=== PATIENT | female | born 1965 | race Caucasian/White ===

== ENCOUNTER 2020-12-04 08:40 | Emergency (ER) | payer OTHER ==
--- OUTSIDE RECORDS SUMMARY | 2020-12-04 08:47 | XMS REPORT | Continuity of Care Document ---
:1965 Author Organization [facility] t Address [address] [place] [address] Care Team Providers Name Role Phone System, Not In Primary Care Physician Unavailable CINDY Attending Clinician Unavailable YUDITH Attending Clinician Unavailable EDIL RABAGO Attending Clinician Unavailable EDIL RABAGO Attending Clinician Unavailable Edil Rabago MD Attending Clinician Cornell Mckeon MD Attending Clinician Alexei KELLER Attending Clinician Chaz Steen MD Attending Clinician Khadijah Sims CRNA Attending Clinician Eddie Feldman Attending Clinician Unavailable Edil Rabago MD Attending Clinician Mckenna CARO P Attending Clinician YUDITH Attending Clinician Unavailable Nati Aj MD Attending Clinician Elisabeth Mayfield MD Attending Clinician Buddy KELLER Attending Clinician MD NATI AJ Attending Clinician Unavailable Lab, Fam Pob I Attending Clinician Unavailable NILE Attending Clinician Unavailable HADNOTT Attending Clinician Unavailable EDIL RABAGO Admitting Clinician Unavailable Eddie Feldman Admitting Clinician Unavailable RAIZA Admitting Clinician Unavailable MD NATI AJ Admitting Clinician Unavailable Payers Payer Name Policy Type Policy Effective Date Expiration Date Sour ce Number BCBSTX PPO [id number] 2019 00:00:00 OUT OF STATE [id number] BCBS - PPO - BCBS OPEN ACCESS [id number] 2016 HMO/POS/EPO/PPO 00:00:00 - AETANJALI CVCP-BCBS [id number] BLUE CROSS/BLUE [id number] [address] [facility] - SHIELDBCBS PPO 00:00:00 Medical Ce nter POS EPO [id number], [place] [id number] BCBSBCBS CHOICE [id number] PPO/FEDERAL EMPL 00:00:00 Hospital [id number] PO Problems Condition Condition Condition Status Onset Resolution Last Treating Co mments Source Name Details Category Date Date Treatment Clinician Date Renal mass Renal mass Disease Active [facility]12 [facility] - 00:00: Medical 00 [place] 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 11-03 [facility] - 00:00: Medical [place] Right Right Disease Active [facility] ureteral ureteral 618 [facility] - stone stone 00:00: Medical 00 [place] Nephrolith Nephrolith Disease Active [facility] iasis iasis 6-18 [facility] - 00:00: Medical 00 Center Cervical Cervical Disease Active 2017-04 Metho di stenosis stenosis 2-18 st of spinal of spinal 00:00: Hosp mojgan canal canal 00 l Degenerati Degenerati Disease Active 2018- M ethodi on of on of 2-18 st cervical cervical 00:00: Hospit a disc disc 00 l without without myelopathy myelopathy Rheumatoid Rheumatoid Disease Active 2018-0 M ethodi aortitis aortitis 08-25 st 00:00: Hospita 00 l Osteoarthr Osteoarthr Disease Active 2018-0 M ethodi itis itis 5-03 st 00:00: Hospita 00 l 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 (dislocati [address] st on of on of 00:00: Hospita temporoman temporoman 00 l dibular dibular joint) joint) Acute Acute Disease Active Methodi bilateral bilateral 5-02 st low back low back 00:00: Hospit a pain with pain with 00 l left-sided left-sided sciatica sciatica Rheumatoid Rheumatoid Disease Active [facility] arthritis arthritis 07-01 [facility] - 00:00: Medical 00 Center Vitamin D Vitamin D Disease Active [facility] deficiency deficiency 07-01 Kanika kes - 00:00: Medical 00 Center Long-term Long-term Disease Active [facility] use of use of 07-01 [facility] - immunosupp immunosupp 00:00: Me dical ressant ressant 00 Center medication medication Osteoarthr Osteoarthr Disease Active [facility] itis, itis, 07-01 [facility] - multiple multiple 00:00: Medica l sites sites 00 Center History of History of Problem Resolve Univers rheumatoid rheumatoid d [place] of History of Problem Resolve Univers blood blood d ity of clots clots [place] [facility] ans History of History of Problem Resolve Univers hemorrhoid hemorrhoid d it y of s s [place] [facility] ans History of History of Problem Resolve Univers hypertensi hypertensi d it y of on on [place] [facility] ans History of History of Problem Resolve Univers kidney kidney d ity of stones stones [place] [facility] ans History of History of Problem Resolve Univers staphyloco staphyloco d it y of ccal ccal [place] infection infection Phys ici ans History of History of Problem Resolve Univers Tumor Tumor d ity of [place] Physici ans Knee pain, Knee pain, Problem Active U nivers bilateral bilateral ity of [place] Physici ans Primary Primary Problem Active Univers osteoarthr osteoarthr it y of itis of itis [facility] right knee right knee Ph ysici ans Localized Localized Problem Active Uni vers osteoarthr osteoarthr it y of itis of itis [facility] both knees both knees Ph ysici ans Primary Primary Problem Active Univers localized localized [place] of [place]oarth[place] it[place] of itis of [facility] left knee left knee ans Status Status Problem Active Univers post total post total it y of left knee left knee [place] replacemen replacemen Ph ysici t t ans Aftercare Aftercare Problem Active Uni vers following following ity of left [place] left knee [place] joint joint Physici replacemen replacemen an s t surgery t surgery Pain and Pain and Problem Active Unive rs swelling swelling ity of of left of left [place] lower leg lower leg Phys ici ans Impingemen Impingemen Problem Active U nivers t syndrome t syndrome it y of of left of left [place] shoulder shoulder Physic i ans Glenohumer Glenohumer Problem Active U nivers al al ity of arthritis, arthritis, [place] left left [place]ici ans Left Left Problem Active Univers shoulder shoulder ity of tendonitis [place]itis [place] Quadriceps Quadriceps Problem Active U nivers weakness weakness ity of [place] Physici ans Weakness Weakness Problem Active Unive rs of both of both ity of lower lower [place] extremitie extremitie Ph ysici s s ans Hamstring Hamstring Problem Active Uni vers tendinitis tendinitis it y of of left of left [place] thigh thigh Physici ans Allergies, Adverse Reactions, Alerts Allergy Allergy Status Severity Reaction(s) Onset Inactive Treating Comm ents Source Name Type Date Date Clinician morphine DA Active SV 2019-04 [facility] 2-12 Clear 00:00: Ibarra 00 [facility] Diphenhy Propensi Active Palpitations Methodi dramine ty to 5-02 st Hcl adverse 00:00: Hospita reaction 00 l s to drug Diphenhy Drug Active Palpitations [facility] dramine Allergy 5-02 [facility] - Hcl 00:00: Medical 00 Center No Known DA Active U 2012-04 [facility] Allergie 0-07 [place] [facility] 00:[facility]: d 00 Medical Center Family History Family Member Diagnosis Comments Start Date Stop Date Source Grandmother Family history of Univer sity of diabetes mellitus [place] [facility] Grandmother Family history of Univer sity of cardiac disorder [place] [facility] Grandmother Family history of Univer sity of hypertension [place] Phys[facility] ians aunt Family history of Univers ity of hypertension [place] [facility] uncle Family history of Univers ity of cardiac disorder [place] [facility] Grandfather Family history of Univer sity of malignant neoplasm of Fabio as Physicians colon Grandfather Family history of Univer sity of cardiac disorder [place] [facility] Grandfather Family history of Univer sity of hypertension [place] [facility] ians Mother Family history of Univers ity of diabetes mellitus [place] [facility] Father Family history of Univers ity of hypertension [place] [facility] ians Father Family history of PSP Uni versity of (progressive [place] Physic ians supranuclear palsy) Father Family history of Univers ity of malignant neoplasm of Fabio as Physicians prostate Father Family history of Univers ity of malignant neoplasm of Fabio as Physicians skin Father Family history of Univers ity of chronic lymphoid [place] [facility] leukemia Sister Family history of Univers ity of hypertension [place] [facility] ians Brother Family history of Univers ity of cardiac disorder [place] [facility] Brother Family history of Univers ity of Transplanted heart [place] [facility] Natural mother Diabetes [facility] Natural mother Osteoarthritis [facility] Natural father Cancer [facility] Natural brother Coronary artery [facility] Other Rheum arthritis [facility] Social History Social Habit Start Date Stop Date Quantity Comments Source Sex Assigned At [facility] Tobacco use and 2020-11-04 2020-11-04 Never used [facility] - exposure 00:00:00 00:00:00 [facility] Alcohol intake 2020-11-04 2020-11-04 Current [facility] es - 00:00:00 00:00:00 non-drinker of [facility] nter alcohol (finding) Smoking Status Start Date Stop Date Source Never smoker [facility] Medications Ordered Filled Start Stop Current Ordering Indication Dosage Frequency Signature Comments Components Source Medication Medication Date Date Medication? Clinician (SIG) Name Name loratadine Yes 10mg QD Take [address] (CLARITIN) 7-13 by mouth [facility] - 10 mg 19:22: daily. Medical tablet 57 [place] PYRILAMINE/ Yes Take by [facility] PE/DEXTROME 7-13 mouth. [facility] - THORPHAN 19:22: Medical (POLY HIST 57 Center DM ORAL) aspirin 81 Yes 81mg QD Take [address] MG EC 7-13 by mouth [facility] - tablet 19:22: daily. Medical Center ascorbic Yes 1000mg QD Take 1,[address] acid, 7-13 mg by [facility]ukes - vitamin C, 19:22: mouth Medica l (vitamin C) 57 daily. Center 1000 MG tablet zinc Yes 50mg QD Take [address] gluconate 7-13 by mouth [facility] - 50 mg 19:22: daily. Medical tablet 57 [place] cholecalcif Yes 1000U QD Take 1,[address] mi, 7-13 Units by Fan - vitamin D3, 19:22: mouth Medic al 25 mcg 57 daily. Center (1,000 unit) capsule fluconazole Yes 100mg Take [address] (DIFLUCAN) 7-13 mg by [facility]ukes - 100 MG 19:22: mouth Medical tablet 57 once. Center ciprofloxac Yes 100mg Q.5D Take [address] in HCl 7-13 mg by Kanikakes - (CIPRO) 100 19:22: mouth 2 Med ical MG tablet 57 (two) Center times daily. amoxicillin Yes Q.5D Take by [facility] -clavulanat -13 mouth 2 [facility] - e 19:22: (two) Medical (AUGMENTIN) 57 times Center 200-28.5 daily. mg/5 mL suspension docusate 2020- No 100mg Q.5D Take 1 [facility] t sodium 11-04 capsule Fan - (COLACE) 00:00: 23:59 (100 mg Medic al 100 MG 00 :00 total) by Center capsule mouth 2 (two) times daily for 10 days. traMADoL 2020- No 50mg Take [address] (ULTRAM) 50 11-04 tablet (50 L ukes - mg tablet 00:00: 23:59 mg total) Me dical 00 :00 by mouth Center every 6 (six) hours as needed for Pain for up to 10 days. Max Daily Amount: 200 mg HYDROcodone 2020- No 1{tbl} Take [address] -acetaminop 11-04 tablet by Kanika herrera (NORCO 00:00: 23:59 mouth Medic al 5-325) 00 :00 every 6 Center 5-325 mg (six) per tablet hours as needed for Pain for up to 10 days. Max Daily Amount: 4 tablets traMADoL 2020- No 50mg Take [address] (ULTRAM) 50 11-04- tablet (50 L ukes - mg tablet 00:00: 00:00 mg total) Me dical 00 :00 by mouth Center every 6 (six) hours as needed for Pain for up to 10 days. Max Daily Amount: 200 mg tamsulosin Yes .4mg QD Take 1 [facility] t (FLOMAX) 10-10 capsule [facility]ukes - 0.4 mg Cap 00:00: (0.4 mg Medi godwin 24 hr 00 total) by Center capsule mouth daily. oxybutynin 2021- Yes 10mg Take [address] (DITROPAN-X 10-10 tablet (10 L ukes - L) 10 MG 24 00:00: 23:59 mg total) Medical hr tablet 00 :00 by mouth Center daily as needed (bladder spasms). traMADoL 2020- No 50mg Take [address] (ULTRAM) 50 10-10 tablet (50 L ukes - mg tablet 00:00: 23:59 mg total) Me dical 00 :00 by mouth Center every 6 (six) hours as needed for Pain for up to 10 days. Max Daily Amount: 200 mg docusate 2020- No 100mg Q.5D Take 1 [facility] t sodium 10-10 capsule [facility]ukes - (COLACE) 00:00: 23:59 (100 mg Medic al 100 MG 00 :00 total) by Center capsule mouth 2 (two) times daily for 10 days. cephalexin 2020- No 500mg [id number] Take [address] (KEFLEX) 10-10 [id number] capsule L ukes - 500 MG 00:00: 23:59 3D (500 mg Medical capsule 00 :00 total) by Center mouth 3 (three) times daily for 7 days. phenazopyri 2020- No 100mg Take [address] dine 10-10 tablet [facility]ukes - (PYRIDIUM) 00:00: 23:59 (100 mg Med ical 100 MG 00 :00 total) by Center tablet mouth 3 (three) times daily as needed for up to 3 days. tofacitinib 2019-04 Yes 1{tbl} QD Take 1 Me thodi citrate 1-[address] (XELJANZ 18:28: mouth Hospita ORAL) 47 daily. l DOSE IS 11 MG cholecalcif 2019-04 Yes 400U QD Take 400 Me thodi mi, 1-[address] vitamin D3, 18:28: mouth Hospi ta (cholecalci 47 daily. l ferol) 400 unit tablet aspirin 2019-04 Yes 81mg QD Take 81 mg Meth mary (ECOTRIN) -[address] 81 MG 18:28: daily. Hospita enteric 47 l coated tablet gabapentin 2019-04 Yes 300mg QD Take 300 Me thodi (NEURONTIN) 1-[address] 300 mg 18:28: mouth Hospita capsule 47 daily. l citalopram 2019-04 Yes 20mg QD Take 20 mg M ethodi (CeleXA) 10 -[address] MG tablet 18:28: nightly. Hosp mojgan 47 l traMADoL 2019-04 2020- No 10[address] 50mg Q6H Take 1 Metho di (Ultram) 50 04-29- tablet (50 s t mg tablet 00:00: 05:59 mg total) Ho spita 00 :00 by mouth l every 6 (six) hours as needed for moderate pain for up to 5 days .acute pain. ciprofloxac 2019-04- No 500mg Q.5D Take 1 Me thodi in (CIPRO) 04-[address] 500 MG 00:00: 05:59 (500 mg Hospita tablet 00 :00 total) by l mouth 2 (two) times a day for 3 days. HYDROcodone HYDROcodone 2019-0 Yes ANGELA 1 Q6H TAKE 1 Univers -Acetaminop -Acetaminop 7-11 RAMÍREZ-BAR TABLET ity of hen 10-325 hen 10-325 00:00: RE M.D. EVERY 6 [place] MG Oral MG Oral 00 HOURS PRN Phys ici Tablet Tablet ans Enoxaparin Enoxaparin 0 Yes ANGELA Please Univers Sodium 40 Sodium 40 7-10 RAMÍREZ-BAR inject 0.4 ity of MG/0.4ML MG/0.4ML 00:00: RE M.D. ml syringe [place] Subcutaneou Subcutaneou 00 once P hysici s Solution s Solution daily. a ns Gabapentin Gabapentin 2019-0 Yes ANGELA TAKE 1 Univers 300 MG Oral 300 MG Oral 7-04 RAMÍREZ-BAR CAPSULE BY ity of Capsule Capsule 00:00: RE M.D. MOUTH Fabio as 00 THREE Physici TIMES A ans DAY HYDROcodone HYDROcodone 2019-0 Yes ANGELA 1 Q4H TAKE 1 Univers -Acetaminop -Acetaminop 7-02 RAMÍREZ-BAR TABLET ity of hen 10-325 hen 10-325 00:00: RE M.D. EVERY 4 [place] MG Oral MG Oral 00 HOURS PRN Phys ici Tablet Tablet ans Diclofenac Diclofenac 2016-04 Yes TATUM QD APPLY TO Univers Sodium 1 % Sodium 1 % 2-28 HADNOTT LOWER ity of GEL GEL 00:00: M.D. EXTREMITIE [place] 00 S, 4 GM OF Physici GEL TO ans AFFECTED AREA 4 TIMES DAILY. DO NOT APPLY MORE THAN 16 GM DAILY TO ANY ONE AFFECTED JOINT. celecoxib Yes 200mg Q.5D Take 1 [facility] t (CELEBREX) 2-29 capsule [facility]ukes - 200 MG 00:00: (200 mg Medical capsule 00 total) by Center mouth 2 (two) times daily. doxycycline Yes . [facility] (VIBRAMYCIN 12-25 [facility] - ) 100 MG 00:00: Medical capsule 00 Center citalopram Yes 20mg QD Take [address] (CELEXA) 20 1-19 by mouth Luke s - MG tablet 00:00: daily . Medic al 00 Center Xeljanz XR Xeljanz XR Yes QD TAKE 1 U nivers 11 MG Oral 11 MG Oral TABLET i ty of Tablet Tablet DAILY [place] Extended Extended Physici Release 24 Release 24 ans Hour Hour Citalopram Citalopram Yes 1 QD TAKE 1 U nivers Hydrobromid Hydrobromid TABLET ity of e 20 MG e 20 MG DAILY. [place] Oral Tablet Oral Tablet P hysici ans Aspirin 81 Aspirin 81 Yes 1 QD TAKE 1 U nivers MG Oral MG Oral TABLET ity of Tablet Tablet DAILY. [place] Delayed Delayed Physici Release Release ans Tylenol Tylenol Yes 1 QD TAKE 1 Univers Extra Extra TABLET ity of Strength Strength DAILY PRN [place] 500 MG Oral 500 MG Oral P hysici Tablet Tablet ans Celecoxib Celecoxib Yes ANGELA TAKE 1 Un live 200 MG Oral 200 MG Oral RAMÍREZ-BAR CAPSULE BY ity of Capsule Capsule RE M.D. MOUTH [place] TWICE Physici DAILY THE ans DAY BEFORE SURGERY, AND 1 CAPSULE THE MORNING OF SURGERY Vital Signs Vital Name Observation Time Observation Value Comments Source Systolic blood 2020-11-04 15:50:00 111 mm[Hg[facility] Diastolic blood 2020-11-04 15:50:00 63 mm[Hg] [facility] Heart rate 2020-11-04 15:50:00 64 /min [facility] Body temperature 2020-11-04 15:50:00 35.78 Isha [facility] Respiratory rate 2020-11-04 15:50:00 18 /min [facility] Oxygen saturation in 2020-11-04 15:50:00 98 /min [facility] - Arterial blood by Medical Ce nter Pulse oximetry Body height 2020-11-03 05:58:00 170.2 cm [facility] Body weight 2020-11-03 05:58:00 101 kg [facility] BMI 2020-11-03 05:58:00 34.87 kg/m2 [facility] Weight 2020-07-02 11:36:00 222 [lb_av] Universi [facility] Physician s Body mass index 2020-07-02 11:36:00 34.77 kg/m2 Unive rsity of (BMI) [Ratio] [place] Physicia Systolic blood 2020-02-28 18:03:00 123 mm[Hg] [facility] pressure Diastolic blood 2020-02-28 18:03:00 72 mm[Hg] [facility] pressure Heart rate 2020-02-28 18:03:00 62 /min [facility] Respiratory rate 2020-02-28 18:03:00 16 /min [facility] Oxygen saturation in 2020-02-28 18:03:00 99 /min [facility] Arterial blood by Pulse oximetry Body temperature 2020-02-28 17:30:00 36.78 Isha [facility] Body height 2020-02-28 13:15:00 170.2 cm [facility] Body weight 2020-02-28 13:15:00 101.107 kg [facility] BMI 2020-02-28 13:15:00 34.91 kg/m2 [facility] Height 2017-04-26 11:07:00 67 [in_us] Universi ty [facility] Physician s Weight 2017-04-26 11:07:00 235 [lb_av] Universi [facility] Physician s Body Mass Index 2017-04-26 11:07:00 36.81 kg/m2 Unive rsity of Calculated [place] Physician s Procedures Procedure Date / Time Performing Clinician Source Performed BASIC METABOLIC PANEL (7) 2020-11-04 03:37:00 Wyatt Collins [facility], [facility] CBC W/PLT COUNT & AUTO 2020-11-04 03:37:00 Wyatt Collins [facility] BASIC METABOLIC PANEL (7) 2020-11-03 13:04:00 Nati Mejia [facility] HEMOGLOBIN AND HEMATOCRIT 2020-11-03 13:04:00 Nati Mejia [facility] TISSUE EXAM 2020-11-03 11:05:00 Gage Rabago [facility] LAPAROSCOPY,NEPHRECTOMY 2020-11-03 07:14:00 Gage Rabago [facility] ABORH, MANUAL 2020-11-03 06:24:00 Catrina Ness [facility] XR CHEST 2 VIEWS 2020-10-30 11:40:00 Gage Rabago [facility] ECG 12-LEAD 2020-10-30 11:12:38 Gage Rabago [facility] APTT 2020-10-30 11:12:00 Gage Rabago [facility] BASIC METABOLIC PANEL (7) 2020-10-30 11:12:00 Gage Rabago [facility] CBC W/PLT COUNT & AUTO 2020-10-30 11:12:[address] [facility] PROTHROMBIN TIME/INR 2020-10-30 11:12:00 Gage Rabago [facility] TYPE AND SCREEN, AUTOMATED 2020-10-30 11:12:00 Gage Rabago [facility] FL FLUORO NON-SPECIFIC UP 2020-10-10 17:15:00 Gage Rabago [facility] 1 HOUR [facility] STONE ANALYSIS 2020-10-10 16:29:51 Gage Rabago [facility] URINE CULTURE 2020-10-10 15:33:45 Gage Rabago [facility] CYSTOSCOPY,URETEROSCOPY W/ 2020-10-10 14:45:00 Gage Rabago [facility] LITHOTRIPSY AND URETERAL Medical Center STENT CYSTOSCOPY,RETROGRADES 2020-10-10 14:45:00 Gage Rabago [facility] PROCEDURE W/ C-ARM 2020-10-10 14:45:00 Gage Rabago [facility] POCT , URINE 2020-10-10 11:32:00 Neil Mauro [facility] URINE CULTURE 2020-10-10 11:26:00 Gage Rabago [facility] URINALYSIS W/ MICROSCOPIC 2020-10-10 11:23:00 Gage Rabago [facility] APTT 2020-10-10 11:22:00 Gage Rabago [facility] BASIC METABOLIC PANEL (7) 2020-10-10 11:22:00 Gage Rabago [facility] CBC W/PLT COUNT & AUTO 2020-10-10 11:22:00 Gage Rabago [facility] PROTHROMBIN TIME/INR 2020-10-10 11:22:00 Gage Rabago [facility] MA AN ELECTIVE 2020-02-28 16:03:38 Pola Goodwin H ospital SUPRAGLOTTIC AIRWAY CYSTO RETROGRADE 2020-02-28 15:47:00 [facility], [facility] HCG QUALITATIVE, URINE 2020-02-28 13:04:00 [facility], [facility] SCREEN COVID-19 QUALITATIVE 2020-02-26 23:41:00 [facility], [facility] RT-PCR BASIC METABOLIC PANEL 2020-02-26 23:41:00 [facility], [facility] ESTIMATED GFR 2020-02-26 23:41:00 [facility], [facility] URINE CULTURE 2020-02-26 23:40:00 [facility], [facility] HC COMPLETE BLD COUNT 2020-02-26 23:40:00 [facility] W/AUTO DIFF URINALYSIS SCREEN AND 2020-02-26 23:40:00 [facility] MICROSCOPY, WITH REFLEX TO CULTURE PROTHROMBIN TIME WITH INR 2020-02-26 23:40:00 [facility] [QL] URINALYSIS, COMPLETE 2020-01-15 00:00:00 [facility]/REF[facility] TO CULTURE Physicians [Q] CULTURE, URINE, 2020-01-15 00:00:00 Universi ty [facility] ROUTINE (REFL) Physicians MR Shoulder wo contrast 2019-12-19 00:00:00 [facility] [id number] Physicians Post Op Promis 29 Survey 2019-11-22 00:00:00 [facility] US Extremity lower venous 2019-11-02 00:00:00 [facility] Un[facility] [id number] Physicians Initial Promis 29 Survey 2019-10-13 00:00:00 Uni [facility] Physicians [U] XR KNEE 3 VWS 2019-09-18 00:00:00 [facility] BILATERAL Physicians History of Arthroscopy Universit y [facility] Shoulder Right Physicians History of Arthroscopy [facility] Knee Right Physicians History of Back Surgery Universi [facility] Physicians History of Neck Surgery [facility] Physicians History of Carpal tunnel Univers [facility] surgery Physicians History of Cubital tunnel Univer [facility] repair Physicians History of Elbow Surgery Univers [facility] Repair Physicians History of Hand Surgery [facility] Physicians History of Neurostimulator Unive [facility] device insertion Physicians History of Total Knee [facility] Replacement Left Physicians Plan of Care Planned Activity Planned Date Details Comments Source Future Scheduled 2020-12-[address] [facility] - Test 00:00:00 (#1) [code = [facility] INFLUENZA VACCINE (#1)] Future Scheduled 2014 SHINGLES VACCINES ([address] [facility] - Test 00:00:00 of 2) [code = [facility] SHINGLES VACCINES (1 of 2)] Future Scheduled [address] [facility] - Test 00:00:00 (procedure) [code = [facility] 24788190] Future Scheduled [address] [facility] - Test 00:00:00 malignant neoplasm of Medica l Center cervix (procedure) [code = 299867659] Future Scheduled 1983-07-31 DTAP/TDAP/TD VACCINES [facility] - Test 00:00:00 (1 - Tdap) [code = Medical C enter DTAP/TDAP/TD VACCINES (1 - Tdap)] Future Scheduled [address] [facility] - Test 00:00:00 malignant neoplasm of [facility] breast (procedure) [code = 215639241] Future Scheduled [address] [facility] - Test 00:00:00 malignant neoplasm of [facility] colon (procedure) [code = 048125029] Future Scheduled COVID-19 [facility]ACCINE (1) [facility] [code = COVID-19 VACCINE (1)] Future Scheduled [facility] ([facility] [code = 401548101] Future Scheduled [facility] Test malignant neoplasm of cervix (procedure) [code = 424882485] Future Scheduled BREAST CANCER [facility] Test SCREENING [code = BREAST CANCER SCREENING] Future Scheduled [facility]code = [facility]ON[facility]COPY SCREENING] Future Scheduled [facility] (#1) [code = SHINGLES VACCINES (#1)] Future Scheduled INFLUENZA VACCINE [facility] [code = INFLUENZA VACCINE] Encounters Start End Encounter Admission Attending Care Care Encounter Source Date/Time Date/Time Type Type Clinicians Facility Department ID 2020-10-30 Outpatient [facility] [id number] [place] 08:16:17 Health 2020-10-30 Outpatient AZEEM TEJADA [facility] [id number] [place] 07:57:08 [facility] 2020-10-07 Outpatient RAMÍREZASHLEY [facility] [id number] [place] 14:25[facility]56 [facility] Outpatient [facility] [id number] [place] 08:49:44 Health 2020-10-01 Outpatient AZEEM TEJADA [facility] [id number] [place] 16:23:03 Health 2020-08-30 Outpatient RAMÍREZ-RAMIREZ [facility] [id number] [place] 04:26:04 E, ANGELA [facility] 2020-11-24 2020-11-24 Outpatient CHRISTIAN RABAGO Eddie [id number] [address] [place] [address] 15:19:37 16:15:43 [facility] 2020-10-30 2020-10-30 Outpatient BCM [facility] [id number] [facility] 00:00:00 23:59:00 [facility] 2020-10-30 2020-10-30 Office Azeem Tejada 6400 1.2.840.114 1 [id number] 07:57:02 08:57:[address] 350.1.13.58 9.2.7.2.686 [id number] 2020-10-09 2020-10-09 [facility] [id number] [facility] 12:00:00 12:00:00 Ye [id number] [facility] 2020-10-07 2020-10-07 Office [facility] 1.2.840.114 11 [id number] 13:14:05 14:24:51 Visit Angela mayo STACEY 350.1.13.58 MEDICAL 9.2.7.2.686 [address] 7 [id number] 2020-10-02 2020-10-02 Abstract Yahir [facility] 1.2.840.114 1 [id number] 00:00:00 00:00:00 eAngela 350.1.13.58 MEDICAL 9.2.7.2.686 PLAZA 7 [id number] 7 2020-09-24 2020-09-24 Outpatient [facility] [id number] [facility] 12:26:48 19:31:01 [facility] [employer] [facility] [employer] 2020-08-21 2020-08-21 Office CHRISTIAN Rabago 1.2.840.114 [id number] 08:09:09 10:04:59 Visit Gage Solo AMBULATOR 350.1.13.21 Y 0.2.7.2.686 [id number] 300 2020-07-22 2020-07-22 Office CHRISTIAN Andres 1.2.840.114 [id number] 15:56:21 17:30:04 Visit Vadim Morocho AMBULATOR 350.1.13.21 Y 0.2.7.2.686 [id number] 300 2020-07-02 2020-07-02 [facility] [id number] Univers 10:15:00 10:15:00 t; ANGELA [place] i ty of [facility] [address]Gabby II [place] RE, ANGELA, Physi ci M.D. ans 2020-06-13 2020-06-13 [id number] Univers 15:15:00 15:15:00 t; AGNELA Mayo ity of [facility] [place] RE, ANGELA, Physi ci M.D. ans 2020-06-06 2020-06-06 Outpatient [facility] [id number] 11:08:00 11:08:00 [facility] 2020-04-30 2020-04-30 [facility] [id number] Univers 15:00:00 15:00:00 t; ANGELA Mayo - [place] i ty of [facility] [place] RE, ANGELA, Physi ci M.D. ans 2020-04-22 2020-04-22 [facility] [id number] Univers 16:00:00 16:00:00 t; ANGELA Mayo ity of [facility] [place] RE, ANGELA, Physi ci M.D. ans 2020-02-28 2020-02-28 Hospital [facility] Matty 1.2.840.1 [id number] Methodi 07:00:00 12:28:00 Encounter Nati [address]113.1.[address] 3.430.2.7 Hospit a .3.124190 l .8 2020-02-28 2020-02-28 Surgery [facility] 1.2.840.1 [id number] 21 [id number] Methodi 09:35:00 10:50:[address] 3.430.2.7 Hospit a .3.894565 l .8 2020-02-28 2020-02-28 Anesthesia Cher Mayfield 1.2.840.1 10 [id number] Methodi 09:47:00 10:27:00 Event Pola Goodwin [address]9525.1.[address] 3.430.2.7 Hospit a .3.217536 l .8 2020-02-28 2020-02-28 Outpatient [place] [id number] 276 [id number] [place] 00:00:00 00:00:[address] 2020-02-28 2020-02-28 Travel 1.2.840.1 1.2.687.452 3109 [id number] Methodi 00:00:00 00:00:[address] 3.430.2.7 0.2.7.3.698 Ho spita .3.678283 084.8 l .8 2020-02-26 2020-02-26 Outpatient [facility] 321 [id number] [place] 00:00:00 00:00:[address] 2020-02-26 2020-02-26 Travel 1.2.840.1 1.2.478.031 [id number] Methodi 00:00:00 00:00:[address] 3.430.2.7 0.2.7.3.698 Ho spita .3.031579 084.8 l .8 2020-02-19 2020-02-19 Appointmen YAHIR [facility] [id number] [facility] 15:45:00 15:45:00 t; ANGELA Mayo - [place] i ty of EDUAR Gomez [facility] ANGELA DIMAS Physi ci M.D. [facility] 2020-02-05 2020-02-05 Travel 1.2.840.1 1.2.817.937 3742 [id number] Methodi 00:00:00 00:00:[address] 3.430.2.7 0.2.7.3.698 Ho spita .3.824204 084.8 l .8 2020-01-15 2020-01-15 Appointmen YAHIR [facility] Orthopedics [id number] [facility] 16:00:00 16:00:00 t; ANGELA Mayo - [place] i ty of RAMÍREZ-STEPHANIE Gomez II [place] RE, ANGELA, Physi ci M.D. ans 2019-12-22 2019-12-22 Laboratory Lab, [facility] 1.2.840.114 [id number] 15:55:24 16:15:24 Only Fam Pob I Health 350.1.13.10 [place] 4.2.7.2.686 Professio [id number] nal 044 Office [address] One 2019-12-22 2019-12-22 Letter Lab, [facility] 1.2.840.114 [id number] 00:00:00 00:00:00 (Out) Fam Pob I Health 350.1.13.10 [place] 4.2.7.2.686 Professio [phone] [place] [address] [address] 2019-12-04 2019-12-04 Appointmen YAHIR [facility] Orthopedics [id number] Univers 08:45:00 08:45:00 t; ANGELA Mayo - [place] i ty of DARRELL-STEPHANIE Gomez [place] ANGELA Aguayo, Physi ci M.D. ans 2019-11-23 2019-11-23 Appointmen NILE [facility] Orthopedics [id number] Univers 10:00:00 10:00:00 t; Tal DAMIAN ity of NILE, HYPERBARIC TECHNOLOGIST II [place] Yanely DAMIAN APRN ans 2019-11-07 2019-11-07 Appointmen YAHIR [facility] Orthopedics [id number] Univers 11:00:00 11:00:00 t; ANGELA Mayo - [place] i ty of RAMÍREZ-STEPHANIE Gomez [place] ANGELA Aguayo, Physi ci M.D. ans 2019-11-02 2019-11-02 Appointmen YAHIR [facility] Orthopedics [id number] Univers 09:30:00 09:30:00 t; ANGELA Mayo - [place] i ty of RAMÍREZ-STEPHANIE Morgan.Gabby II [place] RE, ANGELA, Physi ci M.D. ans 2019-10-25 2019-10-25 Appointmen YAHIR [facility] Orthopedics [id number] Univers 09:00:00 09:00:00 t; ANGELA Mayo - [place] i ty of DARRELL-BAR M.D. II [place] RE, ANGELA, Physi ci M.D. ans 2019-09-19 2019-09-19 [facility] [id number] Univers 10:00:00 10:00:00 t; E, ANGELA, - [place] i ty of RAMÍREZ-BAR M.D. II [place] RE, ANGELA, Physi ci M.D. ans 2019-08-28 2019-08-28 [facility] [id number] Univers 16:00:00 16:00:00 t; E, ANGELA, - [place] i ty of [facility] M.D. II [place] RE, ANGELA, Physi ci M.D. ans 2019-08-28 2019-08-28 [facility] [id number] Univers 16:00:00 16:00:00 t; E, ANGELA, - [place] i ty of RAM[facility]REZ-[facility] Eddie.D. II [place] RE, ANGELA, Physi ci M.D. ans 2019-02-22 2019-02-22 [facility] [id number] Univers 16:00:00 16:00:00 t; hector WINN [facility] i ty of Jason GTZ [place] Alexis WINN Orthopedic Sejal hawkins M.D. and Spine [facility] 2017-06-02 2017-06-02 Appointcharles GTZ [address] 16:00:00 16:00:00 t; Alok WINN i ty of Jason GTZ Physici M.D. [facility] 2017-04-21 2017-04-21 Appointcharles GTZ [facility] Orthopedics 36 [id number] Univers 14:30:00 14:30:00 t; Pedro WINN M.D. [place] WILLIAM, Physici M.D. [facility] Results Test Description Test Time Test Comments Results Result Comments Source Tissue Exam 2020-11-07 12:54:00 Test Item Value Reference Range Interpretation Comme nts Case Report (test code = 104) Surgical Pathology Report Case: [id number] Authorizing Provider: Gage Rabago MD Collected: 11/03/2020 11:05 AM Ordering Location: [facility] PERI[facility] Received: 11/03/2020 02:30 PM SERVICES Pathologist: Jazmyne Mendes MD Specimens: A) - Kidney, Left B) - Lymph Node, Para-aortic lymph node DIAGNOSIS (test code = 3220) h7croWSpZOGmq4luNUWpqITxUzCvCpSvXnEtCn pc dWMxIHtccnRmMVxlcGljOTIwMlxhbnNpXHNwbHRw Y0IqiptaDUqwPK5cPD9yeRsznOKgeXWmJWQjVnWx a2kqh166sBBug7ldSVITjkbzyOn7uLbjB13do4E4 XhslC97ybWXlWAybmFOngvriofPzLMJuYGeBQC6V DJsvHTCLFAwrMjMVJWJIFBFBISXZKwIYSQ7TMPgx jLDdBBPgYNhSQAjBYFxmPTGcOMkTGVJytdEjMI1D WNLPVNEWJFTCQOcKGOqlCT6PABZRUe9DRVhbVYGG Y6WegROhQNFxHH8rWCEWM9LpHNFAO5CWOMBiCHTE SLKVBbWMQhRHOPACOOMEEC1KSbLZN16toIXfRC7g GXiQTOBTRuqVR2COOU0ZHwmUGxYsQhIYIDMPAwNf Ak8AAQDNX6MBCVBSMSKYStRJCTrAS29MYrPIYJCh ygFwNKIDMQERA24FRA6JLNKckxiwXYDlXh8mSTvH VArrXl4ZIIIkDGJTOmIbCD2GKTlKTZUTGRKECOGI UA8XPzycRYBcXWXJZG5NRZFUEkqXVsHAMZ4LBEPQ X9CAUrBbOR83NXqlUXFeGOPYPCbXXEgYYFUCM7Wh WUEPYQcNOT4YWOhtIWQ9j1xwhQXvHVUflAEjXYVl GAxtviQvWEEoBjgwueciHFBeGTO2xqMnEEPxMUha VZCiWAtkLn9ypLYkfHhlRaGiJXCdj2jjcxMOqpjx eUy6h5lpRDMlZkL6lJKjMRtvK1jqxzKkcGLeWNNu OEb4kS04YZAvnN2yeOAcGBabgeEhBiJ0TCdiUGRs XyM1OLWewXRsHAQaI7mqSZZgGXlhRJCmLGjdnNJa HDA4fKcpv1C9mQKzuJMvjCjbYaXlWxSgEnOOe8Hh KSb1rBarZ4LoHKJmTyU6rZUlUSUzBTumIJDtDUOh snE3dX11DFdafzD2aFCvc5Prg10nv848xP5cnHYc CXO5ZHEuHHJoaBCbEZWdACD2SSFbrAOpT5tuOVEf HR3qumraNLhjPCzmLCWcdWZ4HYFmrSLxJ7CuEXIu FAkvKLQxjtx6PpVvWr9psFCzrBgtQUyag5lpg1qa wZZcDkp5DLJtTrMfFzyeZIfea9Jgg3gyPHPwej1g WLD6oQTspYmpi0V8jODgSWVtjDIlKHZkNT1faHJv RDHheH7bnlomDDCeJiBapzucMZAonJnbamYoZj3s jCrhSVS3HKtkS0tyxW2tJwE6WNfoQ0kzwG7wCMv8 BVgkLZUsaUH7gjB9TYXcjKAtF5VsvM6zRQWjSZ1q hlk1i0nfABC2EJnmVGGqViZ4agD9AHKcvLXkSBNv xUlyWLgbg474KVQ4VoWjJCEgr8RbV1NdoGzgY95k kXthV41pRDBslCyeiL5peVliqS8pKvHoQwJiYMfq eSqzMJ9gCXFlM6uplSQtZPYlJVEwL9ayJdDqxV3q iAtlEIbhmdUbJNGaStq2YRRccRRtZXEySuo2QPTy QQDbG82cnoauOWC9lY6ml9pur3OpANbvEMH7SDJv l39eXXbccuZ2AOxhZg5xKGYoYSApTButQWZ9nI== COMMENT (test code = 3359) q0xazVYaNYXltLK2QwViZGQey5ddy5FgcJVtwECh XOukaOVhfmKevz40pJL4rL20SS5jHMLsFeS4LKVu scB4Zuo7FFTtHNKagBOyO102c4llw7dyzlCudYN7 sTxwGOIjMDNlJSuaUULoSeOvT5XgiXfacrXvu5cv xnRrLQ8cxRFeFOCfdrGbsS6lDDBsdpIklQ3osijm YCYrnHR5gTPmLJ8uIQNxhIjnZQS3tL7cIELulRVf pLU2pF4kGF19oRVeg6HgKWN4x3SrWYcnrvWpDPY7 QJAeROZcQhQymRwqAYIpiGKgOEfxcI1zYYdfIXUj l6UjbeDeWYTuf5Aehuuyle10nNLrRTZ9vr5yNW5k TfQsZ8OvPSY1ugGtrA0daMaqBEA6xf9oMMWosQKx VIWsBOOzu62vfhAunA1cVc2rCGlpY5TwU1dmlITu hLefppJoOQNjEK8yT3WdoEBlWEJdORKfi04wa8Lg bj3fAh3nk7Reg81dyLRopUfumNAdFFUgDZ0af7Os wFsimNxwkIl7v6DuvoCftkXaOSXnq1QxlsYvxrIu k3Bmjk9oQV2cqM2hiIodcE4riMRlwKPkiLSgjVFp qDAbWEDpyiAucVB6yAK2NAVuNQOnnFCgtZElmXBm JDFuMW5oDFSBYUQga2f2tZCqEHAnHTU2eVYbPBAv tLsuoIkwtWGkrPV5zlXggrIiO5p5TCSmd0s0qSQe NqENeV5hfXiaePMvZ3rkVNLtxVdbYPuiH5lhqNbl wQQdZhqkv0MlvaFzf6Bkvb6hSWevSN7sypSeg9lp F4ghTK8cHHehlFKjh2Hpo8TzySRyUVLkAFOvewEz v2WhsfBcb0r8qWGuYF6wpUBlQHDfjKPaQXxnWUkq US8iCJY4dl1aDPmiuRRru8XnYTUtxrCPef5zQSrl wQFlYOmkFUCmWWFtlUJoGGFllfxvm8TaVOIcMZWm MLAmVTLiUIBbU3EqMWKpk2s2rFY1cDTiJJdiE47z j1mfFNUwqn7= CPT Code(s) (test code = 3357) p6stxBWjUURnpCH6MpFjVQFhf9edd0HjkROr cGFy NYdplRCuemEafj23gMA5bU80PK9zLFBlPkI0REPw qoK7Scm9AHIvFZKqzPBiB090x5fad6nmkkYpyFQ3 fVxwYXJkXHBsYWluXGZzMjAgODgzMDcgeCAyOyA4 BCT2RfuhQQegHWEcjRNmWMTwgv4= CLINICAL HISTORY (test code = 5446) x8umdAYnPOPibDG3VcUxUFMyp1lgp4A sdHBncGFy EPnqrCLiwpWbkw73kHO8oY72XA8sKGFoFlP9BIUg ctO3Kqs8AQVxKLBylVKjA206q2agw0omdvZmjYG6 fVxwYXJkXHBsYWluXGZzMjAgUmVuYWwgbWFzcywg bGVmdCBccGFyfQ== SPECIMEN SOURCE (test code = 3377) t1zeaDUwYSSfpYE4XtTaRQStr8uwb7Cf dHBncGFy QWydvDOrdbGcbd22xXV4fX23DA7pOALeOlL3PEMj iuV9Pby8WPZaMOWquHDvL662p3fgl3lwjlVddXR1 yYpvARJoFQLkKMsbACLbSmDzYO1rIOGycVXmjSRb RNq8DNFtJBq9zXWcXT5hNNMqdJMdiF== GROSS DESCRIPTION (test code = 3366) v0bxiVGkWZIpuTWfJzMqHCAwVWNbw3 lcZGVmbGFu [file] VMAzuJ6wBAA7jBJimLNePH8PFP9qpHGbpUFfcY== MICROSCOPIC DESCRIPTION (test code = z5amhPWzZHCckIL4DyMmXNWph6znr6 BsdHBncGFy 3371) ZCvmwZCnypPxhg98iSV9hR88XF3uCFGoRlR7FNXq xjG2Shh6PPArRPXdeYHbA904v4piv4idafYctAO5 uXqsFYGnGSGgHIzlXHPpKlLwQOGkZl6vkOLpXrSs cGFyfQ== SPECIAL STUDIES (test code = 3376) b4cxbEHtBFIhcOZ5PuCwTNReg1lfu0Ci dHBncGFy [file] aGFzIGRldGVybWluZWQgdGhhdCBzdWNoIGNsZWFy CM9aVCByfcMinFHiu4HotZYqlsVzr4NdmuBuOHKm UZF1SdXFmALvaILffLCavyE7g8YfCYPandUeeSmd mSXjfEJhuQCcm3Jeim6lEGJma0mnxAlhTP4geHZq ATWfWSazyoZoJLErgzHxfhCku8SoD4K5sI7wBVwa x7LfXf8sISIcx3PiveViOaESpQmcOSaqHe3fNEEe slpryKNzS6TqtOefnQXiEXCeOFTkMUGzOVJRyRtt oPOvmIASTFLwleZ2t2D4ZVueyFPyjaYkAP48LVTm BF7gdSBfgBOkn4FvNNz5MEBsL6mEAA60AAjzIXJz lFZhuMlubHVlFEXjYJOnmiDhur8sgBsstIRsk50i xPA2gYY6VZShgF1pL2EwITvkBc5dSUVelscicIPx jWciLd0jlNYuZRFaEEVlVrTcjJFoyP== [id number] 12:54:00Surgical Pathology Report Case: [id number] Authorizing Provider: Gage Rabago MD Collected: 11/03/2020 11:05 AM Ordering Location: [facility] PERIOPER[facility] Received: 11/03/2020 02:30 PM SERVICES Pathologist: Jazmyne Mendes MD Specimens: A) -Kidney, Left B) - Lymph Node, Para-aortic lymph node A. KIDNEY, LEFT, RADICAL NEPHRECTOMY: - WEIGHT: 533 GM- MIXED EPITHELIAL AND STROMAL TUMOR - TUMOR MEASURES 5 CM IN GREATEST DIMENSION- ALL SURGICAL MARGINS NEGATIVE FOR DYSPLASIA OR MALIGNANCY- SEE COMMENTB. LYMPH NODES, PARA-AORTIC, DISSECTION:- NINE BENIGN LYMPH NODES (0/9)- NEGATIVE FOR MALIGNANCY Signing Pathologist Direct Phone Line: [phone] signed by Jazmyne Mendes MD on 11/07/2020t 12:54 PMSections show renal parenchyma containing a cystic and solid tumor, displaying numerous cysts lined by flat benign epithelium, in a spindled ovarian-type stroma. Vasculature in the stroma appears prominent. Focal calcifications, foam cells are also seen. No stromal atypia, pleomorphism, piedad ses or necrosis are seen. Immunohistochemical studies reveal that the stroma is ER and MA positive and the epithelial cysts are CK7 positive. Smooth muscle actin highlights blood vessels. 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 Alexandro Daley has reviewed the case and agrees with the [id number] x 2; 39779; 50244 x 3Renal mass, left A. Left kidney; B. Lymph nodeA. Received fresh labeled with the patient's name, medical record number and "left kidney" is a 533 gm, 15.0 x 7.0 x 7.0 cm left nephrectomy specimen with an attached ureter (4.0 cm length, 0.7 cm diameter) renal artery (2.5 cm length, 0.8 cm diameter), renal vein (1.9 cm length, 1.5 cm diameter) and up to 5.4 cm of perinephric fat. An adrenal gland is not grossly identified. The specimen is inked black. The specimen is bivalved to reveal a 5.0 x 3.8 x 3.5 cm multiloculated cyst (70% cystic, 30% solid) with a smooth inner lining that exudes clear, serous fluid, located within the lower pole which is 0.2 cm of Gerota's fascia, is abutting the renal capsule, is 10.5 cm from the ureter margin, 2.5 cm from the renal vein margin, 3.0 cm from the renal artery margin, and extends into the renal sinus without definitive invasion outside its capsule. The remaining parenchyma is stone-brownand grossly unremarkable with cortex measuring up to 0.9 cm in thickness. The urothelium is stone-pink, smooth and glistening. Hilar lymph nodes are not grossly identified. Paper Roller sections are submitted in 16 cassettes as follows: A1, renal artery, renal vein, ureter margin en faceA2-A3, cyst torenal sinusA4-A5, cyst to renal capsuleA6, cyst to Gerota's fasciaA7-A13, cyst A14-A15, normal parenchyma to include ywgwhyjsehY18, hilar fat. MJP/pl B. Received fresh labeled with the patient's name,medical record number and "lymph node" is a 4.4 x 1.5 x 1.0 cm aggregate of yellow lobulated adiposetissue. The specimen is sectioned to reveal multiple possible lymph nodes ranging from 0.4 to 1.0 cmin greatest dimension. The specimen is entirely submitted submitted as follows: B1-B2, Multiple poss ible intact lymph nodesB3, 1 possible bisected lymph nodeB4-B5, remaining adipose tissue. MJP/pl Performed. The interpretation of this case included the use of immunohistochemistry or special stains.ER; MA; CK7 AND ACTINStromal cells stain positive with smooth muscle actin, estrogen receptor and progesterone receptor. 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 Control Slides Examined: In-house known positive controls were evaluated along with the test tissue. These control slides run alongside of the patients sample show appropriate staining. Internal positive and negative controls when available are evaluated Immunohistochemistry technical testing was performed at [facility]ology Laboratory where it was developed and its performance characteristics were determined. It has not been cleared or approved by the U.S. Food and Drug Administration. The FDA has determined that such clearance or approval is not necessary. The test is used for clinical purposes. It should not be regarded as investigational or for research. This laboratory is certified under the Clinical Laboratory Improvement Amendments of 1988 (CLIA-88) as qualified to perform high complexity clinical laboratory testing.Basic Metabolic Panel - In [id number] 06:03:00 Test Item Value Reference Range Interpretation Comments Sodium (test code = 138 meq/L 782-527 1236-2) Potassium (test code = 4.2 meq/L 3.5-5.1 2823-3) Chloride (test code = 103 meq/L 98-107 2075-0) CO2 (test code = 23 meq/L 22-29 2028-9) BUN (test code = 17 mg/dL 7-21 3094-0) Creatinine (test code 1.12 mg/dL 0.57-1.25 = 2160-0) Glucose (test code = 154 mg/dL 70-105 H 2345-7) Calcium (test code = 8.5 mg/dL 8.4-10.2 77538-5) EGFR (test code = 50 mL/min/1.73 [place] [address]-0) NOT ACCURATE CREATININE CLEARANCE IN PREDICTING GLOMERULAR FILTRATION RATE . ESTIMATED GFR I S NOT APPLICABLE FOR DIALYSIS PATIENTS. TIM (test code = TIM) Sieve Grader Tender ID - PIAYA L Lab Interpretation Abnormal (test code = 32107-8) [facility] [id number] 06:03:00 Test Item Value Reference Range Interpretation Comments SODIUM (BEAKER) 138 meq/L 136-145 (test code = 381) POTASSIUM (BEAKER) 4.2 meq/L 3.5-5.1 (test code = 379) CHLORIDE (BEAKER) 103 meq/L 98-107 (test code = 382) CO2 (BEAKER) (test 23 meq/L 22-29 code = 355) BLOOD UREA NITROGEN 17 mg/dL 7-21 (BEAKER) (test code = 354) CREATININE (BEAKER) 1.12 mg/dL 0.57-1.25 (test code = 358) GLUCOSE RANDOM 154 mg/dL 70-105 H (BEAKER) (test code = 652) CALCIUM (BEAKER) 8.5 mg/dL 8.4-10.2 (test code = 697) EGFR (BEAKER) (test 50 mL/min/1.73 ESTIMA KELSEY GFR IS code = 1092) sq m NOT ACCURATE CREATININE CLEARANCE IN PREDICTING GLOMERULAR FILTRATION RATE . ESTIMATED GFR I S NOT APPLICABLE FOR DIALYSIS PATIEN TS. Sieve Grader Tender ID - PIAYA LCBC with platelet count + automated [id number] 05:15:00 Test Item Value Reference Range Interpretation Comments WBC (test code = 6690-2) 9.3 See_Comment [A utomated message] The system [employer] generated this result transmitted ref erence range: 3.5 - 10 .5 K/L. The refe rence range was not u sed to interpret this result as normal/abnor mal. RBC (test code = 789-8) 4.08 See_Comment [Au tomated message] The system [employer] generated this result transmitted ref erence range: 3.93 - 5 .22 M/L. The refe rence range was not u sed to interpret this result as normal/abnor mal. MCHC (test code = 786-4) 32.2 See_Comment [A utomated message] The system [employer] generated this result transmitted ref erence range: 32.2 - 3 5.5 GM/DL. The refe rence range was not u sed to interpret this result as normal/abnor mal. Hematocrit (test code = 36.7 % 34.1-44.9 4544-3) MCV (test code = 787-2) 90.0 fL 79.4-94.8 MCH (test code = 785-6) 28.9 pg 25.6-32.2 RDW (test code = 788-0) 13.9 % 11.7-14.4 Platelets (test code = 187 See_Comment [Aut omated message] 667-3) The system [employer] generated this result transmitted ref erence range: 150 - 45 0 K/CU MM. The referen ce range was not u sed to interpret this result as normal/abnor mal. MPV (test code = 9.6 fL 9.4-12.3 55297-0) nRBC (test code = 413) 0 See_Comment [Aut omated message] The system [employer] generated this result transmitted ref erence range: 0 - 0 /1 00 WBC. The refere nce range was not u sed to interpret this result as normal/abnor mal. % Neutros (test code = 83 % 429) % Lymphs (test code = 8 % 430) % Monos (test code = 8 % 431) % Eos (test code = 432) 0 % % Baso (test code = 437) 0 % # Neutros (test code = 7.67 See_Comment H [Aut omated message] 670) The system [employer] generated this result transmitted ref erence range: 1.56 - 6 .13 K/L. The refe rence range was not u sed to interpret this result as normal/abnor mal. # Lymphs (test code = 0.77 See_Comment L [Auto mated message] 414) The system [employer] generated this result transmitted ref erence range: 1.18 - 3 .74 K/L. The refe rence range was not u sed to interpret this result as normal/abnor mal. # Monos (test code = 0.76 See_Comment H [Autom ated message] 415) The system [employer] generated this result transmitted ref erence range: 0.24 - 0 .36 K/L. The refe rence range was not u sed to interpret this result as normal/abnor mal. # Eos (test code = 416) 0.00 See_Comment L [Au tomated message] The system [employer] generated this result transmitted ref erence range: 0.04 - 0 .36 K/L. The refe rence range was not u sed to interpret this result as normal/abnor mal. # Baso (test code = 417) 0.00 See_Comment L [A utomated message] The system [employer] generated this result transmitted ref erence range: 0.01 - 0 .08 K/L. The refe rence range was not u sed to interpret this result as normal/abnor mal. Immature 1 % 0-1 Granulocytes-Relative (test code = 2801) Lab Interpretation (test Abnormal code = 56910-4) [facility] W/PLT COUNT & AUTO [id number] 05:15:00 Test Item Value Reference Range Interpretation Comments WHITE BLOOD CELL COUNT (BEAKER) 9.3 K/ L 3.5-10.5 (test code = 775) RED BLOOD CELL COUNT (BEAKER) 4.08 M/ L 3.93-5.22 (test code = 761) HEMOGLOBIN (BEAKER) (test code = 11.8 GM/DL 11.2-15.7 410) HEMATOCRIT (BEAKER) (test code = 36.7 % 34.1-44.9 411) MEAN CORPUSCULAR VOLUME (BEAKER) 90.0 fL 79.4-94.8 (test code = 753) MEAN CORPUSCULAR HEMOGLOBIN 28.9 pg 25.6-32.2 (BEAKER) (test code = 751) MEAN CORPUSCULAR HEMOGLOBIN CONC 32.2 GM/DL 32.2-35.5 (BEAKER) (test code = 752) RED CELL DISTRIBUTION WIDTH 13.9 % 11.7-14.4 (BEAKER) (test code = 412) PLATELET COUNT (BEAKER) (test 187 K/CU MM 150-450 code = 756) MEAN PLATELET VOLUME (BEAKER) 9.6 fL 9.4-12.3 (test code = 754) NUCLEATED RED BLOOD CELLS 0 /100 WBC 0-0 (BEAKER) (test code = 413) NEUTROPHILS RELATIVE PERCENT 83 % (BEAKER) (test code = 429) LYMPHOCYTES RELATIVE PERCENT 8 % (BEAKER) (test code = 430) MONOCYTES RELATIVE PERCENT 8 % (BEAKER) (test code = 431) EOSINOPHILS RELATIVE PERCENT 0 % (BEAKER) (test code = 432) BASOPHILS RELATIVE PERCENT 0 % (BEAKER) (test code = 437) NEUTROPHILS ABSOLUTE COUNT 7.67 K/ L 1.56-6.13 H (BEAKER) (test code = 670) LYMPHOCYTES ABSOLUTE COUNT 0.77 K/ L 1.18-3.74 L (BEAKER) (test code = 414) MONOCYTES ABSOLUTE COUNT (BEAKER) 0.76 K/ L 0.24-0.36 H (test code = 415) EOSINOPHILS ABSOLUTE COUNT 0.00 K/ L 0.04-0.36 L (BEAKER) (test code = 416) BASOPHILS ABSOLUTE COUNT (BEAKER) 0.00 K/ L 0.01-0.08 L (test code = 417) IMMATURE GRANULOCYTES-RELATIVE 1 % 0-1 PERCENT (BEAKER) (test code = 2801) BASIC METABOLIC [id number] 13:37:00 Test Item Value Reference Range Interpretation Comments SODIUM (BEAKER) 138 meq/L 136-145 (test code = 381) POTASSIUM (BEAKER) 3.8 meq/L 3.5-5.1 (test code = 379) CHLORIDE (BEAKER) 103 meq/L 98-107 (test code = 382) CO2 (BEAKER) (test 25 meq/L 22-29 code = 355) BLOOD UREA NITROGEN 19 mg/dL 7-21 (BEAKER) (test code = 354) CREATININE (BEAKER) 0.93 mg/dL 0.57-1.25 (test code = 358) GLUCOSE RANDOM 156 mg/dL 70-105 H (BEAKER) (test code = 652) CALCIUM (BEAKER) 8.4 mg/dL 8.4-10.2 (test code = 697) EGFR (BEAKER) (test 62 mL/min/1.73 ESTIMA KELSEY GFR IS code = 1092) sq m NOT ACCURATE CREATININE CLEARANCE IN PREDICTING GLOMERULAR FILTRATION RATE . ESTIMATED GFR I S NOT APPLICABLE FOR DIALYSIS PATIEN TS. Sieve Grader Tender ID - JULISSA MHemoglobin and [id number] 13:21:00 Test Item Value Reference Range Interpretation Comments Hemoglobin (test code 12.6 See_Comment [Auto mated = 786-4) message] The system which generated this result transmit kelsey reference range : 11.2 - 15.7 GM/ DL. The reference range was not u sed to interpret th is result as normal/abnormal . Hematocrit (test code 38.4 % 34.1-44.9 = 4544-3) TIM (test code = TIM) Sieve Grader Tender ID - 6000 Lab Interpretation Normal (test code = 14867-4) [facility]HEMOGLOBIN AND [id number] 13:21:00 Test Item Value Reference Range Interpretation Comments HEMOGLOBIN (BEAKER) (test code = 12.6 GM/DL 11.2-15.7 410) HEMATOCRIT (BEAKER) (test code = 38.4 % 34.1-44.9 411) Sieve Grader Tender ID - 6000ABORH, [id number] 07:48:00 Test Item Value Reference Range Interpretation Comments ABO Grouping (test code = 2588) O Rh Factor (test code = 2589) NEG [facility], 34-[id number] 15:31:58 Interface, External Ris In - 10/31/2020 3:32 PM CDTVentricular Rate 68 BPMAtrial Rate 68 BPMP-R Interval 170 msQRS Duration 96 msQ-T Interval 364 msQTC Calculation(Bazett) 387 msP [place] 58 degreesR [place] 25 degreesT [place] 75 degreesNormal sinus rhythmNormal ECGNo previous ECGs availableConfirmed by SIMONE CROWLEY MD, RANJITH Morocho ([id number]) on 10/31/2020 3:31:52 [facility], CHEST, 2 [id number] 15:10:00Reason for exam:->pre opIs the patient ?->NoKA[facility] : 1965 Sex: FFINAL REPORT Chest x-ray, PA and lateral views Clinical History: pre op Comparison: None Findings: The cardiac and mediastinal contours are normal. There is no pneumothorax, padmaja pulmonary edema, consolidation or pleural effusion. The bony structures are unremarkable. Intrathecal stimulator wires are present. Impression: No acute process. Signed: Anahy Yin Verified Date/Time: 10/30/2020 15:10:04 Reading Location: [facility] Radiology Reading Room XR chest 2 [id number] 15:10:00Interface, External Ris In - 10/30/2020 3:12 PM CDTFINAL REPORT Chest x-ray, PA and lateral views Clinical History: pre op Comparison: None Findings: The cardiac and mediastinal contours are normal. There is no pneumothorax, padmaja pulmonary edema, consolidation or pleural effusion. The bony structures are unremarkable. Intrathecal stimulator wires are present. Impression:No acute process. Signed: Anahy Yin MDReport Verified Date/Time: 10/30/2020 15:10:04 Reading Location: [facility] Radiology Reading Room [facility] screen, [id number] 12:53:00 Test Item Value Reference Range Interpretation Comments ABO/RH AUTOMATED (BEAKER) (test O NEGATIVE code = 2260) Ab Scrn (test code = 890-4) NEGATIVE [facility] [id number] 12:12:00 Test Item Value Reference Range Interpretation Comments SODIUM (BEAKER) 141 meq/L 136-145 (test code = 381) POTASSIUM (BEAKER) 4.1 meq/L 3.5-5.1 Specimen slightly (test code = 379) hemolyzed CHLORIDE (BEAKER) 103 meq/L 98-107 (test code = 382) CO2 (BEAKER) (test 26 meq/L 22-29 code = 355) BLOOD UREA NITROGEN 13 mg/dL 7-21 (BEAKER) (test code = 354) CREATININE (BEAKER) 0.77 mg/dL 0.57-1.25 Specimen slightly (test code = 358) hemolyzed GLUCOSE RANDOM 145 mg/dL 70-105 H (BEAKER) (test code = 652) CALCIUM (BEAKER) 9.9 mg/dL 8.4-10.2 (test code = 697) EGFR (BEAKER) (test 78 mL/min/1.73 ESTIMA KELSEY GFR IS code = 1092) sq m NOT ACCURATE CREATININE CLEARANCE IN PREDICTING GLOMERULAR FILTRATION RATE . ESTIMATED GFR I S NOT APPLICABLE FOR DIALYSIS PATIEN TS. Sieve Grader Tender ID - APR [id number] 12:08:00 Test Item Value Reference Range Interpretation Comments PTT (test code = 81054-8) 28.1 See_Comment [ Automated message] The system whic h generated this result transmitted ref erence range: 22.5 - 3 6.0 seconds. The re ference range was not u sed to interpret this result as normal/abnor mal. Lab Interpretation (test Normal code = 60782-8) [id number] 12:08:00 Test Item Value Reference Range Interpretation Comments PARTIAL THROMBOPLASTIN TIME 28.1 seconds 22.5-36.0 (BEAKER) (test code = 760) Prothrombin time/[id number] 12:07:00 Test Item Value Reference Interpretation Comments Range Protime (test code = 13.1 See_Comment [Autom ated 5902-2) message] The system which generated this result transmitted reference range : 11.9 - 14.2 seconds. The reference range was not used to interpret this result as normal/abnormal . INR (test code = 1.01 See_Comment [Automated 6301-6) message] The system which generated this result transmitted reference range : <=5.90. The reference range was not used to interpret this result as normal/abnormal . TIM (test code = RECOMMENDED TIM) COUMADIN/WARFARIN INR THERAPY RANGESSTANDARD DOSE: 2.0 - 3.0 Includes: PROPHYLAXIS for venous thrombosis, systemic embolization; TREATMENT for venous thrombosis and/or pulmonary embolus.HIGH RISK: Target INR is 2.5-3.5 for patients with mechanical heart valves. Lab Interpretation Normal (test code = 97359-3) [facility] SacramentoPROTHROMBIN TIME/[id number] 12:07:00 Test Item Value Reference Range Interpretation Comments PROTIME (BEAKER) 13.1 seconds 11.9-14.2 (test code = 759) INR (BEAKER) (test 1.01 See_Comment [Automat ed message] code = 370) The system [employer] generated this result transmitted ref erence range: <=5.90. The reference range was not used to int erpret this result as normal/abnormal . RECOMMENDED COUMADIN/WARFARIN INR THERAPY RANGESSTANDARD DOSE: 2.0 - 3.0 Includes: PROPHYLAXIS forvenous thrombosis, systemic embolization; TREATMENT for venous thrombosis and/or pulmonary embolus.HIGH RISK: Target INR is 2.5-3.5 for patients with mechanical heart valves.CBC W/PLT COUNT & AUTO DIFFERENTIAL 2020-10-30 11:58:00 Test Item Value Reference Range Interpretation Comments WHITE BLOOD CELL COUNT (BEAKER) 5.6 K/ L 3.5-10.5 (test code = 775) RED BLOOD CELL COUNT (BEAKER) 4.65 M/ L 3.93-5.22 (test code = 761) HEMOGLOBIN (BEAKER) (test code = 13.4 GM/DL 11.2-15.7 410) HEMATOCRIT (BEAKER) (test code = 41.3 % 34.1-44.9 411) MEAN CORPUSCULAR VOLUME (BEAKER) 88.8 fL 79.4-94.8 (test code = 753) MEAN CORPUSCULAR HEMOGLOBIN 28.8 pg 25.6-32.2 (BEAKER) (test code = 751) MEAN CORPUSCULAR HEMOGLOBIN CONC 32.4 GM/DL 32.2-35.5 (BEAKER) (test code = 752) RED CELL DISTRIBUTION WIDTH 13.4 % 11.7-14.4 (BEAKER) (test code = 412) PLATELET COUNT (BEAKER) (test 209 K/CU MM 150-450 code = 756) MEAN PLATELET VOLUME (BEAKER) 9.3 fL 9.4-12.3 L (test code = 754) NUCLEATED RED BLOOD CELLS 0 /100 WBC 0-0 (BEAKER) (test code = 413) NEUTROPHILS RELATIVE PERCENT 70 % (BEAKER) (test code = 429) LYMPHOCYTES RELATIVE PERCENT 19 % (BEAKER) (test code = 430) MONOCYTES RELATIVE PERCENT 8 % (BEAKER) (test code = 431) EOSINOPHILS RELATIVE PERCENT 3 % (BEAKER) (test code = 432) BASOPHILS RELATIVE PERCENT 1 % (BEAKER) (test code = 437) NEUTROPHILS ABSOLUTE COUNT 3.88 K/ L 1.56-6.13 (BEAKER) (test code = 670) LYMPHOCYTES ABSOLUTE COUNT 1.03 K/ L 1.18-3.74 L (BEAKER) (test code = 414) MONOCYTES ABSOLUTE COUNT (BEAKER) 0.44 K/ L 0.24-0.36 H (test code = 415) EOSINOPHILS ABSOLUTE COUNT 0.15 K/ L 0.04-0.36 (BEAKER) (test code = 416) BASOPHILS ABSOLUTE COUNT (BEAKER) 0.03 K/ L 0.01-0.08 (test code = 417) IMMATURE GRANULOCYTES-RELATIVE 1 % 0-1 PERCENT (BEAKER) (test code = 2801) STONE [id number] 00:09:00 Test Item Value Reference Range Interpretation Comments SPECIMEN RIGHT KIDNEY STONE SOURCE(QUEST) (test code = 8128539) COMPONENT 1 See Below Calcium Oxalate (QUEST) (test Dihydrate code = 1147858) (Weddellite) 20% Calcium Oxalate Monohydrate (Whewellite) 80 % This test was developed and i ts analytical performance characteristics have been determined by [employer]. It has not been cl eared or approved by theA. This as say has been valida kelsey pursuant to the CLIA regulations and is used for clinic al purposes. COMPONENT 2 DNR (QUEST) (test code = 2498) Stone Weight 0.002 g (test code = 2654) TIM (test code = Performing Lab TIM) *[facility], [address] [place] [id number] Chaz Guevara MD [facility] SacramentoUrine [id number] 07:59:00 Test Item Value Reference Range Interpretation Comments Result (test code = 6463-4) No growth [facility]URINE [id number] 07:59:00 Test Item Value Reference Range Interpretation Comments CULTURE (BEAKER) (test code = 1095) No growth URINE [id number] 12:17:00 Test Item Value Reference Range Interpretation Comments CULTURE (BEAKER) (test 60-69,000 col/mL skin code = 1095) nilam FL, FLUORO, NON-SPECIFIC, UP TO 1 [id number] 17:29:21Reason for exam:- >Retrograde pyelogram [facility] : 1965 Sex: FFluoroscopic unit utilized for a procedure performed in the OR. No interpretation was requested. Refer to the operative report for findings. Refer to PACS for patient radiation dose information.FL fluoro non-specific up to 1 [id number] 17:15:00 Interface, External Ris In 10/10/2020 5:29 PM CDTFluoroscopic unit utilized for a procedure performed in the OR. No interpretation was requested. Refer to the operative report for findings. Referto PACS for patient radiation dose information.[facility] SacramentoUrinalysis w/Gkkbwxoozov8355-03-81 12:51:00 Test Item Value Reference Range Interpretation Comments Color, UA (test code Yellow = 5778-6) Clarity, UA (test Clear code = 5767-9) Specific [place], UA 1.019 1.001-1.035 (test code = 5811-5) pH, UA (test code = 6.0 5.0-8.0 5803-2) Protein, UA (test Negative Negative code = 72834-3) Glucose, UA (test Negative Negative code = 365) Ketones, UA (test Negative Negative code = 2514-8) Bilirubin, UA (test Negative Negative code = 33440-8) Blood, UA (test code Negative Negative = 63532-2) Nitrite, UA (test Negative Negative code = 5802-4) Leukocytes, UA (test Large Negative A code = 5799-2) Urobilinogen, UA 0.2 mg/dL 0.2-1 (test code = 42076-1) RBC, UA (test code = 1 See_Comment [Autom ated 52082-8) message] The system which generated this result transmit kelsey reference range : /HPF. The reference range was not used to interpret this result as normal/abnormal . WBC, UA (test code = 11 See_Comment [Autom ated 5821-4) message] The system which generated this result transmit kelsey reference range : /HPF. The reference range was not used to interpret this result as normal/abnormal . Bacteria, UA (test None Seen code = 37051-3) Mucus (test code = Rare 8247-9) Squam Epithel, UA 3 See_Comment [Automate d (test code = 94962-9) sueag e] The system which generated this result transmit kelsey reference range : /HPF. The reference range was not used to interpret this result as normal/abnormal . Crystals, Urine (test None Seen code = 80666-5) Specimen Source (test Urine, Clean code = 2795) Catch TIM (test code = TIM) Sieve Grader Tender ID - [auto]Sieve Grader Tender ID - tech Lab Interpretation Abnormal (test code = 13028-6) [facility] W/ [id number] 12:51:00 Test Item Value Reference Range Interpretation Comments COLOR (BEAKER) (test code Yellow = 470) CLARITY (BEAKER) (test Clear code = 469) SPECIFIC GRAVITY UA 1.019 1.001-1.035 (BEAKER) (test code = 468) PH UA (BEAKER) (test code 6.0 5.0-8.0 = 467) PROTEIN UA (BEAKER) (test Negative Negative code = 464) GLUCOSE UA (BEAKER) (test Negative Negative code = 365) KETONES UA (BEAKER) (test Negative Negative code = 371) BILIRUBIN UA (BEAKER) Negative Negative (test code = 462) BLOOD UA (BEAKER) (test Negative Negative code = 461) NITRITE UA (BEAKER) (test Negative Negative code = 465) LEUKOCYTE ESTERASE UA Large Negative A (BEAKER) (test code = 466) UROBILINOGEN UA (BEAKER) 0.2 mg/dL 0.2-1.0 (test code = 463) RBC UA (BEAKER) (test code 1 /HPF = 519) WBC UA (BEAKER) (test code 11 /HPF = 520) BACTERIA (BEAKER) (test None Seen code = 517) MUCUS (BEAKER) (test code Rare = 1574) SQUAMOUS EPITHELIAL 3 /HPF (BEAKER) (test code = 516) CRYSTALS, URINE (BEAKER) None Seen (test code = 1521) SOURCE(BEAKER) (test code Urine, Clean Catch = 2795) Sieve Grader Tender ID - [auto]Sieve Grader Tender ID - techBASIC METABOLIC [id number] 12:01:00 Test Item Value Reference Range Interpretation Comments SODIUM (BEAKER) 139 meq/L 136-145 (test code = 381) POTASSIUM (BEAKER) 4.7 meq/L 3.5-5.1 Specimen moderately (test code = 379) hemolyzed CHLORIDE (BEAKER) 103 meq/L 98-107 (test code = 382) CO2 (BEAKER) (test 27 meq/L 22-29 code = 355) BLOOD UREA NITROGEN 11 mg/dL 7-21 (BEAKER) (test code = 354) CREATININE (BEAKER) 0.69 mg/dL 0.57-1.25 Specimen moderately (test code = 358) hemolyzed GLUCOSE RANDOM 102 mg/dL 70-105 (BEAKER) (test code = 652) CALCIUM (BEAKER) 9.6 mg/dL 8.4-10.2 (test code = 697) EGFR (BEAKER) (test 88 mL/min/1.73 ESTIMA KELSEY GFR IS code = 1092) sq m NOT ACCURATE CREATININE CLEARANCE IN PREDICTING GLOMERULAR FILTRATION RATE . ESTIMATED GFR I S NOT APPLICABLE FOR DIALYSIS PATIEN TS. Sieve Grader Tender ID - EDASIPROTHROMBIN TIME/[id number] 11:53:00 Test Item Value Reference Range Interpretation Comments PROTIME (BEAKER) 12.8 seconds 11.9-14.2 (test code = 759) INR (BEAKER) (test 0.98 See_Comment [Automat ed message] code = 370) The system [employer] generated this result transmitted ref erence range: <=5.90. The reference range was not used to int erpret this result as normal/abnormal . RECOMMENDED COUMADIN/WARFARIN INR THERAPY RANGESSTANDARD DOSE: 2.0 - 3.0 Includes: PROPHYLAXIS forvenous thrombosis, systemic embolization; TREATMENT for venous thrombosis and/or pulmonary embolus.HIGH RISK: Target INR is 2.5-3.5 for patients with mechanical heart valves.[id number] 11:53:00 Test Item Value Reference Range Interpretation Comments PARTIAL THROMBOPLASTIN TIME 25.3 seconds 22.5-36.0 (BEAKER) (test code = 760) CBC W/PLT COUNT & AUTO [id number] 11:48:00 Test Item Value Reference Range Interpretation Comments WHITE BLOOD CELL COUNT (BEAKER) 6.7 K/ L 3.5-10.5 (test code = 775) RED BLOOD CELL COUNT (BEAKER) 4.66 M/ L 3.93-5.22 (test code = 761) HEMOGLOBIN (BEAKER) (test code = 13.7 GM/DL 11.2-15.7 410) HEMATOCRIT (BEAKER) (test code = 40.8 % 34.1-44.9 411) MEAN CORPUSCULAR VOLUME (BEAKER) 87.6 fL 79.4-94.8 (test code = 753) MEAN CORPUSCULAR HEMOGLOBIN 29.4 pg 25.6-32.2 (BEAKER) (test code = 751) MEAN CORPUSCULAR HEMOGLOBIN CONC 33.6 GM/DL 32.2-35.5 (BEAKER) (test code = 752) RED CELL DISTRIBUTION WIDTH 13.3 % 11.7-14.4 (BEAKER) (test code = 412) PLATELET COUNT (BEAKER) (test 183 K/CU MM 150-450 code = 756) MEAN PLATELET VOLUME (BEAKER) 9.3 fL 9.4-12.3 L (test code = 754) NUCLEATED RED BLOOD CELLS 0 /100 WBC 0-0 (BEAKER) (test code = 413) NEUTROPHILS RELATIVE PERCENT 73 % (BEAKER) (test code = 429) LYMPHOCYTES RELATIVE PERCENT 15 % (BEAKER) (test code = 430) MONOCYTES RELATIVE PERCENT 8 % (BEAKER) (test code = 431) EOSINOPHILS RELATIVE PERCENT 3 % (BEAKER) (test code = 432) BASOPHILS RELATIVE PERCENT 0 % (BEAKER) (test code = 437) NEUTROPHILS ABSOLUTE COUNT 4.88 K/ L 1.56-6.13 (BEAKER) (test code = 670) LYMPHOCYTES ABSOLUTE COUNT 1.00 K/ L 1.18-3.74 L (BEAKER) (test code = 414) MONOCYTES ABSOLUTE COUNT (BEAKER) 0.55 K/ L 0.24-0.36 H (test code = 415) EOSINOPHILS ABSOLUTE COUNT 0.23 K/ L 0.04-0.36 (BEAKER) (test code = 416) BASOPHILS ABSOLUTE COUNT (BEAKER) 0.03 K/ L 0.01-0.08 (test code = 417) IMMATURE GRANULOCYTES-RELATIVE 0 % 0-1 PERCENT (BEAKER) (test code = 2801) POCT , [id number] 11:32:00 Test Item Value Reference Range Interpretation Comments Test Urine, POC (test code Negative = 3688646) Control line present?, POC (test Yes code = 9447339) Background clear?, POC (test code = Yes 1399851) UPT Cassette Lot #, POC (test code = 28998 3669050) UPT Cassette Expiration Date, POC 34016816 (test code = 5225374) [facility][U] XRAY KNEE 3 VWS LEFT [id number] 15:52:00 Images acquired, not reported on this accession number.[facility]- XR FLUOROSCOPY 0-60 [id number] 10:13:00 [facility] 1965 Sex: F Name: FRANCOIS CHACON [facility] : 1965Age/S: 54 / F [address] Unit #: [id number] Loc: [place] [address] Phys: Juan C Boykin MD Acct: [id number] Dis Date: Status: ADM IN PHONE#: [phone] Exam Date: 04/08/2020 1300 FAX #: Reason: RETRO CYSTO WITH RETRO PYELO EXAMS: CPT: [id number] XR FLUOROSCOPY 0-60 MIN 29943 Fluoro Time:10 SEC DAP (Gy m2): Air Kerma (mGy): EXAM: - XR FLUOROSCOPY 0-60 MIN HISTORY: RETRO CYSTO WITH RETRO PYELO LOCATION CODE: H50 IMPRESSION: Fluoroscopic images provided for surgical guidance. Please see operative report for full details. Fluoroscopy time:10.5 seconds Cumulative Dose: 2.98 mGy at 1013 Reported and signed by: Karen Gardner MD CC: Nando Rivero DO; Juan C Boykin MD PAGE 1 Signed Report Name: FRANCOIS CHACON : 1965 Age/S: 54 / F [address] Unit #: [id number] Loc: [place] [address] Phys: Juan C Boykin MD Acct: [id number] Dis Date: Status: ADM IN PHONE #: [phone] ExamDate: 04/08/2020 1300 FAX #: Reason: RETRO CYSTO WITH RETRO PYELO EXAMS: CPT: [id number] XR FLUOROSCOPY 0-60 MIN 87355 Fluoro Time: 10 SEC DAP (Gy m2): Air Kerma (mGy): <Continued> Technologist: Tierra Blevins, RT(R) Trnscb Date/Time: 04/09/2020 (1013) [email or web address] Orig Print D/T: S: 04/09/2020 (1016) PAGE 2 Signed ReportUR HCG [id number] 10:44:00 Test Item Value Reference Range Interpretation Comments UR HCG QUAL (test code = HCGQLU) NEGATIVE NEGATIVE BASIC METABOLIC [id number] 06:12:00 Test Item Value Reference Range Interpretation Comments SODIUM (test code = NA) 137 mmol/L 134-147 N POTASSIUM (test code = 3.7 mmol/L 3.4-5.0 N K) CHLORIDE (test code = 105 mmol/L 100-108 N CL) CARBON DIOXIDE (test 30 mmol/L 21-32 N code = CO2) ANION GAP (test code = 2.0 GAP calc 4.0-15.0 L GAP) GLUCOSE (test code = 127 MG/DL 70-110 H GLU) BLOOD UREA NITROGEN 10 MG/DL 7-18 N (test code = BUN) GLOMERULAR FILTRATION >=60 max estimate >60 RATE (test code = GFR) estGFR CREATININE (test code = 0.7 MG/DL 0.6-1.0 N CREAT) CALCIUM (test code = CA) 8.6 MG/DL 8.5-10.1 N CBC W/AUTO [id number] 05:56:00 Test Item Value Reference Range Interpretation Comments WHITE BLOOD CELL (test code = 7.5 K/mm3 3.5-11.0 N WBC) RED BLOOD CELL (test code = 3.90 M/mm3 4.70-6.10 L RBC) HEMOGLOBIN (test code = HGB) 11.7 G/DL 10.4-14.9 N HEMATOCRIT (test code = HCT) 36.6 % 31.5-44.1 N MEAN CELL VOLUME (test code = 93.8 Fl 84.5-98.6 N MCV) MEAN CELL HGB (test code = MCH) 30.0 pg 27.0-34.2 N MEAN CELL HGB CONCETRATION 32.0 G/DL 31.5-34.0 N (test code = MCHC) RED CELL DISTRIBUTION WIDTH 14.6 SD 11.5-14.5 H (test code = RDW) PLATELET COUNT (test code = 164 K/mm3 150-450 N PLT) MEAN PLATELET VOLUME (test code 9.30 fL 7.0-10.5 N = MPV) NEUTROPHIL % (test code = NT%) 73.7 % 40-76 N IMMATURE GRANULOCYTE % (test 0.4 % 0.0-5.0 N code = IG%) LYMPHOCYTE % (test code = LY%) 11.3 % 20.5-51.1 L MONOCYTE % (test code = MO%) 13.9 % 1.7-9.3 H EOSINOPHIL % (test code = EO%) 0.4 % 0.0-6.0 N BASOPHIL % (test code = BA%) 0.3 % 0.0-2.0 N NUCLEATED RBC % (test code = 0.0 /100WBC% 0.0-1.0 N NRBC%) NEUTROPHIL # (test code = NT#) 5.6 K/mm3 1.8-7.6 N IMMATURE GRANULOCYTE # (test 0.03 x10 3/uL 0.00-0.03 N code = IG#) LYMPHOCYTE # (test code = LY#) 0.9 K/mm3 0.6-3.2 N MONOCYTE # (test code = MO#) 1.1 K/mm3 0.3-1.1 N EOSINOPHIL # (test code = EO#) 0.0 K/mm3 0.0-0.4 N BASOPHIL # (test code = BA#) 0.0 K/mm3 0.0-0.1 N NUCLEATED RBC # (test code = 0.0 K/mm3 0.0-0.1 N NRBC#) MANUAL DIFF REQUIRED (test code NO DIFF/SCN CRITERIA = MDIFF) COVID 19 INHOUSE [id number] 19:15:00 Test Item Value Reference Range Interpretation Comments COVID 19 INHOUSE AG NEGATIVE Negative Per manu facturer, (test code = negative result s should [id number]) be treated aspr esumptive and, if inconsi stent with clinical signs andsymptoms or necessary for patient man agement, should betested with an alternative mol ecular assay. Negative resultsdo not preclude SA RS-CoV-2 infection and s hould not be usedas the s ole basis for patient man agement decisions. Neg ative results should be considered in t he context of apatient's r ecent exposures, hist ory, presence of cli nicalsigns and symptoms co nsistent with COVID-19. - CT ABD PELVIS W/O [id number] 17:38:00 [facility] : 1965 Sex: F Name: FRANCOIS CHACON [facility] : 1965Age/S: 54 / F [address] Unit #: [id number] Loc: [place] [address] Phys: Tyler Amor MD Acct: [id number] Dis Date: Status: REG ER PHONE#: [phone] Exam Date: 04/05/2020 1649 FAX #: Reason:right flank pain EXAMS: CPT: [id number] CT ABD PELVIS W/O CONT 37439 EXAM: - CT ABD PELVIS W/O CONT HISTORY: 54-year-old female with right flank pain LOCATION: R16 COMPARISON: No previous exam available. TECHNIQUE: 5 mm contiguous axial images were obtained from the diaphragmatic dome through the symphysis pubis. No contrast was administered. Automated exposure reduction (Auto mA/Smart mA) was utilized in compliance with ACR [employer] with DLP of 721 mGy-cm. FINDINGS: Thoracic: Included images of the lower chest demonstrate no abnormalities. Hepatobiliary: The liver is normal without focal lesion. The gallbladder is normal. No biliary dilation. Pancreas: Normal. Spleen: Normal. Adrenals: Nor mal. Genitourinary: The bilateral kidneys contain several punctate calcifications, compatible with nonobstructing intrarenal calculi. A 10.0 x 7.2 x 8.4 cm complex cystic structure is seen in the anterior aspect of the left kidney, possibly a complex fluid collection or multicystic mass. An associated infectious processes cannot be ruled out. A left ureteral stent is in place, with the proximal and distal pigtails located within the left renal pelvisand urinary bladder, respectively. There is no evidence of pelvicalyceal dilatation to suggest hydronephrosis. Evaluation of the bladder is limited, but no obvious bladder abnormality is present. An IUD is noted in the uterus. Gastrointestinal: A large amount of retained fecal debris is seen in the right colon, suggestive of constipation. The appendix is normal. A small hiatal hernia is noted. PAGE 1 Signed Report (CONTINUED) Name: FRANCOIS CHACON [place] : 1965 Age/S: 54 / F [address] [facility] Unit #: [id number] Loc: [place] [address] Phys: Tyler Amor MD Acct: [id number] Dis Date: Status: REG ER PHONE #: [phone] Exam Date: 04/05/2020 1648 FAX #: Reason: right flank pain EXAMS: CPT: [id number] CT ABD PELVIS W/O CONT 09493 <Continued> Vascular: No evidence of aneurysm or dissection. Lymphatics: No enlarged lymph nodes by CT size criteria. Bones/Soft Tissues:No acute osseous findings. A 3.0 x 2.2 cm rounded subcutaneous structures is seen in the rightanterior abdominal wall, with an average Hounsfield number of 1.5, possibly a sebaceous cyst. A 1.0 cm umbilical hernia is noted. The patient is status post L5-S1 posterior fusion. A thoracic spinal stimulator is also noted. Peritoneum/Other: No extraluminal air. No extraluminal fluid. IMPRESSION: 10.0 x 7.2 x 8.4 cm complex cystic structure in the left anterior kidney. Diagnostic considerations include malignancy and abscess. Recommend further evaluation by CT with contrast. Renal ultrasound may be helpful. Bilateral intrarenal calculi. Left ureteral stent in place. No evidence of hydronephrosis. 3.0 cm subcutaneous structure may reflect a sebaceous cyst. Retained fecal debris in the right colon, suggestive of constipation. at 1738 Reported and signed by: Dayana Wills M.D. CC:Nando Rivero DO; Tyler Amor MD; Angela HURTADO Technologist:MIGUEL Lopez CTDI: DLP: Trnscb Date/Time: 04/05/2020 (173) t.SDR.JSL Orig Print D/T: S: 04/05/2020 (5490) PAGE 2 Signed ReportBASIC METABOLIC [id number] 16:19:00 Test Item Value Reference Range Interpretation Comments SODIUM (test code = NA) 136 mmol/L 134-147 N POTASSIUM (test code = 3.4 mmol/L 3.4-5.0 N K) CHLORIDE (test code = 100 mmol/L 100-108 N CL) CARBON DIOXIDE (test 30 mmol/L 21-32 N code = CO2) ANION GAP (test code = 6.0 GAP calc 4.0-15.0 N GAP) GLUCOSE (test code = 124 MG/DL 70-110 H GLU) BLOOD UREA NITROGEN 10 MG/DL 7-18 N (test code = BUN) GLOMERULAR FILTRATION >=60 max estimate >60 RATE (test code = GFR) estGFR CREATININE (test code = 0.8 MG/DL 0.6-1.0 N CREAT) CALCIUM (test code = CA) 9.5 MG/DL 8.5-10.1 N HEPATIC FUNCTION [id number] 16:19:00 Test Item Value Reference Range Interpretation Comments TOTAL PROTEIN (test code = PROT) 7.4 G/DL 6.4-8.2 N ALBUMIN (test code = ALB) 3.2 G/DL 3.4-5.0 L BILIRUBIN TOTAL (test code = BILT) 1.30 MG/DL 0.2-1.2 H BILIRUBIN DIRECT (test code = 0.30 MG/DL 0.00-0.30 N BILD) BILIRUBIN INDIRECT (test code = 1.00 MG/DL 0.2-1.2 N BILIND) SGOT/AST (test code = AST) 13 Unit/L 15-37 L SGPT/ALT (test code = ALT) 21 Unit/L 12-78 N ALKALINE PHOSPHATASE TOTAL (test 73 Unit/L 45-117 N code = ALKP) LACTIC [id number] 16:19:00 Test Item Value Reference Range Interpretation Comments LACTIC ACID (test code = LACT) 1.2 mmol/L 0.4-2.0 N BASIC METABOLIC [id number] 16:08:00 Test Item Value Reference Range Interpretation Comments SODIUM (test code = NA) 136 mmol/L 134-147 N POTASSIUM (test code = K) 3.4 mmol/L 3.4-5.0 N CHLORIDE (test code = CL) 100 mmol/L 100-108 N CARBON DIOXIDE (test code = CO2) 30 mmol/L 21-32 N ANION GAP (test code = GAP) 6.0 GAP calc 4.0-15.0 N GLUCOSE (test code = GLU) 124 MG/DL 70-110 H BLOOD UREA NITROGEN (test code = 10 MG/DL 7-18 N BUN) GLOMERULAR FILTRATION RATE (test estGFR >60 code = GFR) CREATININE (test code = CREAT) MG/DL 0.6-1.0 CALCIUM (test code = CA) 9.5 MG/DL 8.5-10.1 N HEPATIC FUNCTION [id number] 16:08:00 Test Item Value Reference Range Interpretation Comments TOTAL PROTEIN (test code = PROT) G/DL 6.4-8.2 ALBUMIN (test code = ALB) G/DL 3.4-5.0 BILIRUBIN TOTAL (test code = BILT) MG/DL 0.2-1.2 BILIRUBIN DIRECT (test code = BILD) MG/DL 0.00-0.30 BILIRUBIN INDIRECT (test code = MG/DL 0.2-1.2 BILIND) SGOT/AST (test code = AST) Unit/L 15-37 SGPT/ALT (test code = ALT) Unit/L 12-78 ALKALINE PHOSPHATASE TOTAL (test code Unit/L 45-117 = ALKP) CBC W/AUTO [id number] 16:00:00 Test Item Value Reference Range Interpretation Comments WHITE BLOOD CELL (test code = 10.6 K/mm3 3.5-11.0 N WBC) RED BLOOD CELL (test code = 4.52 M/mm3 4.70-6.10 L RBC) HEMOGLOBIN (test code = HGB) 13.5 G/DL 10.4-14.9 N HEMATOCRIT (test code = HCT) 40.7 % 31.5-44.1 N MEAN CELL VOLUME (test code = 90.0 Fl 84.5-98.6 N MCV) MEAN CELL HGB (test code = MCH) 29.9 pg 27.0-34.2 N MEAN CELL HGB CONCETRATION 33.2 G/DL 31.5-34.0 N (test code = MCHC) RED CELL DISTRIBUTION WIDTH 14.3 SD 11.5-14.5 N (test code = RDW) PLATELET COUNT (test code = 200 K/mm3 150-450 N PLT) MEAN PLATELET VOLUME (test code 8.80 fL 7.0-10.5 N = MPV) NEUTROPHIL % (test code = NT%) 80.6 % 40-76 H IMMATURE GRANULOCYTE % (test 0.7 % 0.0-5.0 N code = IG%) LYMPHOCYTE % (test code = LY%) 7.3 % 20.5-51.1 L MONOCYTE % (test code = MO%) 10.9 % 1.7-9.3 H EOSINOPHIL % (test code = EO%) 0.2 % 0.0-6.0 N BASOPHIL % (test code = BA%) 0.3 % 0.0-2.0 N NUCLEATED RBC % (test code = 0.0 /100WBC% 0.0-1.0 N NRBC%) NEUTROPHIL # (test code = NT#) 8.6 K/mm3 1.8-7.6 H IMMATURE GRANULOCYTE # (test 0.07 x10 3/uL 0.00-0.03 H code = IG#) LYMPHOCYTE # (test code = LY#) 0.8 K/mm3 0.6-3.2 N MONOCYTE # (test code = MO#) 1.2 K/mm3 0.3-1.1 H EOSINOPHIL # (test code = EO#) 0.0 K/mm3 0.0-0.4 N BASOPHIL # (test code = BA#) 0.0 K/mm3 0.0-0.1 N NUCLEATED RBC # (test code = 0.0 K/mm3 0.0-0.1 N NRBC#) MANUAL DIFF REQUIRED (test code NO DIFF/SCN CRITERIA = MDIFF) - XR CHEST 1 [id number] 15:59:00 [facility] 1965 Sex: F Name: FRANCOIS CHACON [facility] : 1965Age/S: 54 / F [address] Unit #: [id number] Loc: [place] [address] Phys: Tyler Amor MD Acct: [id number] Dis Date: Status: PRE ER PHONE#: [phone] Exam Date: 04/05/2020 1553 FAX #: Reason: Code Sepsis EXAMS: CPT: [id number] XR CHEST 1 V 33803 Fluoro Time: DAP (Gy m2): Air Kerma (mGy): EXAM: - XR CHEST 1 V 04/05/2020 3:24PM Location code:C3 HISTORY: 54 years-old Female with Code Sepsis TECHNIQUE: Frontal portable view of the chest COMPARISON: None FINDINGS: Lines and tubes: None. Cardiomediastinal: The cardiomediastinal silhouette is unremarkable. Lungs and pleura: The lungs are clear. No pleural effusion.No pneumothorax. Musculoskeletal: No significant skeletal abnormality. ACDF hardware is seen within the cervical spine. IMPRESSION: No radiographic evidence of a focal infiltrate. at 1559 Reported and signed by: Yunier King M.D. CC: [facility] Rick Haroldo Rivero DO; Tyler Amor MD;Angela HURTADO PAGE 1 Signed Report Name: FRANCOIS CHACON [place] : 1965 Age/S: 54 / F [id number] Unit #: [id number] Loc: [place] [address] Phys: Tyler Amor MD Acct: [id number] Dis Date: Status: PRE ER PHONE #: [phone] Exam Date: 04/05/2020 1557 FAX #: Reason: Code Sepsis EXAMS: CPT: [id number] XR CHEST 1 V 68974 Fluoro Time: DAP (Gy m2): Air Kerma (mGy): <Continued> Technologist: Antonia Brunner RT(R) Trnscb Date/Time: 04/05/2020 (3032) [id number] Orig Print D/T: S: 04/05/2020 (5981) PAGE 2 Signed ReportUA RFLX MICR CULT IF [id number] 15:55:00 Test Item Value Reference Range Interpretation Comments UA COLOR (test code = YELLOW discript YEL/STRAW COLU) UA APPEARANCE (test code SLIGHTLY CLOUDY CLEAR = APPU) discript UA GLUCOSE DIPSTICK (test NEGATIVE mg/dL NEG code = DGLUU) UA BILIRUBIN DIPSTICK NEGATIVE mg/dL NEG (test code = BILU) UA KETONE DIPSTICK (test NEGATIVE mg/dL NEG code = KETU) UA SPECIFIC GRAVITY (test 1.020 SG 1.005-1.030 code = SGU) UA BLOOD DIPSTICK (test 3+ mg/DL NEG A code = ROSETTA) UA PH DIPSTICK (test code 8.0 pH UNITS 5.0-7.0 = SHIKHA) UA PROTEIN DIPSTICK (test 2+ mg/dL NEG A code = PROU) UA UROBILINIOGEN DIPSTICK 0.2 mg/dL <2.0 (test code = URO) UA NITRITE DIPSTICK (test POSITIVE SCREEN NEG A code = CHACHA) UA LEUKOCYTE ESTERASE 3+ Leuk/mcL NEGATIVE A DIPSTICK (test code = LEUU) UA WBC (test code = WBCU) >50 #WBC/HPF 0-3 A UA BACTERIA (test code = TRACE /HPF NONE-TRACE BACU) UA SQUAMOUS CELLS (test TRACE /HPF NONE code = SQU) UA CULTURE NEEDED? (test YES,WBC>10 & EPI<25 Culture CHK code = UACULT) Criteria Indication for culture: Flank PainUA RFLX MICR CULT IF [id number] 15:46:00 Test Item Value Reference Range Interpretation Comments UA COLOR (test code = YELLOW discript YEL/STRAW COLU) UA APPEARANCE (test code SLIGHTLY CLOUDY CLEAR = APPU) discript UA GLUCOSE DIPSTICK (test NEGATIVE mg/dL NEG code = DGLUU) UA BILIRUBIN DIPSTICK NEGATIVE mg/dL NEG (test code = BILU) UA KETONE DIPSTICK (test NEGATIVE mg/dL NEG code = KETU) UA SPECIFIC GRAVITY (test 1.020 SG 1.005-1.030 code = SGU) UA BLOOD DIPSTICK (test 3+ mg/DL NEG A code = ROSETTA) UA PH DIPSTICK (test code 8.0 pH UNITS 5.0-7.0 = SHIKHA) UA PROTEIN DIPSTICK (test 2+ mg/dL NEG A code = PROU) UA UROBILINIOGEN DIPSTICK 0.2 mg/dL <2.0 (test code = URO) UA NITRITE DIPSTICK (test POSITIVE SCREEN NEG A code = CHACHA) UA LEUKOCYTE ESTERASE 3+ Leuk/mcL NEGATIVE A DIPSTICK (test code = LEUU) UA CULTURE NEEDED? (test Criteria Culture CHK code = UACULT) Indication for culture: Flank PainCBC W/AUTO [id number] 15:37:00 Test Item Value Reference Range Interpretation Comments WHITE BLOOD CELL 3.3 K/mm3 3.5-11.0 L (test code = WBC) RED BLOOD CELL (test 4.71 M/mm3 4.70-6.10 N code = RBC) HEMOGLOBIN (test code 14.1 G/DL 10.4-14.9 N = HGB) HEMATOCRIT (test code 43.5 % 31.5-44.1 N = HCT) MEAN CELL VOLUME 92.4 Fl 84.5-98.6 N (test code = MCV) MEAN CELL HGB (test 29.9 pg 27.0-34.2 N code = MCH) MEAN CELL HGB 32.4 G/DL 31.5-34.0 N CONCETRATION (test code = MCHC) RED CELL DISTRIBUTION 14.6 SD 11.5-14.5 H WIDTH (test code = RDW) PLATELET COUNT (test 156 K/mm3 150-450 N code = PLT) MEAN PLATELET VOLUME 9.10 fL 7.0-10.5 N (test code = MPV) NEUTROPHIL % (test 71.2 % 40-76 N code = NT%) IMMATURE GRANULOCYTE 0.6 % 0.0-5.0 N % (test code = IG%) LYMPHOCYTE % (test 14.1 % 20.5-51.1 L code = LY%) MONOCYTE % (test code 12.9 % 1.7-9.3 H = MO%) EOSINOPHIL % (test 0.9 % 0.0-6.0 N code = EO%) BASOPHIL % (test code 0.3 % 0.0-2.0 N = BA%) NUCLEATED RBC % (test 0.0 /100WBC% 0.0-1.0 N code = NRBC%) NEUTROPHIL # (test 2.4 K/mm3 1.8-7.6 N code = NT#) IMMATURE GRANULOCYTE 0.02 x10 3/uL 0.00-0.03 N # (test code = IG#) LYMPHOCYTE # (test 0.5 K/mm3 0.6-3.2 L code = LY#) MONOCYTE # (test code 0.4 K/mm3 0.3-1.1 N = MO#) EOSINOPHIL # (test 0.0 K/mm3 0.0-0.4 N code = EO#) BASOPHIL # (test code 0.0 K/mm3 0.0-0.1 N = BA#) NUCLEATED RBC # (test 0.0 K/mm3 0.0-0.1 N code = NRBC#) MANUAL DIFF REQUIRED NO DIFF/SCN CRITERIA SLIDE R EVIEW (test code = MDIFF) CONSISTA NT WITH AUTO DIFFERENTI AL. COVID 19 INHOUSE [id number] 14:27:00 Test Item Value Reference Range Interpretation Comments COVID 19 INHOUSE AG (test code = POSITIVE Negative A [id number]) BASIC METABOLIC [id number] 14:03:00 Test Item Value Reference Range Interpretation Comments SODIUM (test code = NA) 140 mmol/L 134-147 N POTASSIUM (test code = 3.5 mmol/L 3.4-5.0 N K) CHLORIDE (test code = 105 mmol/L 100-108 N CL) CARBON DIOXIDE (test 30 mmol/L 21-32 N code = CO2) ANION GAP (test code = 5.0 GAP calc 4.0-15.0 N GAP) GLUCOSE (test code = 99 MG/DL 70-110 N GLU) BLOOD UREA NITROGEN 21 MG/DL 7-18 H (test code = BUN) GLOMERULAR FILTRATION >=60 max estimate >60 RATE (test code = GFR) estGFR CREATININE (test code = 0.8 MG/DL 0.6-1.0 N CREAT) CALCIUM (test code = CA) 9.2 MG/DL 8.5-10.1 N HCG SERUM [id number] 14:03:00 Test Item Value Reference Range Interpretation Comments [facility] SERUM QUAL (test SERUM NEGATIVE SCREEN NEGATIVE code = HCGQL) BASIC METABOLIC [id number] 14:00:00 Test Item Value Reference Range Interpretation Comments SODIUM (test code = NA) mmol/L 134-147 POTASSIUM (test code = K) mmol/L 3.4-5.0 CHLORIDE (test code = CL) mmol/L 100-108 CARBON DIOXIDE (test code = CO2) mmol/L 21-32 ANION GAP (test code = GAP) GAP calc 4.0-15.0 GLUCOSE (test code = GLU) MG/DL 70-110 BLOOD UREA NITROGEN (test code = MG/DL 7-18 BUN) GLOMERULAR FILTRATION RATE (test estGFR >60 code = GFR) CREATININE (test code = CREAT) MG/DL 0.6-1.0 CALCIUM (test code = CA) MG/DL 8.5-10.1 HCG SERUM [id number] 14:00:00 Test Item Value Reference Range Interpretation Comments HCG SERUM QUAL (test SERUM NEGATIVE SCREEN NEGATIVE code = HCGQL) CBC W/AUTO [id number] 13:49:00 Test Item Value Reference Range Interpretation Comments WHITE BLOOD CELL (test code = WBC) 3.3 K/mm3 3.5-11.0 L RED BLOOD CELL (test code = RBC) 4.71 M/mm3 4.70-6.10 N HEMOGLOBIN (test code = HGB) 14.1 G/DL 10.4-14.9 N HEMATOCRIT (test code = HCT) 43.5 % 31.5-44.1 N MEAN CELL VOLUME (test code = MCV) 92.4 Fl 84.5-98.6 N MEAN CELL HGB (test code = MCH) 29.9 pg 27.0-34.2 N MEAN CELL HGB CONCETRATION (test 32.4 G/DL 31.5-34.0 N code = MCHC) RED CELL DISTRIBUTION WIDTH (test SD 11.5-14.5 H code = RDW) PLATELET COUNT (test code = PLT) 156 K/mm3 150-450 N MEAN PLATELET VOLUME (test code = fL 7.0-10.5 N MPV) NEUTROPHIL % (test code = NT%) % 40-76 N IMMATURE GRANULOCYTE % (test code % 0.0-5.0 N = IG%) LYMPHOCYTE % (test code = LY%) % 20.5-51.1 L MONOCYTE % (test code = MO%) % 1.7-9.3 H EOSINOPHIL % (test code = EO%) % 0.0-6.0 N BASOPHIL % (test code = BA%) % 0.0-2.0 N NUCLEATED RBC % (test code = /100WBC% 0.0-1.0 N NRBC%) NEUTROPHIL # (test code = NT#) K/mm3 1.8-7.6 N IMMATURE GRANULOCYTE # (test code x10 3/uL 0.00-0.03 N = IG#) LYMPHOCYTE # (test code = LY#) K/mm3 0.6-3.2 L MONOCYTE # (test code = MO#) K/mm3 0.3-1.1 N EOSINOPHIL # (test code = EO#) K/mm3 0.0-0.4 N BASOPHIL # (test code = BA#) K/mm3 0.0-0.1 N NUCLEATED RBC # (test code = K/mm3 0.0-0.1 N NRBC#) MANUAL DIFF REQUIRED (test code = DIFF/SCN CRITERIA MDIFF) [id number] 16:03:38Pola Goodwin CRNA 02/28/2020 10:04 AMAirway Date/Time: 02/28/2020 9:53 AMPerformed by: Pola Goodwin CRNAAuthorized by: Cher Mayfield MD Location: ORUrgency: ElectiveAnesthesiologist: Cher Mayfield, MDResident/EXPORT AGENT/AA: Pola Goodwin CRNAPerformed by: resident/EXPORT AGENT andresident/EXPORT AGENT/AAPreoxygenated with 100% O2: Yes C-spine Precautions Maintained Throughout: Yes Mask Ventilation: Not attemptedFinal Airway Type: Supraglottic airwayLMA Size: 4Number of Attempts atApproach: 1 Teeth intact, atraumatic intubationMadison State HospitalARS-CoV-2 (COVID-19) RNA [Presence] in Respiratory specimen by SUELLEN with probe [id number] 02:07:21 Test Item Value Reference Range Interpretation Comments SARS-CoV-2 (COVID-19) RNA Not detected Not-Detected [Presence] in Respiratory specimen by SUELLEN with probe detection (test code = 55776-6) [U] XRAY KNEE 3 VWS LEFT [id number] 16:00:00Images acquired, not reported on this accession number.[facility][QL] URINALYSIS, COMPLETE W/REFLEX TO [id number] 16:40:00 Test Item Value Reference Range Interpretation Comments COLOR; Normal (test YELLOW YELLOW N code = 5778-6) APPEARANCE (test code = CLEAR CLEAR N APPEARANCE) SPECIFIC GRAVITY; 1.023 1.001-1.035 N Normal (test code = 2965-2) PH; Normal (test code = 5.5 5.0-8.0 N 2756-5) GLUCOSE; Normal (test NEGATIVE NEGATIVE N code = 1547-9) BILIRUBIN; Normal (test NEGATIVE NEGATIVE N code = 02275-2) KETONES; Normal (test NEGATIVE NEGATIVE N code = 59151-6) OCCULT BLOOD; Abnormal 1+ NEGATIVE A (test code = 91823-9) PROTEIN; Normal (test NEGATIVE NEGATIVE N code = 64466-7) NITRITE (test code = NEGATIVE NEGATIVE N NITRITE) LEUKOCYTE ESTERASE NEGATIVE NEGATIVE N (test code = LEUKOCYTE ESTERASE) WBC; Abnormal (test 6-10 < OR = 5 A code = 6690-2) RBC; Abnormal (test 3-10 < OR = 2 A code = 789-8) SQUAMOUS EPITHELIAL 6-10 < OR = 5 A CELLS; Abnormal (test code = 57969-7) BACTERIA; Normal (test NONE SEEN NONE SEEN N code = 630-4) HYALINE CAST; Normal NONE SEEN NONE SEEN N (test code = 51196-2) REFLEXIVE URINE CULTURE CULTURE INDICATED - (test code = REFLEXIVE RESULTS TO FOLLOW URINE CULTURE) [facility][Q] CULTURE, URINE, ROUTINE (REFL)2020-01-16 16:40:00 Test Item Value Reference Range Interpretation Comments CULTURE, URINE, See Comment A CULTURE, URI NE, ROUTINE ROUTINE (REFL) (REFL) Mi clinical microbiologist Number: (test code = [id number] Test CULTURE, URINE, Status: Final ROUTINE (REFL)) Specimen Arleth rce: URINE Specimen Quali ty: Adequate Resul t: 10,000-49,0 00 CFU/mL of Enterococcus faecalis E.faecalis - INT ALEA AMPICILLI N S <=2 CIPROFLOXACIN S 1 LEVOFLO XACIN S 1 NITROFURANTOIN S <=16 TETR ACYCLINE S <=1 VANCOMYCIN S 2S=Suscepti ble I=Intermediate R=Resistant * = Not TestedNR = Not Reported NN = See Ther apy Comments [facility][QL] CULTURE, URINE, [id number] 16:40:00 Test Item Value Reference Range Interpretation Comments CULTURE (test code See Comment CULTURE, URINE, ROUTINE = CULTURE) Micro Numbe r: [id number] Test Status: Final Spe cimen Source: URINE Specimen Qualit y: Adequate Resul t: Growth of mixed nilam was isola kelsey, suggesting probable contamination. No further testing will be performed. If clinically adore cated, recollection us ing a method to minim ize contamination, with prompt transfer to Urine Culture Trans port Tube, is recomm ended. [facility][U] XRAY KNEE 3 VWS LEFT [id number] 08:32:00 Images acquired, not reported on this accession number.[facility][U] XRAY KNEE 3 VWS LEFT [id number] 09:57:00Images acquired, not reported on this accession number.[facility][U] XRAY KNEE 3 VWS LEFT [id number] 09:22:00Images acquired, not reported on this accession number.[facility] PhysiciansInitial Promis 29 [id number] 01:32:04 Test Item Value Reference Range Interpretation Comments Pain Interference: (test code = Pain 68.2 1 N Interference:) Pain Intensity: (test code = Pain 53.7 1 N Intensity:) Physical Function: (test code = 32.6 1 N Physical Function:) Satisfaction Role: (test code = 37.9 1 N Satisfaction Role:) [facility][U] XR KNEE 3 VWS [id number] 09:48:00 Images acquired, not reported on this accession number.[facility][U] XR KNEE 1 OR 2 VWS [id number] 16:14:00Images acquired, not reported on this accession number.[facility][U] XRAY KNEE 3 VWS RIGHT [id number] 16:00:00Images acquired, not reported on this accession number.[facility]
[2020-12-04] MEDS ORDERED: TETANUS & DIPHTHERIA TOX,ADULT 0.5 ML VIAL ONE (09:31)
[2020-12-04] MEDS ORDERED: HYDROCODONE/APAP 5/325 MG TAB ONE (09:31)
--- NOTE | 2020-12-04 11:30 | RAD REPORT ---
EXAM DESCRIPTION: RAD - Knee Left 3 View - 12/04/2020 11:19 am CLINICAL HISTORY: PAIN COMPARISON: No comparisons FINDINGS: No left knee fractures identified. No malalignment. The hardware is intact. IMPRESSION: Status post left total knee arthroplasty without evidence of hardware complications or a cute fractures.
--- NOTE | 2020-12-04 11:37 | ER ---
Nurse's Notes [facility] Name: Maida Arreola Age: 55 yrs Sex: Female : 1965 Arrival Date: 12/04/2020 Time: 08:43 Bed 28 Private MD: Diagnosis: Fall on same level from slipping, tripping and stumbling without subsequent striking against object;Pain in left knee;Abrasion, left knee Presentation: 12/04 08:43 Chief complaint: EMS states: patient fell prone due to glasses fogging up. Patient ap3 reports No LOC. Coronavirus screen: At this time, the client does not indicate any symptoms associated with coronavirus-19. Ebola Screen: No symptoms or risks identified at this time. Initial Sepsis Screen: Does the patient meet any 2 criteria? No. Patient's initial sepsis screen is negative. Does the patient have a suspected source of infection? No. Patient's initial sepsis screen is negative. Risk Assessment: Do you want to hurt yourself or someone else? Patient reports no desire to harm self or others. Onset of symptoms was December 04, 2020. Mechanism of Injury: Fall from standing position. 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 - Social history:: Patient/guardian denies using Smoking status: Patient denies any tobacco usage or history of. Screenin:52 Abuse screen: Denies threats or abuse. Nutritional screening: No deficits noted. ap3 Tuberculosis screening: No symptoms or risk factors identified. Fall Risk Fall in past 12 months (25 points). No secondary diagnosis (0 pts). No IV (0 pts). Ambulatory Aid- None/Bed Rest/Nurse Assist (0 pts). Gait- Normal/Bed Rest/Wheelchair (0 pts) Mental Status- Oriented to own ability (0 pts). Total Renae Fall Scale indicates Low Risk Score (25-44 pts). Fall prevention measures have been instituted. Side Rails Up X 2 Frequent Obs/Assesments occuring As available Patient and Family Educated on Fall Prevention Program and strategies. Assessment: 08:51 General: Appears in no apparent distress. comfortable, Behavior is calm, cooperative, ap3 appropriate for age. Pain: Complains of pain in left knee Pain does not radiate. Pain currently is 3 out of 10 on a pain scale. Neuro: Level of Consciousness is awake, alert, obeys commands, Oriented to person, place, time, situation, Appropriate for age. Cardiovascular: Denies chest pain. Respiratory: Airway is patent Respiratory effort is even, unlabored, Respiratory pattern is regular, symmetrical. GI: No signs and/or symptoms were reported involving the gastrointestinal system. : No signs and/or symptoms were reported regarding the genitourinary system. EENT: No signs and/or symptoms were reported regarding the EENT system. Musculoskeletal: Reports pain in left knee. 09:44 Reassessment: Patient and/or family updated on plan of care and expected duration. Pain ap3 level reassessed. Patient is alert, oriented x 3, equal unlabored respirations, skin warm/dry/pink. patients mother is at the bedside. 11:22 Reassessment: No changes from previously documented assessment. ap3 Vital Signs: 08:43 BP 115 / 74; Pulse 72; Resp 16; Pulse Ox 100% on R/A; Pain 2/10; ap3 08:51 Weight 95.71 kg; Height 5 ft. 7 in. (170.18 cm); ap3 09:44 BP 110 / 82; Pulse 66; Temp 98.2(O); Pulse Ox 100% on R/A; ap3 11:22 BP 124 / 75; Pulse 57; Resp 19; Pulse Ox 100% on R/A; ap3 08:51 Body Mass Index 33.05 (95.71 kg, 170.18 cm) ap3 ED Course: 08:43 Patient arrived in ED. ap3 08:44 Triage completed. ap3 08:53 Arm band placed on left wrist. ap3 08:53 Patient has correct armband on for positive identification. Bed in low position. Call ap3 light in reach. Side rails up X2. Pulse ox on. NIBP on. Door closed. Noise minimized. 08:54 Tierra Lobo FNP-C is [facility]. kb 08:54 Richie Villanueva MD is Attending Physician. kb 09:01 Crystal Kamara, RN is Primary Nurse. ap3 09:55 Knee Left 3 View XRAY In Process Unspecified. EDMS 12:09 No provider procedures requiring assistance completed. Patient did not have IV access ap3 during this emergency room visit. 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 Exp: ap3 07/24/2022. Lot #: [id number]. } Route: IM; Site: right deltoid; 09:51 Follow up: Response: No adverse reaction ap3 Outcome: 11:36 Discharge ordered by . kb 12:09 Discharged to home ambulatory, with family. ap3 12:09 Condition: good 12:09 Discharge instructions given to patient, family, Instructed on discharge instructions, follow up and referral plans. Demonstrated understanding of instructions, follow-up care. 12:10 Patient left the ED. ap3 Signatures: Dispatcher [employer] EDUT Tierra Lobo FNP-C JAVA SOFTWARE ARCHITECT-Ckb Crystal Kamara, RN RN ap3
--- NOTE | 2020-12-04 11:37 | EDPHYS ---
Physician Documentation [facility] Name: Maida Arreola Age: 55 yrs Sex: Female : 1965 Arrival Date: 12/04/2020 Time: 08:43 Bed 28 Private MD: ED Physician Richie Villanueva HPI: 12/04 09:48 This 55 yrs old Female presents to ER via EMS with complaints of knee pain kb s/p fall. 09:48 Details of fall: The patient fell from an upright position, while walking. Onset: The kb symptoms/episode began/occurred just prior to arrival. Associated injuries: The patient sustained left knee, abrasion, painful injury. Severity of symptoms: At their worst the symptoms were moderate, in the emergency department the symptoms are unchanged. The patient has not experienced similar symptoms in the past. The patient has not recently seen a physician. Pt reports she was in a hurry to get into work so she was walking quickly, her arms were full and her glasses fogged up so she didn't see a curb and tripped landing in prone position on ground. Reports pain to left knee and feels like it is bleeding. Denies LOC. 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 - Social history:: Patient/guardian denies using Smoking status: Patient denies any tobacco usage or history of. ROS: 09:48 Constitutional: Negative for fever, chills, and weight loss. kb 09:48 MS/extremity: Positive for pain, of the left knee. 09:48 Skin: Positive for abrasion(s). 09:48 All other systems are negative. Exam: 09:48 Constitutional: This is a well developed, well nourished patient who is awake, alert, kb and in no acute distress. Head/Face: Normocephalic, atraumatic. ENT: Moist Mucous membranes Cardiovascular: Regular rate and rhythm with a normal S1 and S2. No gallops, murmurs, or rubs. No pulse deficits. Respiratory: Respirations even and unlabored. No increased work of breathing, no retractions or nasal flaring. Abdomen/GI: Soft, non-tender. No distention Neuro: Awake and alert, GCS 15, oriented to person, place, time, and situation. Moves all extremities. Normal gait. Psych: Awake, alert, with orientation to person, place and time. Behavior, mood, and affect are within normal limits. 09:48 Abdomen/GI: Inspection: scar(s), to umbilicus s/p nephrectomy 4 weeks ago. 09:48 Musculoskeletal/extremity: Extremities: grossly normal except: noted in the left knee: abrasion, erythema, pain, ROM: intact in all extremities, Circulation is intact in all extremities. Sensation intact. Weight bearing: able to fully bear weight. 09:48 Skin: injury, abrasion(s), small abrasion noted, of the left knee. Vital Signs: 08:43 BP 115 / 74; Pulse 72; Resp 16; Pulse Ox 100% on R/A; Pain 2/10; ap3 08:51 Weight 95.71 kg; Height 5 ft. 7 in. (170.18 cm); ap3 09:44 BP 110 / 82; Pulse 66; Temp 98.2(O); Pulse Ox 100% on R/A; ap3 11:22 BP 124 / 75; Pulse 57; Resp 19; Pulse Ox 100% on R/A; ap3 08:51 Body Mass Index 33.05 (95.71 kg, 170.18 cm) ap3 MDM: 08:54 Patient medically screened. kb 11:32 Data reviewed: vital signs, nurses notes. Data interpreted: Pulse oximetry: on room air kb is 100 %. Interpretation: normal. Counseling: I had a detailed discussion with the patient and/or guardian regarding: the historical points, exam findings, and any diagnostic results supporting the discharge/admit diagnosis, radiology results, the need for outpatient follow up, a family practitioner, to return to the emergency department if symptoms worsen or persist or if there are any questions or concerns that arise at home. 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 Exp: ap3 07/24/2022. Lot #: [id number]. } Route: IM; Site: right deltoid; 09:51 Follow up: Response: No adverse reaction ap3 Disposition: 17:00 Co-signature as Attending Physician, Richie Villanueva MD I agree with the assessment and kdr plan of care. Disposition Summary: 12/04/20 11:36 Discharge Ordered Location: Home kb Condition: Stable kb Diagnosis - Fall on same level from slipping, tripping and stumbling without subsequent kb striking against object - Pain in left knee kb - Abrasion, left knee kb Followup: kb - With: Private Physician - When: 2 - 3 days - Reason: Recheck today's complaints, Continuance of care, Re-evaluation by your physician Followup: kb - With: Emergency Department - When: As needed - Reason: Worsening of condition Discharge Instructions: - Discharge Summary Sheet kb - Musculoskeletal Pain kb - Abrasion, [id number] kb Forms: - Medication Reconciliation Form kb - Thank You Letter kb - Antibiotic Education kb - Prescription Opioid Use kb Signatures: Dispatcher [employer] EDMS Tierra Lobo, PILOT SUPERVISOR-C PILOT SUPERVISOR-Richie Tran MD MD kdr Prokisch, Amanda RN RN ap3
[2020-12-04 12:17] VITALS: O2SAT 100
[2020-12-04 12:20] VITALS: TEMP 98.2
[2020-12-04 12:21] VITALS: BP 124/75
== END 2020-12-04 12:10 | disposition home or self-care (01) ==
LOC: ER 08:40
DX: S80.212A Abrasion, left knee, initial encounter (principal); W01.0XXA Fall on same level from slipping, tripping and stumbling without subsequent striking against object, initial encounter; Y93.01 Activity, walking, marching and hiking; Y92.89 Other specified places as the place of occurrence of the external cause; Y99.8 Other external cause status; Z23 Encounter for immunization
CPT/HCPCS: 90471; 90714; 99284; A9577

== ENCOUNTER 2022-05-24 02:53 | Emergency (ER) | payer OTHER ==
--- OUTSIDE RECORDS SUMMARY | 2022-05-24 03:05 | XMS REPORT | Continuity of Care Document ---
:1965 Author Organization [facility] t Address [address] [place] [address] Care Team Providers Name Role Phone SALLIE RIVERO Primary Care Physician Unavailable GAGE DIEGO Attending Clinician Unavailable ANGELA BACH Attending Clinician Unavailable AZEEM TEJADA Attending Clinician Unavailable Gage Diego MD Attending Clinician Nati Dowd APRN Attending Clinician Mary Gary MA Attending Clinician Unavailable GAGE DIEGO Attending Clinician Unavailable Presley CARO, Zunilda Hoskins Attending Clinician Gage Diego MD Attending Clinician Joe Mckeon MD Attending Clinician [phone] Leonidas Linda CRNA Attending Clinician Elizabeth Steen MD Attending Clinician Krystina Sims CRNA Attending Clinician Ye Feldman Attending Clinician Unavailable Vadim Andres MD Attending Clinician ANASTASIYA CESPEDES Attending Clinician Unavailable ANGELA BACH M.D. Attending Clinician Unavailable ATUL ACOSTA Attending Clinician Unavailable Juan C Boykin Attending Clinician Unavailable Atul Acosta Attending Clinician Unavailable Fredi Aj MD Attending Clinician Cher Mayfield MD Attending Clinician Pola Goodwin CRNA Attending Clinician MD FREDI AJ Attending Clinician Unavailable Lab, Adc Fam Pob I Attending Clinician Unavailable Joya Dillon Attending Clinician JOYA PEÑA Attending Clinician Unavailable NATI DOWD APRN Attending Clinician Unavailable TATUM GTZ M.D. Attending Clinician Unavailable NUZHAT LAM Attending Clinician Unavailable GAGE DIEGO Admitting Clinician Unavailable Ye Feldman Admitting Clinician Unavailable Juan C Boykin Admitting Clinician Unavailable RiveroSallie glynn Admitting Clinician Unavailable FREDI AJ Admitting Clinician Unavailable MD FREDI AJ Admitting Clinician Unavailable Payers Payer Name Policy Type Policy Number Effective Date Expiration Date S ource BCBSTX PPO AND [id number] 2019 2021 OUT OF STATE 00:00:00 00:00:00 AETNA PPO OPEN [id number] 2013 [facility] NAP 00:00:00 BCBS OS [id number] 2020 POS/PPO/EPO 00:00:00 GENERIC WORKERS' Indemnity [id number] 2020 COMP 00:00:00 GENERIC OTHER [id number] 2021 00:00:00 OUT OF STATE [id number] 2021 BCBS - PPO - 00:00:00 BCBS OPEN ACCESS [id number] 2016 HMO/POS/EPO/PPO 00:00:00 - AETNA CVCP-BCBS [id number] BCBS [facility] [id number] 2019 00:00:00 Problems Condition Condition Condition Status Onset Resolution Last Treating Co mments Source Name Details Category Date Date Treatment Clinician Date Shoulder Shoulder Disease Active [facility] pain with pain with 7-22 [facility] history of history of 00:00: repair of repair of 00 rotator rotator cuff cuff Renal mass Renal mass Disease Active [facility] [place] 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 11[facility] Medical 00 [place] Glenohumer Glenohumer Disease Active U T al al 10-30 [facility] arthritis arthritis 00:00: 00 DVT (deep DVT (deep Disease Active NE venous venous 10-29 [facility] thrombosis thrombosis 00:00: ) ) 00 H/O Spinal H/O Spinal Disease Active U T surgery surgery 10-29 [facility] 00:00: 00 Menorrhagi Menorrhagi Disease Active U T a a 10-29 [facility] 00:00: 00 Endometriu Endometriu Disease Active Overview : [facility] m, [facility] hyperplasi [facility]: g of this a a 00 note might be different from the original. Formattin g of this note might be different from the original. 02/02 - OSH Embx simple hyperplas ia10/13 - complex hyperplas ia without atypia re read by [facility] --> simple hyperplas iaPO progester one09/05 - D&C H scope Neg, Mirena placed. Pap neg, HPV neg/15 EMBX Negative1 16 EMBX negativeP marietta: Annual EMBx, weight loss. Mirena in place. CHENCHO RODRIGUEZ MD Recurrent Recurrent Disease Active NE UTI UTI 10-29 [facility] 00:00: 00 Suspected Suspected Disease Active NE COVID-19 COVID-19 10-29 [facility] virus virus 00:00: infection infection 00 Nephrolith Nephrolith Disease Active U T iasis iasis 10-29 [facility] 00:00: 00 Pre-op Pre-op Disease Active NE testing testing 10-29 [facility] 00:00: 00 Right Right Disease Active [facility] ureteral ureteral 10-10 [facility] stone 00:[facility]: Medical 00 [place] Nephrolith Nephrolith Disease Active [facility] iasis iasis 6-18 [facility] Kidney Kidney Disease Active [facility] stone stone 3-30 [facility] 00:00: of 00 Medicin e Acquired Acquired Disease Active [facility] of cyst of 3-30 [facility] kidney kidney 00:00: of 00 Medicin e Acquired Acquired Disease Active [facility] cyst of cyst of 3-30 [place] kidney kidney 00:00: of 00 Medicin e Other Other Disease Active UT specified specified 07-11 Heal enthesopat enthesopat 00:00: hies of hies of 00 left lower left lower limb, limb, excluding excluding foot foot Weakness Weakness Disease Active UT of both of both 1-10 Health lower lower 00:00: extremitie extremitie 00 s s Quadriceps Quadriceps Disease Active U T weakness weakness -10 Health 00:00: 00 Status Status Disease Active Last UT post total post total - [facility] left knee left knee 00:00: t & Plan: replacemen replacemen 00 Formattin t t g of this note might be different from the original. She has multiple complicat ions that have occurred to her from [employer] and has not acquired her strength or the ability to make it into therapy. We would like to start therapy now and work on her generaliz ed weakness as well as the left knee strength. Primary Primary Disease Active 2019-04 Last UT osteoarthr osteoarthr 04-25 [facility] itis of itis of 00:00: t & Plan: right knee right knee 00 Formattin g of this note might be different from the original. Discussed with Ms. Chacon conservat marcus treatment options for osteoarth ritis. Treatment included pain medicatio n (NSAID's and topicals) , bracing, physical therapy, cortisone injection s, hyaluroni c acid, PRP, and bone grafting. Ms. Chacon presents today for an acute increase in pain that is affecting daily activitie s. After reevaluat ion determine the source of the pain in discussio n, a cortisone injection was done. We will see her back in August. Impingemen Impingemen Disease Active 2019-04 U T t syndrome t syndrome He alth of left of left 00:00: shoulder shoulder 00 Primary Primary Disease Active 2019-04 UT localized localized 0-31 Heal th osteoarthr osteoarthr 00:00: osis of osis of 00 left left shoulder shoulder Cyst of Cyst of Disease Active 2019-04 UT kidney, kidney, 0-26 Health acquired acquired 00:00: 00 Aftercare Aftercare Disease Active Last UT following following 9 [facility] left knee left knee 00:00: t & Plan: joint joint 00 Formattin replacemen replacemen g of this t surgery t surgery note might be different from the original. She had the left knee injury in 11/2020 and has been improving since then. She lacks still little strength in her leg so will recommend physical therapy at this point. We will see her back in 6 to 8 weeks. Other Other Disease Active UT shoulder shoulder 9 Health lesions, lesions, 00:00: left left 00 shoulder shoulder Calculus Calculus Disease Active UT of kidney of kidney 8 Heal th 00:00: 00 Primary Primary Disease Active Last UT localized localized 8-15 [facility] osteoarthr osteoarthr 00:00: t & Plan: itis of itis of 00 Formattin left knee left knee g of this note might be different from the original. Pt was scheduled for Durolane injection . She presented with increased pain that required her to use a walker. She has had 2 episodes where it gave out. After examinati on and xray, will hold off on Durolane for now, do a cortisone , then follow up in 2 weeks for Durolane if symptoms resolve. Pain and Pain and Disease Active UT swelling swelling 7-12 Health of left of left 00:00: lower leg lower leg 00 Localized Localized Disease Active UT osteoarthr osteoarthr 7-01 He alth itis of itis of 00:00: both knees both knees 00 Arthritis Arthritis Disease Active 2018-04 UT of knee of knee 2-17 Health 00:00: 00 Cervical Cervical Disease Active 2017-04 [facility] di stenosis stenosis 2-18 st of spinal of spinal 00:00: Hosp mojgan canal canal 00 l Degenerati Degenerati Disease Active 2017-04 M ethodi on of on of 2-18 st cervical cervical 00:00: Hospit a disc disc 00 l without without myelopathy myelopathy Greater Greater Disease Active UT trochanter trochanter 8- He alth ic pain ic pain 00:00: syndrome syndrome 00 Rheumatoid Rheumatoid Disease Recurre Methodi aortitis aortitis nce 08-25 st 00:00: Hospita 00 l Osteoarthr Osteoarthr Disease Recurre Methodi itis itis nce 08-25 st 00:00: Hospita 00 l TMJ TMJ Disease Recurre Methodi (dislocati (dislocati nce 08-25 st on of on of 00:00: Hospita temporoman temporoman 00 l dibular dibular joint) joint) Rheumatoid Rheumatoid Disease Active M ethodi aortitis aortitis 08-25 st 00:00: Hospita 00 l Acute Acute Disease Active Methodi bilateral bilateral 08-24 st low back low back 00:00: Hospit a pain with pain with 00 l left-sided left-sided sciatica sciatica Pain in Pain in Disease Active 2016-04 UT right knee right knee 2 He alth 00:00: 00 Chronic Chronic Disease Active UT pain pain 8-14 Health syndrome syndrome 00:00: 00 Lumbosacra Lumbosacra Disease Active U T l l 814 Health radiculiti radiculiti 00:00: s s 00 Lumbar Lumbar Disease Active UT post-alpesh post-alpesh 12-06 He alth ectomy ectomy 00:00: syndrome syndrome 00 Primary Primary Disease Active [facility] osteoarthr osteoarthr 2 it y of itis of itis of 00:00: [place] right knee right knee 00 Tn dical Branch Rheumatoid Rheumatoid Disease Active [facility] arthritis arthritis 07-01 [facility] 00:[facility]: Medical 00 [place] Vitamin D Vitamin D Disease Active [facility] deficiency deficiency 07-01 [facility] 00:00: Medical 00 [place] Long-term Long-term Disease Active [facility] use of use of 07-01 [facility] immunosupp immunosupp 00:00: Tn dical ressant ressant 00 Center medication medication Osteoarthr Osteoarthr Disease Active [facility] itis, itis, 07-01 [facility] multiple multiple 00:00: Medica l sites sites 00 Center Tear of Tear of Disease Active UT lateral lateral 11-13 Health cartilage cartilage 00:00: or or 00 meniscus meniscus of knee, of knee, current current Tear of Tear of Disease Active [facility] lateral lateral 7- ity of cartilage cartilage [place] or [place] Medical meniscus meniscus Branch of knee, of knee, current current History of History of Problem Resolve UT rheumatoid rheumatoid d Ph ysici arthritis arthritis ans History of History of Problem Resolve UT blood blood d Physici clots clots ans History of History of Problem Resolve UT hemorrhoid hemorrhoid d Ph ysici s s ans History of History of Problem Resolve UT hypertensi hypertensi d Ph ysici on on ans History of History of Problem Resolve UT kidney kidney d Physici stones stones ans History of History of Problem Resolve UT staphyloco staphyloco d Ph ysici ccal ccal ans infection infection History of History of Problem Resolve UT Tumor Tumor d Physici ans Knee pain, Knee pain, Problem Active U T bilateral bilateral Phys ici ans Primary Primary Problem Active UT osteoarthr osteoarthr Ph ysici itis of itis of ans right knee right knee Localized Localized Problem Active UT osteoarthr osteoarthr Ph ysici itis of itis of ans both knees both knees Primary Primary Problem Active UT localized localized Phys ici osteoarthr osteoarthr an s itis of itis of left knee left knee Status Status Problem Active UT post total post total Ph ysici left knee left knee ans replacemen replacemen t t Aftercare Aftercare Problem Active UT following following Phys ici left knee left knee ans joint joint replacemen replacemen t surgery t surgery Pain and Pain and Problem Active UT swelling swelling Physic i of left of left ans lower leg lower leg Impingemen Impingemen Problem Active U T t syndrome t syndrome Ph ysici of left of left ans shoulder shoulder Glenohumer Glenohumer Problem Active U T al al Physici arthritis, arthritis, an s left left Left Left Problem Active UT shoulder shoulder Physic i tendonitis tendonitis an s Quadriceps Quadriceps Problem Active U T weakness weakness Physic i ans Weakness Weakness Problem Active UT of both of both Physici lower lower ans extremitie extremitie s s Hamstring Hamstring Problem Active UT tendinitis tendinitis Ph ysici of left of left ans thigh thigh Allergies, Adverse Reactions, Alerts Allergy Allergy Status Severity Reaction(s) Onset Inactive Treating Comm ents Source Name Type Date Date Clinician Morphine Allergy Active 2019-04 [facility] to 06-06 Health substanc 00:00: e 00 morphine DA Active SV 2019-04 [facility] 2[facility]12 [facility] morphine DA Active [facility] NEEDLE-LIKE 2019-04 [facility] PAIN IN HEAD 06-06 [place] r AND CROTCH 00:00: Ibarra 00 [facility] Morphine Propensi Active 2019-04 [facility] ty to 2-12 College adverse 00:00: of reaction 00 Medicin s to e drug Diphenhy Drug Active Palpitations [facility] dramine Allergy 08-24 [facility] Center Diphenhy Propensi Active Palpitations Methodi dramine ty to 08-24 st Hcl adverse 00:00: Hospita reaction 00 l s to drug Diphenhy Allergy Active Palpitations U T dramine to 08-24 Health substanc 00:00: e 00 DIPHENHY Allergy Active Low Palpitations [facility] DRAMINE 08-24 [facility] 00:[facility]: Medical 00 [place] Diphenhy Propensi Active Palpitations [facility] dramine ty to 08-24 College Hcl adverse 00:00: of reaction 00 Medicin s to e drug Dexameth Propensi Active [facility] asone ty to 08-24 [place] adverse 00:00: of reaction 00 Medicin s to e drug No Known DA Active U 2012-04 [facility] Allergie 0-07 [place] [facility] 00:[facility] d 00 [facility] NO KNOWN Drug Active Univers ALLERGIE Class ity of S [facility] NO KNOWN Allergy Active [facility] Family History Family Member Diagnosis Comments Start Date Stop Date Source Natural brother Coronary artery [facility] Natural mother Osteoarthritis [facility] Natural mother Diabetes [facility] Other Rheum arthritis [facility] Natural father [facility] Grandmother Family history of [facility] diabetes mellitus Grandmother Family history of [facility] cardiac disorder Grandmother Family history of [facility] hypertension aunt Family history of [facility] hypertension uncle Family history of [facility] cardiac disorder Grandfather Family history of [facility] malignant neoplasm of colon Grandfather Family history of [facility] cardiac disorder Grandfather Family history of [facility] hypertension Mother Family history of [facility] diabetes mellitus Father Family history of [facility] hypertension Father Family history of PSP [facility] (progressive supranuclear palsy) Father Family history of [facility] malignant neoplasm of prostate Father Family history of [facility] malignant neoplasm of skin Father Family history of [facility] chronic lymphoid leukemia Sister Family history of [facility] hypertension Brother Family history of [facility] cardiac disorder Brother Family history of [facility] Transplanted heart Social History Social Habit Start Date Stop Date Quantity Comments [facility] Alcohol Std Drinks History [facility] Health Alcohol Binge History [facility] Health Alcohol Comment Exposure to 2022-05-01 2022-05-11 Not sure [facility] SARS-CoV-2 (event) 00:00:00 13:48:00 History SDOH 2020-10-02 2020-10-02 1 [facility] Alcohol Frequency 00:00:00 00:00:00 Alcohol intake 2020-02-29 2020-02-29 [facility]:00 non-drinker of Hospital alcohol (finding) Tobacco use and 2014-05-29 2014-05-[address] [facility] Kan[facility] kes exposure 00:00:00 00:00:[address] [facility] Sex Ass[birth year] At [birth year] [facility] 00:[facility] Smoking Status Start Date Stop Date Source Never smoked tobacco [facility] Medications Ordered Filled Start Stop Current Ordering Indication Dosage Frequency Signature Comments Components Source Medication Medication Date Date Medication? Clinician (SIG) Name Name bupivacaine 2022- No [id number] 1mL UT (Marcaine) 05-11 9100 Health 0.5 % 20:00: 20:00 injection 1 00 :00 mL triamcinolo 2022- No [id number] 80mg UT ne 05-11 9100 Health acetonide 20:00: 20:00 (Kenalog-40 00 :00 ) injection 80 mg triamcinolo 2022- No [id number] 80mg 80 mg, UT ne 05-11 9100 [facility] acetonide 20:00: 20:00 cular, (Kenalog-40 00 :00 Once PRN ) injection Procedure, 80 mg Starting on Tue05/11/22 at 1400, For 1 dose bupivacaine 2022- No [id number] 1mL 1 mL, UT (Marcaine) 05-11 9100 Injection, He alth 0.5 % 20:00: 20:00 Once PRN injection 1 00 :00 Procedure, mL Starting on Tue05/11/22 at 1400, For 1 dose DULoxetine 2021-04 Yes QD Take by NE (Cymbalta) 06-17 mouth [address] 00:00: (one) time capsule 00 each day. VITAMINS C 2021-04- No Take by [place] familia E OR 0- 10- mouth. College 15:05: 00:00 of 46 :00 Medicin e Aspirin 81 2021-04- No 1{tbl} Take 1 Ba [facility] MG CAPS 0- 10- Tablet by [facility] 15:05: 00:00 mouth of 43 :00 daily. Medicin e Zinc 50 MG 2021-04- No 1{tbl} Take 1 Ba [facility] TABS 0-22 02- Tablet by [place] 15:05: 00:00 mouth of 37 :00 daily. Medicin e Cholecalcif 2021-04- No Take by ylor mi 0-31 - mouth [place] (VITAMIN D) 15:05: 00:00 daily. of 1000 UNITS 31 :00 Medicin TABS e Cranberry 2021-04- No 1{tbl} Take 1 [place] familia 500 MG CAPS 0-22 02- Tablet by Co llege 15:05: 00:00 mouth of 28 :00 daily. Medicin e amoxicillin 2021-04- No 1{tbl} Take 1 B [facility]ylor -clavulanat 0-22 02- Tablet by Co llege e 15:05: 00:00 mouth two of (AUGMENTIN) 25 :00 times Medicin 875-125 MG daily. e per tablet nystatin 2021-04 Yes TOPICALLY [facility] (MYCOSTATIN 0-25 APPLY TO [facility]ina ege ) cream 00:00: BREAST of 00 FOLD TWICE Medicin DAILY FOR e CANDIDIASI S Sodium 2021- No [id number] 60mg UT Hyaluronate 01-19 91 Health prefilled 21:49: 21:49 syringe 60 14 :00 mg Sodium 2021- No [id number] 60mg 60 mg, U T Hyaluronate 01-19 9100 [facility] e[facility] prefilled 21:49: 21:49 cular, syringe 60 14 :00 Once PRN mg Procedure, Starting on Tue01/19/22 at 1649, For 1 dose bupivacaine 2021- No [id number] 4mL UT (Marcaine) 12-30 9109 Health 0.25 % 18:49: 18:49 injection 4 21 :00 mL triamcinolo 2021- No [id number] 80mg UT ne 12-30 9109 Health acetonide 18:49: 18:49 (Kenalog-40 21 :00 ) injection 80 mg triamcinolo 2021- No [id number] 80mg 80 mg, UT ne 12-3009 [facility] acetonide 18:49: 18:49 cular, (Kenalog-40 21 :00 Once PRN ) injection Procedure, 80 mg Starting on Tue12/30/21 at 1349, For 1 dose bupivacaine No [id number] 4mL 4 mL, UT (Marcaine) 12-30 9109 Injection, He alth 0.25 % 18:49: 18:49 Once PRN injection 4 21 :00 Procedure, mL Starting on Tue12/30/21 at 1349, For 1 dose levoFLOXaci Yes 500mg QD Take 500 U T n 8-30 mg by Health (Levaquin) 00:00: mouth 1 500 MG 00 (one) time tablet each day. levoFLOXaci Yes 500mg QD Take 500 U T n 8-30 mg by Health (Levaquin) 00:00: mouth 1 500 MG 00 (one) time tablet each day. levoFLOXaci 2022- No 500mg QD Take 500 UT n 8-30 01-17 mg by Health (Levaquin) 00:00: 00:00 mouth 1 500 MG 00 :00 (one) time tablet each day. lidocaine 2021- No [id number] 1mL UT (Xylocaine) 11-13 Health 1 % 19:11: 19:11 injection 1 27 :00 mL lidocaine 2021- No [id number] 1mL UT (Xylocaine) 11-13 Health 1 % 19:11: 19:11 injection 1 27 :00 mL methylPREDN 2021- No [id number] 40mg U T ISolone 11-13 Health acetate 19:11: 19:11 (DEPO-Medro 27 :00 l) injection 40 mg methylPREDN 2021- No [id number] 40mg U T ISolone 11-13 Health acetate 19:11: 19:11 (DEPO-Medro 27 :00 l) injection 40 mg methylPREDN 2021- No [id number] 40mg 40 mg, UT ISolone 11-13 [facility] Healt h acetate 19:11: 19:11 cular, (DEPO-Medro 27 :00 Once PRN l) Procedure, injection Starting 40 mg on Tue11/13/21 at 1411, For 1 dose methylPREDN 2021- No [id number] 40mg 40 mg, UT ISolone 11-13 Intra-tio Healt h acetate 19:11: 19:11 cular, (DEPO-Medro 27 :00 Once PRN l) Procedure, injection Starting 40 mg on Tue11/13/21 at 1411, For 1 dose lidocaine 2021- No [id number] 1mL 1 mL, UT (Xylocaine) 11-13 Injection, H ealth 1 % 19:11: 19:11 Once PRN injection 1 27 :00 Procedure, mL Starting on Tue11/13/21 at 1411, For 1 dose lidocaine 2021- No [id number] 1mL 1 mL, UT (Xylocaine) 11-13 Injection, H ealth 1 % 19:11: 19:11 Once PRN injection 1 27 :00 Procedure, mL Starting on Tue11/13/21 at 1411, For 1 dose ascorbic 2021- No 1000mg QD Take 1,000 UT acid 11-13 mg by Health (Vitamin C) 14:02: 00:00 mouth 1 1000 MG 11 :00 (one) time tablet each day. potassium 2021- Yes 10meq Q.5D Take 10 UT citrate CR 4-28 mEq by Health (Urocit-K-1 00:00: mouth 2 0) 10 mEq 00 (two) ER tablet times a day. potassium 2022-0 Yes 10meq Q.5D Take 10 UT citrate CR 4-28 mEq by Health (Urocit-K-1 00:00: mouth 2 0) 10 mEq 00 (two) ER tablet times a day. potassium 2022-0 Yes 10meq Q.5D Take 10 UT citrate CR 4-28 mEq by Health (Urocit-K-1 00:00: mouth 2 0) 10 mEq 00 (two) ER tablet times a day. potassium 2022-0 Yes 10meq Q.5D Take 10 UT citrate CR 4-28 mEq by Health (Urocit-K-1 00:00: mouth 2 0) 10 mEq 00 (two) ER tablet times a day. hydroxychlo 2022-0 Yes 200mg Q.5D Take 200 U T roquine 4-22 mg by Health (Plaquenil) 00:00: mouth 2 200 MG 00 (two) tablet times a day. hydroxychlo 2022-0 Yes 200mg Q.5D Take 200 U T roquine 4-22 mg by Health (Plaquenil) 00:00: mouth 2 200 MG 00 (two) tablet times a day. hydroxychlo 2022-0 Yes 200mg Q.5D Take 200 U T roquine 4-22 mg by Health (Plaquenil) 00:00: mouth 2 200 MG 00 (two) tablet times a day. hydroxychlo 2022-0 Yes 200mg Q.5D Take 200 U T roquine 4-22 mg by Health (Plaquenil) 00:00: mouth 2 200 MG 00 (two) tablet times a day. amoxicillin 2021-0 Yes 1{tbl} Take 1 Ba [facility] -clavulanat 3-31 Tablet by [facility] lege e 16:24: mouth two of (AUGMENTIN) 20 times Medicin 875-125 MG daily. e per tablet Aspirin 81 2021-0 Yes 1{tbl} Take 1 [place] [facility] MG CAPS 3-31 Tablet by [place] 16:24: mouth of 20 daily. Medicin e Zinc 50 MG 2021-0 Yes 1{tbl} Take 1 [place] fam[facility] TABS 3-31 Tablet by [place] 16:24: mouth of 20 daily. Medicin e Cranberry 2022-0 Yes 1{tbl} Take 1 [facility] 500 MG CAPS 07-23 Tablet by leggael 16:24: mouth of 20 daily. Medicin e Cholecalcif Yes Take by [place] fam[facility] mi 07-23 mouth [place] (VITAMIN D) 16:24: daily. of 1000 UNITS 08 Medicin TABS e VITAMINS C Yes Take by [facility] E OR 07-23 mouth. College 16:24: of 08 Medicin e aspirin 81 2021- No 81mg Take 81 mg [facility] MG tablet 07-23 by mouth Colle ge 16:17: 00:00 daily. of 31 :00 Medicin e celecoxib 2021- No Take by [facility] or (CELEBREX) 07-23 mouth. Colleg e 100 MG 16:17: 00:00 of capsule 31 :00 Medicin e Tofacitinib 2021- No Xeljanz XR [facility] Citrate ER 07-23 11 mg [place] (XELJANZ 16:17: 00:00 tablet,ext of XR) 11 MG 31 :00 ended Medicin TB24 release e furosemide 2021- No furosemide [facility] (LASIX) 20 07-23 20 mg College MG tablet 16:17: 00:00 tablet of 31 :00 Medicin e albuterol 2021- No albuterol Ba [facility] 108 (90 07-23 sulfate College base) 16:17: 00:00 HFA 90 of mcg/act 31 :00 mcg/actuat Medici n inhaler ion e aerosol inhaler Potassium Yes 1{tbl} Take 1 [facility] Citrate 10 07-23 Tablet by [facility] ege MEQ (1080 00:00: mouth two of MG) TBCR 00 times Medicin daily. e Potassium Yes 1{tbl} Take 1 [facility] Citrate 10 31 Tablet by Samina ege MEQ (1080 00:00: mouth two of MG) TBCR 00 times Medicin daily. e hydroxychlo Yes TAKE 1 [facility] roquine 3-14 TABLET BY [place] (PLAQUINIL) 00:00: MOUTH of 200 MG 00 TWICE Medicin tablet DAILY e hydroxychlo Yes TAKE 1 [facility] roquine 3-14 TABLET BY [place] (PLAQUINIL) 00:00: MOUTH of 200 MG 00 TWICE Medicin tablet DAILY e amoxicillin 2020-04- No 1{tbl} Take 1 B aylor -clavulanat 1-24 07-23 Tablet by Co memo e 00:00: 00:00 mouth two of (AUGMENTIN) 00 :00 times Medicin 875-125 MG daily. e per tablet Cholecalcif 2020-04 Yes Take by [place] fam[facility] mi 05-16 mouth [place] (VITAMIN D) 13:26: daily. of 1000 UNITS 48 Medicin TABS e VITAMINS C 2020-04 Yes Take by [facility] OR 05-16 mouth. [place] 13:26: of 48 Medicin e aspirin 81 Yes 81mg Take 81 mg [facility] MG tablet 11-24 by mouth [facility] 15:37: daily. of 05 Medicin e celecoxib Yes Take by [place] (CELEBREX) 11-24 mouth. [place] 100 MG 15:37: of capsule 05 Medicin e Tofacitinib Yes Xeljanz XR [facility] Citrate ER 11-24 11 mg [place] (XELJANZ 15:37: tablet,ext of XR) 11 MG 05 ended Medicin TB24 release e furosemide Yes furosemide [facility] (LASIX) 20 11-24 20 mg [facility] MG tablet 15:37: tablet of 05 Medicin e albuterol Yes albuterol [place] [facility] 108 (90 11-24 sulfate [place] [facility]) 15:37: HFA 90 of mcg/act 05 mcg/actuat Medici n inhaler ion e aerosol inhaler ondansetron Yes 4mg Take 1 [facility] (ZOFRAN 7-23 Tablet by [place] ODT) 4 mg 00:00: mouth of disintegrat 00 every 8 Medic in ing tablet hours as e needed for Nausea. ondansetron 2021- No 4mg Take 1 [place] [facility] (ZOFRAN 7-23 07-23 Tablet by [facility] ODT) 4 mg 00:00: 00:00 mouth of disintegrat 00 :00 every 8 Medic in ing tablet hours as e needed for Nausea. loratadine Yes 10mg QD Take [address] [facility] (CLARITIN) 7-13 by mouth [facility] 10 mg 19:22: daily. Medical tablet 57 Center PYRILAMINE/ Yes Take by [facility] PE/DEXTROME 7-13 mouth. [facility] TH[facility]PHAN 19:22: Medical (POLY HIST 57 Center DM ORAL) aspirin 81 0 Yes 81mg QD Take [address] MG EC 7-13 by mouth [facility] tablet 19:22: daily. Medical [address] [place] [address] ascorbic 0 Yes 1000mg QD Take 1,[address] acid, 7-13 mg by [facility] vitamin C, 19:22: mouth Medica l (vitamin C) 57 daily. [place] 1000 MG tablet zinc Yes 50mg QD Take [address] [facility] gluconate 7-13 by mouth [facility] 50 mg 19:22: daily. Medical tablet 57 Center cholecalcif Yes 1000U QD Take 1,[address] [facility] mi, 7-13 Units by [facility] vitamin D3, 19:22: mouth Medic al 25 mcg 57 daily. [place] (1,000 unit) capsule fluconazole Yes 100mg Take [address] (DIFLUCAN) 7-13 mg by [facility] 100 MG 19:22: mouth Medical tablet 57 once. [place] ciprofloxac Yes 100mg Q.5D Take [address] in HCl 7-13 mg by [facility] (CIPRO) 100 19:22: mouth 2 Med ical MG tablet 57 (two) Center times daily. amoxicillin Yes Q.5D Take by [facility] -clavulanat 7-13 mouth 2 [facility] 19:22: (two) Medical (AUGMENTIN) 57 times [place] 200-28.5 daily. mg/5 mL suspension loratadine Yes 10mg QD Take [address] (CLARITIN) 7-13 by mouth [facility] 10 mg 19:22: daily. Medical tablet 57 Center PYRILAMINE/ Yes Take by [facility] PE/DEXTROME 7-13 mouth. [facility] TH[facility]PHAN 19:22: Medical (POLY HIST 57 Center DM ORAL) aspirin 81 0 Yes 81mg QD Take [address] MG EC 7-13 by mouth [facility] tablet 19:22: daily. Medical [address] [place] [address] ascorbic Yes 1000mg QD Take 1,[address] acid, 7-13 mg by [facility] vitamin C, 19:22: mouth Medica l (vitamin C) 57 daily. [place] 1000 MG tablet zinc Yes 50mg QD Take [address] [facility] gluconate 7-13 by mouth [facility] 50 mg 19:22: daily. Medical tablet 57 Center cholecalcif Yes 1000U QD Take 1,[address] [facility] mi, 7-13 Units by [facility] vitamin D3, 19:22: mouth Medic al 25 mcg 57 daily. Center (1,000 unit) capsule fluconazole 0 Yes 100mg Take [address] (DIFLUCAN) 7-13 mg by [facility] 100 MG 19:22: mouth Medical tablet 57 once. [place] ciprofloxac Yes 100mg Q.5D Take [address] in HCl 7-13 mg by [facility] (CIPRO) 100 19:22: mouth 2 Med ical MG tablet 57 (two) Center times daily. amoxicillin Yes Q.5D Take by [facility] -clavulanat 7-13 mouth 2 [facility] 19:22: (two) Medical (AUGMENTIN) 57 times Center 200-28.5 daily. mg/5 mL suspension loratadine Yes 10mg QD Take [address] (CLARITIN) 7-13 by mouth [facility] 10 mg 19:22: daily. Medical tablet 57 Center PYRILAMINE/ Yes Take by [facility] PE/DEXTROME 7-13 mouth. [facility] 19:22: Medical (POLY HIST 57 Center DM ORAL) aspirin 81 0 Yes 81mg QD Take [address] MG EC 7-13 by mouth [facility] tablet 19:22: daily. Medical 57 Center ascorbic 0 Yes 1000mg QD Take 1,[address] acid, 7-13 mg by [facility] vitamin C, 19:22: mouth Medica l (vitamin C) 57 daily. [place] 1000 MG tablet zinc Yes 50mg QD Take [address] [facility] gluconate 7-13 by mouth [facility] 50 mg 19:22: daily. Medical tablet 57 Center cholecalcif Yes 1000U QD Take 1,[address] [facility] mi, 7-13 Units by [facility] vitamin D3, 19:22: mouth Medic al 25 mcg 57 daily. [place] (1,000 unit) capsule fluconazole Yes 100mg Take [address] (DIFLUCAN) 7-13 mg by [facility] 100 MG 19:22: mouth Medical tablet 57 once. [place] ciprofloxac 0 Yes 100mg Q.5D Take [address] in HCl 7-13 mg by [facility] (CIPRO) 100 19:22: mouth 2 Med ical MG tablet 57 (two) Center times daily. amoxicillin 2020-0 Yes Q.5D Take by [facility] -clavulanat 7-13 mouth 2 [facility] 19:22: (two) Medical (AUGMENTIN) 57 times Center 200-28.5 daily. mg/5 mL suspension loratadine Yes 10mg QD Take [address] (CLARITIN) 7-13 by mouth [facility] 10 mg 19:22: daily. Medical tablet 57 Center PYRILAMINE/ Yes Take by [facility] PE/DEXTROME 7-13 mouth. [facility]AN 19:22: Medical (POLY HIST 57 Center DM ORAL) aspirin 81 Yes 81mg QD Take [address] MG EC 7-13 by mouth [facility] tablet 19:22: daily. Medical 57 Center ascorbic Yes 1000mg QD Take 1,[address] acid, 7-13 mg by [facility] vitamin C, 19:22: mouth Medica l (vitamin C) 57 daily. [place] 1000 MG tablet zinc Yes 50mg QD Take [address] [facility] gluconate 7-13 by mouth [facility] 50 mg 19:22: daily. Medical tablet 57 Center cholecalcif Yes 1000U QD Take 1,[address] [facility] mi, 7-13 Units by [facility] vitamin D3, 19:22: mouth Medic al 25 mcg 57 daily. [place] (1,000 unit) capsule fluconazole Yes 100mg Take [address] (DIFLUCAN) 7-13 mg by [facility] 100 MG 19:22: mouth Medical tablet 57 once. [place] ciprofloxac 0 Yes 100mg Q.5D Take [address] in HCl 7-13 mg by [facility] (CIPRO) 100 19:22: mouth 2 Med ical MG tablet 57 (two) Center times daily. amoxicillin 2020-0 Yes Q.5D Take by [facility] -clavulanat 7-13 mouth 2 [facility] 19:22: (two) Medical (AUGMENTIN) 57 times Center 200-28.5 daily. mg/5 mL suspension loratadine 0 Yes 10mg QD Take [address] (CLARITIN) 7-13 by mouth [facility] 10 mg 19:22: daily. Medical tablet 57 Center PYRILAMINE/ 0 Yes Take by [facility] PE/DEXTROME 7-13 mouth. [facility] 19:22: Medical (POLY HIST 57 Center DM ORAL) aspirin 81 2020-0 Yes 81mg QD Take [address] MG EC 7-13 by mouth [facility] tablet 19:22: daily. Medical 57 Center ascorbic 0 Yes 1000mg QD Take 1,[address] acid, 7-13 mg by [facility] vitamin C, 19:22: mouth Medica l (vitamin C) 57 daily. [place] 1000 MG tablet zinc Yes 50mg QD Take [address] [facility] gluconate 7-13 by mouth [facility] 50 mg 19:22: daily. Medical tablet 57 Center cholecalcif Yes 1000U QD Take 1,[address] [facility] mi, 7-13 Units by [facility] vitamin D3, 19:22: mouth Medic al 25 mcg 57 daily. [place] (1,000 unit) capsule fluconazole Yes 100mg Take [address] (DIFLUCAN) 7-13 mg by [facility] 100 MG 19:22: mouth Medical tablet 57 once. [place] ciprofloxac 0 Yes 100mg Q.5D Take [address] in HCl 7-13 mg by [facility] (CIPRO) 100 19:22: mouth 2 Med ical MG tablet 57 (two) Center times daily. amoxicillin 2020-0 Yes Q.5D Take by [facility] -clavulanat 7-13 mouth 2 [facility] 19:22: (two) Medical (AUGMENTIN) 57 times Center 200-28.5 daily. mg/5 mL suspension loratadine 0 Yes 10mg QD Take [address] (CLARITIN) 7-13 by mouth [facility] 10 mg 19:22: daily. Medical tablet 57 Center PYRILAMINE/ 0 Yes Take by [facility] PE/DEXTROME 7-13 mouth. [facility] 19:22: Medical (POLY HIST 57 Center DM ORAL) aspirin 81 Yes 81mg QD Take [address] MG EC 7-13 by mouth [facility] tablet 19:22: daily. Medical 57 Center ascorbic Yes 1000mg QD Take 1,[address] acid, 7-13 mg by [facility] vitamin C, 19:22: mouth Medica l (vitamin C) 57 daily. [place] 1000 MG tablet zinc Yes 50mg QD Take [address] [facility] gluconate 7-13 by mouth [facility] 50 mg 19:22: daily. Medical tablet 57 Center cholecalcif Yes 1000U QD Take 1,[address] [facility] mi, 7-13 Units by [facility] vitamin D3, 19:22: mouth Medic al 25 mcg 57 daily. [place] (1,000 unit) capsule fluconazole Yes 100mg Take [address] (DIFLUCAN) 7-13 mg by [facility] 100 MG 19:22: mouth Medical tablet 57 once. [place] ciprofloxac Yes 100mg Q.5D Take [address] in HCl 7-13 mg by [facility] (CIPRO) 100 19:22: mouth 2 Med ical MG tablet 57 (two) Center times daily. amoxicillin Yes Q.5D Take by [facility] -clavulanat 7-13 mouth 2 [facility] 19:22: (two) Medical (AUGMENTIN) 57 times Center 200-28.5 daily. mg/5 mL suspension loratadine Yes 10mg QD Take [address] (CLARITIN) 7-13 by mouth [facility] 10 mg 19:22: daily. Medical tablet 57 Center PYRILAMINE/ Yes Take by [facility] PE/DEXTROME 7-13 mouth. [facility] 19:22: Medical (POLY HIST 57 Center DM ORAL) aspirin 81 Yes 81mg QD Take [address] MG EC 7-13 by mouth [facility] tablet 19:22: daily. Medical 57 Center ascorbic 0 Yes 1000mg QD Take 1,[address] acid, 7-13 mg by [facility] vitamin C, 19:22: mouth Medica l (vitamin C) 57 daily. [place] 1000 MG tablet zinc Yes 50mg QD Take [address] [facility] gluconate 7-13 by mouth [facility] 50 mg 19:22: daily. Medical tablet 57 Center cholecalcif Yes 1000U QD Take 1,[address] [facility] mi, 7-13 Units by [facility] vitamin D3, 19:22: mouth Medic al 25 mcg 57 daily. Center (1,000 unit) capsule fluconazole 0 Yes 100mg Take [address] (DIFLUCAN) 7-13 mg by [facility] 100 MG 19:22: mouth Medical tablet 57 once. [place] ciprofloxac 0 Yes 100mg Q.5D Take [address] in HCl 7-13 mg by [facility] (CIPRO) 100 19:22: mouth 2 Med ical MG tablet 57 (two) Center times daily. amoxicillin 0 Yes Q.5D Take by [facility] -clavulanat 7-13 mouth 2 [facility] 19:22: (two) Medical (AUGMENTIN) 57 times Center 200-28.5 daily. mg/5 mL suspension loratadine Yes 10mg QD Take [address] (CLARITIN) 7-13 by mouth [facility] 10 mg 19:22: daily. Medical tablet 57 Center PYRILAMINE/ Yes Take by [facility] PE/DEXTROME 7-13 mouth. [facility] 19:22: Medical (POLY HIST 57 Center DM ORAL) aspirin 81 0 Yes 81mg QD Take [address] MG EC 7-13 by mouth [facility] tablet 19:22: daily. Medical 57 Center ascorbic 0 Yes 1000mg QD Take 1,[address] acid, 7-13 mg by [facility] vitamin C, 19:22: mouth Medica l (vitamin C) 57 daily. [place] 1000 MG tablet zinc Yes 50mg QD Take [address] [facility] gluconate 7-13 by mouth [facility] 50 mg 19:22: daily. Medical tablet 57 Center cholecalcif Yes 1000U QD Take 1,[address] mi, 7-13 Units by [facility] vitamin D3, 19:22: mouth Medic al 25 mcg 57 daily. Center (1,000 unit) capsule fluconazole Yes 100mg Take [address] (DIFLUCAN) 7-13 mg by [facility] 100 MG 19:22: mouth Medical tablet 57 once. [place] ciprofloxac 0 Yes 100mg Q.5D Take [address] in HCl 7-13 mg by [facility] (CIPRO) 100 19:22: mouth 2 Med ical MG tablet 57 (two) Center times daily. amoxicillin Yes Q.5D Take by [facility] -clavulanat 7-13 mouth 2 [facility] 19:22: (two) Medical (AUGMENTIN) 57 times Center 200-28.5 daily. mg/5 mL suspension docusate 2020- No 100mg Q.5D Take 1 [facility] sodium -04 11-23 capsule [facility] (COLACE) 00:00: 23:59 (100 mg Medic al 100 MG 00 :00 total) by Center capsule mouth 2 (two) times daily for 10 days. traMADoL 2020- No 50mg Take [address] [facility] (ULTRAM) 50 -04 11-23 tablet (50 [facility] mg tablet 00:00: 23:59 mg total) Me dical 00 :00 by mouth Center every 6 (six) hours as needed for Pain for up to 10 days. Max Daily Amount: 200 mg HYDROcodone 2020- No 1{tbl} Take [address] -acetaminop - 07- tablet by Kanika herrera (NORCO 00:00: 23:59 mouth Medic al 5-325) 00 :00 every 6 Center 5-325 mg (six) per tablet hours as needed for Pain for up to 10 days. Max Daily Amount: 4 tablets docusate 2020- No 100mg Q.5D Take 1 [facility] sodium 11-04- capsule [facility] (COLACE) 00:00: 23:59 (100 mg Medic al 100 MG 00 :00 total) by Center capsule mouth 2 (two) times daily for 10 days. traMADoL 2020- No 50mg Take [address] [facility] (ULTRAM) 50 7-04 11-23 tablet (50 [facility] mg tablet 00:00: 23:59 mg total) Me dical 00 :00 by mouth Center every 6 (six) hours as needed for Pain for up to 10 days. Max Daily Amount: 200 mg HYDROcodone 2020- No 1{tbl} Take [address] -acetaminop 7-04 11-23 tablet by Kanika herrera (NORCO 00:00: 23:59 mouth Medic al 5-325) 00 :00 every 6 Center 5-325 mg (six) per tablet hours as needed for Pain for up to 10 days. Max Daily Amount: 4 tablets docusate 2020-0 2020- No 100mg Q.5D Take 1 [facility] sodium 7-13 -23 capsule [facility] (COLACE) 00:00: 23:59 (100 mg Medic al 100 MG 00 :00 total) by Center capsule mouth 2 (two) times daily for 10 days. traMADoL 2020- No 50mg Take [address] [facility] (ULTRAM) 50 7-13 07-23 tablet (50 [facility] mg tablet 00:00: 23:59 mg total) Me dical 00 :00 by mouth Center every 6 (six) hours as needed for Pain for up to 10 days. Max Daily Amount: 200 mg HYDROcodone 2020- No 1{tbl} Take [address] -acetaminop 7-04 11-23 tablet by Kanika herrera (NORCO 00:00: 23:59 mouth Medic al 5-325) 00 :00 every 6 Center 5-325 mg (six) per tablet hours as needed for Pain for up to 10 days. Max Daily Amount: 4 tablets docusate 2020-2020- No 100mg Q.5D Take 1 [facility] sodium 7-13 -23 capsule [facility] (COLACE) 00:00: 23:59 (100 mg Medic al 100 MG 00 :00 total) by Center capsule mouth 2 (two) times daily for 10 days. traMADoL 2020- No 50mg Take [address] [facility] (ULTRAM) 50 7-13 07-23 tablet (50 [facility] mg tablet 00:00: 23:59 mg total) Me dical 00 :00 by mouth Center every 6 (six) hours as needed for Pain for up to 10 days. Max Daily Amount: 200 mg HYDROcodone 2020-2020- No 1{tbl} Take [address] -acetaminop 7-13 07-23 tablet by Kanika herrera (NORCO 00:00: 23:59 mouth Medic al 5-325) 00 :00 every 6 Center 5-325 mg (six) per tablet hours as needed for Pain for up to 10 days. Max Daily Amount: 4 tablets traMADoL 2020-0 2020- No 50mg Take [address] [facility] (ULTRAM) 50 7-13 07-13 tablet (50 [facility] mg tablet 00:00: 00:00 mg total) Me dical 00 :00 by mouth Center every 6 (six) hours as needed for Pain for up to 10 days. Max Daily Amount: 200 mg traMADoL 2020-0 2020- No 50mg Take [address] [facility] (ULTRAM) 50 7-13 07-13 tablet (50 [facility] mg tablet 00:00: 00:00 mg total) Me dical 00 :00 by mouth Center every 6 (six) hours as needed for Pain for up to 10 days. Max Daily Amount: 200 mg traMADoL 2020-0 2020- No 50mg Take [address] [facility] (ULTRAM) 50 7-13 07-13 tablet (50 [facility] mg tablet 00:00: 00:00 mg total) Me dical 00 :00 by mouth Center every 6 (six) hours as needed for Pain for up to 10 days. Max Daily Amount: 200 mg traMADoL 2020-0 2020- No 50mg Take [address] [facility] (ULTRAM) 50 7-13 07-13 tablet (50 [facility] mg tablet 00:00: 00:00 mg total) Me dical 00 :00 by mouth Center every 6 (six) hours as needed for Pain for up to 10 days. Max Daily Amount: 200 mg citalopram 2020-0 Yes [facility] (CELEXA) 20 7-10 [facility] MG tablet 00:00: of 00 Medicin e citalopram 2020-0 Yes [facility] (CELEXA) 20 7-10 [facility] MG tablet 00:00: of 00 Medicin e citalopram 2020-0 Yes [facility] (CELEXA) 20 7-10 [facility] MG tablet 00:00: of 00 Medicin e tamsulosin 2020-0 Yes .4mg QD Take 1 [facility] (FLOMAX[facility] 6-18 capsule [facility] 0.4 mg Cap 00:00: (0.4 mg Medi godwin 24 hr 00 total) by Center capsule mouth daily. tamsulosin 2020-0 Yes .4mg QD Take 1 [facility] (FLOMAX) 6-18 capsule [facility] 0.4 mg Cap 00:00: (0.4 mg Medi godwin 24 hr 00 total) by Center capsule mouth daily. tamsulosin 2021-0 Yes .4mg QD Take 1 [facility] (FLOMAX) 6-18 capsule [facility] 0.4 mg Cap 00:00: (0.4 mg Medi godwin 24 hr 00 total) by Center capsule mouth daily. tamsulosin 2021-0 Yes .4mg QD Take 1 [facility] (FLOMAX) 6-18 capsule [facility] 0.4 mg Cap 00:00: (0.4 mg Medi [facility]win 24 hr 00 total) by Center capsule mouth daily. tamsulosin 2021-0 Yes .4mg QD Take 1 [facility] (FLOMAX) 6-18 capsule [facility] 0.4 mg Cap 00:00: (0.4 mg Medi [facility]win 24 hr 00 total) by Center capsule mouth daily. tamsulosin 2021-0 Yes .4mg QD Take 1 [facility] (FLOMAX) 6-18 capsule [facility] 0.4 mg Cap 00:00: (0.4 mg Medi [facility]win 24 hr 00 total) by Center capsule mouth daily. tamsulosin 2021-0 Yes .4mg QD Take 1 [facility] (FLOMAX) 6-18 capsule [facility] 0.4 mg Cap 00:00: (0.4 mg Medi [facility]win 24 hr 00 total) by Center capsule mouth daily. tamsulosin 2021-0 Yes .4mg QD Take 1 [facility] (FLOMAX) 6-18 capsule [facility] 0.4 mg Cap 00:00: (0.4 mg Medi [facility]win 24 hr 00 total) by Center capsule mouth daily. loratadine 2020-0 Yes 10mg Take 10 mg [facility] (CLARITIN) 6-18 by mouth. [facility] ege 10 MG 00:00: of tablet 00 Medicin e Tamsulosin 2020-0 Yes .4mg Take 0.4 [place] [facility] HCl 0.4 MG 6-18 mg by [facility] CAPS 00:00: mouth. of 00 Medicin e cholecalcif 2020-0 2021- No 1000U QD Take 1,000 [facility] mi 6-18 07-22 Units by Health (Vitamin 00:00: 00:00 mouth 1 D-3) 25 MCG 00 :00 (one) time (1000 UT) each day. capsule oxybutynin 2020-0 2021- No 10mg Take [address] [facility] (DITROPAN-X 6-18 06-18 tablet (10 [facility] L) 10 MG 24 00:00: 23:59 mg total) Medical hr tablet 00 :00 by mouth Center daily as needed (bladder spasms). oxybutynin 2021- No 10mg Take [address] [facility] (DITROPAN-X 6-18 06-18 tablet (10 [facility] L) 10 MG 24 00:00: 23:59 mg total) Medical hr tablet 00 :00 by mouth Center daily as needed (bladder spasms). oxybutynin 2021- No 10mg Take [address] [facility] (DITROPAN-X 6-18 06-18 tablet (10 [facility] L) 10 MG 24 00:00: 23:59 mg total) Medical hr tablet 00 :00 by mouth Center daily as needed (bladder spasms). oxybutynin 2021- No 10mg Take [address] [facility] (DITROPAN-X 6-18 06-18 tablet (10 [facility] L) 10 MG 24 00:00: 23:59 mg total) Medical hr tablet 00 :00 by mouth Center daily as needed (bladder spasms). oxybutynin 2021- No 10mg Take [address] [facility] (DITROPAN-X 6-18 06-18 tablet (10 L [facility] L) 10 MG 24 00:00: 23:59 mg total) Medical hr tablet 00 :00 by mouth Center daily as needed (bladder spasms). oxybutynin 2021- No 10mg Take [address] [facility] (DITROPAN-X 6-18 06-18 tablet (10 L [facility] L) 10 MG 24 00:00: 23:59 mg total) Medical hr tablet 00 :00 by mouth Center daily as needed (bladder spasms). oxybutynin 2020-2021- No 10mg Take [address] [facility] (DITROPAN-X 6-18 06-18 tablet (10 L [facility] L) 10 MG 24 00:00: 23:59 mg total) Medical hr tablet 00 :00 by mouth Center daily as needed (bladder spasms). oxybutynin 2020-2021- No 10mg Take [address] [facility] (DITROPAN-X 6-18 06-18 tablet (10 L [facility]kes L) 10 MG 24 00:00: 23:59 mg total) Medical hr tablet 00 :00 by mouth Center daily as needed (bladder spasms). loratadine 2021- No 10mg Take 10 mg [facility] (CLARITIN) 10-10 by mouth. Col lege 10 MG 00:00: 00:00 of tablet 00 :00 Medicin e Tamsulosin 2021- No .4mg Take 0.4 [facility] HCl 0.4 MG 10-10 mg by [place] CAPS 00:00: 00:00 mouth. of 00 :00 Medicin e traMADoL 2020- No 50mg Take [address] [facility] (ULTRAM) 50 10-10 tablet (50 [facility] mg tablet 00:00: 23:59 mg total) Me dical 00 :00 by mouth Center every 6 (six) hours as needed for Pain for up to 10 days. Max Daily Amount: 200 mg docusate 2020- No 100mg Q.5D Take 1 [facility] 10-10 capsule [facility] (COLACE) 00:00: 23:59 (100 mg Medic al 100 MG 00 :00 total) by Center capsule mouth 2 (two) times daily for 10 days. traMADoL 2020- No 50mg Take [address] [facility] (ULTRAM) 50 10-10 tablet (50 [facility] mg tablet 00:00: 23:59 mg total) Me dical 00 :00 by mouth Center every 6 (six) hours as needed for Pain for up to 10 days. Max Daily Amount: 200 mg docusate 2020- No 100mg Q.5D Take 1 [facility] sodium 10-10 [facility] (COLACE) 00:00: 23:59 (100 mg Medic al 100 MG 00 :00 total) by Center capsule mouth 2 (two) times daily for 10 days. traMADoL 2020- No 50mg Take [address] [facility] (ULTRAM) 50 10-10 tablet (50 [facility] mg tablet 00:00: 23:59 mg total) Me dical 00 :00 by mouth Center every 6 (six) hours as needed for Pain for up to 10 days. Max Daily Amount: 200 mg docusate 2020- No 100mg Q.5D Take 1 [facility] sodium 10-10 [facility] (COLACE) 00:00: 23:59 (100 mg Medic al 100 MG 00 :00 total) by Center capsule mouth 2 (two) times daily for 10 days. traMADoL 2020- No 50mg Take [address] [facility] (ULTRAM) 50 10-10 tablet (50 [facility] mg tablet 00:00: 23:59 mg total) Me dical 00 :00 by mouth Center every 6 (six) hours as needed for Pain for up to 10 days. Max Daily Amount: 200 mg docusate 2020- No 100mg Q.5D Take 1 [facility] 10-10 [facility] (COLACE) 00:00: 23:59 (100 mg Medic al 100 MG 00 :00 total) by Center capsule mouth 2 (two) times daily for 10 days. cephalexin 2020- No 500mg [id number] Take [address] [facility] (KEFLEX) 10-10- [id number] capsule [facility] 500 MG 00:00: 23:59 3D (500 mg Medical capsule 00 :00 total) by Center mouth 3 (three) times daily for 7 days. cephalexin 2020- No 500mg [id number] Take [address] [facility] (KEFLEX) 10-10 [id number] capsule [facility] 500 MG 00:00: 23:59 3D (500 mg Medical capsule 00 :00 total) by Center mouth 3 (three) times daily for 7 days. cephalexin 2020- No 500mg [id number] Take [address] [facility] (KEFLEX) 10-10- [id number] capsule [facility] 500 MG 00:00: 23:59 3D (500 mg Medical capsule 00 :00 total) by Center mouth 3 (three) times daily for 7 days. cephalexin 2020- No 500mg [id number] Take [address] [facility] (KEFLEX) 10-10- [id number] capsule [facility] 500 MG 00:00: 23:59 3D (500 mg Medical capsule 00 :00 total) by Center mouth 3 (three) times daily for 7 days. phenazopyri 2020-2020- No 100mg Take [address] [facility] dine -18 -21 tablet [facility] (PYRIDIUM) 00:00: 23:59 (100 mg Med ical 100 MG 00 :00 total) by Center tablet mouth 3 (three) times daily as needed for up to 3 days. phenazopyri 2020-2020- No 100mg Take [address] [facility]ine 6-18 - tablet [facility] (PYRIDIUM) 00:00: 23:59 (100 mg Med ical 100 MG 00 :00 total) by Center tablet mouth 3 (three) times daily as needed for up to 3 days. phenazopyri 2020-2020- No 100mg Take [address] dine -18 - tablet [facility] (PYRIDIUM) 00:00: 23:59 (100 mg Med ical 100 MG 00 :00 total) by Center tablet mouth 3 (three) times daily as needed for up to 3 days. phenazopyri 2020-2020- No 100mg Take [address] dine 18 - tablet [facility] (PYRIDIUM) 00:00: 23:59 (100 mg Med ical 100 MG 00 :00 total) by Center tablet mouth 3 (three) times daily as needed for up to 3 days. ipratropium Yes [facility] (ATROVENT) 5-28 College 0.06 % 00:00: of nasal spray 00 Medicin e ipratropium 2021- No Richard smith (ATROVENT) 5 03-31 College 0.06 % 00:00: 00:00 of nasal spray 00 :00 Medicin e VITAMINS C Yes Take by [facility] OR 08-21 mouth. College 13:39: of 11 Medicin e montelukast 2020- No montepricilla Weiner (SINGULAIR) 08-21 04-29 t 10 mg Samina ege 10 MG 13:24: 00:00 tablet of tablet 35 :00 Medicin e citalopram Yes 10mg Take 10 mg [facility] (CELEXA) 10 3-30 by mouth Samina ege MG tablet 22:52: daily. of 41 Medicin e Cholecalcif Yes Take by [place] [facility] mi 30 mouth [place] (VITAMIN D) 22:52: daily. of 1000 UNITS 41 Medicin TABS e celecoxib Yes Take by [facility] (CELEBREX) 30 mouth. [place] 100 MG 22:52: of capsule 41 Medicin e ketoconazol Yes ketoconazo [facility] e (NIZORAL) 30 le 2 % Colleg e 2 % cream 22:52: topical of 41 cream Medicin e citalopram Yes 10mg Take 10 mg [facility] (CELEXA) 10 30 by mouth Samina ege MG tablet 22:52: daily. of 41 Medicin e Cholecalcif Yes Take by [place] [facility] mi 30 mouth [place] (VITAMIN D) 22:52: daily. of 1000 UNITS 41 Medicin TABS e celecoxib Yes Take by [facility] (CELEBREX) 07-22 mouth. [place] 100 MG 22:52: of capsule 41 Medicin e ketoconazol Yes ketoconazo [facility] e (NIZORAL) 30 le 2 % Colleg e 2 % cream 22:52: topical of 41 cream Medicin e Cholecalcif 2020- No 400U Take 400 [facility] mi 07-22 03-30 Units by [place] (VITAMIN 22:52: 00:00 mouth. of D-3) 10 MCG 28 :00 Medicin (400 UNIT) e TABS celecoxib 2020- No 200mg Take 200 [facility] (CELEBREX) 07-22 03-30 mg by [place] 200 MG 22:52: 00:00 mouth of capsule 22 :00 daily. Medicin e Influenza Yes Afluria [place] [facility] Vac Split 07-22 [facility] Quad 22:51: of (AFLURIA 49 60 mcg (15 Medic in QUADRIVALEN mcg x e T) SUSP 4)/0.5 mL intramuscu lar susp. montelukast Yes montelukas [facility] (SINGULAIR) 3-30 t 10 mg Colle ge 10 MG 22:51: tablet of tablet 49 Medicin e Pneumococca Yes Prevnar 13 [facility] l 13-[place] 3-30 (PF) 0.5 College Conj Vacc 22:51: mL of (PREVNAR 49 intramuscu Medic in 13) SUSP lar e syringe Tofacitinib Yes Xeljanz XR [facility] Citrate ER 3-30 11 mg College (XELJANZ 22:51: tablet,ext of XR) 11 MG 49 ended Medicin TB24 release e Influenza Yes Afluria [place] [facility] Vac Split -30 [employer] Quad 22:51: of (AFLURIA 49 60 mcg (15 Medic in QUADRIVALEN mcg x e T) SUSP 4)/0.5 mL intramuscu lar susp. Pneumococca Yes Prevnar 13 [facility] l 13-Ghada 3-30 (PF) 0.5 [employer] Conj Vacc 22:51: mL of (PREVNAR 49 intramuscu Medic in 13) SUSP lar e syringe Tofacitinib Yes Xeljanz XR [facility] Citrate ER 3-30 11 mg College (XELJANZ 22:51: tablet,ext of XR) 11 MG 49 ended Medicin TB24 release e citalopram 2020- No [facility] (CELEXA) 20 3- 03-30 College MG tablet 00:00: 00:00 of 00 :00 Medicin e oxybutynin 2019-04- No 10mg Take 10 mg [facility] (DITROPAN-X 05-07 by mouth. [facility] L) 10 MG CR 00:00: 04:59 of tablet 00 :00 Medicin e oxybutynin 2019-04- No 10mg Take 10 mg [facility] (DITROPAN-X 05-07 by mouth. [facility]) 10 MG CR 00:00: 00:00 of tablet 00 :00 Medicin e Hyoscyamine 2019-[address] [facility] Sulfate SL 04-30 UNDER THE Samina ege 0.125 MG 00:00: TONGUE 1 of SUBL 00 TABLET Medicin EVERY 6 e HOURS NEEDED Hyoscyamine 2019-04- No PLACE [facility]l or Sulfate SL 04-30 UNDER THE Col lege 0.125 MG 00:00: 00:00 TONGUE 1 of SUBL 00 :00 TABLET Medicin EVERY 6 e HOURS NEEDED tofacitinib 2020- Yes 1{tbl} QD Take 1 [facility] citrate 1-[address] (XELJANZ 18:28: mouth Hospita ORAL) 47 daily. l DOSE IS 11 MG cholecalcif 2020- Yes 400U QD Take 400 [facility] mi, 1-[address] vitamin D3, 18:28: mouth Hospi ta (cholecalci 47 daily. l ferol) 400 unit tablet aspirin 2020- Yes 81mg QD Take 81 mg Meth mary (ECOTRIN) 1-[address] 81 MG 18:28: daily. Hospita enteric 47 l coated tablet gabapentin 2019- Yes 300mg QD Take 300 Me [facility] (NEURONTIN) 1-[address] 300 mg 18:28: mouth [facility]ospita capsule 47 daily. l citalopram 2020- Yes 20mg QD Take 20 mg M ethodi (CeleXA) 10 1-[address] MG tablet 18:28: nightly. Hosp mojgan 47 l tofacitinib 2020- Yes 1{tbl} QD Take 1 Me [facility] citrate 1-[address] (XELJANZ 18:28: mouth [facility]ospita ORAL) 47 daily. l DOSE IS 11 MG cholecalcif 2020- Yes 400U QD Take 400 Me [facility]odi mi, 1-[address] vitamin D3, 18:28: mouth Hospi ta (cholecalci 47 daily. l ferol) 400 unit tablet aspirin 2020- Yes 81mg QD Take 81 mg Meth mary (ECOTRIN) 1-[address] 81 MG 18:28: daily. Hospita enteric 47 l coated tablet gabapentin 2020- Yes 300mg QD Take 300 Me [facility] (NEURONTIN) 1-[address] 300 mg 18:28: mouth [facility]osp[facility] capsule 47 daily. l citalopram 2020- Yes 20mg QD Take 20 mg M ethodi (CeleXA) 10 1-[address] MG tablet 18:28: nightly. Hosp mojgan 47 l tofacitinib 2020-1 Yes 1{tbl} QD Take 1 Me [facility] citrate 1-[address] (XELJANZ 12:28: mouth [facility]ospita ORAL) 47 daily. l DOSE IS 11 MG cholecalcif 2020- Yes 400U QD Take 400 Me [facility]odi mi, 1-[address] vitamin D3, 12:28: mouth Hospi ta (cholecalci 47 daily. l ferol) 400 unit tablet aspirin 2019-04 Yes 81mg QD Take 81 mg Meth mary (ECOTRIN) 1-[address] 81 MG 12:28: daily. Hospita enteric 47 l coated tablet gabapentin 2019-04 Yes 300mg QD Take 300 Me [facility] (NEURONTIN) 1-[address] 300 mg 12:28: mouth [facility]ospita capsule 47 daily. l citalopram 2019-04 Yes 20mg QD Take 20 mg M ethodi (CeleXA) 10 1-[address] MG tablet 12:28: nightly. Hosp mojgan 47 l tofacitinib 2019-04 Yes 1{tbl} QD Take 1 Me [facility] citrate 1-[address] (XELJANZ 12:28: mouth [facility]ospita ORAL) 47 daily. l DOSE IS 11 MG cholecalcif 2019-04 Yes 400U QD Take 400 Me [facility] mi, 1-[address] vitamin D3, 12:28: mouth Hospi ta (cholecalci 47 daily. l ferol) 400 unit tablet aspirin 2019-04 Yes 81mg QD Take 81 mg Meth mary (ECOTRIN) 1-[address] 81 MG 12:28: daily. [facility]ospita enteric 47 l coated tablet gabapentin 2019-04 Yes 300mg QD Take 300 Me [facility]odi (NEURONTIN) 1-[address] 300 mg 12:28: mouth [facility]ospita capsule 47 daily. l citalopram 2019-04 Yes 20mg QD Take 20 mg M ethodi (CeleXA) 10 1-[address] MG tablet 12:28: nightly. Hosp mojgan 47 l tofacitinib 2019-04 Yes 1{tbl} QD Take 1 Me [facility] citrate 1-[address] (XELJANZ 12:28: mouth [facility]ospita ORAL) 47 daily. l DOSE IS 11 MG cholecalcif 2019-04 Yes 400U QD Take 400 Me [facility]odi mi, 1-[address] vitamin D3, 12:28: mouth Hospi ta (cholecalci 47 daily. l ferol) 400 unit tablet aspirin 2019-04 Yes 81mg QD Take 81 mg Meth mary (ECOTRIN) 1-[address] 81 MG 12:28: daily. [facility]ospita enteric 47 l coated tablet gabapentin 2020 Yes 300mg QD Take 300 Me [facility]odi (NEURONTIN) 1-[address] 300 mg 12:28: mouth [facility]ospita capsule 47 daily. l citalopram 2020- Yes 20mg QD Take 20 mg M ethodi (CeleXA) 10 1-[address] MG tablet 12:28: nightly. Hosp mojgan 47 l tofacitinib 2020-1 Yes 1{tbl} QD Take 1 Me [facility] citrate 1-[address] (XELJANZ 12:28: mouth [facility]ospita ORAL) 47 daily. l DOSE IS 11 MG cholecalcif 2020- Yes 400U QD Take 400 Me thodi mi, 1-[address] vitamin D3, 12:28: mouth Hospi ta (cholecalci 47 daily. l ferol) 400 unit tablet aspirin 2020-1 Yes 81mg QD Take 81 mg Meth mary (ECOTRIN) 1-[address] 81 MG 12:28: daily. [facility]ospita enteric 47 l coated tablet gabapentin 2019-04 Yes 300mg QD Take 300 Me [facility] (NEURONTIN) 1-[address] 300 mg 12:28: mouth [facility]ospita capsule 47 daily. l citalopram 2020- Yes 20mg QD Take 20 mg M ethodi (CeleXA) 10 1-[address] MG tablet 12:28: nightly. Hosp mojgan 47 l tofacitinib 2020-1 Yes 1{tbl} QD Take 1 Me [facility]odi citrate 1-[address] (XELJANZ 12:28: mouth [facility]ospita ORAL) 47 daily. l DOSE IS 11 MG cholecalcif 2020- Yes 400U QD Take 400 Me [facility]odi mi, 1-[address] vitamin D3, 12:28: mouth Hospi ta (cholecalci 47 daily. l ferol) 400 unit tablet aspirin 2020-1 Yes 81mg QD Take 81 mg Meth mary (ECOTRIN) 1-[address] 81 MG 12:28: daily. [facility]ospita enteric 47 l coated tablet gabapentin 2020- Yes 300mg QD Take 300 Me [facility] (NEURONTIN) 1-[address] 300 mg 12:28: mouth [facility]ospita capsule 47 daily. l citalopram 2020- Yes 20mg QD Take 20 mg M ethodi (CeleXA) 10 1-[address] MG tablet 12:28: nightly. Hosp mojgan 47 l tofacitinib 2019-04 Yes 1{tbl} QD Take 1 Me [facility] citrate 1-[address] (XELJANZ 12:28: mouth [facility]ospita ORAL) 47 daily. l DOSE IS 11 MG cholecalcif 2019-04 Yes 400U QD Take 400 Me [facility] mi, 1-[address] vitamin D3, 12:28: mouth Hospi ta (cholecalci 47 daily. l ferol) 400 unit tablet aspirin 2019-04 Yes 81mg QD Take 81 mg Meth mary (ECOTRIN) 1-[address] 81 MG 12:28: daily. [facility]ospita enteric 47 l coated tablet gabapentin 2019-04 Yes 300mg QD Take 300 Me [facility] (NEURONTIN) 1-[address] 300 mg 12:28: mouth [facility]ospita capsule 47 daily. l citalopram 2019-04 Yes 20mg QD Take 20 mg M ethodi (CeleXA) 10 1-[address] MG tablet 12:28: nightly. Hosp mojgan 47 l citalopram 2019-04 Yes 20mg QD Take 20 mg U T (CeleXA) 10 1-05 by mouth 1 He alth MG tablet 00:00: (one) time 00 each day. citalopram 2019-04 Yes 20mg QD Take 20 mg U T (CeleXA) 10 1-05 by mouth 1 He alth MG tablet 00:00: (one) time 00 each day. citalopram 2019-04 Yes 20mg QD Take 20 mg U T (CeleXA) 10 1-05 by mouth 1 He alth MG tablet 00:00: (one) time 00 each day. citalopram 2019-04 Yes 20mg QD Take 20 mg U T (CeleXA) 10 1-05 by mouth 1 He alth MG tablet 00:00: (one) time 00 each day. aspirin 81 2019-04 81mg QD Take 81 mg [facility] MG EC 04-2922 by mouth 1 Health tablet 00:00: 00:00 (one) time 00 :00 each day. traMADoL 2019-04 No [id number] 50mg Q6H Take 1 Metho di (Ultram) 50 04-29 11-11 tablet (50 s t mg tablet 00:00: 05:59 mg total) Ho spita 00 :00 by mouth l every 6 (six) hours as needed for moderate pain for up to 5 days .acute pain. traMADoL 2019-04- No [id number] 50mg Q6H Take 1 Metho di (Ultram) 50 04-29 tablet (50 s t mg tablet 00:00: [...] (two) times a day for 3 days. ciprofloxac 2019-04- No 500mg Q.5D Take 1 Me thodi in (CIPRO) 04-[address] 500 MG 00:00: 05:59 (500 mg Hospita tablet 00 :00 total) by l mouth 2 (two) times a day for 3 days. HYDROcodone HYDROcodone 2019-0 Yes ANGELA 1 Q6H TAKE 1 UT -Acetaminop -Acetaminop 7-11 [facility] TABLET Physici hen 10-325 hen 10-325 00:00: RE M.D. EVERY 6 ans MG Oral MG Oral 00 HOURS PRN Tablet Tablet Enoxaparin Enoxaparin 2019- Yes ANEGLA Please UT Sodium 40 Sodium 40 7-10 GRIFFIN-BAR inject 0.4 Physici MG/0.4ML MG/0.4ML 00:00: RE M.D. ml syringe ans Subcutaneou Subcutaneou 00 once s Solution s Solution daily. gabapentin 2019-0 Yes 300mg Take 300 [facility] (NEURONTIN) 7-04 mg by [place] 300 MG 00:00: mouth. of capsule 00 Medicin e Gabapentin Gabapentin 2019-0 Yes ANGELA TAKE 1 UT 300 MG Oral 300 MG Oral 7-04 GRIFFIN-BAR CAPSULE BY Physici Capsule Capsule 00:00: RE M.D. MOUTH ans 00 THREE TIMES A DAY gabapentin 2019-0 2021- No 300mg Take 300 [facility] (NEURONTIN) 7-04 03-31 mg by [facility] 300 MG 00:00: 00:00 mouth. of capsule 00 :00 Medicin e HYDROcodone HYDROcodone Yes ANGELA 1 Q4H TAKE 1 UT -Acetaminop -Acetaminop 7-02 GRIFFIN-BAR TABLET Physici hen 10-325 hen 10-325 00:00: RE M.D. EVERY 4 ans MG Oral MG Oral 00 HOURS PRN Tablet Tablet Tofacitinib 2018-04 Yes Take by [place] [facility] Citrate -11 [facility] (XELJANZ 20:28: daily. of OR) 24 Medicin e aspirin 81 2018-04 Yes 81mg Take 81 mg [facility] MG tablet -11 by mouth Colleg e 20:28: daily. of 24 Medicin e Tofacitinib 2018-04 Yes Take by [place] [facility] Citrate -11 [facility] (XELJANZ 20:28: daily. of OR) 24 Medicin e aspirin 81 2018-04 Yes 81mg Take 81 mg [facility] MG tablet -11 by mouth Colleg e 20:28: daily. of 24 Medicin e Diclofenac Diclofenac 2016-04 Yes TATUM QD APPLY TO UT Sodium 1 % Sodium 1 % 06-22 HADNOTT LOWER Physici GEL GEL 00:00: M.D. EXTREMITIE ans 00 S, 4 GM OF GEL TO AFFECTED AREA 4 TIMES DAILY. DO NOT APPLY MORE THAN 16 GM DAILY TO ANY ONE AFFECTED JOINT. Diclofenac Yes Apply to Uni vers Sodium -09 area(s) 4 ity of (VOLTAREN) 00:00: (four) [place] 1 % gel 00 times Medical daily as Branch needed for Pain (scale 4-6) (apply 4 grams). Diclofenac Yes Apply to Uni vers Sodium 05-03 area(s) 4 ity of (VOLTAREN) 00:00: (four) [place] 1 % gel 00 times Medical daily as Branch needed for Pain (scale 4-6) (apply 4 grams). celecoxib 2015- Yes 200mg Q.5D Take 1 [facility] 200 MG 00:00: (200 mg Medical capsule 00 total) by Center mouth 2 (two) times daily. celecoxib 2015-0 Yes 200mg Q.5D Take 1 [facility]CELEBREX[facility] 200 MG 00:00: (200 mg Medical capsule 00 total) by Center mouth 2 (two) times daily. celecoxib 2016-0 Yes 200mg Q.5D Take 1 [facility]CELEBREX[facility]-29 [facility] 200 MG 00:00: (200 mg Medical capsule 00 total) by Center mouth 2 (two) times daily. celecoxib 2016-0 Yes 200mg Q.5D Take 1 [facility] (CELEBREX[facility]-29 [facility] 200 MG 00:00: (200 mg Medical capsule 00 total) by Center mouth 2 (two) times daily. celecoxib 2016-0 Yes 200mg Q.5D Take 1 [facility]CELEBREX[facility]-29 [facility] 200 MG 00:00: (200 mg Medical capsule 00 total) by Center mouth 2 (two) times daily. celecoxib 2016-0 Yes 200mg Q.5D Take 1 [facility]CELEBREX[facility] 200 MG 00:00: (200 mg Medical capsule 00 total) by Center mouth 2 (two) times daily. celecoxib 2016-0 Yes 200mg Q.5D Take 1 [facility] (CELEBREX[facility] 200 MG 00:00: (200 mg Medical capsule 00 total) by Center mouth 2 (two) times daily. celecoxib 2016-0 Yes 200mg Q.5D Take 1 [facility] (CELEBREX[facility] 200 MG 00:00: (200 mg Medical capsule 00 total) by Center mouth 2 (two) times daily. doxycycline 2015-[address] [facility] (VIBRAMYCIN 9-02 [facility] ) 100 MG 00:00: Medical capsule 00 Center doxycycline 2015-[address] [facility] (VIBRAMYCIN 9-02 [facility] ) 100 MG 00:00: Medical capsule 00 Center doxycycline 2015-[address] [facility] (VIBRAMYCIN 9-02 [facility] ) 100 MG 00:00: Medical capsule 00 Center doxycycline 2015-[address] [facility] (VIBRAMYCIN 9-02 [facility] ) 100 MG 00:00: Medical capsule 00 Center doxycycline 2015-[address] [facility] (VIBRAMYCIN 9-02 [facility] ) 100 MG 00:00: Medical capsule 00 [place] doxycycline 2015-[address] [facility] (VIBRAMYCIN 9-02 [facility] ) 100 MG 00:00: Medical capsule 00 [place] doxycycline 2015-[address] [facility] (VIBRAMYCIN 9-02 [facility] ) 100 MG 00:00: Medical capsule 00 [place] doxycycline 2015-[address] [facility] (VIBRAMYCIN 9-02 [facility] ) 100 MG 00:00: Medical capsule 00 [place] citalopram Yes 20mg QD Take [address] (CELEXA) 20 1-19 by mouth Luke s MG tablet 00:00: daily . Medic al [place] citalopram Yes 20mg QD Take [address] (CELEXA) 20 1-19 by mouth Luke s MG tablet 00:00: daily . Medic al [place] citalopram Yes 20mg QD Take [address] (CELEXA) 20 1-19 by mouth Luke s MG tablet 00:00: daily . Medic al [place] citalopram Yes 20mg QD Take [address] (CELEXA) 20 1-19 by mouth Luke s MG tablet 00:00: daily . Medic al [place] citalopram Yes 20mg QD Take [address] (CELEXA) 20 1-19 by mouth Luke s MG tablet 00:00: daily . Medic al [place] citalopram Yes 20mg QD Take [address] (CELEXA) 20 1-19 by mouth Luke s MG tablet 00:00: daily . Medic al [place] citalopram Yes 20mg QD Take [address] (CELEXA) 20 1-19 by mouth Luke s MG tablet 00:00: daily . Medic al [place] citalopram Yes 20mg QD Take [address] (CELEXA) 20 1-19 by mouth Luke s MG tablet 00:00: daily . Medic al [place] meloxicam Yes TAKE ONE Univ ers (MOBIC) 7.5 6-01 TABLET BY ity of mg tablet 00:00: MOUTH [place] EVERY DAY [facility] meloxicam Yes TAKE ONE Univ ers (MOBIC) 7.5 6-01 TABLET BY ity of mg tablet 00:00: MOUTH [place] EVERY DAY [facility] Lisinopril, Yes Karly s Bulk, 100 % 11-25 ity of Powd 13:18: [address] CELECOXIB Yes Take by Sing[facility] (CELEBREX 11-25 mouth. ity of ORAL) 13:18: [address] Lisinopril, Yes Karly s Bulk, 100 % 8-03 ity of Powd 13:18: [address] CELECOXIB Yes Take by Walter rs (CELEBREX 8-03 mouth. ity of ORAL) 13:18: [address] hydrocodone Yes 1{tbl} Take 1-2 Univers -acetaminop 8-03 Tabs by itlink o f hen (NORCO) 00:00: mouth [place] 5-325 mg 00 every 4 Medical tablet (four) Branch hours as needed for Pain. hydrocodone Yes 1{tbl} Take 1-2 Univers -acetaminop 8-03 Tabs by ity o f hen (NORCO) 00:00: mouth [place] 5-325 mg 00 every 4 Medical tablet (four) Branch hours as needed for Pain. Xeljanz XR Xeljanz XR Yes QD TAKE 1 U T 11 MG Oral 11 MG Oral TABLET P hysici Tablet Tablet DAILY ans Extended Extended Release 24 Release 24 Hour Hour Citalopram Citalopram Yes 1 QD TAKE 1 U T Hydrobromid Hydrobromid TABLET Physici e 20 MG e 20 MG DAILY. ans Oral Tablet Oral Tablet Aspirin 81 Aspirin 81 Yes 1 QD TAKE 1 U T MG Oral MG Oral TABLET Physici Tablet Tablet DAILY. ans Delayed Delayed Release Release Tylenol Tylenol Yes 1 QD TAKE 1 UT Extra Extra TABLET Physici Strength Strength DAILY PRN an s 500 MG Oral 500 MG Oral Tablet Tablet Celecoxib Celecoxib Yes ANGELA TAKE 1 UT 200 MG Oral 200 MG Oral GRIFFIN-BAR CAPSULE BY Physici Capsule Capsule RE M.D. MOUTH ans TWICE DAILY THE DAY BEFORE SURGERY, AND 1 CAPSULE THE MORNING OF SURGERY Immunizations Ordered Immunization Filled Immunization Date Status Commen ts Source Name Name COVID-19 [facility] 2020-07-07 [facility] ([facility]UR[facility]-DIL[facility]) COVID-19 Pfizer 2020-07-07 [facility]:00:00 (PURPLE-DILUTE) COVID-19 Pfizer 2020-07-07 [facility] Vacc[facility] 00:00:00 (PURPLE-DILUTE) COVID-19 [facility] 2020-07-07 [facility]:00:00 (PURPLE-DILUTE) COVID-19 Pfizer 12 & 2020-06-16 [facility]pleted [facility] 00:00:00 (PURPLE-DILUTE) COVID-19 Pfizer & 2020-06-16 [facility] Vacc[facility] 00:00:00 (PURPLE-DILUTE) COVID-19 Pfizer 12 & 2020-06-16 [facility] Vacc[facility] 00:00:00 (PURPLE-DILUTE) COVID-19 Pfizer & 2020-06-16 [facility] 00:00:00 (PURPLE-DILUTE) Vital Signs Vital Name Observation Time Observation Value Comments Source HEIGHT 2020-11-03 05:58:00 170.2 cm WEIGHT 2020-11-03 05:58:00 101 kg HEIGHT 2020-10-09 11:30:00 170.2 cm WEIGHT 2020-10-09 11:30:00 102.059 kg HEIGHT 2020-10-10 10:08:00 170.2 cm WEIGHT 2020-10-10 10:08:00 101.6 kg Body height 2022-05-11 20:10:00 [facility].2 cm [facility] 2022-05-11 20:10:00 102.059 [facility] BMI 2022-05-11 20:10:00 35.24 [facility]m2 [facility] Systolic blood 2022-02-22 20:04:00 140 mm[Hg] [facility] pressure Medicine Diastolic blood 2022-02-22 20:04:00 89 mm[Hg] [facility] pressure Medicine Heart rate 2022-02-22 20:04:00 79 /min [facility] Body height 2022-02-22 20:04:00 170.2 cm [facility] Body weight 2022-02-22 20:04:00 101.606 kg [facility] BMI 2022-02-22 20:04:00 35.08 kg/m2 [facility] Systolic blood 2021-07-23 21:14:00 132 mm[Hg] [facility] pressure Medicine Diastolic blood 2021-07-23 21:14:00 89 mm[Hg] [facility] pressure Medicine Heart rate 2021-07-23 21:14:00 66 /min [facility] Body height 2021-07-23 21:14:00 170.2 cm [facility] Body weight 2021-07-23 21:14:00 95.255 kg [facility] BMI 2021-07-23 21:14:00 32.89 kg/m2 [facility] Heart rate 2021-03-16 19:27:00 76 /min [facility] Body height 2021-03-16 19:27:00 170.2 cm [facility] Body weight 2021-03-16 19:27:00 92.534 kg [facility] BMI 2021-03-16 19:27:00 31.95 kg/m2 [facility] Systolic blood 2021-03-16 19:27:00 128 mm[Hg] [facility] pressure Medicine Diastolic blood 2021-03-16 19:27:00 86 mm[Hg] [facility] pressure Medicine HEIGHT 2020-11-03 05:58:00 170.2 cm WEIGHT 2020-11-03 05:58:00 101 kg HEIGHT 2020-10-09 11:30:00 170.2 cm WEIGHT 2020-10-09 11:30:00 102.059 kg HEIGHT 2020-10-10 10:08:00 170.2 cm WEIGHT 2020-10-10 10:08:00 101.6 kg Systolic blood 2020-07-22 23:01:00 153 mm[Hg] [facility] pressure Medicine Diastolic blood 2020-07-22 23:01:00 91 mm[Hg] [facility] pressure Medicine Heart rate 2020-07-22 23:01:00 65 /min [facility] Respiratory rate 2020-07-22 22:43:00 18 /min [facility] Body height 2020-07-22 22:43:00 170.2 cm [facility] Body weight 2020-07-22 22:43:00 102.059 kg [facility] BMI 2020-07-22 22:43:00 35.24 kg/m2 [facility] Systolic blood 2020-07-22 23:01:00 153 mm[Hg] [facility] Medicine Diastolic blood 2020-07-22 23:01:00 91 mm[Hg] [facility] Heart rate 2020-07-22 23:01:00 65 /min [facility] Respiratory rate 2020-07-22 22:43:00 18 /min [facility] Body height 2020-07-22 22:43:00 170.2 cm [facility] Body weight 2020-07-22 22:43:00 102.059 kg [facility] BMI 2020-07-22 22:43:00 35.24 kg/m2 [facility] Systolic blood 2020-11-04 15:50:00 111 mm[Hg] [facility] Diastolic blood 2020-11-04 15:50:00 63 mm[Hg] [facility] Heart rate 2020-11-04 15:50:00 64 /min [facility] Body temperature 2020-11-04 15:50:00 35.78 Isha [facility] Respiratory rate 2020-11-04 15:50:00 18 /min [facility] Oxygen saturation in 2020-11-04 15:50:00 98 /min [facility] Arterial blood by Medical Ce nter Pulse oximetry Body height 2020-11-03 05:58:00 170.2 cm [facility] Body weight 2020-11-03 05:58:00 101 kg [facility] BMI 2020-11-03 05:58:00 34.87 kg/m2 [facility] Weight 2020-07-02 11:36:00 222 [lb_av] [facility] Body mass index 2020-07-02 11:36:00 34.77 kg/m2 [facility] (BMI) [Ratio] Systolic blood 2020-02-28 18:03:00 123 mm[Hg] [facility] Diastolic blood 2020-02-28 18:03:00 72 mm[Hg] [facility] pressure Heart rate 2020-02-28 18:03:00 62 /min [facility] Respiratory rate 2020-02-28 18:03:00 16 /min [facility] Oxygen saturation in 2020-02-28 18:03:00 99 /min [facility] Arterial blood by Pulse oximetry Body temperature 2020-02-28 17:30:00 36.78 Isha [facility] Body height 2020-02-28 13:15:00 170.2 cm [facility] Body weight 2020-02-28 13:15:00 101.107 kg [facility] BMI 2020-02-28 13:15:00 34.91 kg/m2 [facility] Height 2017-04-26 11:07:00 67 [in_us] [facility] Weight 2017-04-26 11:07:00 235 [lb_av] [facility] Body Mass Index 2017-04-26 11:07:00 36.81 kg/m2 [facility] Calculated Procedures Procedure Date / Time Performing Clinician Source Performed [place] ARTHROCENTESIS ASP/INJ 2022-05-11 20:00:00 Dave Bach [facility] JOINT/BURSA W/OUT US BASIC METABOLIC PANEL 2022-02-22 15:27:57 [facility] RI ARTHROCENTESIS ASP/INJ 2022-01-19 21:49:14 Nati Dowd [facility] JOINT/BURSA W/OUT US RI ARTHROCENTESIS ASP/INJ 2021-12-30 18:49:21 Nati Dowd [facility] JOINT/BURSA W/OUT US ARTHROCENTESIS ASPIR&/INJ 2021-11-13 19:11:27 Azeem Tejada [facility] JT/BURSA W/O US BILATERAL POCT URINALYSIS DIPSTICK 2021-07-23 00:00:00 Gage Diego [facility] POCT URINALYSIS DIPSTICK 2021-03-16 00:00:00 Gage Diego [facility] NM BONE SCAN WHOLE BODY 2021-02-25 20:41:00 Zunilda Sherwood [facility] CBC W/PLT COUNT & AUTO 2020-11-04 03:37:00 Wyatt Collins [facility] BASIC METABOLIC PANEL (7) 2020-11-04 03:37:00 Wyatt Collins [facility] CBC W/PLT COUNT & AUTO 2020-11-04 03:37:00 Wyatt Collins [facility] BASIC METABOLIC PANEL (7) 2020-11-03 13:04:00 Nati Mejia [facility] HEMOGLOBIN AND HEMATOCRIT 2020-11-03 13:04:00 Nati Mejia [facility] TISSUE EXAM 2020-11-03 11:05:00 Gage Diego [facility] LAPAROSCOPY,NEPHRECTOMY 2020-11-03 07:14:00 Gage Diego [facility] ABORH, MANUAL 2020-11-03 06:24:00 Catrina Ness [facility] XR CHEST 2 VIEWS 2020-10-30 11:40:00 Gage Diego [facility] ECG 12-LEAD 2020-10-30 11:12:38 Unknown, Hl7 Doctor [facility] ECG 12-LEAD 2020-10-30 11:12:38 Gage Diego [facility] CBC W/PLT COUNT & AUTO 2020-10-30 11:12:00 Gage Diego [facility] APTT 2020-10-30 11:12:00 Gage Diego [facility] BASIC METABOLIC PANEL (7) 2020-10-30 11:12:00 Gage Diego [facility] CBC W/PLT COUNT & AUTO 2020-10-30 11:12:00 Gage Diego [facility] PROTHROMBIN TIME/INR 2020-10-30 11:12:00 Gage Diego [facility] TYPE AND SCREEN, AUTOMATED 2020-10-30 11:12:00 Gage Diego [facility] FL FLUORO NON-SPECIFIC UP 2020-10-10 17:15:00 Gage Diego [facility] 1 HOUR Center STONE ANALYSIS 2020-10-10 16:29:51 Gage Diego [facility] URINE CULTURE 2020-10-10 15:33:45 Gage Diego [facility] CYSTOSCOPY,URETEROSCOPY W/ 2020-10-10 14:45:00 Gage Diego [facility] LITHOTRIPSY AND URETERAL Center STENT CYSTOSCOPY,RETROGRADES 2020-10-10 14:45:00 Gage Diego [facility] PROCEDURE W/ C-ARM 2020-10-10 14:45:00 Gage Diego [facility] POCT , URINE 2020-10-10 11:32:00 ZunildaNeil Keiko [facility] URINE CULTURE 2020-10-10 11:26:00 Gage Diego [facility] URINALYSIS W/ MICROSCOPIC 2020-10-10 11:23:00 Gage Diego [facility] CBC W/PLT COUNT & AUTO 2020-10-10 11:22:00 Gage Diego [facility] APTT 2020-10-10 11:22:00 Gage Diego [facility] BASIC METABOLIC PANEL (7) 2020-10-10 11:22:00 Gage Diego [facility] CBC W/PLT COUNT & AUTO 2020-10-10 11:22:00 Gage Diego [facility] PROTHROMBIN TIME/INR 2020-10-10 11:22:00 Gage Diego [facility] POCT URINALYSIS DIPSTICK 2020-08-21 00:00:00 Gage Diego [facility] [id number] 2020-04-08 00:00:00 PHABR.01 [facility] [id number] 2020-04-08 00:00:00 PHABR.01 [facility] [id number] 2020-04-08 00:00:00 PHABR.01 [facility] [id number] 2020-04-08 00:00:00 PHABR.01 [facility] RI AN ELECTIVE 2020-02-28 16:03:38 [place], [facility] SUPRAGLOTTIC AIRWAY CYSTO RETROGRADE 2020-02-28 15:47:00 [facility], [facility] HCG QUALITATIVE, URINE 2020-02-28 13:04:00 Jean Marie, [facility] SCREEN COVID-19 QUALITATIVE 2020-02-26 23:41:00 [facility], [facility] RT-PCR BASIC METABOLIC PANEL 2020-02-26 23:41:00 [facility], [facility] ESTIMATED GFR 2020-02-26 23:41:00 [facility], [facility] URINE CULTURE 2020-02-26 23:40:00 [facility], [facility] HC COMPLETE BLD COUNT 2020-02-26 23:40:00 [facility], [facility] W/AUTO DIFF URINALYSIS SCREEN AND 2020-02-26 23:40:00 [facility] MICROSCOPY, WITH REFLEX TO CULTURE PROTHROMBIN TIME WITH INR 2020-02-26 23:40:00 [facility] [QL] URINALYSIS, COMPLETE 2020-01-15 00:00:00 [facility] W/REFLEX TO CULTURE [Q] CULTURE, URINE, 2020-01-15 00:00:00 [facility] ROUTINE (REFL) MR Shoulder wo contrast 2019-12-19 00:00:00 [facility] [id number] Post Op [facility] 29 Survey 2019-11-22 00:00:00 [facility] US Extremity lower venous 2019-11-02 00:00:00 [facility] Doppler Unilat 58963 Initial Promis 29 Survey 2019-10-13 00:00:00 [facility] [U] XR KNEE 3 VWS 2019-09-18 00:00:00 [facility] BILATERAL History of Arthroscopy [facility] Shoulder Right History of [facility]throsc[facility] Knee Right [facility] of Back [facility] History of Carpal tunnel [facility] surgery History of Cubital tunnel [facility] repair [facility] of Elbow [facility] Repair [facility] of Hand [facility] History of Neurostimulator [facility] device insertion 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 Plan of Care Planned Activity Planned Date Details Comments Source Future Scheduled 2023-02-22 US RENAL BILATERAL Expected: [employer] Test 00:00:00 [code = 69291] 02/22/2023 of Medicine (Approximate), Expires: 03/24/2023 Future Scheduled 2022-05-24 [facility] 02[facility]42 (procedure) [code = Hospital 142282677] Future Scheduled 2022-05-24 [facility] 02[facility]56:42 [facility] of cervix Hospital (procedure) [code = 238537810] Future Scheduled 2022-05-24 BREAST CANCER SCREENING [facility] 02:56:42 [code = BREAST CANCER Hospit al SCREENING] Future Scheduled 2022-05-24 [facility]ING [facility] 02:56:42 [code = COLONOSCOPY Hospital SCREENING] Future Scheduled 2022-05-24 SHINGLES VACCINES (1 of [facility] 02:56:42 2) [code = SHINGLES Hospital VACCINES (1 of 2)] Future Scheduled 2022-05-24 COVID-19 VACCINE (4 - [facility] 02:56:42 Booster for Pfizer Hospital series) [code = COVID-19 VACCINE (4 - Booster for Pfizer series)] Future Scheduled 2022-05-24 INFLUENZA VACCINE [code [facility] 02:56:42 = INFLUENZA VACCINE] Hospita l Future Scheduled 2022-04-[address] [facility] Test 00:00:00 (12+) [code = Medical Center DEPRESSION SCREENING (12+)] Future Scheduled 2022-02-22 BASIC METABOLIC PANEL [facility] 15:27:57 [code = 78140-2] 02/22/2022 of Medicine Future Scheduled 2022-02-22 Screening for malignant [facility] Test 15:04:39 neoplasm of colon of Medicin e (procedure) [code = 378826203] Future Scheduled 2022-02-22 Screening for malignant [facility] Test 15:04:39 neoplasm of breast of Medici ne (procedure) [code = 594620518] Future Scheduled 2022-02-22 TETANUS SHOT (ADULT) [facility] Test 15:04:39 [code = TETANUS SHOT of Medi cine (ADULT)] Future Scheduled 2022-02-22 BMI FOLLOW UP PLAN [employer] Test 15:04:39 [code = BMI FOLLOW UP of Med icine PLAN] Future Scheduled 2022-02-22 Hepatitis C screening [facility] Test 15:04:39 (procedure) [code = of Medic ine 919574461] Future Scheduled 2022-02-22 Human immunodeficiency B [facility] Test 15:04:39 virus screening of Medicine (procedure) [code = 913140062] Future Scheduled 2022-02-22 Screening for malignant [facility] Test 15:04:39 neoplasm of cervix of Medici ne (procedure) [code = 231877067] Future Scheduled 2022-02-22 ZOSTER VACCINE (1 of 2) [facility] Test 15:04:39 [code = ZOSTER VACCINE of Me dicine (1 of 2)] Future Scheduled 2022-02-22 COVID-19 Vaccine (3 - Ba [facility] Test 15:04:39 Booster for Pfizer of Medici ne series) [code = COVID-19 Vaccine (3 - Booster for Pfizer series)] Future Scheduled 2022-02-22 FLU VACCINE > 6 MONTHS B [facility] Test 15:04:39 [code = FLU VACCINE > 6 of M edicine MONTHS] Future Scheduled 2022-02-22 HEPATITIS B VACCINES (1 [facility] Test 11:18:07 of 3 - 3-dose series) Hospit al [code = HEPATITIS B VACCINES (1 of 3 - 3-dose series)] Future Scheduled 2022-02-22 [facility] 11:18:07 (procedure) [code = Hospital 274916891] Future Scheduled 2022-02-22 Screening for malignant [facility] Test 11:18:07 neoplasm of cervix Hospital (procedure) [code = 010816047] Future Scheduled 2022-02-22 BREAST CANCER SCREENING [facility] Test 11:18:07 [code = BREAST CANCER Hospit al SCREENING] Future Scheduled 2022-02-22 [facility]COPY [facility]ING [facility] 11:18:07 [code = COLONOSCOPY Hospital SCREENING] Future Scheduled 2022-02-22 SHINGLES VACCINES (1 of [facility] 11:18:07 2) [code = SHINGLES Hospital VACCINES (1 of 2)] Future Scheduled 2022-02-22 COVID-19 VACCINE (4 - [facility] 11:18:07 Booster for Pfizer Hospital series) [code = COVID-19 VACCINE (4 - Booster for Pfizer series)] Future Scheduled 2022-02-22 INFLUENZA VACCINE [code [facility] 11:18:07 = INFLUENZA VACCINE] Hospita l Future Scheduled 2022-01-22 US RENAL BILATERAL Expected: [facility] Test 00:00:00 [code = 66623] 01/22/2022 of Medicine (Approximate), Expires: 07/23/2022 Future Scheduled 2022-01-12 HEPATITIS B VACCINES (1 [facility] Test 14:49:51 of 3 - 3-dose series) Hospit al [code = HEPATITIS B VACCINES (1 of 3 - 3-dose series)] Future Scheduled 2022-01-12 [facility] C [facility] 14:49:51 (procedure) [code = Hospital 292299834] Future Scheduled 2022-01-12 Screening for malignant [facility] Test 14:49:51 neoplasm of cervix Hospital (procedure) [code = 849659147] Future Scheduled 2022-01-12 BREAST CANCER SCREENING [facility] Test 14:49:51 [code = BREAST CANCER Hospit al SCREENING] Future Scheduled 2022-01-12 [facility]ING [facility] 14:49:51 [code = COLONOSCOPY Hospital SCREENING] Future Scheduled 2022-01-12 SHINGLES VACCINES (1 of [facility] 14:49:51 2) [code = SHINGLES Hospital VACCINES (1 of 2)] Future Scheduled 2022-01-12 COVID-19 VACCINE (4 - [facility] 14:49:51 Booster for Pfizer Hospital series) [code = COVID-19 VACCINE (4 - Booster for Pfizer series)] Future Scheduled 2022-01-12 INFLUENZA VACCINE [code [facility] 14:49:51 = INFLUENZA VACCINE] Hospita l Future Scheduled 2022-01-12 HEPATITIS B VACCINES (1 [facility] Test 14:49:51 of 3 - 3-dose series) Hospit al [code = HEPATITIS B VACCINES (1 of 3 - 3-dose series)] Future Scheduled 2022-01-12 [facility] C [facility] 14:49:51 (procedure) [code = Hospital 948319153] Future Scheduled 2022-01-12 Screening for malignant [facility] Test 14:49:51 neoplasm of cervix Hospital (procedure) [code = 675311738] Future Scheduled 2022-01-12 BREAST CANCER SCREENING [facility] Test 14:49:51 [code = BREAST CANCER Hospit al SCREENING] Future Scheduled 2022-01-12 [facility]OS[facility]CREENING [facility] 14:49:51 [code = COLONOSCOPY Hospital SCREENING] Future Scheduled 2022-01-12 SHINGLES VACCINES (1 of [facility] 14:49:51 2) [code = SHINGLES Hospital VACCINES (1 of 2)] Future Scheduled 2022-01-12 COVID-19 VACCINE (4 - [facility] 14:49:51 Booster for Pfizer Hospital series) [code = COVID-19 VACCINE (4 - Booster for Pfizer series)] Future Scheduled 2022-01-12 INFLUENZA VACCINE [code [facility] 14:49:51 = INFLUENZA VACCINE] Hospita l Future Scheduled 2021-12-24 INFLUENZA VACCINE (#1) [facility] 00:00:00 [code = INFLUENZA Medical Ce nter VACCINE (#1)] Future Scheduled 2021-12-24 INFLUENZA VACCINE (#1) [facility] Test 00:00:00 [code = INFLUENZA Medical Ce nter VACCINE (#1)] Future Scheduled 2021-12-24 INFLUENZA VACCINE (#1) [facility] Test 00:00:00 [code = INFLUENZA Medical Ce nter VACCINE (#1)] Future Scheduled 2021-12-24 INFLUENZA VACCINE (#1) [facility] Test 00:00:00 [code = INFLUENZA Medical Ce nter VACCINE (#1)] Future Scheduled 2021-11-[address] [facility] Test 00:00:00 [facility] r Screening (12+) [code = Tobacco Cessation Counseling and Screening (12+)] Future Scheduled 2021-08-06 BASIC METABOLIC PANEL Expected: [facility] [employer] Test 00:00:00 [code = 10224-2] 08/06/2021 of Medicine (Approximate), Expires: 01/22/2022 Future Scheduled 2021-07-23 Screening for malignant [facility] Test 18:07:57 neoplasm of colon of Medicin e (procedure) [code = 751367940] Future Scheduled 2021-07-23 Screening for malignant [facility] Test 18:07:57 neoplasm of breast of Medici ne (procedure) [code = 666714395] Future Scheduled 2021-07-23 TETANUS SHOT (ADULT) [facility] Test 18:07:57 [code = TETANUS SHOT of Medi cine (ADULT)] Future Scheduled 2021-07-23 BMI FOLLOW UP PLAN [employer] Test 18:07:57 [code = BMI FOLLOW UP of Med icine PLAN] Future Scheduled 2021-07-23 Hepatitis C screening [facility] [employer] Test 18:07:57 (procedure) [code = of Medic ine 257852039] Future Scheduled 2021-07-23 [facility] virus screening of Medicine (procedure) [code = 851585581] Future Scheduled 2021-07-23 Screening for malignant [facility] Test 18:07:57 neoplasm of cervix of Medici ne (procedure) [code = 250771202] Future Scheduled 2021-07-23 ZOSTER VACCINE (1 of 2) [facility] Test 18:07:57 [code = ZOSTER VACCINE of Me dicine (1 of 2)] Future Scheduled 2021-07-23 [facility] 18:07:57 [code = FLU VACCINE > 6 of M edicine MONTHS] Future Scheduled 2021-07-23 COVID-19 Vaccine (3 - [facility] Test 18:07:57 Booster for Pfizer of Medici ne series) [code = COVID-19 Vaccine (3 - Booster for Pfizer series)] Future Scheduled 2021-07-23 URINALYSIS W REFLEX Ordered: [facility] Test 16:34:48 MICRO [code = NOCPT] 07/23/2021 of [facility] Future Scheduled 2021-07-23 CULTURE, Ordered: [facility] [employer] Test 16:34:48 URINE/SENSITIVITY ON 07/23/2021 of [employer] ALL [code = 52063-7] Future Scheduled 2021-04-[address] [facility] Test 00:00:00 (12+) [code = Medical Center DEPRESSION SCREENING (12+)] Future Scheduled 2021-04-[address] [facility] Test 00:00:00 (12+) [code = Medical Center DEPRESSION SCREENING (12+)] Future Scheduled 2021-04-[address] [facility] Test 00:00:00 (12+) [code = Medical Center DEPRESSION SCREENING (12+)] Future Scheduled 2021-04-08 [facility] C screening [facility] 20:11:41 (procedure) [code = Hospital 875555489] Future Scheduled 2021-04-08 Scre[facility] for malignant [facility] Test 20:11:41 neoplasm of cervix Hospital (procedure) [code = 481170769] Future Scheduled 2021-04-08 BREAST CANCER SCREENING [facility] Test 20:11:41 [code = BREAST CANCER Hospit al SCREENING] Future Scheduled 2021-04-08 [facility]COPY [facility]CRE[facility]ING [facility] 20:11:41 [code = COLONOSCOPY Hospital SCREENING] Future Scheduled 2021-04-08 SHINGLES VACCINES (#1) [facility] Test 20:11:41 [code = SHINGLES Hospital VACCINES (#1)] Future Scheduled 2021-04-08 INFLUENZA VACCINE [code [facility] 20:11:41 = INFLUENZA VACCINE] Hospita l Future Scheduled 2021-04-08 [facility] C screening [facility] 20:11:41 (procedure) [code = Hospital 985841202] Future Scheduled 2021-04-08 Scre[facility] for malignant [facility] Test 20:11:41 neoplasm of cervix Hospital (procedure) [code = 852544328] Future Scheduled 2021-04-08 BREAST CANCER SCREENING [facility] Test 20:11:41 [code = BREAST CANCER Hospit al SCREENING] Future Scheduled 2021-04-08 [facility]CRE[facility]ING [facility] 20:11:41 [code = COLONOSCOPY Hospital SCREENING] Future Scheduled 2021-04-08 SHINGLES VACCINES (#1) [facility] Test 20:11:41 [code = [facility] Hospital VACCINES (#1)] Future Scheduled 2021-04-08 INFLUENZA VACCINE [code [facility] 20:11:41 = INFLUENZA VACCINE] Hospita Future Scheduled 2021-03-16 BASIC METABOLIC PANEL Ordered: [facility] Test 13:41:02 [code = 90567-7] 03/16/2021 of Medicine Future Scheduled 2021-03-16 URIC ACID [code = Ordered: [facility] Test 13:41:02 3084-1] 03/16/2021 of Medicine Future Scheduled 2021-03-16 CULTURE, Ordered: [facility] Test 13:41:02 URINE/SENSITIVITY ON 03/16/2021 of [employer] ALL [code = 71496-5] Future Scheduled 2021-03-16 URINALYSIS W REFLEX Ordered: [facility] Test 13:41:02 MICRO [code = NOCPT] 03/16/2021 of [facility] cine Future Scheduled 2021-03-16 Screening for malignant [facility] Test 13:29:01 neoplasm of colon of Medicin e (procedure) [code = 030828565] Future Scheduled 2021-03-16 Screening for malignant [facility] Test 13:29:01 neoplasm of breast of Medici ne (procedure) [code = 933523291] Future Scheduled 2021-03-16 TETANUS SHOT (ADULT) [facility] Test 13:29:01 [code = TETANUS SHOT of Medi cine (ADULT)] Future Scheduled 2021-03-16 BMI FOLLOW UP PLAN [facility] Test 13:29:01 [code = BMI FOLLOW UP of Med icine PLAN] Future Scheduled 2021-03-16 Hepatitis C screening Ba [facility] Test 13:29:01 (procedure) [code = of Medic ine 967572895] Future Scheduled 2021-03-16 Human immunodeficiency B [facility] Test 13:29:01 virus screening of Medicine (procedure) [code = 621159237] Future Scheduled 2021-03-16 Screening for malignant [facility] Test 13:29:01 neoplasm of cervix of Medici ne (procedure) [code = 916303156] Future Scheduled 2021-03-16 ZOSTER VACCINE (1 of 2) [facility] Test 13:29:01 [code = ZOSTER VACCINE of Me dicine (1 of 2)] Future Scheduled 2021-03-16 FLU VACCINE > 6 MONTHS B [facility] Test 13:29:01 [code = FLU VACCINE > 6 of M edicine MONTHS] Future Scheduled 2021-03-16 COVID-19 Vaccine (3 - [facility] Test 13:29:01 Booster for Pfizer of Medici ne series) [code = COVID-19 Vaccine (3 - Booster for Pfizer series)] Future Scheduled 2020-12-24 INFLUENZA VACCINE (#1) [facility] Test 00:00:00 [code = INFLUENZA Medical Ce nter VACCINE (#1)] Future Scheduled 2020-12-24 INFLUENZA VACCINE (#1) [facility] Test 00:00:00 [code = INFLUENZA Medical Ce nter VACCINE (#1)] Future Scheduled 2020-12-24 INFLUENZA VACCINE (#1) [facility] Test 00:00:00 [code = INFLUENZA Medical Ce nter VACCINE (#1)] Future Scheduled 2020-12-24 INFLUENZA VACCINE (#1) [facility] Test 00:00:00 [code = INFLUENZA Medical Ce nter VACCINE (#1)] Future Scheduled 2020-12-07 COVID-19 VACCINE (3 - [facility] Test 00:00:00 Booster for Pfizer Medical C enter series) [code = COVID-19 VACCINE (3 - Booster for Pfizer series)] Future Scheduled 2020-12-07 COVID-19 VACCINE (3 - [facility] Test 00:00:00 Booster for Pfizer Medical C enter series) [code = COVID-19 VACCINE (3 - Booster for Pfizer series)] Future Scheduled 2020-12-07 COVID-19 VACCINE (3 - [facility] Test 00:00:00 Booster for Pfizer Medical C enter series) [code = COVID-19 VACCINE (3 - Booster for Pfizer series)] Future Scheduled 2020-12-07 COVID-19 VACCINE (3 - [facility] Test 00:00:00 Booster for Pfizer Medical C enter series) [code = COVID-19 VACCINE (3 - Booster for Pfizer series)] Future Scheduled 2014 SHINGLES VACCINES ([address] [facility] Test 00:00:00 2) [code = SHINGLES Medical Center VACCINES (1 of 2)] Future Scheduled 2014 SHINGLES VACCINES ([address] [facility] Test 00:00:00 2) [code = SHINGLES Medical Center VACCINES (1 of 2)] Future Scheduled 2014 SHINGLES VACCINES ([address] [facility] Test 00:00:00 2) [code = SHINGLES Medical Center VACCINES (1 of 2)] Future Scheduled 2014 SHINGLES VACCINES ([address] [facility] Test 00:00:00 2) [code = SHINGLES Medical Center VACCINES (1 of 2)] Future Scheduled 2014 SHINGLES VACCINES ([address] [facility] Test 00:00:00 2) [code = SHINGLES Medical Center VACCINES (1 of 2)] Future Scheduled 2014 SHINGLES VACCINES ([address] [facility] Test 00:00:00 2) [code = SHINGLES Medical Center VACCINES (1 of 2)] Future Scheduled 2014 SHINGLES VACCINES ([address] [facility] Test 00:00:00 2) [code = [facility] VACCINES (1 of 2)] Future Scheduled 2014 SHINGLES VACCINES ([address] [facility] Test 00:00:00 2) [code = [facility] VACCINES (1 of 2)] Future Scheduled 2009 Lipid panel (procedure) [facility] Test 00:00:00 [code = 82258087] Medical Ce nter Future Scheduled 2009 Lipid panel (procedure) [facility] Test 00:00:00 [code = 92211019] Medical Ce nter Future Scheduled 2009 Lipid panel (procedure) [facility] Test 00:00:00 [code = 23762680] Medical Ce nter Future Scheduled 2009 Lipid panel (procedure) [facility] Test 00:00:00 [code = 01024395] Medical Ce nter Future Scheduled 2009 Lipid panel (procedure) [facility] Test 00:00:00 [code = 28971679] Medical Ce nter Future Scheduled 2009 Lipid panel (procedure) [facility] Test 00:00:00 [code = 41073995] Medical Ce nter Future Scheduled 2009 Lipid panel (procedure) [facility] Test 00:00:00 [code = 67614999] Medical Ce nter Future Scheduled 2009 Lipid panel (procedure) [facility] Test 00:00:00 [code = 56294231] Medical Ce nter Future Scheduled 1985 Screening for malignant [facility] Test 00:00:00 neoplasm of cervix Medical C enter (procedure) [code = 719167144] Future Scheduled 1985 Screening for malignant [facility] Test 00:00:00 neoplasm of cervix Medical C enter (procedure) [code = 589407514] Future Scheduled 1985 Screening for malignant [facility] Test 00:00:00 neoplasm of cervix Medical C enter (procedure) [code = 252979887] Future Scheduled 1985 Screening for malignant [facility] Test 00:00:00 neoplasm of cervix Medical C enter (procedure) [code = 666866545] Future Scheduled 1985 Screening for malignant [facility] Test 00:00:00 neoplasm of cervix Medical C enter (procedure) [code = 239031825] Future Scheduled 1985 Screening for malignant [facility] Test 00:00:00 neoplasm of cervix Medical C enter (procedure) [code = 093681103] Future Scheduled 1985 Screening for malignant [facility] Test 00:00:00 neoplasm of cervix Medical C enter (procedure) [code = 656414146] Future Scheduled 1985 Screening for malignant [facility] Test 00:00:00 neoplasm of cervix Medical C enter (procedure) [code = 381803523] Future Scheduled 1983-07-31 DTAP/TDAP/TD [facility]ACCINES [facility] Test 00:00:00 (1 - Tdap) [code = Medical C enter DTAP/TDAP/TD VACCINES (1 - Tdap)] Future Scheduled 1983-07-31 DTAP/TDAP/TD [facility]ACCINES [facility] Test 00:00:00 (1 - Tdap) [code = Medical C enter DTAP/TDAP/TD VACCINES (1 - Tdap)] Future Scheduled 1983-07-31 DTAP/TDAP/TD [facility]ACCINES [facility] Test 00:00:00 (1 - Tdap) [code = Medical C enter DTAP/TDAP/TD VACCINES (1 - Tdap)] Future Scheduled 1983-07-31 DTAP/TDAP/TD [facility]ACCINES [facility] Test 00:00:00 (1 - Tdap) [code = Medical C enter DTAP/TDAP/TD VACCINES (1 - Tdap)] Future Scheduled 1983-07-31 DTAP/TDAP/TD [facility]ACCINES [facility] Test 00:00:00 (1 - Tdap) [code = Medical C enter DTAP/TDAP/TD VACCINES (1 - Tdap)] Future Scheduled 1983-07-31 DTAP/TDAP/TD [facility]ACCINES [facility] 00:00:00 (1 - Tdap) [code = Medical C enter DTAP/TDAP/TD VACCINES (1 - Tdap)] Future Scheduled 1983-07-31 DTAP/TDAP/TD VACCINES [facility] Test 00:00:00 (1 - Tdap) [code = Medical C enter DTAP/TDAP/TD VACCINES (1 - Tdap)] Future Scheduled 1983-07-31 DTAP/TDAP/TD [facility]ACCINES [facility] Test 00:00:00 (1 - Tdap) [code = Medical C enter DTAP/TDAP/TD VACCINES (1 - Tdap)] Future Scheduled 1964 Screening for malignant [facility] Test 00:00:00 neoplasm of breast Medical C enter (procedure) [code = 819068208] Future Scheduled 1964 Screening for malignant [facility] Test 00:00:00 neoplasm of colon Medical Ce nter (procedure) [code = 493165776] Future Scheduled 1964 Screening for malignant [facility] Test 00:00:00 neoplasm of breast Medical C enter (procedure) [code = 429841137] Future Scheduled 1964 Screening for malignant [facility] Test 00:00:00 neoplasm of colon Medical Ce nter (procedure) [code = 539344016] Future Scheduled 1964 Screening for malignant [facility] Test 00:00:00 neoplasm of breast Medical C enter (procedure) [code = 534981358] Future Scheduled 1964 Screening for malignant [facility] Test 00:00:00 neoplasm of colon Medical Ce nter (procedure) [code = 036713111] Future Scheduled 1964 Screening for malignant [facility] Test 00:00:00 neoplasm of breast Medical C enter (procedure) [code = 267289577] Future Scheduled 1964 Screening for malignant [facility] Test 00:00:00 neoplasm of colon Medical Ce nter (procedure) [code = 902409162] Future Scheduled 1964 Screening for malignant [facility] Test 00:00:00 neoplasm of breast Medical C enter (procedure) [code = 689206353] Future Scheduled 1964 CT Colonography (combo) [facility] Test 00:00:00 [code = CT Colonography [facility] (combo)] Future Scheduled 1964 Screening for malignant [facility] Test 00:00:00 neoplasm of colon Medical Ce nter (procedure) [code = 063839156] Future Scheduled 1964 Screening for malignant [facility] Test 00:00:00 neoplasm of colon Medical Ce nter (procedure) [code = 307041437] Future Scheduled 1964 Screening for malignant [facility] Test 00:00:00 neoplasm of colon Medical Ce nter (procedure) [code = 941780827] Future Scheduled 1964 Screening for malignant [facility] Test 00:00:00 neoplasm of colon Medical Ce nter (procedure) [code = 793311228] Future Scheduled 1964 Sigmoidoscopy [code = [facility] S[facility]oscopy] Medical Cente r Future Scheduled 1964 Screening for malignant [facility] Test 00:00:00 neoplasm of breast Medical C enter (procedure) [code = 796603431] Future Scheduled 1964 CT Colonography (combo) [facility] Test 00:00:00 [code = CT Colonography [facility] (combo)] Future Scheduled 1964 Screening for malignant [facility] Test 00:00:00 neoplasm of colon Medical Ce nter (procedure) [code = 989228689] Future Scheduled 1964 Screening for malignant [facility] Test 00:00:00 neoplasm of colon Medical Ce nter (procedure) [code = 569976229] Future Scheduled 1964 Screening for malignant [facility] Test 00:00:00 neoplasm of colon Medical Ce nter (procedure) [code = 274845299] Future Scheduled 1964 Screening for malignant [facility] Test 00:00:00 neoplasm of colon Medical Ce nter (procedure) [code = 508336161] Future Scheduled 1964 Sigmoidoscopy [facility]code = [facility] 00:[facility] S[facility]oidoscopy] Medical Cente r Future Scheduled 1964 Screening for malignant [facility] Test 00:00:00 neoplasm of breast Medical C enter (procedure) [code = 894445291] Future Scheduled 1964 CT Colonography (combo) [facility] Test 00:00:00 [code = CT Colonography [facility] (combo)] Future Scheduled 1964 Screening for malignant [facility] Test 00:00:00 neoplasm of colon Medical Ce nter (procedure) [code = 637646096] Future Scheduled 1964 Screening for malignant [facility] Test 00:00:00 neoplasm of colon Medical Ce nter (procedure) [code = 866710888] Future Scheduled 1964 Screening for malignant [facility] Test 00:00:00 neoplasm of colon Medical Ce nter (procedure) [code = 462395971] Future Scheduled 1964 Screening for malignant [facility] Test 00:00:00 neoplasm of colon Medical Ce nter (procedure) [code = 163478429] Future Scheduled 1964 Sigmoidoscopy [facility]code = [facility] 00:[facility] Sigmoidoscopy] [facility] Future Scheduled 1964 Screening for malignant [facility] Test 00:00:00 neoplasm of breast Medical C enter (procedure) [code = 733663196] Future Scheduled 1964 CT Colonography (combo) [facility] Test 00:00:00 [code = CT [facility] [facility] Center (combo)] Future Scheduled 1964 Screening for malignant [facility] Test 00:00:00 neoplasm of colon Medical Ce nter (procedure) [code = 111301704] Future Scheduled 1964 Screening for malignant [facility] Test 00:00:00 neoplasm of colon Medical Ce nter (procedure) [code = 607337651] Future Scheduled 1964 Screening for malignant [facility] Test 00:00:00 neoplasm of colon Medical Ce nter (procedure) [code = 085148098] Future Scheduled 1964 Screening for malignant [facility] Test 00:00:00 neoplasm of colon Medical Ce nter (procedure) [code = 737217081] Future Scheduled 1965 S[facility]oid[facility]code [facility] Future Scheduled COVID-19 VACCINE (1) [facility] [code = COVID-19 Hospital VACCINE (1)] Future Scheduled Hepatitis C screening [facility] (procedure) [code = Hospital 378167723] Future Scheduled Scre[facility] for [facility] cervix Hospital (procedure) [code = 212753444] Future Scheduled BREAST CANCER SCREENING [facility] [code = BREAST CANCER Hospit al SCREENING] Future Scheduled COLONOSCOPY SCREENING [facility] [code = COLONOSCOPY Hospital SCREENING] Future Scheduled SHINGLES VACCINES (#1) M ethodist Test [code = SHINGLES Hospital VACCINES (#1)] Future Scheduled INFLUENZA VACCINE [code [facility] = INFLUENZA VACCINE] Hospita l Future Scheduled COVID-19 VACCINE (1) [facility] [code = COVID-19 Hospital VACCINE (1)] Future Scheduled Hepatitis C screening [facility] (procedure) [code = Hospital 940603007] Future Scheduled Screening for malignant [facility] neoplasm of cervix Hospital (procedure) [code = 698599736] Future Scheduled BREAST CANCER SCREENING [facility] [code = BREAST CANCER Hospit al SCREENING] Future Scheduled COLONOSCOPY SCREENING [facility] [code = COLONOSCOPY Hospital SCREENING] Future Scheduled CULTURE, Ordered: [facility]ina [facility]ge Test URINE/SENSITIVITY ON 07/22/2020 of Medi cine ALL [code = 42650-8] Future Scheduled SHINGLES VACCINES (#1) M ethodist Test [code = SHINGLES Hospital VACCINES (#1)] Future Scheduled Screening for malignant [facility] Test neoplasm of colon of Medicin e (procedure) [code = 149993688] Future Scheduled INFLUENZA VACCINE [code [facility] = INFLUENZA VACCINE] Hospita l Future Scheduled Screening for malignant [facility] Test neoplasm of breast of Medici ne (procedure) [code = 021933767] Future Scheduled TETANUS SHOT (ADULT) [facility] [code = TETANUS SHOT of Medi cine (ADULT)] Future Scheduled BMI FOLLOW UP PLAN [employer] Test [code = BMI FOLLOW UP of Med icine PLAN] Future Scheduled Hepatitis C screening [employer] Test (procedure) [code = of Medic ine 160846834] Future Scheduled Human immunodeficiency [employer] Test virus screening of Medicine (procedure) [code = 457260534] Future Scheduled Screening for malignant [employer] Test neoplasm of cervix of Medici ne (procedure) [code = 045687241] Future Scheduled ZOSTER VACCINE (1 of 2) [employer] Test [code = ZOSTER VACCINE of Tn dicine (1 of 2)] Future Scheduled FLU VACCINE > 6 MONTHS [employer] Test [code = FLU VACCINE > 6 of M edicine MONTHS] Future Scheduled Screening for malignant [facility] Test neoplasm of colon of Medicin e (procedure) [code = 000096089] Future Scheduled Screening for malignant [facility] Test neoplasm of breast of Medici ne (procedure) [code = 819590600] Future Scheduled TETANUS SHOT (ADULT) [facility] Test [code = TETANUS SHOT of Medi cine (ADULT)] Future Scheduled BMI FOLLOW UP PLAN [facility] Test [code = BMI FOLLOW UP of Med icine PLAN] Future Scheduled Hepatitis C screening [facility] Test (procedure) [code = of Medic ine 676223912] Future Scheduled Human immunodeficiency B [facility] Test virus screening of Medicine (procedure) [code = 707496946] Future Scheduled Screening for malignant [facility] Test neoplasm of cervix of Medici ne (procedure) [code = 217232280] Future Scheduled ZOSTER VACCINE (1 of 2) [facility] Test [code = ZOSTER VACCINE of Me dicine (1 of 2)] Future Scheduled FLU VACCINE > 6 MONTHS B [facility] Test [code = FLU VACCINE > 6 of M edicine MONTHS] Encounters Start End Encounter Admission Attending Care Care Encounter Source Date/Time Date/Time Type Type Clinicians Facility Department ID 2022-05-11 Outpatient [facility] [id number] [place] 15:07:51 [id number] [facility] 2022-03-30 Outpatient [facility] [id number] [place] 06:39:17 [id number] [facility] 2022-03-23 Outpatient [facility] [id number] [place] 12:12:52 [id number] [facility] 2021-01-31 Inpatient DIEGO, [facility] Surgery [id number] SLE 23:59:15 MUNDAY 2021-01-31 Outpatient DIEGO, [facility] Surgery [id number] SLE 23:59:10 MUNDAY 2021-01-19 [facility] [id number] [place] 16:11:34 ANGELA Fried [facility] 2021-01-19 Outpatient [facility] [id number] [place] 15:27:11 [facility] 2020-10-30 Outpatient [facility] [id number] [place] 08:16:17 [facility] 2020-10-07 Outpatient GRIFFINRODRIGUEZ [facility] [id number] [place] 14:25:56 ANGELA Fried [facility] 2020-10-06 Outpatient [facility] [id number] [place] 08:49:44 [facility] 2020-10-01 Outpatient AZEEM TEJADA [facility] [id number] [place] 16:23:03 [facility] 2022-08-10 2022-08-10 [facility] [id number] [place] 15:45:00 15:45:00 ANGELA Fried [facility] 2022-07-20 2022-07-20 Outpatient [facility] [id number] [place] 15:45:00 15:45:00 EANGELA 2022-05-11 2022-05-11 [address] [facility] 1.2.840.114 14 [id number] NE 14:00:00 15:22:47 Visit Angela fried 350.1.13.58 [facility] MEDICAL 9.2.7.2.686 PLAZA 5 [id number] 7 2022-05-11 2022-05-11 Outpatient [facility] [id number] [place] 14:00:00 15:19:02 Health 2022-04-13 2022-04-13 Outpatient [facility] 142 [id number] NE 15:45:00 15:45:00 EANGELA 2022-02-22 2022-02-22 Office YAYO Diego 1.2.840.114 [id number] [facility] 15:00:00 15:15:00 Visit Gageyolanda Solo AMBULATOR 350.1.13.21 College Y 0.2.7.2.686 of [id number] Medi prudencio 300 e 2022-02-22 2022-02-22 Outpatient [facility] [id number] [facility] 14:29:26 14:29:26 Colleg e of Medicin e 2022-01-19 2022-01-19 Procedure EARNEST Dowd [facility] 1.2.840.114 [id number] NE 16:15:00 16:58:01 Visit Nati COLLINS 350.1.13.58 [facility] MEDICAL 9.2.7.2.686 PLAZA 9 [id number] 7 2021-12-30 2021-12-30 Outpatient [facility] [id number] [place] 16:15:00 16:51:40 Health 2021-12-30 2021-12-30 Procedure EARNEST Dowd [facility] 1.2.840.114 [id number] NE 16:15:00 16:51:25 Visit Nati COLLINS 350.1.13.58 H [facility] MEDICAL 9.2.7.2.686 PLAZA 6 [id number] 7 2021-11-13 2021-11-13 Office Azeem Tejada [facility] 1.2.840.114 13 [id number] NE 13:30:00 14:26:29 Visit ORTHO AND 350.1.13.58 Health SPINE 9.2.7.2.686 MEDICAL [id number] PLAZA 2 2021-11-10 2021-11-10 Office EARNEST Dowd [facility] 1.2.840.114 [id number] [place] 16:00:00 16:50:45 Visit Nati STACEY 350.1.13.58 H [facility] MEDICAL 9.2.7.2.686 PLAZA 7 [id number] 7 2021-08-26 2021-08-26 Office [address] [facility] 1.2.840.114 13 [id number] NE 15:15:00 16:58:03 Visit Angela fried STACEY 350.1.13.58 Health MEDICAL 9.2.7.2.686 PLAZA 2 [id number] 7 2021-07-23 2021-07-23 Office CHRISTIAN Diego 1.2.840.114 [id number] [facility] 15:30:00 16:44:47 Visit Gage Solo AMBULATOR 350.1.13.21 College Y 0.2.7.2.686 of [id number] Medi prudencio 300 e 2021-07-06 2021-07-06 Telephone Mary Gary [facility] 1.2.840.11 4 [id number] NE 00:00:00 00:00:00 Mary Gary 350.1.13.58 Health MEDICAL 9.2.7.2.686 PLAZA 7 [id number] 7 2021-06-23 2021-06-23 [address] [facility] 1.2.840.114 13 [id number] NE 15:15:00 16:40:47 Visit Angela friedMARILYNN 350.1.13.58 Health MEDICAL 9.2.7.2.686 PLAZA 2 [id number] 7 2021-03-16 2021-03-16 Office CHRISTIAN DIEGO 1.2.840.114 [id number] [facility] 12:55:14 14:31:25 Visit GAGE AMBULATOR 350.1.13.21 College Y 0.2.7.2.686 of [id number] Medi prudencio 300 e 2021-03-16 2021-03-16 Outpatient CHRISTIAN GONZALES [id number] [facility] 12:54:39 14:30:50 Colleg e of Medicin e 2021-02-25 2021-02-25 [facility] Zunilda Sherwood 1.2.840.1 [id number] Methodi 10:45:25 23:59:00 Encounter Gato 79907.1.[address] 3.430.2.7 Hospit a .3.884986 l .8 2021-02-25 2021-02-25 [facility] Zunilda Sherwood 1.2.840.1 [id number] 2 [id number] Methodi 10:44:50 10:44:50 Encounter Gato 79852.1.[address] 3.430.2.7 Hospit a .3.395928 l .8 2021-02-25 2021-02-25 Travel 1.2.840.1 1.2.984.980 1208 [id number] Methodi 00:00:00 00:00:[address] 3.430.2.7 0.2.7.3.698 Ho spita .3.116935 084.8 l .8 2021-02-14 2021-02-14 Transcribe Zunilda Sherwood 1.2.840.1 [id number] Methodi 00:00:00 00:00:00 Orders Gato 96421.1.[address] 3.430.2.7 Hospit a .3.021113 l .8 2021-01-19 2021-01-19 Office [address]Riya [facility] 1.2.840.114 12 [id number] NE 14:12:15 16:12:25 Visit Angela fried 350.1.13.58 [facility] MEDICAL 9.2.7.2.686 PLAZA 1 [id number] 7 2020-11-24 2020-11-24 [facility] [id number] [facility] 15:19:37 16:15:43 MUNDAY Melissag e of Medicin e 2020-11-03 2020-11-04 [facility] [id number] 05:37:00 19:22:00 Encounter [facility] 2020-11-03 2020-11-[address] [facility] [id number] [facility] 07:30:00 13:00:00 Event [facility] 2020-11-03 2020-11-03 Surgery [facility] [id number] 07:30:00 11:05:00 [facility] 2020-10-30 2020-10-30 [facility] [id number] 11:15:00 23:59:00 Encounter [facility] 2020-10-30 2020-10-30 Outpatient [facility] [id number] [facility] 00:00:00 23:59:00 Collesulema e of Medicin e 2020-10-30 2020-10-30 [facility] [id number] 10:30:00 11:14:00 Encounter [facility] 2020-10-30 2020-10-30 Office Azeem Tejada 6400 1.2.840.114 1 [id number] NE 07:57:02 08:57:30 Visit SUSANNAH VILLEDA 350.1.13.58 Health 9.2.7.2.686 [id number] 3 2020-10-30 2020-10-30 Office Azeem Tejada 6400 1.2.840.114 1 [id number] 07:57:02 08:57:[address] 350.1.13.58 9.2.7.2.686 [id number] 3 2020-10-30 2020-10-30 Outpatient [facility] [id number] SLE 00:00:00 00:00:00 2020-10-30 2020-10-30 Outpatient EL SLE [facility] [id number] [facility] 00:00:00 00:00:00 2020-10-30 2020-10-30 Outpatient EL [facility] [id number] [facility] 00:00:00 00:00:00 2020-10-30 2020-10-30 Outpatient EL SLE [facility] [id number] [facility] 00:00:00 00:00:00 2020-10-30 2020-10-[address] [facility] [id number] 00:00:00 00:00:00 Only [facility] 2020-10-24 2020-10-24 Orders [facility] [id number] 00:00:00 00:00:00 Only [facility] 2020-10-10 2020-10-10 [facility] [id number] 09:11:00 19:09:00 Encounter [facility] 2020-10-10 2020-10-[address] [facility] [id number] 15:00:00 17:03:00 [facility] 2020-10-10 2020-10-10 Surgery [facility] [id number] 13:00:00 15:05:00 [facility] 2020-10-10 2020-10-10 Outside [facility] [id number] 00:00:00 00:00:00 Orders [facility] 2020-10-10 2020-10-[address] [facility] [id number] [facility] 00:00:00 00:00:00 [facility] 2020-10-09 2020-10-09 [facility] [id number] 12:00:00 23:59:00 Encounter [facility] 2020-10-09 2020-10-09 Outpatient AMA Tracy [id number] [facility] 12:00:00 12:00:00 Ye Martin [facility] 2020-10-09 2020-10-09 [facility] [id number] 11:25:00 11:59:00 [facility] 2020-10-09 2020-10-09 Outpatient EL SLE [facility] [id number] [facility] 00:00:00 00:00:00 2020-10-09 2020-10-09 Outpatient EL [facility] [id number] [facility] 00:00:00 00:00:00 2020-10-09 2020-10-09 Orders Diego, [facility] [id number] 00:00:00 00:00:00 Only Gage Solo [facility] 2020-10-09 2020-10-[address] [facility] [id number] [facility] 00:00:00 00:00:00 [facility] 2020-10-07 2020-10-07 Office Griffin-Rodriguez [facility] 1.2.840.114 11 [id number] NE 13:14:05 14:24:51 Visit e, Angela JORGEMARILYNN 350.1.13.58 Health MEDICAL 9.2.7.2.686 PLAZA 2 [id number] 7 2020-10-07 2020-10-07 Office Griffin-Rodriguez [facility] 1.2.840.114 11 [id number] 13:14:05 14:24:51 Visit e, Angela COLLINS 350.1.13.58 MEDICAL 9.2.7.2.686 PLAZA 0 [id number] 7 2020-10-02 2020-10-02 Abstract Griffin-Rodriguez [facility] 1.2.840.114 1 [id number] [place] 00:00:00 00:00:00 Angela fried 350.1.13.58 Health MEDICAL 9.2.7.2.686 PLAZA 4 [id number] 7 2020-10-02 2020-10-02 Abstract Griffin-Rodriguez [facility] 1.2.840.114 1 [id number] 00:00:00 00:00:00 Angela fried 350.1.13.58 MEDICAL 9.2.7.2.686 PLAZA 3 [id number] 7 2020-09-24 2020-09-24 Outpatient [facility] [id number] [facility] 12:26:48 19:31:01 Colleg gael of Medicin e 2020-08-21 2020-08-21 Office CHRISTIAN Diego 1.2.840.114 [id number] 08:09:09 10:04:59 Visit Gage Edil AMBULATOR 350.1.13.21 Y 0.2.7.2.686 [id number] 300 2020-08-21 2020-08-21 Office CHRISTIAN Diego 1.2.840.114 [id number] [facility] 08:09:09 10:04:59 Visit Gage Solo AMBULATOR 350.1.13.21 College Y 0.2.7.2.686 of [id number] Medi prudencio 300 e 2020-07-22 2020-07-22 Office CHRISTIAN Andres 1.2.840.114 [id number] 15:56:21 17:30:04 Visit Vadim P AMBULATOR 350.1.13.21 Y 0.2.7.2.686 [id number] 300 2020-07-22 2020-07-22 Office CHRISTIAN Andres 1.2.840.114 [id number] [facility] 15:56:21 17:30:04 Visit Vadim P AMBULATOR 350.1.13.21 College Y 0.2.7.2.686 of [id number] Medi prudencio 300 e 2020-07-07 2020-07-07 Outpatient Joni CESPEDES [facility] [id number] Univers 16:10:00 16:10:00 ANASTASIYA ity of [facility] 2020-07-02 2020-07-02 Hailee TINOCO [facility] [id number] [place] 10:15:00 10:15:00 t; ANGELA Fried [place] [facility] TORRES-BAR M.D. II ans REANGELA M.D. 2020-06-16 2020-06-16 Outpatient Joni CESPEDES [facility] [id number] [facility] 15:50:00 15:50:00 ANASTASIYA y [facility] 2020-06-13 2020-06-13 [facility] [id number] NE 15:15:00 15:15:00 t; ANGELA Fried Phys ici TORRES-BAR M.D. ans RE, LAURA, M.D. 2020-06-06 2020-06-06 Outpatient ATUL ACOSTA [facility] [id number] 2 MH 11:08:00 23:59:[address] [facility] 2020-04-30 2020-04-30 [facility] Orthopedics [id number] [place] 15:00:00 15:00:00 t; ANGELA Fried - [place] [facility] hys[place] TORRES-BAR M.D. II ans RE, LAURA, M.D. 2020-04-22 2020-04-22 [facility] YAHIR [facility] [id number] NE 16:00:00 16:00:00 t; ANGELA Fried Phys ici TORRES-BAR M.D. ans RE, LAURA, M.D. 2020-04-05 2020-04-16 Inpatient EM YOVANI Boykin MAS [id number] [facility] [facility] 17:50:00 09:29:56 [facility] 85 [facility] 2020-04-05 2020-04-05 Outpatient AMA Boykin LABO [id number] [facility] 23:14:00 23:14:00 [facility] 07 [facility] 2020-03-14 2020-03-14 Inpatient Honorio Cohenan HCAPM LABO [id number] [facility] 13:08:00 13:08:00 74 [facility] 2020-02-28 2020-02-28 Hospital Jean MarieFredi abreu 1.2.840.1 [id number] Methodi 07:00:00 12:28:00 Encounter Nati 53289.1.[address] 3.430.2.7 Hospit a .3.695181 l .8 2020-02-28 2020-02-28 Surgery Fredi Aj 1.2.840.1 [id number] 21 [id number] Methodi 09:35:00 10:50:[address] 3.430.2.7 Hospit a .3.837828 l .8 2020-02-28 2020-02-28 Anesthesia Cher Mayfield 1.2.840.1 10 [id number] Methodi 09:47:00 10:27:00 Event Pola Goodwin 66695.1.[address] 3.430.2.7 Hospit a .3.721460 l .8 2020-02-28 2020-02-28 Travel 1.2.840.1 1.2.635.863 [id number] Methodi 00:00:00 00:00:[address] 3.430.2.7 0.2.7.3.698 Ho spita .3.302041 084.8 l .8 2020-02-26 2020-02-26 [facility] 643 [id number] [place] 00:00:00 00:00:[address] 2020-02-26 2020-02-26 Travel 1.2.840.1 1.2.080.785 2860 [id number] Methodi 00:00:00 00:00:[address] 3.430.2.7 0.2.7.3.698 Ho spita .3.132808 084.8 l .8 2020-02-19 2020-02-19 [facility] YAHIR TINOCO [facility]oped[facility] [id number] NE 15:45:00 15:45:00 ANGELA Miranda - [place] [facility] TORRES-BAR M.D. II ANGELA Olsen M.D. 2020-02-05 2020-02-05 Travel 1.2.840.1 1.2.441.339 [id number] Methodi 00:00:00 00:00:[address] 3.430.2.7 0.2.7.3.698 Ho spita .3.543087 084.8 l .8 2020-01-15 2020-01-15 Hailee [facility] Orthopedics [id number] [place] 16:00:00 16:00:00 t; ANGELA Fried - [place] [facility] hys[facility] TORRES-BAR M.D. II ans RE, LAURA, M.D. 2019-12-22 2019-12-22 Laboratory Lab, [facility] 1.2.840.114 [id number] 15:55:24 16:15:24 Only Fam Pob I Health 350.1.13.10 [place] 4.2.7.2.686 Professio [id number] [place] [address] Office Building [facility] 2019-12-22 2019-12-22 Laboratory Lab, [facility] Pob I [facility] 12. 840.114 [id number] [facility] 15:55:24 16:15:24 Only Joya Peña Health 350.1.13.10 ity of [place] 4.2.7.2.686 Fabio as Professio [id number] [address] Office [facility] 2019-12-22 2019-12-22 Outpatient R CAIN, [facility] [id number] Univers 15:40:00 15:40:00 JOYA itlink of [facility] 2019-12-22 2019-12-22 Letter Lab, [facility] 1.2.840.114 [id number] 00:00:00 00:00:00 (Out) Fam Pob I Health 350.1.13.10 [place] 4.2.7.2.686 Professio [phone] [place] [address] [facility] 2019-12-22 2019-12-22 Letter Lab, [facility] 1.2.840.114 [id number] Univers 00:00:00 00:00:00 (Out) Fam Pob I Health 350.1.13.10 [place] 4.2.7.2.686 Fabio as Professio [phone] Tn dic[address] Office [facility] 2019-12-04 2019-12-04 Hailee [facility] Orthopedics [id number] [place] 08:45:00 08:45:00 t; ANGELA Fried - [place] P hys[place] TORRES-BAR M.D. II ANGELA Olsen M.D. 2019-11-23 2019-11-23 [facility] 68 [id number] [place] 10:00:00 10:00:00 t; Tal DAMIAN APRN II ans NATI WATSON 2019-11-07 2019-11-07 [facility]opedics [id number] [place] 11:00:00 11:00:00 t; ANGELA Fried - [place] P hysici GRIFFIN-BAR Jason II ans ANGELA DIMAS M.D. 2019-11-02 2019-11-02 [facility] [id number] [place] 09:30:00 09:30:00 t; ANGELA Fried - [place] P hysici GRIFFIN-BAR Jason II ans ANGELA DIMAS M.D. 2019-10-25 2019-10-25 [facility] [id number] [place] 09:00:00 09:00:00 t; ANGELA Fried - [place] P hysici GRIFFIN-BAR Jason II ans ANGELA DIMAS M.D. 2019-09-19 2019-09-19 [facility] [id number] [place] 10:00:00 10:00:00 t; ANGELA Fried - [place] P hysici GRIFFIN-BAR Jason II ans ANGELA DIMAS M.D. 2019-08-28 2019-08-28 [facility] [id number] [place] 16:00:00 16:00:00 t; ANGELA Fried - [place] P hysici GRIFFIN-BAR Jason II ans ANGELA DIMAS M.D. 2019-08-28 2019-08-28 [facility] [id number] [place] 16:00:00 16:00:00 t; ANGELA Fried - [place] P hysici GRIFFIN-BAR Jason II ans ANGELA DIMAS M.D. 2019-02-22 2019-02-22 [facility] 58 [id number] [place] 16:00:00 16:00:00 t; hector WINN M.D. [place] [facility] 2017-06-02 2017-06-02 EARNEST Jimenez [facility] [id number] [place] 16:00:00 16:00:00 t; Alok WINN M.D. ans WILLIAM, M.D. 2017-04-21 2017-04-21 EARNEST Jimenez [facility] 36 [id number] [place] 14:30:00 14:30:00 t; Pedro WINN M.D. ans WILLIAM, M.D. 2016-09-30 2016-09-30 Outpatient CHRISTIAN LAM [facility] [id number] [facility] 10:51:03 11:15:23 PREMAL Colleg e of Medicin e Results Test Description Test Time Test Comments Results Result Comments Source POCT URINALYSIS DIPSTICK 2021-07-23 00:00:00 Test Item Value Reference Range Interpretation Comme nts COLOR UA (test code = 5778-6) Yellow YELLOW/STRAW CLARITY UA (test code = 91868-8) Clear CLEAR GLUCOSE UA (test code = 5792-7) Negative NEGATIVE BILIRUBIN UA (test code = 5770-3) Negative NEGATIVE KETONES UA (test code = 26898-6) Negative NEGATIVE SPECIFIC GRAVITY UA (test code = 5811-5) 1.005-1.035 BLOOD UA (test code = 5794-3) Negative NEGATIVE PH UA (test code = 5803-2) 5-9 PROTEIN UA (test code = 5804-0) Trace NEGATIVE UROBILINOGEN UA (test code = 5818-0) 0.02 E.U/DL NORMAL MG/DL LEUKOCYTE ESTERASE UA (test code = 5799-2) Negative NEGATIVE NITRITE UA (test code = 5802-4) Negative NEGATIVE REDUCING SUBSTANCES URINE (test code = 48456-6) [facility] [id number] [facility]:00:00 Test Item Value Reference Range Interpretation Comments COLOR UA (test code = 5778-6) Yellow YELLOW/STRAW CLARITY UA (test code = Clear CLEAR 11372-4) GLUCOSE UA (test code = Negative NEGATIVE 5792-7) BILIRUBIN UA (test code = Negative NEGATIVE 5770-3) KETONES UA (test code = Negative NEGATIVE 65997-6) SPECIFIC GRAVITY UA (test 1.005-1.035 code = 5811-5) BLOOD UA (test code = 5794-3) Hemolyzed Trace NEGATIVE PH UA (test code = 5803-2) 5-9 PROTEIN UA (test code = Negative NEGATIVE 5804-0) UROBILINOGEN UA (test code = 0.02 E.U/DL NORMAL MG/DL 5818-0) LEUKOCYTE ESTERASE UA (test LARGE NEGATIVE code = 5799-2) NITRITE UA (test code = Negative NEGATIVE 5802-4) REDUCING SUBSTANCES URINE (test code = 59403-9) [id number] 12:54:00 Test Item Value Reference Range Interpretation Comments Case Report (test code Surgical Pathology = 104) Report Case: [id number] Authorizing Provider: Gage Diego MD Collected: 11/03/2020 11:05 AM Ordering Location: [facility] PERI[facility] Received: 11/03/2020 02:30 PM SERVICES Pathologist: Jazmyne Mendes MD Specimens: A) - Kidney, Left B) - Lymph Node, Para-aortic lymph node DIAGNOSIS (test code = [id number] 3220) uZzEwMzNcZnRuYmpcdWMxIH tccnRmMVxlcGljOTIwMlxhb oEwZCTzbTRmH0NndaeaYWkj KP2dUJ0igDjyfDQtoTFqOVC vReQkl9bqa722eBYab6muFC XPyyljjEj2lBxvZ48rj9L5D qcaU62evIRxASqkfNYdmkzo hyVnLUJhPDoGMA0UXZbpRTC GVCwgUkFESUNBTCBORVBIUk WYJP1HQMbptWNxVBRtJXmAT UdIVDogNTMzIEdNXHBhciAt IE6DXBKFYEGLMDTGQSbKIOj fLL0LLOPACt3IURfbWGGSF1 SskJTpXRPnBN2gTJDDK0FyT CZVM8PMVPCnQHJPBXEBWfLF DzMNZMRAVLSJIZ3FXgLLL01 hhNJkFT1hKFdKBBVTGuxBS5 ZVWX6TCijCNuNfCyLVVBPNW eXeMd1KMMDJN8XXBDVECIES HnIGZPnMQ88NWbTNKTQlgmM sELIKTTSLZ98HYH5KDHRzal akVGUyDz3vHPjAIUybKn0VG QBfQHCQGrWhUP1GDNuSQUNB MKLJGVSAUE3IErfiBPGuEST IWN2PXDEAOiaHSyPVYG8TTN MRZ4AJWhJjSR35KRmcNJXpP WSSILmVDCwTGLZFU9RpOOWJ KErKJW5WRXsqFKO1j5mtdME xXHNzdGUxODAwMFxhbnNpXG NkWjhenpfeEKKdOWX0tjAwO WTcOClcYRMcXBadZw9gxESk jAljLvGfJFYyb4lsicQIxgd okKf6h4ejYGIiIcH8wWQtQM fyT3rnacFtvMKvEZBeFFv9v X15JTCwpW2krYImMBssklIk ZgL8BThzOMDaGjO0SISciVU wSYUlI1boXYNfAIoePSXzLM vjnIPyKJU3kBdwz2W3yKAvz JZxqLwzRiBtEyBdOhGPn9Yg EUl1eDjfI5PhNYLlGbP4hOH mAXSvONvaJRYeGTBaoiD3gL 42ZNfthnT1mHWyt0Vyw30bf 072kB4djJZzMEF4CXXyICTc wNQxMNRpQJF5DKDxaZFmY6m iVJJeYZ7gpgxdTGelSCxnWV HemBS3XLMorMSbV3ZlJTOtE UpkEGVirle1IsNqCl5ztOFu cJtwHIaqk9bun9bitZIhOkr 2CVScMnPaZlgqBRwab1Dpg8 pkLSNkec1gEOW7lPJjrBfmf 5V8dDWyVRVanOHsEKByIG4h tSPvYKXmlN4zjjyfMVGkWnP wcuaiLGGqzOdrkiXpUp0pfZ gtNDK1GKylJ5jseT0qRaQ0I YwkU8izpY9iNNa7NIuqOLAr hVV2fzS2JYUavVQzZ7WbsA2 eOFAcPB1cirv5o8xyGWQ2WO kiNNDcKaR8doO7TTXkqRBpZ MZugVouLPbcb778YPM0NwJa JNXgc7LnU5YmmDtlN31sqFy lV99uWDMsbFfzwL0biMcmwQ 8zMpJdPsEfHIsjbZbuWS9eX LWaX1gtnEKcLMGaRXLaR3gu MqVmuX0mrBgdODmhdbBpWMO aCzj3ROYzsVOdEHBeXhc7EG PyJWWbX88cstsqHDS2kJ7ye 6fpm5DnPNavSRL5AYXfg35g GTpillP0SGjwVz1yGPTrWXS kTEhcFTZ8xQ== COMMENT (test code = c3jkpIJvCUXmdNQ3FpTuFZK 4607) bx2stp7FsjIScyNSwYQlxfS YjwgEbht71tLT5xN23AC0kO WKjVnY1OHJhgdH1Vmh4TQPr KTDasDWaU854w9bdh0tvfmC qrKR8hVckLAJfUHOrWYxzZY ElRjJdC0NozPgfwkWed9opx nOmJH4qyQDgDZHjyxZsmC9n KRTxvmNtfF0xwpsnMAErlDG 3eAYlWD5xJYHxvZkiCFM5tX 4mGAXrrJPzwSC8fO0dHW66n TIam1OlWVH2r8GhJNfewoFg UDV5TDOzKCIoCmTprYitWYC seCLqGBdpcI7uRChtRWPzv7 SytbGaXLIqe7Lvhkikco84a FYcEXM3jt0jFZ1iGwHpT4Ah FZP2xmHomS3yxHubBMS5jb8 iFBIvuAGyGMCsVCWeg07cdz AmzA2fZn3vNZtxS7JpM5wjv HRlqMfxvqVfZJEpSM4rI5Jj zKUwCHMsUOPqm01cf8Wtov3 eGm4br1Izg34gmWDwcOudyJ CdDUAkDY8yj3QnxXlkiSrgj Dk7h5FvhzUtscGiGPVwr6Jo ltUgfoBrs4Szzx9uBA9ooT2 egWgmcF8hjGWhkHPyeHNkxN FwyBUjMDBhonCnpDM8dAR6B HRoZSBzdHJvbWEgaXMgRVIg XB1qIXELQUFqk5m6eRWaEZQ fOLX9pHTvHOCuoIjkyKisdN GjcSH3tuHanfYoT4s1UITbl 8x0jGFtUjJOcI4eeFbrzUMv Q7lrKWNjgLmrAOjqZ2bmmFq ugCBsEkxha3YcgrQbl3Pvem 3jCKvmZV4prpSzk1lsY9voC Y9yVCqeiJTxx6Ahv9QkgNJu TUUfZHZoweJtj9FcfxOeh5m 6mLDvFA6gvMDuIZSwkQLaEP lqAHscAG9jZZY6be1dDUfiy XPcq6PsLXLujzFOzt1tMUre bWFzIFdoZWVsZXIgaGFzIHJ qesszk2NwIWOtQCEkCBAcJF PmGGOxQ1CtFUKsu0x6wHA4b YAuURhvB03bo3qiUWUuml4= CPT Code(s) (test code r2vlnPUqGENszDC7FwDbIAP = 3357) hf2rsq0OhpFLtmNObAOvubW ExidVitm89yIQ3pV68NQ2sE HIzWxM9FDXjqaE9Viu9SWQv FHHeoZQiH272q4aqu9rldjO cmLH0wRbhTEOtEWYqTHimBV MgAnOcZZcuKQiogLXlApX1O FG3VvufTIfvIUOfaMRqXMLv cn0= CLINICAL HISTORY (test u4vrbQEwSSBquNJ1EgDlFKP code = 3356) zt9nfj0ExdYVfrGRpNIpydM MytcHprg50fXG5nR17LI6rV MFbPjG0IZGoadM8Wjv3KTPb KTJlyHYnV158o0meh9pjikB cqNT3hKccRVZeZFWrBHdpBQ ZzMjAgUmVuYWwgbWFzcywgb GVmdCBccGFyfQ== SPECIMEN SOURCE (test l5lujERxNFEloWI6IcHdBZM code = 3377) lp4cqb2JjpGYpoSYeJMoezD GjpeDhix44jWO9zJ57AF6uO DExCfE4QDUurmX8Wms1ODGd VZJtjCSvQ685a8qyb5jjrwA llGD3rLypPGYcDKYeUSvgFR IkBlRbOM4hNVJuoSRjcMLqA Oj3ZNHgXHl8hYAxSE0iUDUu cGFyfQ== GROSS DESCRIPTION t3ecuXFgIXDiuTElIzXfDOE (test code = 3366) xAKPgm8rjIUHgvIFbDxDrGl NcZnRuYmpcdWMxXGRlZmYwe 0hev830mWOld1spDKEqGlG8 iPWbXSYcqJRwX609RTMdXHt tc2ijy3YnDFUmmCQxr4Y6JP HNlymunVd0eLmaC83sv3F7I shyD1urFOMfRYAtA6XgNM9u YZEuObu2DJW6BTC0LAWtRCY iD8JqNV6uOJCnbBYnAPj4q3 kqtIyhDCMjUEH1p9dwZSfst zU7EF8vma6cuOm7o1ekcgDk RYYtLQWgbSRAGVGyX7WcyHl eAh1znHt4eQrxGazsRCO4Ir l6AM1qlr59usq2kCcxLPShl uqxYwJ6YFunDOLgkuxnLYs9 MFxtYXJnbDcyMFxtYXJncjc yMFxtYXJndDcyMFxtYXJnYj hpQRfqUIVgGJY4AOjjk866F KD7DRdvx4tuk2ljxXThFuu7 HCWmSjMyKletGQewr6Jkt3u sVZAlZsJ1FFqmZG5gwf66MG IvKCS8vb2hbSHoiJfamzUex NMkQVsaW4CyWITbu376VTLq F2MfVQJaw6O1reNuXzOpGBI rnNI3cuN8HPHnWIt8wVDkgh F3twFkyWZaM0kduV68MeJof NOxI1JsgW62HiWljAJkO7Zw dF38HfFrcJQcL8NlkR00KiO koEZvTARzhXYeEf5dfDUxnP Rfh8VhcQIhKMpgE08lo296L BPzjtLfT8wjtWHtufrpyDPg lzhyHUtdujV9XJThnoZgsGa djY5eMfZcHuBwQUduUC5qPR WqV6nctEZgEHQiWRShE4yrR jCguJ5sxLsgODpabtPlDCNx DCOgP2AweuZxPPJfRVTnIZs lYwAdUSZxd6z0tUQ2sDRidC L7nIXatApnVA8voJRhKQ6lJ WrzWHzispStx9QqLO23qKGp vsOfwpWmCrvfCxXsh3dqlmZ 5IiBpcyBhIDUzMyBnbSwgMT HtYAP7UBtiNWW1LOzeLTNus OVsPAP8NY3poRozMWS6g388 IHNwZWNpbWVuIHdpdGggYW4 kZWO7DBSyQFNjuHMmcAUvZM x2ZoPrO76koMFcE2UcOAUeX qbgZ46mKPvxzYH4TUDwVRQe ieSmAVOfmUVegIIoNa09BUJ bQQvavho2hHzbNR50TJDzVF DbRG8dqRVfNSzjtfVgYAjtm zJemlKmEA11BKYmVAtyany8 oCaoMM51KXFsCAMpAH3yaRP lTIHetbZkrYJieR8oCY09JN NfFL7xNMIyglgkDMUpxkfhP JHleG4cMI2xWVOcWV3yxJTf aCMnKENzovUid4LzP8Keu3V seSBpZGVudGlmaWVkLiBUaG Itw3HbF0jrPV5keWKehM8xI HAqQdzsP7phJMNbTDYzmOVf xQ6cwlGxmoNtmLGnpPOwICW 4axNxLROvBXbzZTJ3UbDdrR XdOeeysOYaJzCxO62lmCEag Jrbm7Q2aRH3NKKfV4fwnVDj BgErSJQ5k6ZaAnprOmWmMPN rgVhuRFV2yPZoEQYvt77ir1 ObZPhecmGmASbcjcxbEjE8i ID5ZHZ0pNCqcySirMPwqems z5Yxn6YxJDYmlSshQDOxa4E pxUYrSAemiYnnpbY9xUTupF 08TPYexI3vWRJ5nWowcLJtz hOsBeGdE34dv5OhS2Qkw7Lp E8OrRyFhY5piVBYkykDpBsB 2tQdsXvR1oZGsfoFcBNwdK8 Ijv3UgFDemzUDyLFGiNOQij KGawh2dDLLnUTD1ndM8BILx wPFhM6oeLADeHlHnW51tUtM epXD4oUQljlOrXEuzbgNmuy EqSCChtO0rWEWuAUHikFIav f2nIYUrBAFhMZ2rfZGdfbDp xorqyTDsU6ttDBCjoyFcKPl 0CN9vhsAzhyQwKTBwTVJoBB 6vqPNckL27zcD7jBQdy8N7X FVwSfvaeANqmaUtsL16TRXp i34vf6F6y3obELSopOJxM9G hx4NlVM8uIOrcMBXktUNcuu hbHzRyKROswrQoiX9gQYedV RZbfv4llv71usVhtuAqV9Lt h2NyySC2kiVldTUzv0LlfTZ jg7u2vGKhh7O3SLtteROvb3 IuoJ2gZDZaVQRiSWGkAFKzi LNewqD1dBgae51ch4QgFRNj TMP4cx23lFAetPOiTCazLAP kfd7olR8iGGVidM1ekUioMF 3cYXfxiPY5QG4lqgpkPTxvs NNmRUy4pITpEC0hVWIgIIGx BDMru9WfJ2Zsh1TdfANlOJO udGlmaWVkLiBSZXByZXNlbn TbqHm1DHLgYAZ5eN9bmsGgm nDne0BfhRd5lIHxOIvsBCW6 HGHxm3XktSVaqwZsrlYnx1p tp0zuVxVfnNNlHLKalyAIWP hfgoBaGFkyXKT0NMA9PREeW X5mtEN0ZCnlKRX3owV2QUWh bTJqG6qiLLJlTRCmR7KafGD dPHWvLRBqSEIoqLN3UIZhGH JlbmFsIHNpbnVzXHBhciBBN F6ZLKgfT3qfzBO3bnNyLB4a bCBjYXBzdWxlXHBhciBBNiw hV9gykDL6xvTPDUUowMDyxy GrFPTwbBCmpBDaMXW2ALObV ynwI3xofVBdrZOvQNTfNV7T IWXmSL9dvw4hmKDjMICbcyT iaT2cFIFiVArcP3h7ZSDxfS JpxLwclDd3rIlcOKBqFGF5U CBoaWxhciBmYXQuICBNSlAv fRdfXAIpmlwgNGXvSq8lKmM nWWk6QYFzZrAnz9bnrWAtBK qxBNG1mOBpBAIjGMLtGIVwD W93R4EtzfQcMMeqyTZfcWTz bCByZWNvcmQgbnVtYmVyIGF dKBVnoTfspJwtwx6vEOHbuE UuRIC0AjDycOHrQlQsvSRlB lHlG40aLYpvihFdSQXgHH5i GPxecVkajiTzn6P7aLL8AZN kMWQdhG5tLXI0vZFayBXjHC KyJLYwaKVofJ1dblQahpGaX ET7oO0zUPGzlJ5bvsQ3LEEd PV19qZYsoPdtUXYiq7DpTke dIGh3dABhRD1sUQXpSZAkhb tirvokTkKvzFZtGyZbcG3vJ V8wILCqAKctGMweOBQ1EOT0 JIHuwHAgb7jfct3rFZhhQAO wZWNpbWVuIGlzIGVudGlyZW l9KPU5Wd6jrWSgRFPimAElm LP9VQDaHHDqOa3qzV30cqah XHBhclxwYXIgQjEtQjIsICB EaSs2jHLmMWTom4WrxYPoQV RaxuGlP1JymGblxFfdge3dM ZXdoAWpZBJyWUYoXFGlc9Xo YcbmUOFtv9OxzBDhDTr2iEO qHQ3eCPAlaYFwYSN3BWF1ZT KcEE9lhM6hcluoPUSajA8zG CD0yWEwjFWxQX6FER9nbZIs cGFyfQ== MICROSCOPIC o1dfwLNwVNHgfEW9JgRcXLC DESCRIPTION (test code vy2xcn6BisFCfcSVlXXlgaB = 3371) BmueElbf90aUW5dT89YZ5dG TRrLnZ4ANSaumQ8Ofo4KLJj IQErbVIiI106c9cww4yrxaX kpFE7mXuoTOVbCRQsSNsiAT EcBfMnFZPbPg3rwFKdZxMdm GFyfQ== SPECIAL STUDIES (test i9nwhFJxFGGipHL2UtVqSDJ code = 337) nv6urv0VkqYQklSGfUJrhzF QmjxAbvg32hKQ2rS02TF2kK ZSiJtC3YIOxrbT5Ugk9CGCa PFUcpJMhT003MSUxQWQofTi yipz9lC04LOBpaU3leSNrMA v0XTGsikGudInsaD6rGlQvA wLqCjMWeZLzcH26BKRktwG8 SYYdq58me9TelWxalrOeNEW dAPikI9h8LHHrCNTnUSK2u0 Krd6GtzX6vyC6ugRidnV1ow FVjuMO9avnkd4Ufo4SsZ4zv bCBzdGFpbnMuXHBhciBFUjs fRLT4TWVUBkHEWeDdYWHUPW 5fpVHoNVO8px7uBYwhU7Jlp EQlu1EitL1tiL4pmVAhviBk e2r0tABjiZ6mdMdpbQMjZ4h rFVGrcSjsSJJwl3Kuz1fdcp ByZWNlcHRvciBhbmQgcHJvZ 3AdsFBbi73pLCQeO2LnyS0g LiBUaGUgZXBpdGhlbGlhbCB hn34jf27xtlKfgIZgwAygbC ncD6e7PUEgGbssv6Zxj21wG YOmXcM0f4OkzRVjFlVszk27 dfWkwyWeX4g0w4LtMIBygLF jm0JaiV8lypkht0y4jHDPTg vfIRnakLAnMMZ9fPXqgyYmO ZMsKFTjoYNptq5fvDAhs3Rv VOEccQjjZADyzYc3uNHcoAS dNHMlLEUobUMfkOHgFXE9fA 0yEvBofGVvGTDouaSCj890b l1sSILnpITsgcOXmBYubZ0c SYdkIHcuHTywkRJiDLvbf7v iVJQam9c3aGCuJOOymdKhn5 xzIHdlcmUgZXZhbHVhdGVkI AEtq98vEImqmYznrHdtVITl s6OykQcgu4KoGfEkKAhvc7J pY21cwHGraGVqqYtcCCZjqc DqVFUry69nb9rjRQIcWfX8h RRgsEE3rVRjfEYsl5RfkVyn YUHoy1bjTPLvlp5bibixyZB be4GxsD7glhacUYzveOUots HoSBLya2j5kOLhOYSdIFHyY JscyHs2XWFvh603pq6rqaE7 kMPfZKW9QWcjCYXvTYByigH gZXZhbHVhdGVkXHBhciAgXH XumqYPmW42nz5clHX4b3VnT O4jl2SlfFT9FSVufruiDLtm iSRvlQakUfI4ENInwMUuRn3 vlWNmNAB7VEJthRlmutJTfQ 8wBVYrWSq8CYUdDjPtHtaef iAJHNRlY5ExQQYnfqOsfxtf KFY2cX4or6c0RNhjQh6fRMK gabivt5vwkpZatHUwr3NeNK YzumEqu7GrFJYuapVweQZyF CWsbhMvku1bpqHaJJLhZNGe O1FuhqxeyHvzphY8OCMdBFZ cmMRwzPlkTHAtIXo2JDvtkn Vez1SeKiFsynHteMVvxiAvM M6kHPUutJYdrmKwIXO3SWFw WWHZJjUcXQBpm3CqWW5tLFJ hxAwxEBYysM1er2CbDXDpz9 4uIFRoZSBGREEgaGFzIGRld GVybWluZWQgdGhhdCBzdWNo RNCvRILoYV7gXOJoabLgjHS je3YckTVcssOne6QxkzEnTM NyDIZ1ZjEGdQAwpNYvgTBdo aF2v0FnTTQdtfKpeVfvhBMj pIPeuAQdt7Hgca3pWHDjg0v bxKkeDY0qoLMnTZEaDTnbgx KmASGttrHkibErm5OzU4B3f I6aGIytj9YdAy0vTNUci3Qs pfNsHxQPqPvlWBsbVl1xFJZ qmhwkhCPpP8CzxVhtaZJtJS VuZGVyIHRoZSBDbGluaWNhb AOMVEDklbA8b8R8RIgyuULk uuSlGC85XMDrRA8jqXWzaDX kw3NdZWw8RWGrC7gCWD57IW kgYXMgcXVhbGlmaWVkIHRvI RNcxnGsho0ilFtzdMKaw63n yTJ7wNA0SNAqcU2cH5QfHSv fVv1yEBXtxivrnWFhrHjzKo 5ccGFyXGYwXGZzMjBccGFyf Q== [facility] [id number] 12:54:00 Test Item Value Reference Range Interpretation Comments Case Report (test code Surgical Pathology = 104) Report Case: [id number] Authorizing Provider: Gage Diego MD Collected: 11/03/2020 11:05 AM Ordering Location: [facility] Received: 11/03/2020 02:30 PM SERVICES Pathologist: Jazmyne Mendes MD Specimens: A) - Kidney, Left B) - Lymph Node, Para-aortic lymph node DIAGNOSIS (test code = h1sfzMCbCPWpm9rvTUZeeRK 3220) uZzEwMzNcZnRuYmpcdWMxIH tccnRmMVxlcGljOTIwMlxhb aSfGYXtyEXyJ9UlrcgnSRir QB7hDL8suFzvoEUytNWfOVI iMeFwk3jgc677vIRhn0soNR EHxbqxhNp0bTooM34ls9P2Z mneJ71huCYwVTvviKPbvxlv vlEzZLKdGOjISF0DTBdpOUY GVCwgUkFESUNBTCBORVBIUk ENUV3GPNsvtNCfCTJnOCcZN UdIVDogNTMzIEdNXHBhciAt ME2FEMIEZVTBTTBMKJvAIYl hQY1JHGRCCg9OFScyWCGSN8 CfrDDeKNJlOK2cYWCFT7XzZ LQBO1NUDJMyTCSEISSEOoER DfBGMJZXTPALKJ3CNaEMH55 hsVZdFZ2eEEdNQPWPCfiRO3 BNDY1BQeeHFzQvLgHTIKBLY vSiGe1OZZVYX8TQEYHICYJG AfAPQAaGB78FBeUYIRBrnkV cEKFITICCV91HNI6XWQIcyr phPWPzWb9lQNoQCFbrNb5JW LCsDLDVIyElUE1IULsYKXTS ICNGLBBSTK0RTrzgZEGaZPO RZW9DJRIRMpcCZrHLOK8TQF BNG7TUCsOsKG07YGidKFPrI XEFGBkBXHrWTCFFA9IzHUZU AHfCGT0PESyjEGN5s3diwTB xXHNzdGUxODAwMFxhbnNpXG TqOawtcxluLICyCKK3aoUwV MHzVWneENTxCVcoHf9erBLz rArpNgXfCMBoz7odnkAZytq toKj2b1ssOHHtRbC3fIAfXG rqY9obkjAssXXbAXNuHJy0s G43LPWfqL1luTMlBXcysqVu QaA8ECldDLVmDhQ1YVAjwVZ kPLHkU9dxORTzSWwgBCOfJZ gsqDUsTWU6oWdbh4S4dQXex MWzhCkoGaMwSvSrDnZLr0Hg PJn2xFrnO1WuFSTiHhL6pDK tVXHeLQfiDLEdSBBllxC9xX 23ZTfkauO6bVYjl8Kzb52tu 044rW5gkFPmXPD3HDFjERNz qNAwXDMeOSA3BIQdpMLsD6p oZWSyJB2rnpkzLCbuANkrKZ FgrNC1EXObsJHvQ4YaJFDvP EghGINlsmb0CvOyLf2kyRSu tOkbHEvhr5drd0anfTRaCto 7HELcPgKuOwvcBVcon9Kzt2 ruLNVlba9qQHV2dBXzeYoto 1L8wVWuPZAbxQNdVZEyAK1h jIDmBWPcmN5rfxpzQLKgBdA fdnbxCRTwaZkijgEbYa7oeN lpRJA1OVuiN8dzkV5kGsG4P BmlD8rixW3lDWd4RHwjWJQm nZV0yeS1WDEaqQNaP2YcmC0 gALNoUQ3mimx1i7wgMBE0XU tkGIIgYkP0keV7CGKngDJyU RKgiNowIRcax046TRQ4KtUd SHMvl3ZwB0FetUipK90ydHt xV23uBQXutKknbV1amMsnnA 4qWiWvIpNhMUpzzTjmHS0lL TLiR0jfvRRqUOEzVNBpR9pv WsOmiM1gpEgaCTvlxzDqMFI dLwz0OVStiXRmUDKcQsv4TJ YtNHLcV89qdkmpVKB1dE2vd 0mst7YlMHlxFKD9RJWcr25k NBxljqF7NWaaSn7yUDZqEWC lVVyuSYU6vM== COMMENT (test code = y4nfbLNkKBSfkPH9VgJxKOR 8571) mx3gyg1WncZLzbFBuHUwiiB NppoTgvp72jHE6rN01WU8gA GOeCyY7WEWukcS8Dbk0VQJx UKQfqAMbO063j5tyu9czbcO tyOV5hJruMKDoKSDkGSosUM RlHoUtW5EatYcjbgQhh4vsf vVhIS5cfKNwQXGumvEbsU3e TLWilmZobZ7knyrbJXSdwHG 7iOFaYK4nNNHxhBbjBPW9bI 2gYIOveWTmaXF2tT3mDZ09r WHnm4DwBLD8l0XuIDslhmSu VMD2MHHkWLAvDvCnnQenJUD szSDnVMipvM5eDZjrYUIsz9 VlgoVhWIXee3Vpaaxuhr84b MGuZDU8lh3qHR0wBgAvX3Bd ZLZ2ilOszU6pdGfsXHG6xn6 zDHBapPTcXFKxRCNhf49bua WzmG7tGt6rQLqaV7YpZ5yij VDhmGfuvsZyAUGkDS0dP0Ly zLZzRBHfTQRoo11gp0Ojht1 lWv8fj8Umg77fzYNyoElbtQ BhJEKlAL1cw4ZclWvlgXceo Dg3h9VmfoFeboYtYBTmb0Vx gyQkwgChf9Kihv8nTK8jbS5 wkTiqqZ8xoKHfmBHlbFWskF DgaXAtDHGijkGfbDY4kQV3P HRoZSBzdHJvbWEgaXMgRVIg RB1rGIJCUYZop7b5oHHaEFP uSMB7eEGcWTVzaRqxpWdfeQ UmgLJ4nsSkcdKqJ6w3AAZoo 1g6qGAjImWCrQ6mkKixuHJz K8ezYQUytLvnHTjtZ8wxjHg dkLXpHxetc3PzefEnc8Jshq 7kLWdkNZ6nleKja4bwY1zsU Q3fTPoreNNsh0Ozf0BdkLAx PMZvHPJhmuZdf3XzreWvy2k 0fXFoQV0yqAFjYJCrqPSxTZ drSBucYP0fTSA1bn3vZNdnd LXnv1NoFQCrciJIod7pHTrf bWFzIFdoZWVsZXIgaGFzIHJ maxbhz6OiEZXdWBEzDYZaXG XvELLiW8XmVQQjg9j7vMK6f KMgWDosB87wn4swQRRxnr2= CPT Code(s) (test code p4klrWWzXFEvqJV6EgCzVEO = 3357) hu1wdl1ZmsCQuuRDaFHawqA DltiLcly45aOG8hP96PO8pY WVaDmE8AFSdjzB4Orm9EEQi YPDbzWWnX126x9uiz8evfxO hiWB2cRqiPSIeYWXjLJkjHM BsKtVoWVhtPRezpUMhClU8I PF6HyliDLejDWOmuLKrUIWm cn0= CLINICAL HISTORY (test t8mmaOHjDJMnhYL1PoAmZCK code = 3356) ab4otq8VjwKYvjRPyXPpfyF MsehWnlu32qVK0fT87HU9pN SXqPbL5DKVrolX0Vuo4NAKh GEBmfDQmA157g5lpg8uyxwY ebNU4zUlvOLTgITSbMWmlTO ZzMjAgUmVuYWwgbWFzcywgb GVmdCBccGFyfQ== SPECIMEN SOURCE (test a8pyzXJtBSTfsSA3BbDjEIY code = 3377) ju2rwq5HayZUrnEIbVKzidL EhtgNnpo30nPF9nS16QI3aT RCyMpB5MOHnnvD7Qve3THIu PEBunFJeS426t0afq2ctecD jjIF7hIetOEWtKOBzGAreFU NnHbJmOY0bJAAagNIfsRAzX Gs8LUCiNCs4yHJwJE3rDHSb cGFyfQ== GROSS DESCRIPTION i5gewYUzFEUyhUQyKlGqVWG (test code = 3366) iXPZhm6lsVFPqoPCqHtMrCy NcZnRuYmpcdWMxXGRlZmYwe 5kdx526qAOss1jfJYBhDeY3 nXZyDWDflCTzL070NOAjEAk dk5bya6ZiXYTgpTMgc3V1AX JTebrryPd7mNeqE08la0T0D dmkC4hrNTRsICJfA4IzAJ9r SKYrYim5WZE7KFO6RGZiYNZ bV6GxUR3uICXvxQWlGXi3c8 nybDogXVMcREX3m4buFEhnn bR2HV3zta5xkKo4o2aydgIs EASnQLZknRKMXIJeZ5HymPe pRw9kwDc0lFyhRcjuHQG3Qf l5XK9uts18yew6jCbmUZAjd ojtUkK6AEvlCIImbpekSQi0 MFxtYXJnbDcyMFxtYXJncjc yMFxtYXJndDcyMFxtYXJnYj bzGFynJJUtRNI9DMmgt819G HO6ELcyk6gna0dtdRJuMob1 DWMaEfBgUkvvNCzwl2Nfv0t qFLTiVkO0HRvzDC5vnd94FR YpKYY3lp6ifFGlfKunbnXev TRmEGrdU3GkQMQux641ONKw O7WgYXMxp5Y0qyTxPzEfIGT jyTE1ucK9HAYyUCq9iBPjpe N1jpTknCObU3abcM69VnLyw TEbI5EilT10FoMzaUDbG8Gq hT37ZuBjzILtC8SyeI21TqO bfYYfAHByuMOoBj5ygTRnlD Qkb3DwhETpNZijN59yd236L CTapbDtY9hkdJKbfwlwrFLj rcmlLLniyyK1DNLhqdBrwZl otJ8vCeUoZkOgZMttAN0aJA NmP1zksBBjVBDlGFSgR2xxB gQijK0vrRtcEXivqqGdFIBk ULQpR6BgceBeJNVtRMEkRPg lGlDuXUMow1e0bAQ4eETwrQ B0wDFfmUacEE1tkASzRY6xL BziWZzmytHkz9WlUK89cHQz dzFjbmUxBkutFuJeq5xaijP 5IiBpcyBhIDUzMyBnbSwgMT EmDWN9PYgvNHV0LHdxMKEic MIgAGH8SC5ceFelBAW6f661 IHNwZWNpbWVuIHdpdGggYW4 wOZP4HCBrFTIkrUKbjRTeVQ d2ArQoM23rfOQmQ6WiCUXwH eexE70dNSmyzLT1YJLoQNKj myJaEYBnoWSpqEHpSc91BWS eDZaeorz0eIlxLD91ENAbKL KmCF5pjBKbBOkaynQfDBgqe wPywqMzKC41AORoDGhxhjj7 sGpaYL87HHKuNLWaMW6ymJX hZMLjqdVryAItgS8eYV39DL SbPK2uBXAyyofdQTAorwawB TBsdC4gLH3eTDPxXH4fuHSg yCRcXIWtfiNhv2IpP4Cfh1F seSBpZGVudGlmaWVkLiBUaG Emw5CuB5pcBF0nqZTdvE7hN UOzTkirL5qkVKJeIFRejFIg dH5klyDdlhOyfKTuwFShBIQ 0zrSbBCEsLQahYQO9FtWpsV LmMriteHQsAmUcU17zcCXkw Dzrc6F5pYD5FNJwA3znfTSp QgPhTXK2g0HmRwisZxWxHUV jgOovFQC4qCZfVLCga36qn6 NoQDbankDvECxthwzeUlR2v BK8AZK5cLLmbrGqnNFabqex c3Xas1LsRWWjiGvqJYAuk1Y qvOOrZKtknWdokeH8sGPmhM 18PNOcaM7aJRO8dFstcQCcv hLvOwNyL42st7YbQ5Qdy8Kq S5NkAkNzD2yeAHLhrbElFdK 2oCglQrW1fQRzjmUwVYnwF3 Tjt3KaBCdnkTYnTYDcGAGet TFrqc8zEPEcHZS4mgS3UEMs yMMoF5nkSZTgTqAcO74vFpJ ffTG3iHCshjThUAvwhaApqz MgOJZaeJ8jLWFzVONqtXOvo z4fIWZdOYFzDK0nfWVxriKz fkiyhWXoQ5qdATRhsxNwJQl 3NF2cddDlnkKsOTGzVUDxNB 7odJDwoP97adU1bPDaw9D7M PRjHyddlPUijnGsoV78ZDUa x56cv8S5q1vjEQGprGMdQ2G nu3TrNH9sRMabIDQkgDXuzz ysEiIgOHRscsYkxP2uRDmzD HGjmy2did93jqQyyuAbY8Ac a6LkfWN1edEctWYug9ViyLM fx2n5sLZxj0N4EMacoQMpm7 GsrM7oWTCvFCQtUVVwYCTnx SGpupQ2uPglg66bl3YyYLFc TOF9vg67bPOexZPoBUlmFRG vtx4bsS2tFRHiwV1bzXceJP 1tMJywqLE6FY5tpvpcAFnpc QLlTIr6iCBkTC4iRTQoIJNt YOYei5XxE9Biy9XfsTEsLCC udGlmaWVkLiBSZXByZXNlbn RouMh8TQAyNHB2rN7fntYoj cTtr8OyaVt0xQDhNAqnYBX0 UPHtn7HxrOIarwPxldIfg3s kq1meAzXedVHiJOMuakSOMH axfxShSEpcWSI5PFC5TPIcJ G0dwFH3CUubURU2jrL8YCHk fXRbO8ihSZEhRQNhL1YheEN hPUTnRJGsMIBliOC4NSKwCD JlbmFsIHNpbnVzXHBhciBBN Z9VRUfmU8qnrSX9hlOgBE5k bCBjYXBzdWxlXHBhciBBNiw gU2tsiRS1zmWPZRNqbLPvlg CvSYEhpSNfhQQxLRK7RKEkP idyS3ommJNqfDXlYGNxVZ3U GTBmEZ5agp6ajDZwPVGkyiP ibF6kWIBgPAtbY9h4MHIweO ZvaCnkeJb3qAfyPABiVRY1D CBoaWxhciBmYXQuICBNSlAv qAqfOMWxsdwxAEDgFj7eIsS dUXg2NERaKbUnf8hivZOvXI wlXGZ3vSHcSINwLOSfSMIsG N73H7AdjyHqAFnrwSIvxPWn bCByZWNvcmQgbnVtYmVyIGF cPNTlcAfdcEcmwl2jIEUdiP BkFEI7YlUuyXFuMlLeuMIzU eUzK13mGAhebgKlXBKrVK0c CRvcqOtkkfAbr7X8tPX2AIU dUWArfD1kYYC4bHSdiANqAZ LlGGVikKXfeH1tgmGiltAwJ DQ8rQ1xNQOwcZ5vozH8JJXb DG11hJOxlFzkYPDlu5PxVfc qQBd4mTSgYC0vFAThTXOsih uemfxcSwLvuDLfYjAysW2eM L2fUUYoWTxeEHfqRNE8UAV1 TTMjcVQvv0cjpx8lLEpxOYT wZWNpbWVuIGlzIGVudGlyZW y2PJM1Ez4tuTOdMSHicYWuu EX5BJVkWDYyTa8gzL27xhpz XHBhclxwYXIgQjEtQjIsICB TwAo1tFRiAJOib2FxeEYiUX CvfdLgY4WyqNdsmClumi8jX GRbqRJwLIDlUJZfBKIam3Cj CqkhPOGhw1ZfrMYpFYr9wEY cTT7iNABtcBFxCXW6TOT6MQ UhNH3lsE3fofpuVAVkbJ1nC WK3bPXxwGSyVK1GPE3htLLd cGFyfQ== MICROSCOPIC p3rscOXbTCEtcXN7CkWdABI DESCRIPTION (test code ts3vgr1AceHVddWZqIGwabG = 3371) BpkxVgor27jXE8sX33YI7hK KWaDrP9NZMlinQ9Xdi5DKOg XYLetPCmA473s2uef2ivkxW rrAG0yJrhQRIjLTYpFObiEK OdSyYhDMShPp0csFLmOsDml GFyfQ== SPECIAL STUDIES (test m0rhoQPaZTAkwFW1XuHcGQS code = 3376) nv8gpc1QioEIcjRPwXMcfcR CfmoTzjs23vQW4dA84ND7xQ AXrPhJ6CBMkpjD9Rsk4SEKk TIAapLOkF282YXWjCVSuwRz nfqt6mS08LQMuyL3vcCGoFN v7XVJfvrGbeMdrrC0tGaQuJ nPdIkKKwASjaU72NEMbtdR3 QPHna57qy8MazQfwuvIlOYT oIQrbA2d4FJHdSVWtULW7t5 Vda3FweV0uaR4jgRkokQ3ig LYwuWC5ildto9Ztn2DwW4hh bCBzdGFpbnMuXHBhciBFUjs nOMX5GBLRGjEKBrYgBGKYKD 9ryWUwBCQ2du3sRGrxI5Ufc QXvw7PofT0jjT9evNMvcoMm k6w3zYMbwC5mzErlrCZaG0p lAIDwiZbkSKDwr0Wxp2pzqa ByZWNlcHRvciBhbmQgcHJvZ 0PsxQOfc92pZQKiV8KkuC7s LiBUaGUgZXBpdGhlbGlhbCB ja53ov11qubJiyTDsmGhdiT bhY2x5WBRvUrwfc8Itw51gD GWgHsD3n1LgiKEvAuLwwq36 bwXkhiCvV8u5f3YfFDTzeZJ sw2QwdO1hlvbed5k2xAKHHj onDCiziWIvQXH9lTXodhAoX SNwFNHdgNFvmm9mpGDri4Zn GUXvpUheOHUlhTu3rXSrxSP aFBOxFPQscLSspDRnULA0tU 4yMwMzfVXhWQAjdgUMr585f p3sGDUwmWQqblCFpSRunI9a ZJhkHHtuHOtgjBBvDEszg3n xBTKhy1y5hQOoKRUwknPsr1 xzIHdlcmUgZXZhbHVhdGVkI DVkj51mKMttxLcueLryIDCy f5WgkMdzi7IbDoNnQGhcb1X oV43dpPRefRXbbXyaEYYbeh LxMLAkd10ff4whJHKxSrF9p DYtcAW0uEXrfPJyu5IaxBdn TZDxo7dbOHHlob0wepmllUS mp4ZgqW9zxcrzBDbcxNBpcw PmANEky6u8iUIjUCCqSBBmL GnrnJi7ADZwo352yj2flbF2 gNZrCOZ4YUzxLYIlBGCzloV gZXZhbHVhdGVkXHBhciAgXH FxgkNUjJ42cx7ewKV8u1OuW Z1jx6AzdJC5MRAtlpvgKQdi kYRxsPdcVcV3WEYbaNHaJe1 qiOMfXMM2JJNweAbqpxUBpA 5mWZJjEZg7GOMsKaWqLblkh nKDHDXbN6JiLFTmniEtjsvf CJI1cU9lb0k4HBbmNy7jVUM rpgmtf1pyyjHyqOGlr4TrPT MxgxQjy8NwCIJjdbWceITrK QIcxsBfdr5qtdLqYENxCRMe U8UxnbeqmNnvqnN0NSTqGSL vaXTmrEnhKSCaQIv0FTwmfh Ilp4SbZvQbzvFanTInkgVfN I9bRXElrYJqvuVuVSG8YNGd NRLYWpHeXCXtf5TuNE8dEQY dzDfdJAZpgY1rd0BpBJIik1 4uIFRoZSBGREEgaGFzIGRld GVybWluZWQgdGhhdCBzdWNo PYGmJLKjRN1yCYMxdqDkzES bq7XpdYAtqjTrg4MifbYgTR CzLNE3FuNIoANthEAgiQDcx gF0f8QmDMHlivOrpPrddIMv fMAumKZsy6Jtqf3vDBHpo5i wiQwbTJ5maCWmFCYeVVitcm JnIURivzJmvhLgp3OtB3B9y I0bMYryj3ZoWb5vARBmi0Av wpRrEkZRqUmzMChaSb8tMOI ljzvreFEbJ2NlfVpjzLIjVQ VuZGVyIHRoZSBDbGluaWNhb YGVRPUkwkX2q2D1BEeruACr ncQvGO27OWUtEF2npGKbqUQ oz8TyLZl5AJPaB3oSGM12BD kgYXMgcXVhbGlmaWVkIHRvI MUtkcEees7ocKfxbJEgo24b aZD6rGL1EFEuiZ1aF1OpRBb nFv9zPGBgiwzgnWQapTidXg 5ccGFyXGYwXGZzMjBccGFyf Q== [facility] [id number] 12:54:00 Test Item Value Reference Range Interpretation Comments Case Report (test code Surgical Pathology = 104) Report Case: [id number] Authorizing Provider: Gage Diego MD Collected: 11/03/2020 11:05 AM Ordering Location: [facility] Received: 11/03/2020 02:30 PM SERVICES Pathologist: Jazmyne Mendes MD Specimens: A) - Kidney, Left B) - Lymph Node, Para-aortic lymph node DIAGNOSIS (test code = g6ghiVDeGRBct6jvZCVmgAZ 3220) uZzEwMzNcZnRuYmpcdWMxIH tccnRmMVxlcGljOTIwMlxhb iFcXWKqhCFdB5IihhzjNWbr PR8cBP3xeXvabMAbtMJgVER eAbRrx7kvc174iKZps5fbHP FTpgwwrTq4iRrtB06ru0A6K wknS25pdOCtMTexfREfgken wsUvMAMeSCeBTS7QJPggEJM GVCwgUkFESUNBTCBORVBIUk XKIL2OIVuhbSCqKZZlMHeZH UdIVDogNTMzIEdNXHBhciAt JN1NLWNPIWZYFLIQOSnDMBh bIZ3IXESONo7VSIyiQSJXG6 OidOWkNJCeXC7tBUNQB2IbL UIKL5HHDZFmOTVHUCWPNqUU QhUZCDOJBVZMVA0ZZkENC05 btTEtYG6vJQpOIAWSRstWO5 CCHB9QEhyDAvDoXiCUDNCQD cXqZx3ULUYBU0ONQDXGCZZI WnHYXKtHJ92XNlPODYSlmfH bMWACJSLUE27LJV1QUSFqfg tmDYKyWz1xYTeNHUpcWp2PW DBqMGGZRlPyZN5CRBgDLFSQ PWASBWVFYD8TJifzMMHyXOV QTR5LLLNIQekGVfFWUP2SCY HWS0URGvUqRD82HHjiIRPtO RAQWCwVYTzTIWMNE2ZgQXQF QBfEVI9ODMgmIMG6x3kjvTN xXHNzdGUxODAwMFxhbnNpXG YmMquuxixhIADnUEZ6laLnE LAqAPytEXYrLXmtNq7nxCGk tAvdHsGcLDHtk3venaSMwzt paZs5d3pxEYMqNqL9oQEtWR zkX9ohjdIcrTQeWMRcTWj1p U55WEJexN4bcSFnTEgnxbUp QbW3IAszQGNrDxR4HWUyrZB qDYUvH2qrYBWwCQwxBMNqYT ksgQPxTMK6pAism9O9lPGpg LCynZfaZeStSmQmWeFJh2Ly VLj3jKioO4FoFHIuClJ4zBP nGWXcVJdeGKVhQIQkqsW9dA 99BLqynoQ8cITfh6Ibk68vg 093pT9dwWMqPLA2KTEmWHHf bUAcSJTbQVJ8EKIffNJgS3s tNDAzIW9tleofXByxLLsoPH TeqGJ4ZKDnvAVoY1ZaXZXuW XfsBYIsgig6TsWnPm2gwGGt rDnsYEpes8txp3hwqYDdJvq 5TJUyXaPoJvhiJUfur9Iqp8 viMVXjvk1kOPS8qNTgkGdja 7A1pKCpVVBmwVZcPCVnAA9g nPNsTOIncJ0adkdyRIBtYjZ jhafpQVJjlTsnfxCdFs7bqP ywBLX0GYwuS5xsuC9nWcD3F KnrQ6sezB4dKDu8CZkqRAWb jNI1fwB6OZWswWXfE4UvuB5 aSQFrJU5ujjn1w7xrPRA6KV tlTAXjPoJ5kzX9EGVivKLfH CElnSnbUYsya766QPA5XvXw CPNhd6CjW8JwuBpcQ87xcMd tA50eHOQlwEnzuR4oyDuocY 0uKrAfSdFiXRozpVobCG3lR YMpC9gfyBOePZYuCGJuQ1co HyInmG2bbSkpPPcjrjEcWNL cPgy7TPXhfEXyEZYgVqv2DL VaMAPbO14hvofnVSV9gW2vy 9jlf9IyEXkaKYP7DNBpr50h PPiirlG7GNkzQo1dOXGfRSX vWCcmDPN1oL== COMMENT (test code = f5tamDNqSYFrqFD6IjKyISA 335) wu2vdf3FgeQRjfGZmRXuidC VvohGxpj04bPG2mE85RY6nV HStVxT4XRNccvR7Lbc3MOVo QOPvqAGxW797z5vbi5betpA czMV8nBoiYHJaDLCsJRfxTZ GoApLmP9BiaOjzhvPcv1cwj rXsAT0raSVkQDCzrgMccU1v TZMzjwEvvX2tlxewYVNwqFG 9rGYtUH4xOZZfmTnsWTP0vC 5lBWEdvNYgbLZ5zZ9uFL28d LObm1QgHPP3s7MoJMrjbjVl KOR7XJBpUYXtPmDgbYcmVHY dzLVhAXqzsU9xSGxcHYQep3 DotnMgRTQkh4Dkbhbwgf42w KSoSQF4bb9oJY9nMeUnQ9Gy VZN1xmZriE1nePlpYRT7fx7 bAQLalXQlASWfJKFeg38ton LzaK4lDp3bFMbwC0JyK9gct NVxqEukasOtAMYjFD8lX1Ss oBCcOSGsUQAsv71jr0Hgzi5 lSq5xe6Qrc20miWOdbEbirO SmZQXpLM7hx2QvyCgkwPqwu Gy4d4DngfNfmlXuYYRbr2Iq csUcmsRdi0Mlxs6hCU8fbI5 nwFfjvM1cqNSxiYXtaLKbyT DqaMRvWSJqvoAubGR4oRJ3I HRoZSBzdHJvbWEgaXMgRVIg PM6cXOSZGYPdh9t8lHTvOVT tYEH4oNMhCCOpwWjjzYjoiG NslDF7jjHjcfWjD6l5XWGla 8v5iPYaKnADoF5txToesNMx H9rkMOThrPdpYJyeU4puxNp oeSYcIhfdx0CjveZsw2Knqs 3bRHfsND3uyjRin4ylU1nuF L6gLThbtBUqz8Uen1FrbMVk ZPMqKBYiaeXwv6QxibVux0j 3gPHaAO7ijRRvUEHblCOnOZ luWSidTK3iRAS7fj1aXTwsq TFcb4PaNERmtjQGuo3lQJwi bWFzIFdoZWVsZXIgaGFzIHJ qgyqzq6EeBLDlRDYcOZBpAW AsAQUkU9HlVQUfd0l4xDL7q URmOPbuL91yu5rkHFMbup0= CPT Code(s) (test code d9ggyTNeTQIpdRC6FmVbECZ = 3357) bd5pny8LhoWMtvVQwUQjhtA KzluUvoq97kVG0oQ43QP8rN ERdKmE2IITcxdA5Ghq1FLZg JKZxpJPeA615z4nsz7wcnzP fgLM1pHrtNCGvYFTuZPqkOU NxMkHlSWccFKvuyKPgBfR8Q GG3UyscWKqaUHZqjWRlEPIr cn0= CLINICAL HISTORY (test p2eawOKzHVWebVS6QyLqHBH code = 3356) ym4ndy7HtsXDulCReZMjyfS CnsqEqwm08pGR0dN76GY4aC HFdFrZ9FUZclwS7Jvd2LZPy FFEmoOYeB875u5uni5ahmcN ugEB6cOenWDFsXWQgXBtyFF ZzMjAgUmVuYWwgbWFzcywgb GVmdCBccGFyfQ== SPECIMEN SOURCE (test g2ickGAgNPYoyXG4TaLuRMT code = 3377) ro2lkb8XjjGHznFSyQRizeW LowzKcaw10hNY3bJ27SK5cA OZxYzD1LQUwzgQ6Bir2XRGd TIItwMPdL967o9lpa0dmlxR lqLK4dYlmOSDlRFDhEZhwLY EvSqYoXN4oJOEwgTYzkVPfA Ui0OQTqPSd9jUEfXI4sLQVl cGFyfQ== GROSS DESCRIPTION c9kmxDFgJNOyfSMhHwUtRJT (test code = 3366) bLTUtj0zzLUVveNFxQqToHs NcZnRuYmpcdWMxXGRlZmYwe 5viu390eZFug8uwKFHdLmQ1 tGOtONIiiWTcG667RRLrNTw wf8stm3YfUZZtkBJbv3U1ZO RUdlqdfHh7gYdrQ60ur3M8W xwiK5kcPTIzUVLsI8HcIX5p DUOtNmd9BXA7NCF4NPPkVCU lW7ViOW7qDTBxjGWwLOd1e3 qumKbrGXQlBFX8q4phIUlbg jY8RE1guw2ggRk7v8zzbyOr SOZhESGsfMXTLYUtM2QvmAb iPs2ytUd4mCltNyimGMQ9Gb g6SO6qmb70ekt9rGljBIPdg zicSfV1YBruYRMhaaowFCt3 MFxtYXJnbDcyMFxtYXJncjc yMFxtYXJndDcyMFxtYXJnYj zjNZhePXCzPLK6ZBrza118M IK0FCikv2qjj8evqEVbCeq8 KKJqEvPsApftHYyfw4Hlt8r aFXBbYuQ4TTuxPS4sin34AF QfMLU2zf1rfWDloGmdflYrs YTtNSshM0CnGXLaj708SAFs F9ObTYXuu9W7ivGjWeNqVLM ivKE1ikD9YQOsEJm7gMVxpv G6hhWovLLgO8hlnW69IlXth ZKpV9WscU32MuGxoZCtG4Qy kK09YyBktAJnG1EeqV65SmR hjUMiOXBbtJBxRe5wtFGykF Ssr6WkhZFlYCldZ32ms312T TDxvoKmF5enmMKtpaavgVSx ijwcDFcntyZ2WNGuaaHlpBu viV5dQcLlVzHjJJnvIC4iLM PnH1ycuOJpSUBbLJYsX0unA sIojU7fkYrlIQfeoyCsEXZa RIKwJ1KdhcNkTPKwJSYoKJl cFqWbBTJip6t8hSG4rXChnX L4dTNykWsiCS2asMQzPA4rE QzzFGheqcWqg8EsFO79mUIw eeFthxBdEgfyWvSxz1ewjyN 5IiBpcyBhIDUzMyBnbSwgMT HwMWF1QDnlLOU4OIicTDHkx SNgPUM2EY1feHwaQAF9t446 IHNwZWNpbWVuIHdpdGggYW4 zFFG2YAFvNSHzrDIpwXUbZQ v2FmRnC47nsBErP2GmZCSxL zygK74pVQvnbFW8QJDuXHNi xhVkYMGysWEcpCYkRq25TEY fGUppkbk1qOmtNF29KOBnAZ MxGN7tmKZlWYnywiSeJLnqc xBaxiNqXK73PANcJJvanzh6 bVngDX28IRBwOPAtJU8dcID hDJNmilBzhLRzjH1yDP61GR EyYO1bUBOvhovcKKDlofwmH OUlyO2oRY4jOEBiWQ7ngDBt iKUnONXlmuRak9NmW8Ogz9Q seSBpZGVudGlmaWVkLiBUaG Jut0ZzV6faBZ9rgLYsyT7uK LLrUkzxE7vvNLHeUOGyyTKy lW3gyoCiciEboZFvxVDdVVG 2wnZpSCLaIRbxZZN0RmRwqV OdXeacbFMnClKkQ77gmSMri Smmf1F9aZV3OCAeG1rlrEDr FmLfHZU5v0LnQgeyQaAlCED duIydBTH1tLEeKKGjg53sg6 FbVTjvdmHqVGrpucnxOyE1e KF5QAW7oDRflpZjdPBdxmah d3Rnb3VrTENucQorGPRsx9F twBUoFPgcdQenxsY8nVZynY 00FWWuwN3mOTG3qGndnRExn lRcIxWkW55lz3RiI7Vcm1Pm P5VbLtLpI6ciAHPdzbTiUcN 4jSqrOkG2aYTffuCjIHouW1 Tfs2EjMJtiaXTjPGNiNGEth XAqmh6qOXRdJFF3urV6ZEKy hLZhS2ntDJPvFmWlT87nYiX uhRU3iEGbwxEzACqdixSnli DtDFJplQ8iLHKwGKGthBOkk g6aIPKiIODfWY4onRCmubHv euqocGEvA0aoINDhebVlQWl 1QO1gdqRnxrUhBVNpDFSkTY 0oiSRhaH57afQ5fMLth7E7V MVwOcwplMSvhaJbtJ98VNHz h17wn3W5j4uiQUXoaCCaA7M ew1OfNI8cGNocWBStzVUhda juReIwLKNqyvZkkH7uZKcrP KAxhb7hxv33frZilwTpL2Xu b1DaaIH0lvOosQLaw2XutQI al2l1aPMfx5T6WEgxxNSlr7 BheK7tCTGhGQQoJGXbPYOae RAmwyA2yKulw00kj5FsJFYb ADG8ay26qHAqcHLbNSrnNJW lfd7piI8iSORupF3mnUbcXR 0dPBhwyJO2DB2hsevqESzta IRyYDd0nDSdYM6bXSNfFGAj UIPoi0EwD2Ukm1KeyBPmIDZ udGlmaWVkLiBSZXByZXNlbn WdtXk3YGNgILL9xZ5uzpLeu zXbb5ZziVz9hHGsHJqmEVN2 XRNeo5SfxUPnndWeqaQgq5t mh4reEeDcaQApLHYswbLSWO thbxZeZBnuVIJ7FJQ0FSTvB E4qzTK0LVebOPL5wjH1DKFp zCPvW6ktQNMoZDNgE8DlvOL hUKIaSPJrCIHtaSD8CLGlRM JlbmFsIHNpbnVzXHBhciBBN O0KWUosC4svdTH1ybFqLB8h bCBjYXBzdWxlXHBhciBBNiw zY5hxfIN2edXNVCIseCOzbc KmYVWbjTNguWWhNQV2WOCwI mdwY6cxwZXomMRrLGXoWH3E ADGrGI3fqe3pcWNnHGQpgqR sqL2kYTTtKNzkR2i8QIIlhP IodHomuFy5xSpmDQObWPV1W CBoaWxhciBmYXQuICBNSlAv uAbmTSQdjgidTFXmNp3nXlE uURt0QJIiGvQcw0ovhIMhWC dsAIK1mXBpRBTpSNWrBPAjG H32A1ByhuFmLDqtiOZigAVu bCByZWNvcmQgbnVtYmVyIGF tBQLjeGetdRmkao7dQKEkhJ LrGME0IfRmyMEvJgVeiZFyP fUuO38dRBnrzcRoYDApTW6k DQvxnXlyesBib3Z1dUK0GVG eRQJwzH2pEFN4mXUhmJEzPU XeWMBfdKZsuC6jgnYhisCkN FE3kX6sFGQchF9drzW0AFQn LH16mWDaeFgqDQXrx5YaAlh gTJs7qXChVP4pJOBfBQLnbn uygkxnBkJbvLQnMsUkcW4zS S1uZQXtDJjjYWykGSD9QEZ4 UHAqxODkx3qmps1gFOcrAYY wZWNpbWVuIGlzIGVudGlyZW d6WLR5Au2xnHHdLYRttUErm BK1EZHfMBWzJq7tkV16ahsi XHBhclxwYXIgQjEtQjIsICB UlPs9sOUqMZIed6WjnLXtBI NddzAhV0ZxdBqrpRrrkv5wC BDmdUEoDWCtPNXoXYSec2Qw PnbaUMRrk7UqaIOvZLh4cYA lKB7cZMJnwUDuFLU4OEI6MV TkZU3ffR2adseyCFHdsH8sH PG9sIAqdWUkCG2JCJ8yrHQd cGFyfQ== MICROSCOPIC x0kstBBzZANhrEY1VqZlYLC DESCRIPTION (test code ra2ers6GuyJQzqFVyMUoocZ = 3371) CmlvStij29uPR2dD19HE0uY TJmQiG3MBXberP1Xuw7VZOe VWIcnRLwG363n4kyn7gkipZ lzXE1vNibDHVjUEOwWPlwTG JzBvYuRNAcEb8dcIQdOvApv GFyfQ== SPECIAL STUDIES (test h3datMAwYTQiwIS9TqYwLHX code = 3376) bu0ewt9JiqSCyvMTjDKydcF LwwcMbbk48iXE6oP64WE1cB QBwHzH7UASvtgQ4Fwb8XRJo TKVfxKImN703EBEdUDKnjRd pegu8sM95XDWsvG7oxQKkTH j4ITEvdbVwsQevxD7pHgOdQ oMzJpJHyNMikV54GHQdcjV4 IBJae25we2LduTocvyTdTDZ eKWjiC4f0YQLdDUIzGOY1h5 Jys5YihQ7smH4mhPxxbA3pf ZYaqJD0aizfb3Ioy5AbY8ej bCBzdGFpbnMuXHBhciBFUjs fEZV6XMGDWfLLPaXmIRJHUO 2wpEAmONT7ow5zBEabA4Rvx KLvj8IrnE2aeF1gnUWsjsZi g8r2eEWrjJ1ahDkunQDnO6i vIJXrhQeiUSOhh2Kti7vkvh ByZWNlcHRvciBhbmQgcHJvZ 6JweAJmh12uQQSnH4YlcA0s LiBUaGUgZXBpdGhlbGlhbCB dy76yj94thpPliCJbrLjsxU ypT3i3JILtMutcy2Ura74hJ PBySoW9e8JxqJTmQtFeeo45 ddEjmtNgP5s5h7XtBHZscQB kb7BlcF6ndlygv8s8tXDORu fcZEkgzKYuZWJ8gKTazfNcI GVoWRXhbCWxjk0pfETfq6Gt DYUxcSjjFLJgaSo8pDHpsOH oWGHjEFApqUBobGCnLWO6nX 5zKfDrnCAnTWAlqvOEt757m g2sDFAbmXZjhzRLtCEfpS6s HXpiLEwyCZcjqCSbCDslr6r oAOUqq3w0xGYpQOXuahKjo0 xzIHdlcmUgZXZhbHVhdGVkI CPgx27tXLtlfHzsaWuhMUGs p4PcuWypo8JoOqGhBHobr6G wZ34gsSBrfNPscOffUGGgyt ZgDJKcj92rg9oaQLOhPjA9u MJouQL7bQKetUDms9RtmIpi UMQwd4upBTFndv4ohggktBO sy5OzgG0dqlouWMcrqXPoxf YpCFYyo2p7gKDqRWPeIUXpX HkxeRn3IIDer509wh7zvyY4 pWYfAVE3LXihFCZuQHUambE gZXZhbHVhdGVkXHBhciAgXH RgurBWzC83pg7zrZF2e8BzM H6vj9RqsWU3ZGKbxhvyJXee hMKrlHjxMbT3NSQgiGKyZk5 ufCWxMSE5YMTatPdmtzRJkM 1cOUZaGJj9RHUnEqSwMsyvw kMAJJHkM3TcEIWnbgQmozwt TMY6sX3sz3x3IDdrUj4cOMU vhmkhh5xnoqKtyGUkh1UnDW AxytGlg5LtPMWprnKdwDSyF KXmnnUjym8mrsKkJDBaCCVy D4UwbhxhjGbohnV4PLAfVCE jqHOcjQmfALMoNJf9TYchpb Bgz0TzWdRwsrBiuCEhpfXoQ A9vDCAydVSztpRpLVS5MDHw CMJZUjOiQHLyg2AwUI0qKEE ucPgdWYGzpB2hf8PpCLLeu7 4uIFRoZSBGREEgaGFzIGRld GVybWluZWQgdGhhdCBzdWNo WIXkZPDwUX8rEHJqrvLdtMS hb7LmeMKuzbVvz5AqjbDjAH PbZQJ8YcFKfGPlxIFhcQFtq bS6q1BpRSWmdeBjgOxrlFHo dWWucKJzz4Bcuw5sUTXzk4q efSxuWU8tdJUnRPKsLOexwl AjDHMlpcXqnwAgf7QuE5L7n V6cCSrbs6IyXd5xJRTpl2Nv qrAdOqLFhEjrFSlwZv3kLFN djfwcbAHqQ5NfrNtyfUSxIZ VuZGVyIHRoZSBDbGluaWNhb GMNYDKcvyB8v2D5MCzdzXDq zuMtQH01PQVaLM8sbZKamPL me9AlRHn2CZUiL2eUVV17WX kgYXMgcXVhbGlmaWVkIHRvI LJridFxwn2cwHmspFZhb57y xIW7tFL6UWHosZ2gH4OzAKr kDx9oEBCbzokrrNMvsMrfXa 5ccGFyXGYwXGZzMjBccGFyf Q== [facility] [id number] 12:54:00 Test Item Value Reference Range Interpretation Comments Case Report (test code Surgical Pathology = 104) Report Case: [id number] Authorizing Provider: Gage Diego MD Collected: 11/03/2020 11:05 AM Ordering Location: [facility] Received: 11/03/2020 02:30 PM SERVICES Pathologist: Jazmyne Mendes MD Specimens: A) - Kidney, Left B) - Lymph Node, Para-aortic lymph node DIAGNOSIS (test code = y7gbbVFvVBAvt5mzUFVkxQV 3220) uZzEwMzNcZnRuYmpcdWMxIH tccnRmMVxlcGljOTIwMlxhb gUhJHLbqXEpI4AnzeljEJar ZQ5rNA3oeWilxDQnpXUcDQL kLqBds5mdh037cTZqy7zaKM CYijbafTy2mBdqW80du4I9R migD75fxCVkCJieoUXfhqlr lqVwUNEsIOoTFH5BXSjzOTU GVCwgUkFESUNBTCBORVBIUk IROU4NPLzigFZvYYHiKUuIN UdIVDogNTMzIEdNXHBhciAt BS6FFVKXRJQSXUOUSSmXGUa sDT5AQZEYOl4MBPkyDCRMU6 KcqACoDAPaVX7bSYAJQ7GoI YWNF3EGTYVhJTVHBADYXzRQ XeRHQLMZJXPBHC5CQyKXH18 gaACcCJ1nXElLCPVLEpcVP7 XUIN4PAfpOMjVnSnBSMDZAF jJvUq3XYABZJ8FFISJZZLVM GzPIIJuMH36XXyIXEXAkhvA fJPXXBNMRD74BMS7YYDXpmq anVFDqRn0uDSeAJBmkWt3TX JQvAFVCAvCbRN8WGHwHNOEN DCFWSCCRUM9ETgpfUVEeUIQ JQF8IHPBSEljBNaWCRH6UKO DWT7XDDvCfQP68YGncOOEmS IGYWKwTRVqCKKTNP3RoLTVC JSjRBH0NQEctBDQ9p3dbgNL xXHNzdGUxODAwMFxhbnNpXG ToEfitqhwlOHUcATF3qhLnP PFeIRytDAEyFPosCi8zhDKi uRojOwKmUXKvx4iwjpRItpq hdBy7u9xcPERyVmE7xUPeDB hlL1piszFjxZCeLKGhWAo3r M72IYZwvW3bhKBxXAkyryNk GrP5XJxuKPEhJnP6GIBvqEY dDDJwG7zlOFFqGQdwJKMlRV drhIVnTQW3oRoyh3A3kJKvk EAtpYgyMsXtRjHyHrLAp8Hx IYy5pZziF6VjJDSsDiF9qFP pTHZtRHhbTBLdHRVovoP3fJ 35WBfyrxF8gPTsv7Rbn19og 331dJ0giBDqRSJ5GZLvBZZf kSEhQSFfKQT6IXDseULmD1i lFVBjOP3vhqhhSMxwITraEN HoxCQ4NEHjzOOmK0AmOTQdL SmiOTOkmcr9HmIiVt5ubJHn eFqdDZiyp5anj1eajFYaFaa 4TCYtJxGxVyciHVceg6Rbf1 lpNZNlof1rCAN2uKUrlBzkj 0M2pKGhVNVxkQYlWDEkFD1f oYStHWIqdF9anyurUEInRvX xewtiZLAnjXgwdvPtBs6qsB qqEGX1YGqpK1onvI1rGiJ5Q ReiV1qhsJ3jSTq5IVmfDLCe xKD0paD3PFZpdNGoA3FwuB2 rOXTrDD9rvhl8i9rfRVM9XQ yeJZFiGwP0gzB0UDEyvJBuT CCjrTcnIAfdr399GWQ2CoBh ANMrf1EdA0YheOplR19ntOi dV47hMOQzrHowfE0tfGzxdG 4xMnPyTvXmZCiduFpnII8oA UOwQ7qxuRIxBOXdCMUwO7mw VmVoiH5dwRfrMAqpajFcFFO gSma9SVGcwFCiUKNrWwd8NK MiCGDoC55vwcnvWPE4dU1bn 7fun8FdVDtmPWJ2TPPee76e QTqnyxX1QRgpOc1xVHWmNIW tIJizUBP8nB== COMMENT (test code = v4qzzGPiUPFkuZW3OyYnCUB 3356) rf9vln0OagTOuyNBjZUrklF FgbiFblb53aYF2mS00WM6cD BMdEdQ8LKFeujW7Tct6SZBj EDBkyMMdO169a4kmu5homvT keDR5bXymZUCvYEKwQMbkQY NrLhIoC7ToiXghxmIuf9jpd rInOQ8zsSJwDHIznaMzfW9k JFKprfSxdH0wgewqJNZqlOT 9mGWkSG1bJBFrsPvbBGJ8hU 4iOOGdoKHkxBZ5wO8tMT93k NDsi8GwISD5e1SiAQjnxiOi AXC9MSFiQHBlRaHqgHloVMX rwUSeFYuaiM5mXXgoBKMiq0 UllgUsYBFsi3Uumndknu41z HGzMOC3pe5eNS0kFzXzK3It GOQ5kaEklC5yyRfbCRO5ug4 vWKPohBWyQELwLFNxn00vtq ZwzJ5xCa8eMXetH3HpH5jdo OKuzArqaaQhJEUlUW3pM1Dy fUIjXTIxWWUou04qu5Niwo4 jEy0aw0Ibt49uiXNmqNdylR FxIDHhFM2la5YyaOgrqTeei Ni5b1XrxeHavrDtUOWvk7Vo xgKxycWao6Ikcb7xLV7nfS8 zuNpuyQ4gtQKmzUPapLCijI NkuWTgYQImadSphOI8aZN4H HRoZSBzdHJvbWEgaXMgRVIg PV5aCZTPYEPdg4m0zVZbWKA tTVV6jJHzDMLgfRmulUaebD HlaPF0ckIdxdJbA2n5ZJOcc 9e2fWVbWoZJjP1ewBvqcSBf K9luVGRpuPhfKPctV5xzqZk taMSpSiqyr8HtbmWho0Fdvd 9oJLdmAK3unmEjj6krT5kyB V7kDIwihQZif4Djz4YovMOi CIZrAQVwmoFbz0YjkpXyr0g 6nOMoLG1ajZZbHPWsyGNzIZ nqOLhqDE5pYMG3ns5hWXbge THgs1YhGNZwsiABxu8hWMth bWFzIFdoZWVsZXIgaGFzIHJ kmzdhf3MsYWQkBKSxMRHeIA EiZMCsX3FhKHPzz7a1yFX4o FZbUNynQ01co9jnARKmro3= CPT Code(s) (test code i6vqgHNmTRRcuUU0BmEaDZY = 3357) ck3iiy4AybZKipGKpHMadwE HptrUcxp90kAJ5gJ55VG2aH JDsTnB9WSTnjkI4Xqz6OKFb MKPurJCfK642l7hxb6kelgX wfQX4wWgsRVZlZAGeDDciLD AiHbFoQByrNZsncMWeIlO8C LI8HzosYQznBMBpaCGbXCGv cn0= CLINICAL HISTORY (test k0qltQIcKHBlwFV8CwOcUEQ code = 3356) os5dwz5QukNDwsOKjUZlzcL RfmtDqps11pQV2kQ09EN5dH OByPnA6DUVbsuD5Dxp2NBGn ITSshCLzV307s9wqd9pdiaZ hiMH4sQzkJBFcTHLsMUeiXP ZzMjAgUmVuYWwgbWFzcywgb GVmdCBccGFyfQ== SPECIMEN SOURCE (test w0zndLIgGDAojHP2KiMdGNG code = 3377) nq9frz1WnqBMlpMLcHAdnrL GzdfIxgd38tSX2gO87ED7aD VLqJwD2DXZvspG7Cpo7QLOk JPXdbAYiH748w4dfm4ryldD qnXX0hXssPNCuMIEjZHsnQX FuFyCoOZ1dVPWemWIcjUWoJ Se4ALAjCKb3zNJtRG3rHTLj cGFyfQ== GROSS DESCRIPTION f7mddPEfWBDbwDDmFuYsMCG (test code = 3366) tZMNfe5ihTDHeiAOtBbIfFe NcZnRuYmpcdWMxXGRlZmYwe 8lqu654eYAez4hiLMMdPqJ1 cBSoMFQupERcC041FODmRDb qj3uyu0GuEGYzyATil5O3CT ZHyelsnLf1yNlbC25fj5J5E rcdP7dmRZUgPISyB8JwEK8w RATdKro0SYM1EYB6PREmSQT oR6OsOD4fIIChdWPyOLj2x7 bjfPkxIQAmJAQ5k1rdKKmjg tU3OZ5wpy6vuYv6b5ilncNh XWGaAUQzsKKAXQHrG6FsyLa uRt6svOv7wIzwRgemWVL7Jd r8IV6qyd72lae6cLesYRMsm lauXgP8OKboYDIspgohZEv9 MFxtYXJnbDcyMFxtYXJncjc yMFxtYXJndDcyMFxtYXJnYj hbMUwwNTWePWL0NVjpw726W IB0RGyfx8jrn5ktwYYmNfx0 ZGPmMvFlZttyVZjzz0Auc9o jQKQtLcP0RMaiNY0pmi76UI UlUVG2bd0vgRNhiSzanjZze WDlKRrkS5HrVTVpu874SALq S3IsNPHsp2B4ckZvFxCsPQE bkRP1euE4FXWnITm4eWMfri W8dmAcrCCvM0ndyB92YbWuv RPdJ9BlkM35HrRsdAIcP4Dl zM03SyVkvHRvH7HnyT28IiR qeUKqIJTbpQEaRn7xiBLypQ Xkw8MqrEBjJWnuU59qb903V PRlcrMmG0lbcHLlhluzzVOj xsspACqollC5JMEdcfXubLo ihG0lGdMfXuNlFRocKM0lIP ZnP4fowEByAQGmIRCfT0joZ iJhhO1pdQbxFXljpgNfCRRo JJRoW3DfywVfMFUpPNNmNKf kEcIxOHFrz4m4nDU8uXWdxM T9bIQebTdgDS7apTVaAI7jZ PdtRUqyjtVao4LmIY65eOOj vcUywnRiXuxzNzHvn9ccxmD 5IiBpcyBhIDUzMyBnbSwgMT FmXYO6GTbdHNI2WCtoXBLjc GTpFPK0NP6cxBplODM0t479 IHNwZWNpbWVuIHdpdGggYW4 mNVP3UTSbEVAfmCNekGMgSH n1VbPgZ33vuLPnX9CeUSVuL sdqR85tKUukpEA7TPFlVVBt tqHaAXKqqPSppYDjZn13YDE uGAwbhiz4xOytVP61FPSpOB IzAL3tiEYqPYkxhjNhNRmlo pTmnkMfRT76SAAsTFfyvuh8 uKbjIQ71KPSwSNCxYS8vaDS uKFOjptFamTDspI1eYL04QD JlOQ6dABFfjyrqRKLcclitE TIyvL7hFE6mMSPoVS4tsASf zADkYDGqhgCie3WzM0Poz9A seSBpZGVudGlmaWVkLiBUaG Sgv5JgK6ckTX6ufIZylP1iG MZsCoozI6anEMSkTMGryDBa xE8hchLafdVydXQflHWeKPM 5zsFdCAQwWPtqXVB7KiJzoD OmLhslzKTnMxJbO18jpLVgb Pwnc8Y0dEI4HZQrD3wjhSVo GjWpNYF7y1BkJyzrZaLmLPE qyRiyZUU3bSXkIIVik19cc2 ZkJXpnqkLfQEbrbvfiBuM3s QN3CTA0nJVlgqRqoTCxarfp q0Yuy4ThRNKxkPauRUXej9T nyZZpTSbntEswarL6rMWzrJ 71AEHliK1rJHK5tFjamULcu cInIeSbP20ae6MlY3Glv5Da M7RqWzHaW7owNXXmrnMsIaI 5tFxxBiN5zRYbbkKnVJruV2 Rjr0ZcRFqmmYZuOPHiKRHuq ZVpmj2bQYLrLJU5urD2HYGa uXJlJ1qgXCHwNuLaG15rLlQ olMY5gTPkzaPmEGngiuExxv DyANCcyA7cBRMhYIQxjVQgh e0wSGLdAODuGO8csSWntxMo klohmRXwQ3rdHBXuylHuFGc 7PE3prgIvsvUmBYNnQPYiCJ 3qnGUwnQ45zmI3qLQxe4B3K KSxGuzglJOgfaEbbM40VFJr o37la2X0f6nhQIOgzPJvM2C ek9QoBG2eIRleOHLcpFFcqu ynCwUqEGXfsuWfoP6gWLzwB HOmaz9sya24kfOlxtHlY7Jn h5JcdHU7lzBjcJRom0VscAU hx0n7hSQzv8G0WTnxeFYuf7 QzjP7wVSPbJBHlCTXvMCKii GKqomL3fIeyy18rf8FmQLIx EUN3fj86uENliMJiZTacKPX rlv8pxQ0nTPTuiT1ciPieUD 6zUFavuRV5YE5jquqnWDetu ADcQJe9gKWnZA2rCGCjKUKq MRPua3CsD7Ack1IlxDSdUOU udGlmaWVkLiBSZXByZXNlbn EyuNq6KLHxWYP6aK1xfyImi nBjf6NzvHh2zMLjQChnFPY3 GJVrd9IeoMTbtfYbijHir9x hu3bwTuDmpEZdRWEjwbZGUO wdgjGvGObrOFR2KUN9IVYhY E6zaAB0DGeoUIP5rtV5KEIn lIQhP6bxOYStBSBhI7KypGW yGIAaIVJqYTHwfEZ7JFCsYN JlbmFsIHNpbnVzXHBhciBBN A2QRZfuB9tevTC8lkFbTZ3n bCBjYXBzdWxlXHBhciBBNiw pT5cjcUP9caDUCOSyuOSutc YgKCOlhYJsuSUnCWE5HMGmH mgcW7qcwFTamVYjVGJpSS9F QHXqWZ9xtl4rcEKiERLxqqZ jgC5wPEQkOVbzM5v4OQGfhH XunLkavVg7uGuqPTAoRVD9H CBoaWxhciBmYXQuICBNSlAv tYqrSALussjdLMVePw2vVjL oGBd5YNDlElXsw8dzrJGmJZ roLYU2pKBwOLKyXUUaQFJdQ K62H5YawlOfIRbisGDagCNd bCByZWNvcmQgbnVtYmVyIGF uVNCniWjdwQlisb7wYXEuwO ZrRER4KdAvyONkEfTkaJFkB kPqP91uKKmycaRiBYUdKD2d BYibpWvsloNdq7D0wPN1VIB lVRKxmF5xEWV3kCUdeTPyUW ImMIKdkAUsbA0vidWfzxFkG OQ6oE8tZZUbvZ1wmkT6POIw CL21oHFkxAigMCFzf1MgEat dNXy6lOKxZE5jSXIeATGrju lurvcxHyDjzJCaTfVckX0yW M6sNHHlISqwAVoqHOS2SXG8 IHHmgEHdd6bapm4cRQefHTC wZWNpbWVuIGlzIGVudGlyZW t1VVF1Jm0erOQwDZSdkCInx VZ1GHLzQVBrRp4jnF07ftvz XHBhclxwYXIgQjEtQjIsICB KkBd2oFXfWRLkd1UsjQMbGY OzbdIuS6AohTwlaNmifw6pI GQsvPMmYYHcFEIyRHBdz2Ah BxlyXXEim5SjdKBxMYx6bQG iNF9fPEItoBHaTDN2NOS3HB MeRF6viL6finwpNODytQ2bV OG7uRUynVCfHL1HMP4drTWt cGFyfQ== MICROSCOPIC q4ssjSHqMZGbrQT1LcSoQUD DESCRIPTION (test code wa1qyv3VumRXglAMbEJntvC = 3371) SybmMxpv90zAE9hK36HC9cZ KJwMxB2DSDxaxU4Ale1FTZy DZWetXTfP258y2vno8pojiW hcWS9jJmwLEUbNOMkCPrkEW HjThSfFLPsYy6etAZzKcOye GFyfQ== SPECIAL STUDIES (test o6wbuACjRORigWR9YfHiOIA code = 3376) nn3rxy9QsfMHocTXxFSqpjA EumbPspg03pEY0gG48XL2jP FGoSyR3UGJcijW1Xdu2ONDl EOIcoQSyW764HIZcCMIbmYu zbmd4kO56WQPckI2neJZwOR l6BUGogaGvwVamtO7pDyIgY mLnMnUHvIRfnX00BMFberD0 GMFih50tv2MkzZaebgUuKTW kVRctX2s9ZDSuGUFlZKZ6z8 Zqn1ZzbA0raA3isNnxyO9sm LYlsDO1kouiv1Rdu8IbG5vx bCBzdGFpbnMuXHBhciBFUjs cJPP2VUIYFrHZCnJrRLHLCY 3ffAAzXNO8ge4lQMmaP3Caj PKwv8WjbL9aiP7guYNtumBw t2a0mDCdcP5xlDbohZHeP9h lOBHxqWrcTTSbo8Qwn1xcpp ByZWNlcHRvciBhbmQgcHJvZ 1HmdDPzd10pSRIpW0VwbK0o LiBUaGUgZXBpdGhlbGlhbCB vd98kq36yquPinJJprPizsB inC7r9IVNaRqobw0Giz83sN PSlUhA4e9IbrRXyIqYpwj19 giCiavSgH9f6o7UdLFMvqCZ zr8QakC0pgzrqq4b5wKDOPf wgAOlroHPeSPH4jVJbsqYvK PGdSCCgkVUsnu2erQCet8Ox MNXffAsoHGCqoXw3hDBdxIC pPXNjWROmmIXklVZjOLJ3kM 7vXuMshQUjHARekcLSm380d y2jJEYltVBcnrUDcCItxX7s AXspIXrzODmufSKwQXfyd8v dDNErw3l2gOJwDWUgsnPtz0 xzIHdlcmUgZXZhbHVhdGVkI KRsj18kVDerfNhfcUslTXDx p7KllUsbq2QfHmChGJiaz1B pB20fcSSgtGTlvAllKJJqxm KlCNYow82si6eiBSIpFfZ2m LRffFK9fAOsjRRns0BsuFqm BGAgo6ysWOEyyd1uoytmxAX za7GtdL3mgopzTHrztOJbcu SeCMQnv1z7pQEbFPSkSPUvQ RohgEi2ASTyg736uy1vxoT0 aBVoIME0PXbtGSNpYSNqesT gZXZhbHVhdGVkXHBhciAgXH XwliEQmG39oq8kbDW6v3DqH N3gw9UqaQB3AZFwdecvDGli rNHbgBipXeB7WJQoxJEgDc7 jqRWsHTD7JEAkwTvsxvBFnJ 9yEXDxHFd7OVStReEmXfnln eXXIBYzV3AnNQOmprSxtgie SSR1mK7dt4p7BFugQp5zBTI jczcpl7ktuxFwdMVlv2TwBF VbvdTfe3KqGNVewwQjyGRlN WBwyjFldf3cqwIqFDZeHVKw J6KvkgtphSkitoS8RGMtDMD tsFZiwHthYYKuWCk5AHutdp Hxl3RoLvTegzSkeDXiboWtS L1nYHOucPIhvrEqSEG5VBMp NZMREwBjLJOov2VxKG4qTUB jhWpbIWAtkR6ue8BqXLNdj2 4uIFRoZSBGREEgaGFzIGRld GVybWluZWQgdGhhdCBzdWNo BRAmQSUnGW8yZDLalcVwsBK ki9AswNTxbcRys2DhohIiYX HpIXI3IoVLpDDzrBLqmKRko eG5e4MhEADgxoYixMtsjJQm oORjtJIgl0Lweu9fVEZmn6p mtLpoFX0yySIbSBGmEYlgtv VlNZBwfmYnhmMcc1YrS5E3i Y3qPXbpp0ZfJm4xSSNre9Kc slLhDhMIuQpaVFdgLa3vQDB pvgatsPEqA2RtnJlecCYgEZ VuZGVyIHRoZSBDbGluaWNhb QRGHEAbiwF4x4D3BJdspGMe ymNfBB29LYIfRG8dlCRjdHC sv4LlXPz4TMLlF3lDWN96WD kgYXMgcXVhbGlmaWVkIHRvI MWbvyVoyw2keOqwwGKzf13i fXS6vUZ9VONdhB3lY0XoQJz rLa9pQMGbdutbdFPeuPnxCo 5ccGFyXGYwXGZzMjBccGFyf Q== [facility] [id number] 12:54:00Surgical Pathology Report Case: [id number] Authorizing Provider: Gage Diego MD Collected: 11/03/2020 11:05 AM Ordering Location: [facility] Received: 11/03/2020 02:30 PM SERVICES Pathologist: Jazmyne Mendes MD Specimens: A) - Kidney, Left B) - Lymph Node, Para-aortic lymphnode A. KIDNEY, LEFT, RADICAL NEPHRECTOMY: - WEIGHT: 533 GM- MIXED EPITHELIAL AND STROMAL TUMOR - TUMOR MEASURES 5 CM IN GREATEST DIMENSION- ALL SURGICAL MARGINS NEGATIVE FOR DYSPLASIA OR MALIGNANCY- SEE COMMENTB. LYMPH NODES, PARA-AORTIC, DISSECTION:- NINE BENIGN LYMPH NODES (0/9)- NEGATIVE FOR MALIGNANCY Signing Pathologist Direct Phone Line: [phone] signed by Jazmyne Mendes MD on 11/07/2020 at 12:54 PMSections show renal parenchyma containing a cystic and solid tumor, displaying numerous cysts lined by flat benign epithelium, in a spindled ovarian-type stroma. Vasculature in the stroma appears prominent. Focal calcifications, foam cells are also seen. No stromal atypia, pleomorphism, mitoses or necrosis are seen. Immunohistochemical studies reveal that the stroma is ER and RI positive and the epithelial cysts are CK7 positive. Smooth muscle actin highlights bloodvessels. 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 Alexandro Daley has reviewed the case and agrees with the [id number] x 2; 29797; 37302 x 3Renalmass, left A. Left kidney; B. Lymph nodeA. [...] outside its capsule. The remaining parenchyma is stone-brown and grossly unremarkable with cortex measuring up to 0.9 cm in thickness. Theurothelium is stone-pink, smooth and glistening. Hilar lymph nodes are not grossly identified. [employer] sections are submitted in 16 cassettes as follows: A1, renal artery, renal vein, ureter margin en faceA2-A3, cyst to renal sinusA4-A5, cyst to renal capsuleA6, cyst to Gerota's fasciaA7-A13, cyst A14-A15, normal parenchyma to include oziswfeqbyU60, hilar fat. MJP/pl B. Received fresh labeled with the patient's name, medical record number and "lymph node" is a 4.4 x 1.5 x 1.0 cm aggregate of yellow lobulated adipose tissue. The specimen is sectioned to reveal multiple possible lymph nodes ranging from 0.4 to 1.0 cm in greatest dimension. The specimen is entirely submitted submitted as follows: B1-B2, Multiple possible intact lymph nodesB3, 1 possible bisected lymph nodeB4-B5, remaining adipose tissue. MJP/pl Performed. The interpretation of this case included the use of immunohistochemistryor special stains.ER; RI; CK7 AND ACTINStromal cells stain positive with smooth muscle actin, estrogen receptor and progesterone receptor. 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 Control Slides Examined: In- house known positive controls were evaluated along with the test tissue. These control slides run alongside of the patients sample show appropriate staining. Internal positive and negative controls when available are evaluated Immunohistochemistry technical testing was performed at [facility], Pathology Laboratory where it was developed and its performance characteristics were determined. It has not been cleared or approved by the U.S. Foodand Drug Administration. The FDA has determined that such clearance or approval is not necessary. The test is used for clinical purposes. It should not be regarded as investigational or for research. This laboratory is certified under the Clinical Laboratory Improvement Amendments of 1988 (CLIA-88) as qualified to perform high complexity clinical laboratory testing.Basic Metabolic Panel - In [id number] 06:03:00 Test Item Value Reference Range Interpretation Comments Sodium (test code = 138 meq/L 073-695 9674-2) Potassium (test code = 4.2 meq/L 3.5-5.1 2823-3) Chloride (test code = 103 meq/L 98-107 2075-0) CO2 (test code = 23 meq/L 22-29 2028-9) BUN (test code = 17 mg/dL 7-21 3094-0) Creatinine (test code 1.12 mg/dL 0.57-1.25 = 2160-0) Glucose (test code = 154 mg/dL 70-105 H 2345-7) Calcium (test code = 8.5 mg/dL 8.4-10.2 99452-2) EGFR (test code = 50 mL/min/1.73 [place] [address]-5) NOT ACCURATE CREATININE CLEARANCE IN PREDICTING GLOMERULAR FILTRATION RATE . ESTIMATED GFR I S NOT APPLICABLE FOR DIALYSIS PATIENTS. TIM (test code = TIM) Slitter Scorer Cut Off Operator ID - PIAYA L Lab Interpretation Abnormal (test code = 51074-1) [facility] Metabolic Panel - In [id number] 06:03:00 Test Item Value Reference Range Interpretation Comments Sodium (test code = 138 meq/L 681-706 0394-2) Potassium (test code = 4.2 meq/L 3.5-5.1 2823-3) Chloride (test code = 103 meq/L 98-107 2075-0) CO2 (test code = 23 meq/L -2027-) BUN (test code = 17 mg/dL - 3094-0) Creatinine (test code 1.12 mg/dL 0.57-1.25 = 2160-0) Glucose (test code = 154 mg/dL 70-105 H 2345-7) Calcium (test code = 8.5 mg/dL 8.4-10.2 04160-4) EGFR (test code = 50 mL/min/1.[place] [address]-4) NOT ACCURATE CREATININE CLEARANCE IN PREDICTING GLOMERULAR FILTRATION RATE . ESTIMATED GFR I S NOT APPLICABLE FOR DIALYSIS PATIENTS. TIM (test code = TIM) Slitter Scorer Cut Off Operator ID - PIAYA L Lab Interpretation Abnormal (test code = 33830-3) [facility] Metabolic Panel - In [id number] 06:03:00 Test Item Value Reference Range Interpretation Comments Sodium (test code = 138 meq/L 345-571 3172-2) Potassium (test code = 4.2 meq/L 3.5-5.1 2823-3) Chloride (test code = 103 meq/L 98-107 2075-0) CO2 (test code = 23 meq/L -2027-9) BUN (test code = 17 mg/dL - 3094-0) Creatinine (test code 1.12 mg/dL 0.57-1.25 = 2160-0) Glucose (test code = 154 mg/dL 70-105 H 2345-7) Calcium (test code = 8.5 mg/dL 8.4-10.2 22865-8) EGFR (test code = 50 mL/min/1.[place] [address]-7) NOT ACCURATE CREATININE CLEARANCE IN PREDICTING GLOMERULAR FILTRATION RATE . ESTIMATED GFR I S NOT APPLICABLE FOR DIALYSIS PATIENTS. TIM (test code = TIM) Slitter Scorer Cut Off Operator ID - PIAYA L Lab Interpretation Abnormal (test code = 39845-2) [facility] Metabolic Panel - In [id number] 06:03:00 Test Item Value Reference Range Interpretation Comments Sodium (test code = 138 meq/L 864-031 2710-2) Potassium (test code = 4.2 meq/L 3.5-5.1 2823-3) Chloride (test code = 103 meq/L 98-107 2075-0) CO2 (test code = 23 meq/L 22-29 2028-9) BUN (test code = 17 mg/dL 7-21 3094-0) Creatinine (test code 1.12 mg/dL 0.57-1.25 = 2160-0) Glucose (test code = 154 mg/dL 70-105 H 2345-7) Calcium (test code = 8.5 mg/dL 8.4-10.2 72810-1) EGFR (test code = 50 mL/min/1.73 [place] [address]-9) NOT ACCURATE CREATININE CLEARANCE IN PREDICTING GLOMERULAR FILTRATION RATE . ESTIMATED GFR I S NOT APPLICABLE FOR DIALYSIS PATIENTS. TIM (test code = TIM) Slitter Scorer Cut Off Operator ID - PIAYA L Lab Interpretation Abnormal (test code = 66177-0) [facility] METABOLIC [id number] 06:03:00 Test Item Value Reference Range Interpretation [...] S NOT APPLICABLE FOR DIALYSIS PATIEN TS. Slitter Scorer Cut Off Operator ID - PIAYA [facility] with platelet count + automated [id number] 05:15:00 Test Item Value Reference Range Interpretation Comments WBC (test code = 6690-2) 9.3 See_Comment [A utomated message] The system [facility] generated this result transmitted ref erence range: 3.5 - 10 .5 K/L. The refe rence range was not u sed to interpret this result as normal/abnor mal. RBC (test code = 789-8) 4.08 See_Comment [Au tomated message] The system [facility] generated this result transmitted ref erence range: 3.93 - 5 .22 M/L. The refe rence range was not u sed to interpret this result as normal/abnor mal. MCHC (test code = 786-4) 32.2 See_Comment [A utomated message] The system [facility] generated this result transmitted ref erence range: [...] code = 187 See_Comment [Aut omated message] 777-3) The system [facility] generated this result transmitted ref erence range: 150 - 45 0 K/CU MM. The referen ce range was not u sed to interpret this result as normal/abnor mal. MPV (test code = 9.6 fL 9.4-12.3 23016-2) nRBC (test code = 413) 0 See_Comment [Aut omated message] The system [facility] generated this result transmitted ref erence range: [...] H [Aut omated message] 670) The system [facility] generated this result transmitted ref erence range: 1.56 - 6 .13 K/L. The refe rence range was not u sed to interpret this result as normal/abnor mal. # Lymphs (test code = 0.77 See_Comment L [Auto mated message] 414) The system [facility] generated this result transmitted ref erence range: 1.18 - 3 .74 K/L. The refe rence range was not u sed to interpret this result as normal/abnor mal. # Monos (test code = 0.76 See_Comment H [Autom ated message] 415) The system [facility] generated this result transmitted ref erence range: 0.24 - 0 .36 K/L. The refe rence range was not u sed to interpret this result as normal/abnor mal. # Eos (test code = 416) 0.00 See_Comment L [Au tomated message] The system [facility] generated this result transmitted ref erence range: 0.04 - 0 .36 K/L. The refe rence range was not u sed to interpret this result as normal/abnor mal. # Baso (test code = 417) 0.00 See_Comment L [A utomated message] The system [facility] generated this result transmitted ref erence range: 0.01 - 0 .08 K/L. The refe rence range was not u sed to interpret this result as normal/abnor mal. Immature 1 % 0-1 Granulocytes-Relative (test code = 2801) Lab Interpretation (test Abnormal code = 80720-8) [facility] with platelet count + automated [id number] 05:15:00 Test Item Value Reference Range Interpretation Comments WBC (test code = 6690-2) 9.3 See_Comment [A utomated message] The system [facility] generated this result transmitted ref erence range: 3.5 - 10 .5 K/L. The refe rence range was not u sed to interpret this result as normal/abnor mal. RBC (test code = 789-8) 4.08 See_Comment [Au tomated message] The system [facility] generated this result transmitted ref erence range: 3.93 - 5 .22 M/L. The refe rence range was not u sed to interpret this result as normal/abnor mal. MCHC (test code = 786-4) 32.2 See_Comment [A utomated message] The system CVRx generated this result transmitted ref erence range: [...] code = 187 See_Comment [Aut omated message] 777-3) The system CVRx generated this result transmitted ref erence range: 150 - 45 0 K/CU MM. The referen ce range was not u sed to interpret this result as normal/abnor mal. MPV (test code = 9.6 fL 9.4-12.3 87672-0) nRBC (test code = 413) 0 See_Comment [Aut omated message] The system CVRx generated this result transmitted ref erence range: [...] H [Aut omated message] 670) The system CVRx generated this result transmitted ref erence range: 1.56 - 6 .13 K/L. The refe rence range was not u sed to interpret this result as normal/abnor mal. # Lymphs (test code = 0.77 See_Comment L [Auto mated message] 414) The system [facility] generated this result transmitted ref erence range: 1.18 - 3 .74 K/L. The refe rence range was not u sed to interpret this result as normal/abnor mal. # Monos (test code = 0.76 See_Comment H [Autom ated message] 415) The system [facility] generated this result transmitted ref erence range: 0.24 - 0 .36 K/L. The refe rence range was not u sed to interpret this result as normal/abnor mal. # Eos (test code = 416) 0.00 See_Comment L [Au tomated message] The system CVRx generated this result transmitted ref erence range: 0.04 - 0 .36 K/L. The refe rence range was not u sed to interpret this result as normal/abnor mal. # Baso (test code = 417) 0.00 See_Comment L [A utomated message] The system CVRx generated this result transmitted ref erence range: 0.01 - 0 .08 K/L. The refe rence range was not u sed to interpret this result as normal/abnor mal. Immature 1 % 0-1 Granulocytes-Relative (test code = 2801) Lab Interpretation (test Abnormal code = 16180-9) [facility] with platelet count + automated [id number] 05:15:00 Test Item Value Reference Range Interpretation Comments WBC (test code = 6690-2) 9.3 See_Comment [A utomated message] The system CVRx generated this result transmitted ref erence range: 3.5 - 10 .5 K/L. The refe rence range was not u sed to interpret this result as normal/abnor mal. RBC (test code = 789-8) 4.08 See_Comment [Au tomated message] The system CVRx generated this result transmitted ref erence range: 3.93 - 5 .22 M/L. The refe rence range was not u sed to interpret this result as normal/abnor mal. MCHC (test code = 786-4) 32.2 See_Comment [A utomated message] The system CVRx generated this result transmitted ref erence range: [...] code = 187 See_Comment [Aut omated message] 777-3) The system CVRx generated this result transmitted ref erence range: 150 - 45 0 K/CU MM. The referen ce range was not u sed to interpret this result as normal/abnor mal. MPV (test code = 9.6 fL 9.4-12.3 44342-5) nRBC (test code = 413) 0 See_Comment [Aut omated message] The system CVRx generated this result transmitted ref erence range: [...] H [Aut omated message] 670) The system CVRx generated this result transmitted ref erence range: 1.56 - 6 .13 K/L. The refe rence range was not u sed to interpret this result as normal/abnor mal. # Lymphs (test code = 0.77 See_Comment L [Auto mated message] 414) The system CVRx generated this result transmitted ref erence range: 1.18 - 3 .74 K/L. The refe rence range was not u sed to interpret this result as normal/abnor mal. # Monos (test code = 0.76 See_Comment H [Autom ated message] 415) The system CVRx generated this result transmitted ref erence range: 0.24 - 0 .36 K/L. The refe rence range was not u sed to interpret this result as normal/abnor mal. # Eos (test code = 416) 0.00 See_Comment L [Au tomated message] The system CVRx generated this result transmitted ref erence range: 0.04 - 0 .36 K/L. The refe rence range was not u sed to interpret this result as normal/abnor mal. # Baso (test code = 417) 0.00 See_Comment L [A utomated message] The system CVRx generated this result transmitted ref erence range: 0.01 - 0 .08 K/L. The refe rence range was not u sed to interpret this result as normal/abnor mal. Immature 1 % 0-1 Granulocytes-Relative (test code = 2801) Lab Interpretation (test Abnormal code = 15859-7) [facility] with platelet count + automated [id number] 05:15:00 Test Item Value Reference Range Interpretation Comments WBC (test code = 6690-2) 9.3 See_Comment [A utomated message] The system CVRx generated this result transmitted ref erence range: 3.5 - 10 .5 K/L. The refe rence range was not u sed to interpret this result as normal/abnor mal. RBC (test code = 789-8) 4.08 See_Comment [Au tomated message] The system CVRx generated this result transmitted ref erence range: 3.93 - 5 .22 M/L. The refe rence range was not u sed to interpret this result as normal/abnor mal. MCHC (test code = 786-4) 32.2 See_Comment [A utomated message] The system CVRx generated this result transmitted ref erence range: [...] code = 187 See_Comment [Aut omated message] 777-3) The system CVRx generated this result transmitted ref erence range: 150 - 45 0 K/CU MM. The referen ce range was not u sed to interpret this result as normal/abnor mal. MPV (test code = 9.6 fL 9.4-12.3 25659-5) nRBC (test code = 413) 0 See_Comment [Aut omated message] The system CVRx generated this result transmitted ref erence range: [...] H [Aut omated message] 670) The system CVRx generated this result transmitted ref erence range: 1.56 - 6 .13 K/L. The refe rence range was not u sed to interpret this result as normal/abnor mal. # Lymphs (test code = 0.77 See_Comment L [Auto mated message] 414) The system CVRx generated this result transmitted ref erence range: 1.18 - 3 .74 K/L. The refe rence range was not u sed to interpret this result as normal/abnor mal. # Monos (test code = 0.76 See_Comment H [Autom ated message] 415) The system CVRx generated this result transmitted ref erence range: 0.24 - 0 .36 K/L. The refe rence range was not u sed to interpret this result as normal/abnor mal. # Eos (test code = 416) 0.00 See_Comment L [Au tomated message] The system CVRx generated this result transmitted ref erence range: 0.04 - 0 .36 K/L. The refe rence range was not u sed to interpret this result as normal/abnor mal. # Baso (test code = 417) 0.00 See_Comment L [A utomated message] The system CVRx generated this result transmitted ref erence range: 0.01 - 0 .08 K/L. The refe rence range was not u sed to interpret this result as normal/abnor mal. Immature 1 % 0-1 Granulocytes-Relative (test code = 2801) Lab Interpretation (test Abnormal code = 05449-8) [facility] W/PLT COUNT & AUTO [id number] 05:15:00 Test Item Value Reference Range Interpretation [...] (BEAKER) (test code = 2801) BASIC METABOLIC [id number] 13:37:00 Test Item Value Reference Range Interpretation [...] S NOT APPLICABLE FOR DIALYSIS PATIEN TS. 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 The reference range was not u sed to interpret th is result as normal/abnormal . Hematocrit (test code 38.4 % 34.1-44.9 = 4544-3) TIM (test code = TIM) Slitter Scorer Cut Off Operator ID - [id number] Lab Interpretation Normal (test code = 86483-3) [facility] [id number] 13:21:00 Test Item Value Reference Range Interpretation Comments Hemoglobin (test code 12.6 See_Comment [Auto mated = 786-4) message] The system which generated this result transmit kelsey reference range : 11.2 - 15.7 GM/ DL. The reference range was not u sed to interpret th is result as normal/abnormal . Hematocrit (test code 38.4 % 34.1-44.9 = 4544-3) TIM (test code = TMI) Slitter Scorer Cut Off Operator ID - [id number] Lab Interpretation Normal (test code = 82442-2) [facility] [id number] 13:21:00 Test Item Value Reference Range Interpretation Comments Hemoglobin (test code 12.6 See_Comment [Auto mated = 786-4) message] The system which generated this result transmit kelsey reference range : 11.2 - 15.7 GM/ DL. The reference range was not u sed to interpret th is result as normal/abnormal . Hematocrit (test code 38.4 % 34.1-44.9 = 4544-3) TIM (test code = TIM) Slitter Scorer Cut Off Operator ID - [id number] Lab Interpretation Normal (test code = 92295-0) [facility] dhdglzghos4770-71-90 13:21:00 Test Item Value Reference Range Interpretation Comments Hemoglobin (test code 12.6 See_Comment [Auto mated = 786-4) message] The system which generated this result transmit kelsey reference range : 11.2 - 15.7 GM/ DL. The reference range was not u sed to interpret th is result as normal/abnormal . Hematocrit (test code 38.4 % 34.1-44.9 = 4544-3) TIM (test code = TIM) Slitter Scorer Cut Off Operator ID - [id number] Lab Interpretation Normal (test code = 24467-6) [facility] AND [id number] 13:21:00 Test Item Value Reference Range Interpretation Comments HEMOGLOBIN (BEAKER) (test code = 12.6 GM/DL 11.2-15.7 410) HEMATOCRIT (DAMION) (test code = 38.4 % 34.1-44.9 411) Slitter Scorer Cut Off Operator ID - [id number], [id number] 07:48:00 Test Item Value Reference Range Interpretation Comments ABO Grouping (test code = 2588) O Rh Factor (test code = 2589) NEG [facility], [id number] 07:48:00 Test Item Value Reference Range Interpretation Comments ABO Grouping (test code = 2588) O Rh Factor (test code = 2589) NEG [facility]AB[facility], [id number] 07:48:00 Test Item Value Reference Range Interpretation Comments ABO Grouping (test code = 2588) O Rh Factor (test code = 2589) NEG [facility], [id number] 07:48:00 Test Item Value Reference Range Interpretation Comments ABO Grouping (test code = 2588) O Rh Factor (test code = 2589) [facility] [id number] 15:31:58 Interface, External Ris In - 10/31/2020 3:32 PM CDTVentricular Rate 68 BPMAtrial Rate 68 BPMP-R Interval 170 msQRS Duration 96 msQ-T Interval 364 msQTC Calculation(Bazett) 387 msP Halls 58 degreesR Axis25 degreesT Halls 75 degreesNormal sinus rhythmNormal ECGNo previous ECGs availableConfirmed by MD GREG, RANJITH Morocho ([id number]) on 10/31/2020 3:31:52 [facility] RAD, CHEST, 2 [id number] 15:10:00Reason for exam:->pre opIs the patient ?->No[facility] : 1965 Sex: FFINAL REPORT Chest x-ray, PA and lateral views Clinical History: pre op Comparison: None Findings: The cardiac and mediastinal contours are normal. There is no pneumothorax, padmaja pulmonary edema, consolidation or pleural effusion. The bony structures are unremarkable. Intrathecalstimulator wires are present. Impression: No acute process. Signed: Anahy Yin Verified Date/T sharath: 10/30/2020 15:10:04 Reading Location: [facility] Radiology Reading Room XR chest 2 views 2020-10-30 15:10:00Interface, External Ris In - 10/30/2020 3:12 PM CDTFINAL REPORT Chest x-ray, PAand lateral views Clinical History: pre op Comparison: None Findings: The cardiac and mediastinal contours are normal. There is no pneumothorax, padmaja pulmonary edema, consolidation or pleural effusion. The bony structures are unremarkable. Intrathecal stimulator wires are present. Impression: No acute process. Signed: Anahy Yin Verified Date/Time: 10/30/2020 15:10:04 Reading Location: [facility] Radiology Reading Room [facility], [id number] 12:53:00 Test Item Value Reference Range Interpretation Comments ABO/RH AUTOMATED (BEAKER) (test O NEGATIVE code = 2260) Ab Scrn (test code = 890-4) NEGATIVE [facility], [id number] 12:53:00 Test Item Value Reference Range Interpretation Comments ABO/RH AUTOMATED (BEAKER) (test O NEGATIVE code = 2260) Ab Scrn (test code = 890-4) NEGATIVE [facility], [id number] 12:53:00 Test Item Value Reference Range Interpretation Comments ABO/RH AUTOMATED (BEAKER) (test O NEGATIVE code = 2260) Ab Scrn (test code = 890-4) NEGATIVE [facility]Type [facility] screen, [id number] 12:53:00 Test Item Value Reference Range Interpretation Comments ABO/RH AUTOMATED (BEAKER) (test O NEGATIVE code = 2260) Ab Scrn (test code = 890-4) NEGATIVE [facility]BASIC [facility]ABOLIC [id number] 12:12:00 Test Item Value Reference Range Interpretation [...] S NOT APPLICABLE FOR DIALYSIS PATIEN TS. Slitter Scorer Cut Off Operator ID - RONAL [id number] 12:08:00 Test Item Value Reference Range Interpretation Comments PTT (test code = 24584-4) 28.1 See_Comment [ Automated message] The system CVRx generated this result transmitted ref erence range: 22.5 - 3 6.0 seconds. The re ference range was not u sed to interpret this result as normal/abnor mal. Lab Interpretation (test Normal code = 10484-6) [facility]PTT[facility] 12:08:00 Test Item Value Reference Range Interpretation Comments PTT (test code = 61205-2) 28.1 See_Comment [ Automated message] The system CVRx generated this result transmitted ref erence range: 22.5 - 3 6.0 seconds. The re ference range was not u sed to interpret this result as normal/abnor mal. Lab Interpretation (test Normal code = 52556-3) [facility] 12:08:00 Test Item Value Reference Range Interpretation Comments PTT (test code = 20183-5) 28.1 See_Comment [ Automated message] The system CVRx generated this result transmitted ref erence range: 22.5 - 3 6.0 seconds. The re ference range was not u sed to interpret this result as normal/abnor mal. Lab Interpretation (test Normal code = 70902-8) [facility] 12:08:00 Test Item Value Reference Range Interpretation Comments PTT (test code = 81794-5) 28.1 See_Comment [ Automated message] The system CVRx generated this result transmitted ref erence range: 22.5 - 3 6.0 seconds. The re ference range was not u sed to interpret this result as normal/abnor mal. Lab Interpretation (test Normal code = 55386-2) [facility]APTT[facility] 12:08:00 Test Item Value Reference Range Interpretation Comments PARTIAL THROMBOPLASTIN TIME 28.1 seconds 22.5-36.0 (BEAKER) (test code = 760) Prothrombin time/[id number] 12:07:00 Test Item Value Reference Interpretation Comments [...] valves. Lab Interpretation Normal (test code = 71103-7) [facility] HospitalProthrombin time/[id number] 12:07:00 Test Item Value Reference Interpretation Comments [...] valves. Lab Interpretation Normal (test code = 67849-2) [facility] HospitalProthrombin time/[id number] 12:07:00 Test Item Value Reference Interpretation Comments [...] valves. Lab Interpretation Normal (test code = 98713-1) [facility] HospitalProthrombin time/[id number] 12:07:00 Test Item Value Reference Interpretation Comments Range Protime (test code = 13.1 See_Comment [Autom ated 5902-2) message] The system which generated this result transmitted reference range : 11.9 - 14.2 seconds. The reference range was not used to interpret this result as normal/abnormal . INR (test code = 1.01 See_Comment [Automated 9575-6) message] The system which generated this result [...] valves. Lab Interpretation Normal (test code = 20318-0) [facility] HospitalPROTHROMBIN TIME/[id number] 12:07:00 Test Item Value Reference Range Interpretation Comments PROTIME (BEAKER) 13.1 seconds 11.9-14.2 (test code = 759) INR (BEAKER) (test 1.01 See_Comment [Automat ed message] code = 370) The system CVRx generated this result transmitted ref erence range: <=5.90. The reference range was not used to int erpret this result as normal/abnormal . RECOMMENDED COUMADIN/WARFARIN INR THERAPY RANGESSTANDARD DOSE: 2.0 - 3.0 Includes: PROPHYLAXIS for venous thrombosis, systemic embolization; TREATMENT for venous thrombosis and/or pulmonary embolus.HIGH RISK: Target INR is 2.5-3.5 for patients with mechanical heart valves.CBC W/PLT COUNT & AUTO [id number] 11:58:00 Test Item Value Reference Range Interpretation [...] PERCENT (BEAKER) (test code = 2801) STONE [id number] 00:09:00 Test Item Value Reference Range Interpretation Comments SPECIMEN RIGHT KIDNEY STONE SOURCE(QUEST) (test code = 9929008) COMPONENT 1 See Below Calcium Oxalate (QUEST) (test Dihydrate code = 1735677) (Weddellite) 20% Calcium Oxalate Monohydrate (Whewellite) 80 % This test was develo ped and its analyti godwin performance characteristics have been determined by [facility]. It has not been cl eared or approved by theFDA. This as say has been valida kelsey pursuant to the CLIA regulations and is used for clinic al purposes. COMPONENT 2 DNR (QUEST) (test code = 2498) Stone Weight 0.002 g (test code = 2654) TIM (test code = Performing Lab TIM) *[facility] [employer] [facility], [address] [place] [phone] Chaz Guevara MD [facility] [id number] 00:09:00 Test Item Value Reference Range Interpretation Comments SPECIMEN RIGHT KIDNEY STONE SOURCE(QUEST) (test code = 0823180) COMPONENT 1 See Below Calcium Oxalate (QUEST) (test Dihydrate code = 1234802) (Weddellite) 20% Calcium Oxalate Monohydrate (Whewellite) 80 % This test was develo ped and its analyti godwin performance characteristics have been determined by [employer]. It has not been cl eared or approved by theFDA. This as say has been valida kelsey pursuant to the CLIA regulations and is used for clinic al purposes. COMPONENT 2 DNR (QUEST) (test code = 2498) Stone Weight 0.002 g (test code = 2654) TIM (test code = Performing Lab TIM) *[facility] [employer] [facility], [address] [place] [phone] Chaz Guevara MD [facility] [id number] 00:09:00 Test Item Value Reference Range Interpretation Comments SPECIMEN RIGHT KIDNEY STONE SOURCE(QUEST) (test code = 0901687) COMPONENT 1 See Below Calcium Oxalate (QUEST) (test Dihydrate code = 8665351) (Weddellite) 20% Calcium Oxalate Monohydrate (Whewellite) 80 % This test was develo ped and its analyti godwin performance characteristics have been determined by [employer]. It has not been cl eared or approved by theFDA. This as say has been valida kelsey pursuant to the CLIA regulations and is used for clinic al purposes. COMPONENT 2 DNR (QUEST) (test code = 2498) Stone Weight 0.002 g (test code = 2654) TIM (test code = Performing Lab TIM) *[facility] [employer] [facility], [address] [place] [phone] Chaz Guevara MD [facility] [id number] 00:09:00 Test Item Value Reference Range Interpretation Comments SPECIMEN RIGHT KIDNEY STONE SOURCE(QUEST) (test code = 1411028) COMPONENT 1 See Below Calcium Oxalate (QUEST) (test Dihydrate code = 5209453) (Weddellite) 20% Calcium Oxalate Monohydrate (Whewellite) 80 % This test was develo ped and its analyti godwin performance characteristics have been determined by [employer] [facility]. It has not been cl eared or approved by theA. This as say has been valida kelsey pursuant to the CLIA regulations and is used for clinic al purposes. COMPONENT 2 DNR (QUEST) (test code = 2498) Stone Weight 0.002 g (test code = 2654) TIM (test code = Performing Lab TIM) *[facility], [address] [place] [phone] Chaz Guevara MD, [facility] [id number] 07:59:00 Test Item Value Reference Range Interpretation Comments Result (test code = 6463-4) No growth [facility] hesipck4084-89-84 07:59:00 Test Item Value Reference Range Interpretation Comments Result (test code = 6463-4) No growth [facility] [id number] 07:59:00 Test Item Value Reference Range Interpretation Comments Result (test code = 6463-4) No growth [facility] [id number] 07:59:00 Test Item Value Reference Range Interpretation Comments Result (test code = 6463-4) No growth [facility] [id number] 07:59:00 Test Item Value Reference Range Interpretation Comments CULTURE (BEAKER) (test code = 1095) No growth URINE [id number] 12:17:00 Test Item Value Reference Range Interpretation Comments CULTURE (BEAKER) (test 60-69,000 col/mL skin code = 1095) nilam FL, FLUORO, NON-SPECIFIC, UP TO 1 [id number] 17:29:21Reason for exam:- >Retrograde pyelogram [facility] : 1965 Sex: FFluoroscopic unit utilized for a procedure performed in the OR. No interpretation was requested. Refer to the operative report for findings. Refer to PACS for patient radiation dose information.FL fluoro non-specific up to 1 [id number] 17:15:00 Interface, External Ris In - 10/10/2020 5:29 PM CDTFluoroscopic unit utilized for a procedure performed in the OR. No interpretation was requested. Refer to the operative report for findings. Refer to PACS for patient radiation dose information.[facility] HospitalUrinalysis w/Niarsptaorl2208-84-64 12:51:00 Test Item Value Reference Range Interpretation Comments Color, UA (test code Yellow = 5778-6) Clarity, UA (test Clear code = 5767-9) Specific [place], UA 1.019 1.001-1.035 (test code = 5811-5) pH, UA (test code = 6.0 5.0-8.0 5803-2) Protein, UA (test Negative Negative code = 79668-4) Glucose, UA (test Negative Negative code = 365) Ketones, UA (test Negative Negative code = 2514-8) Bilirubin, UA (test Negative Negative code = 75126-0) Blood, UA (test code Negative Negative = 35991-2) Nitrite, UA (test Negative Negative code = 5802-4) Leukocytes, UA (test Large Negative A code = 5799-2) Urobilinogen, UA 0.2 mg/dL 0.2-1 (test code = 31882-8) RBC, UA (test code = 1 See_Comment [Autom ated 85028-6) message] The system which generated this result [...] Bacteria, UA (test None Seen code = 68745-6) Mucus (test code = Rare 8247-9) Squam Epithel, UA 3 See_Comment [Automate d (test code = 40211-3) messag e] The system which generated this result transmit kelsey reference range : /HPF. The reference range was not used to interpret this result as normal/abnormal . Crystals, Urine (test None Seen code = 92203-1) Specimen Source (test Urine, Clean code = 2795) Catch TIM (test code = TIM) Slitter Scorer Cut Off Operator ID - [auto]Slitter Scorer Cut Off Operator ID - tech Lab Interpretation Abnormal (test code = 16341-3) [facility]inal[facility] w/Qipzetqebdl8652-29-48 12:51:00 Test Item Value Reference Range Interpretation Comments Color, UA (test code Yellow = 5778-6) Clarity, UA (test Clear code = 5767-9) Specific [place], UA 1.019 1.001-1.035 (test code = 5811-5) pH, UA (test code = 6.0 5.0-8.0 5803-2) Protein, UA (test Negative Negative code = 22197-2) Glucose, UA (test Negative Negative code = 365) Ketones, UA (test Negative Negative code = 2514-8) Bilirubin, UA (test Negative Negative code = 81216-9) Blood, UA (test code Negative Negative = 91953-1) Nitrite, UA (test Negative Negative code = 5802-4) Leukocytes, UA (test Large Negative A code = 5799-2) Urobilinogen, UA 0.2 mg/dL 0.2-1.0 (test code = 12345-3) RBC, UA (test code = 1 See_Comment [Autom ated 14232-6) message] The system which generated this result [...] Bacteria, UA (test None Seen code = 69742-5) Mucus (test code = Rare 8247-9) Squam Epithel, UA 3 See_Comment [Automate d (test code = 36865-2) messag e] The system which generated this result transmit kelsey reference range : /HPF. The reference range was not used to interpret this result as normal/abnormal . Crystals, Urine (test None Seen code = 56871-6) Specimen Source (test Urine, Clean code = 2795) Catch TIM (test code = TIM) Slitter Scorer Cut Off Operator ID - [auto]Slitter Scorer Cut Off Operator ID - tech Lab Interpretation Abnormal (test code = 05518-5) [facility]inal[facility] w/Ufmrpjznxid7539-61-56 12:51:00 Test Item Value Reference Range Interpretation Comments Color, UA (test code Yellow = 5778-6) Clarity, UA (test Clear code = 5767-9) Specific [place], UA 1.019 1.001-1.035 (test code = 5811-5) pH, UA (test code = 6.0 5.0-8.0 5803-2) Protein, UA (test Negative Negative code = 18910-7) Glucose, UA (test Negative Negative code = 365) Ketones, UA (test Negative Negative code = 2514-8) Bilirubin, UA (test Negative Negative code = 10872-4) Blood, UA (test code Negative Negative = 19614-0) Nitrite, UA (test Negative Negative code = 5802-4) Leukocytes, UA (test Large Negative A code = 5799-2) Urobilinogen, UA 0.2 mg/dL 0.2-1.0 (test code = 41718-7) RBC, UA (test code = 1 See_Comment [Autom ated 41884-3) message] The system which generated this result [...] Bacteria, UA (test None Seen code = 86066-9) Mucus (test code = Rare 8247-9) Squam Epithel, UA 3 See_Comment [Automate d (test code = 37513-4) messag e] The system which generated this result transmit kelsey reference range : /HPF. The reference range was not used to interpret this result as normal/abnormal . Crystals, Urine (test None Seen code = 46318-5) Specimen Source (test Urine, Clean code = 2795) Catch TIM (test code = TIM) Slitter Scorer Cut Off Operator ID - [auto]Slitter Scorer Cut Off Operator ID - tech Lab Interpretation Abnormal (test code = 93835-8) [facility]Vdzspzzjwen8385-66-32 12:51:00 Test Item Value Reference Range Interpretation Comments Color, UA (test code Yellow = 5778-6) Clarity, UA (test Clear code = 5767-9) Specific [place], UA 1.019 1.001-1.035 (test code = 5811-5) pH, UA (test code = 6.0 5.0-8.0 5803-2) Protein, UA (test Negative Negative code = 62822-3) Glucose, UA (test Negative Negative code = 365) Ketones, UA (test Negative Negative code = 2514-8) Bilirubin, UA (test Negative Negative code = 12927-3) Blood, UA (test code Negative Negative = 64897-8) Nitrite, UA (test Negative Negative code = 5802-4) Leukocytes, UA (test Large Negative A code = 5799-2) Urobilinogen, UA 0.2 mg/dL 0.2-1.0 (test code = 61702-6) RBC, UA (test code = 1 See_Comment [Autom ated 95103-7) message] The system which generated this result [...] Bacteria, UA (test None Seen code = 62888-6) Mucus (test code = Rare 8247-9) Squam Epithel, UA 3 See_Comment [Automate d (test code = 00961-7) messag e] The system which generated this result transmit kelsey reference range : /HPF. The reference range was not used to interpret this result as normal/abnormal . Crystals, Urine (test None Seen code = 15237-2) Specimen Source (test Urine, Clean code = 2795) Catch TIM (test code = TIM) Slitter Scorer Cut Off Operator ID - [auto]Slitter Scorer Cut Off Operator ID - tech Lab Interpretation Abnormal (test code = 11040-2) [facility] [id number] 12:51:00 Test Item Value Reference Range Interpretation [...] (test code Urine, Clean Catch = 2795) Slitter Scorer Cut Off Operator ID - [auto]Slitter Scorer Cut Off Operator ID - techBASIC METABOLIC [id number] 12:01:00 Test Item Value Reference Range Interpretation [...] S NOT APPLICABLE FOR DIALYSIS PATIEN TS. Slitter Scorer Cut Off Operator ID - EDASIPROTHROMBIN TIME/[id number] 11:53:00 Test Item Value Reference Range Interpretation Comments PROTIME (BEAKER) 12.8 seconds 11.9-14.2 (test code = 759) INR (BEAKER) (test 0.98 See_Comment [Automat ed message] code = 370) The system CVRx generated this result transmitted ref erence range: <=5.90. The reference range was not used to int erpret this result as normal/abnormal . RECOMMENDED COUMADIN/WARFARIN INR THERAPY RANGESSTANDARD DOSE: 2.0 - 3.0 Includes: PROPHYLAXIS for venous thrombosis, systemic embolization; TREATMENT for venous thrombosis and/or pulmonary embolus.HIGH RISK: Target INR is 2.5-3.5 for patients with mechanical heart valves.[id number] 11:53:00 Test Item Value Reference Range Interpretation Comments PARTIAL THROMBOPLASTIN TIME 25.3 seconds 22.5-36.0 (BEAKER) (test code = 760) CBC W/PLT COUNT & AUTO [id number] 11:48:00 Test Item Value Reference Range Interpretation [...] (BEAKER) (test code = 2801) POCT , [id number] 11:32:00 Test Item Value Reference Range Interpretation Comments Test Urine, POC (test code Negative = 8538180) Control line present?, POC (test Yes code = 6741412) Background clear?, POC (test code = Yes 8198109) UPT Cassette Lot #, POC (test code = 60498 4046194) UPT Cassette Expiration Date, POC 74322103 (test code = 2483783) [facility] , [id number] 11:32:00 Test Item Value Reference Range Interpretation Comments Test Urine, POC (test code Negative = 7570882) Control line present?, POC (test Yes code = 7144609) Background clear?, POC (test code = Yes 2501595) UPT Cassette Lot #, POC (test code = 20598 0091779) UPT Cassette Expiration Date, POC 64458952 (test code = 3662762) [facility] , [id number] 11:32:00 Test Item Value Reference Range Interpretation Comments Test Urine, POC (test code Negative = 0361694) Control line present?, POC (test Yes code = 6333784) Background clear?, POC (test code = Yes 6268763) UPT Cassette Lot #, POC (test code = 75753 9413117) UPT Cassette Expiration Date, POC 09290245 (test code = 8774233) [facility] , [id number] 11:32:00 Test Item Value Reference Range Interpretation Comments Test Urine, POC (test code Negative = 5757251) Control line present?, POC (test Yes code = 2613451) Background clear?, POC (test code = Yes 1435080) UPT Cassette Lot #, POC (test code = 61607 0019837) UPT Cassette Expiration Date, POC 93956509 (test code = 4367297) [facility] URINALYSIS [id number] 00:00:00 Test Item Value Reference Range Interpretation Comments COLOR UA (test code = 5778-6) Yellow YELLOW/STRAW CLARITY UA (test code = 19243-5) Clear CLEAR GLUCOSE UA (test code = 5792-7) Negative NEGATIVE BILIRUBIN UA (test code = 5770-3) Negative NEGATIVE KETONES UA (test code = 99458-0) Negative NEGATIVE SPECIFIC GRAVITY UA (test code = 1.005-1.035 5811-5) BLOOD UA (test code = 5794-3) Negative NEGATIVE PH UA (test code = 5803-2) 5.0-9.0 PROTEIN UA (test code = 5804-0) Negative NEGATIVE UROBILINOGEN UA (test code = 0.02 E.U/DL NORMAL MG/DL 5818-0) LEUKOCYTE ESTERASE UA (test code Negative NEGATIVE = 5799-2) NITRITE UA (test code = 5802-4) Negative NEGATIVE REDUCING SUBSTANCES URINE (test NEGATIVE code = 90606-6) [facility][U] XRAY KNEE 3 VWS LEFT [id number] 15:52:00 Images acquired, not reported on this accession number.[facility]- XR FLUOROSCOPY 0-60 [id number] 10:13:00 [facility] 1965 Sex: F Name: FRANCOIS CHACON [facility] : 1965 Age/S: 54 / F [address] [facility] Unit #: [id number] Loc: [place] [address] Phys: Juan C Boykin MD Acct: [id number] Dis Date: Status: ADM IN PHONE #:[phone] Exam Date: 04/08/2020 1300 FAX #: Reason: RETRO CYSTO WITH RETRO PYELO EXAMS: CPT: [id number] XR FLUOROSCOPY 0-60 MIN 37604 Fluoro Time: 10 SEC DAP (Gy m2): Air Kerma (mGy): EXAM: - XR FLUOROSCOPY 0-60 MIN HISTORY: RETRO CYSTO WITH RETRO PYELO LOCATION CODE: H50 IMPRESSION: Fluoroscopicimages provided for surgical guidance. Please see operative report for full details. Fluoroscopy time:10.5 seconds Cumulative Dose: 2.98 mGy at 1013 Reported and signed by: Karen Gardner MD CC: May Rivero DO; Juan C Boykin MD PAGE 1 Signed Report Name: FRANCOIS CHACON : 1965 Age/S: 54 / F [address] [address] [place] Unit #: [id number] Loc: [place] [address] Phys: Juan C Boykin MD Acct: [id number] Dis Date: Status: ADM IN PHONE #: [phone] Exam Date: 04/08/2020 1300 FAX #: Reason: RETRO CYSTO WITH RETRO PYELO EXAMS: CPT: [id number] XR FLUOROSCOPY 0-60 MIN 96893 Fluoro Time: 10 SEC DAP(Gy m2): Air Kerma (mGy): (Continued) Technologist: Tierra Blevins, RT(R) Trnscb Date/Time: 04/09/2020 (1013) tMISSYR.EB14 Orig Print D/T: S: 04/09/2020 (1016) PAGE 2 Signed ReportUR HCG QUAL 2020-04-06 10:44:00 Test Item Value Reference Range Interpretation Comments UR HCG QUAL (test code = HCGQLU) NEGATIVE NEGATIVE BASIC METABOLIC [id number] 06:12:00 Test Item Value Reference Range Interpretation [...] CA) 8.6 MG/DL 8.5-10.1 N CBC W/AUTO [id number] 05:56:00 Test Item Value Reference Range Interpretation [...] DIFF/SCN CRITERIA = MDIFF) COVID 19 INHOUSE [id number] 19:15:00 Test Item Value Reference Range Interpretation Comments COVID 19 INHOUSE AG NEGATIVE Negative Per manu facturer, (test code = negative result s should [id number]) be treated aspr esumptive and, if inconsi stent with clinical signs andsymptoms or necessary for patient man agement, should betested with an alternative mol ecular assay. Negative resultsdo not preclude SA RS-CoV-2 infection and s hould not be usedas the s ole basis for patient man agement decisions. Nega tive results should be considered in t he context of apatient's r ecent exposures, hist ory, presence of cli nicalsigns and symptoms co nsistent with COVID-19. - CT ABD PELVIS W/O [id number] 17:38:00 [facility] : 1965 Sex: F Name: FRANCOIS CHACON [facility] : 1965 Age/S: 54 / F [address] [address] Unit #: [id number] Loc: [place] [address] Phys: Tyler Amor MD Acct: [id number] Dis Date: Status: REG ER PHONE #: [phone] Exam Date: 04/05/2020 164 FAX #: Reason: right flank pain EXAMS: CPT: [id number] CT ABD PE LVIS W/O CONT 46275 EXAM: - CT ABD PELVIS W/O CONT HISTORY: 54-year-old female with right flank pain LOCATION: R16 COMPARISON: No previous exam available. TECHNIQUE: 5 mm contiguous axial images wereobtained from the diaphragmatic dome through the symphysis pubis. No contrast was administered. Automated exposure reduction (Auto mA/Smart mA) was utilized in compliance with ACR Image Wisely with DLPof 721 mGy-cm. FINDINGS: Thoracic: Included images of the lower chest demonstrate no abnormalities. Hepatobiliary: The liver is normal without focal lesion. The gallbladder is normal. No biliary dilation. Pancreas: Normal. Spleen: Normal. Adrenals: Normal. Genitourinary: The bilateral kidneys contain s everal punctate calcifications, compatible with nonobstructing intrarenal calculi. A 10.0 x 7.2 x 8.4 cm complex cystic structure is seen in the anterior aspect of the left kidney, possibly a complex fluid collection or multicystic mass. An associated infectious processes cannot be ruled out. A left ureteral stent is in place, with the proximal and distal pigtails located within the left renal pelvis and urinary bladder, respectively. There is no evidence [...] 1 Signed Report (CONTINUED) Name: FRANCOIS CHACON [facility] : 1965 Age/S: 54 / F [address] [facility] [place] Unit #: [id number] Loc: [place] [address] Phys: Tyler Amor MD Acct: [id number] Dis Date: Status: REG ER PHONE #: [phone] Exam Date: 04/05/2020 5066 FAX #: Reason: right flank pain EXAMS: CPT: [id number] CT ABD PELVIS W/O CONT 45336 (Continued) Vascular: No evidence of aneurysmor dissection. Lymphatics: No enlarged lymph nodes by CT size criteria. Bones/Soft Tissues: No acuteosseous findings. A 3.0 x 2.2 cm rounded subcutaneous structures is seen in the right anterior abdominal wall, with an average Hounsfield number of 1.5, possibly a sebaceous cyst. A 1.0 cm umbilical hernia is noted. The patient is status post L5-S1 posterior fusion. A thoracic spinal stimulator is also noted. Peritoneum/Other: No extraluminal air. No extraluminal fluid. IMPRESSION: 10.0 x 7.2 x 8.4 cm complex cystic structure in the left anterior kidney. Diagnostic considerations include malignancyand abscess. Recommend further evaluation by CT with contrast. Renal ultrasound may be helpful. Bilateral intrarenal calculi. Left ureteral stent in place. No evidence of hydronephrosis. 3.0 cm subcutaneous structure may reflect a sebaceous cyst. Retained fecal debris in the right colon, suggestive of constipation. at 1738 Reported and signed by: Dayana Wills M.D. CC: SaranyaRick Rivero DO; Tyler Amor MD; Angela HURTADO Technologist:MIGUEL Lopez CTDI: DLP: Trnscb Date/Time: 04/05/2020 (173) t.SDR.JSL Orig Print D/T: S:04/05/2020 (0815) PAGE 2 Signed ReportBASIC METABOLIC [id number] 16:19:00 Test Item Value Reference Range Interpretation [...] CA) 9.5 MG/DL 8.5-10.1 N HEPATIC FUNCTION [id number] 16:19:00 Test Item Value Reference Range Interpretation [...] Unit/L 45-117 N code = ALKP) LACTIC [id number] 16:19:00 Test Item Value Reference Range Interpretation Comments LACTIC ACID (test code = LACT) 1.2 mmol/L 0.4-2.0 N BASIC METABOLIC [id number] 16:08:00 Test Item Value Reference Range Interpretation [...] CA) 9.5 MG/DL 8.5-10.1 N HEPATIC FUNCTION [id number] 16:08:00 Test Item Value Reference Range Interpretation [...] code Unit/L 45-117 = ALKP) CBC W/AUTO [id number] 16:00:00 Test Item Value Reference Range Interpretation [...] CRITERIA = MDIFF) - XR CHEST 1 [id number] 15:59:00 [facility] : 1965 Sex: F Name: FRANCOIS CHACON [facility] : 1965 Age/S: 54 / F [address] [address] Unit #: [id number] Loc: [place] [address] Phys: Tyler Amor MD Acct: [id number] Dis Date: Status: PRE ER PHONE #: [phone] Exam Date: 04/05/2020 9373 FAX #: Reason: Code Sepsis EXAMS: CPT: [id number] XR CHEST 1 V 82975 Fluoro Time: DAP (Gy m2): Air Kerma (mGy): EXAM: - XR CHEST 1 V 04/05/2020 3:24 PM Location code:C3 HISTORY: 54 years-old Female with Code Sepsis TECHNIQUE: Frontal portable view of the chest COMPARISON: None FINDINGS: Lines and tubes: None. Cardiomediastinal: The cardiomediastinal silhouette is unremarkable. Lungs and pleura: The lungs are clear. No pleural effusion. No pneumothorax. Musculoskeletal: No significant skeletal abnormality. ACDF hardware is seen within the cervical spine. IMPRESSION: No radiographic evidence of a focal infiltrate. at 1559 Reported and signed by: Yunier King M.D. CC: SaranyaRick Rivero DO; Tyler Amor MD; Angela HURTADO PAGE 1 Signed Report Name: FRANCOIS CHACON : 1965 Age/S: 54 / F [address] [address] Unit #: [id number] Loc: [place] [address] Phys: Tyler Amor MD Acct: [id number] Dis Date: Status: PRE ER PHONE #: [phone] Exam Date: 04/05/2020 1557 FAX #: Reason: Code Sepsis EXAMS: CPT: [id number] XR CHEST 1 V 48894 Fluoro Time: DAP (Gy m2): Air Kerma (mGy): (Continued) Technologist: Antonia Brunner RT(R) Trnscb Date/Time: 04/05/2020 (1559) tYESICP11 Orig Print D/T: S: 04/05/2020 (3752) PAGE 2 Signed ReportUA RFLX MICR CULT IF [id number] 15:55:00 Test Item Value Reference Range Interpretation [...] culture: Flank PainUA RFLX MICR CULT IF [id number] 15:46:00 Test Item Value Reference Range Interpretation [...] UACULT) Indication for culture: Flank PainCBC W/AUTO [id number] 15:37:00 Test Item Value Reference Range Interpretation [...] WITH AUTO DIFFERENTI AL. COVID 19 INHOUSE [id number] 14:27:00 Test Item Value Reference Range Interpretation Comments COVID 19 INHOUSE AG (test code = POSITIVE Negative A [id number]) BASIC METABOLIC [id number] 14:03:00 Test Item Value Reference Range Interpretation [...] CA) 9.2 MG/DL 8.5-10.1 N HCG SERUM [id number] 14:03:00 Test Item Value Reference Range Interpretation Comments [facility] SERUM QUAL (test SERUM NEGATIVE SCREEN NEGATIVE code = HCGQL) BASIC METABOLIC [id number] 14:00:00 Test Item Value Reference Range Interpretation [...] code = CA) MG/DL 8.5-10.1 HCG SERUM [id number] 14:00:00 Test Item Value Reference Range Interpretation Comments HCG SERUM QUAL (test SERUM NEGATIVE SCREEN NEGATIVE code = HCGQL) CBC W/AUTO [id number] 13:49:00 Test Item Value Reference Range Interpretation [...] REQUIRED (test code = DIFF/SCN CRITERIA MDIFF) [id number] 16:03:38Pola Goodwin CRNA 02/28/2020 10:04 AMAirway Date/Time: 02/28/2020 9:53 AMPerformed by: Pola Goodwin CRNAAuthorized by: Cher Mayfield MD Location: ORUrgency: ElectiveAnesthesiologist: Cher Mayfield MDResident/LOAN OFFICER ASSISTANT/AA: Pola Goodwin CRNAPerformed by: resident/LOAN OFFICER ASSISTANT and resident/LOAN OFFICER ASSISTANT/AAPreoxygenated with 100% O2: Yes C-spine Precautions Maintained Throughout: Yes Mask Ventilation:Not attemptedFinal Airway Type: Supraglottic airwayLMA Size: 4Number of Attempts at Approach: 1 Teeth intact, atraumatic [id number] 16:03:38Pola Goodwin CRNA 02/28/2020 10:04 AMAirway Date/Time: 02/28/2020 9:53 AMPerformed by: Pola Goodwin CRNAAuthorized by: Cher Mayfield MD Location: ORUrgency: ElectiveAnesthesiologist: Cher Mayfield MDResident/KRISHNA/AA: Pola Goodwin CRNAPerformed by: resident/LOAN OFFICER ASSISTANT and resident/LOAN OFFICER ASSISTANT/AAPreoxygenated with 100% O2: Yes C-spine Precautions Maintained Throughout: Yes Mask Ventilation: Not attemptedFinal Airway Type: Supraglottic airwayLMA Size: 4Number of Attempts at Approach: 1 Teeth intact, atraumatic zlqmwwdjkwLERD-WdB-0 (COVID-19) RNA [Presence] in Respiratory specimen by SUELLEN with probe [id number] 02:07:21 Test Item Value Reference Range Interpretation Comments SARS-CoV-2 (COVID-19) RNA Not detected Not-Detected [Presence] in Respiratory specimen by SUELLEN with probe detection (test code = 92458-5) [facility][U] XRAY KNEE 3 VWS LEFT [id number] 16:00:00Images acquired, not reported on this accession number.[facility][QL] URINALYSIS, COMPLETE W/REFLEX TO [id number] 16:40:00 Test Item Value Reference Range Interpretation Comments COLOR; Normal (test YELLOW YELLOW N code = 5778-6) APPEARANCE (test code = CLEAR CLEAR N APPEARANCE) SPECIFIC GRAVITY; 1.023 1.001-1.035 N Normal (test code = 2965-2) PH; Normal (test code = 5.5 5.0-8.0 N 2756-5) GLUCOSE; Normal (test NEGATIVE NEGATIVE N code = 1547-9) BILIRUBIN; Normal (test NEGATIVE NEGATIVE N code = 26731-8) KETONES; Normal (test NEGATIVE NEGATIVE N code = 04880-3) OCCULT BLOOD; Abnormal 1+ NEGATIVE A (test code = 65596-9) PROTEIN; Normal (test NEGATIVE NEGATIVE N code = 20568-9) NITRITE (test code = NEGATIVE NEGATIVE N NITRITE) LEUKOCYTE ESTERASE NEGATIVE NEGATIVE N (test code = LEUKOCYTE ESTERASE) WBC; Abnormal (test 6-10 < OR = 5 A code = 6690-2) RBC; Abnormal (test 3-10 < OR = 2 A code = 789-8) SQUAMOUS EPITHELIAL 6-10 < OR = 5 A CELLS; Abnormal (test code = 56191-1) BACTERIA; Normal (test NONE SEEN NONE SEEN N code = 630-4) HYALINE CAST; Normal NONE SEEN NONE SEEN N (test code = 10727-8) REFLEXIVE URINE CULTURE CULTURE INDICATED - (test code = REFLEXIVE RESULTS TO FOLLOW URINE CULTURE) [facility][Q] CULTURE, URINE, ROUTINE (REFL)2020-01-16 16:40:00 Test Item Value Reference Range Interpretation Comments CULTURE, URINE, See Comment A CULTURE, URI NE, ROUTINE ROUTINE (REFL) (REFL) Micro Number: (test code = [id number] Test S tatus: CULTURE, URINE, Final Specim en Source: ROUTINE (REFL)) URINE Specim en Quality: Adequate Result : 10,000-49,000 C FU/mL of Enterococcus fa ecalis E.faecalis - INT ALEA AMPICILLIN S <= 2 CIPROFLOXACIN S 1 LEVOFLOXACIN S 1 NITROFURANTOIN S <=16 TETRACYCLINE S <=1 VANCOMYCIN S 2S=Susceptible I=Intermediate R=Resistant * = Not TestedNR = Not Reported NN = See Ther apy Comments [facility][QL] CULTURE, URINE, [id number] 16:40:00 Test Item Value Reference Range Interpretation Comments CULTURE (test code See Comment CULTURE, URINE, ROUTINE = CULTURE) Micro Number: [id number] Test Status: Fi nal Specimen Source : URINE Specimen Qualit y: Adequate Result : Growth of mixed nilam was isolated, sugge sting probable contam ination. No further test ing will be performed. I f clinically adore cated, recollection us ing a method to minim ize contamination, with prompt transfer to Urine Culture T r[place] Tube, is recomm ended. [facility][U] XRAY KNEE 3 VWS LEFT [id number] 08:32:00Images acquired, not reported on this accession number.[facility][U] XRAY KNEE 3 VWS LEFT [id number] 09:57:00Images acquired, not reported on this accession number. [facility][U] XRAY KNEE 3 VWS LEFT [id number] 09:22:00Images acquired, not reported on this accession number.[facility] PhysiciansInitial Promis 29 Survey 2019-10-16 01:32:04 Test Item Value Reference Range Interpretation Comments Pain Interference: (test code = Pain 68.2 1 N Interference:) Pain Intensity: (test code = Pain 53.7 1 N Intensity:) Physical Function: (test code = 32.6 1 N Physical Function:) Satisfaction Role: (test code = 37.9 1 N Satisfaction Role:) [facility][U] XR KNEE 3 VWS [id number] 09:48:00Images acquired, not reported on this accession number.[facility][U] XR KNEE 1 OR 2 VWS BILATERAL 2019-02-22 16:14:00Images acquired, not reported on this accession number.[facility][U] XRAY KNEE 3 VWS RIGHT [id number] 16:00:00Images acquired, not reported on this accession number.[facility]
[2022-05-24] MEDS ORDERED: dexAMETHasone 10 MG/ML VIAL ONE (03:21)
[2022-05-24] MEDS ORDERED: METOCLOPRAMIDE 10 MG/2mL INJ ONE (03:21)
[2022-05-24] MEDS ORDERED: NA CHLORIDE 0.9% 1,000 ML ONE (03:21)
[2022-05-24] MEDS ORDERED: PROMETHAZINE INJ 25 MG/ML AMP ONE (04:12)
--- NOTE | 2022-05-24 05:05 | EDPHYS ---
Physician Documentation [facility] Name: Maida Arreola Age: 56 yrs Sex: Female : 1965 Arrival Date: 05/24/2022 Time: 02:56 Bed 5 Private MD: ED Physician Refugio Dang HPI: 05/24 03:49 This 56 yrs old Female presents to ER via Ambulatory with complaints of Ear Pain, ms3 Headache, Stiff Neck, Nausea. 03:49 56-year-old female with past medical history of rheumatoid arthritis and TMJ presents ms3 for headache that began at 7 PM. Patient states she had left ear pain yesterday. Patient states she currently has 10/10 left-sided head pain. Patient states she has a history of migraines. Historical: - Allergies: 03:16 Benadryl; Makes heart race; ll3 03:16 Morphine; ll3 - Home Meds: 03:16 potassium citrate oral [Active]; hydroxychloroquine oral [Active]; ll3 - PSHx: 03:16 left kidney removal october 2020; knee replacement; october 2019; lower back fusion; neck ll3 fusion; - Immunization history:: Client reports receiving the 2nd dose of the Covid vaccine. - Social history:: Smoking status: Patient denies any tobacco usage or history of. ROS: 03:49 Constitutional: Negative for fever, and chills. Cardiovascular: Negative for chest ms3 pain, and palpitations. Respiratory: Negative for shortness of breath, cough, wheezing, and pleuritic chest pain, Abdomen/GI: Negative for abdominal pain, nausea, vomiting, diarrhea, and constipation, MS/Extremity: Negative for injury and deformity, Skin: Negative for injury, rash, and discoloration. 03:49 Neuro: Positive for headache. 03:49 All other systems are negative. Exam: 03:49 Constitutional: This is a well developed, well nourished patient who is awake, alert, ms3 and in no acute distress. Head/Face: Normocephalic, atraumatic. Neck: Trachea midline, no cervical lymphadenopathy. Supple, full range of motion without nuchal rigidity, or vertebral point tenderness. No Meningismus. Chest/axilla: Normal chest wall appearance and motion. Nontender with no deformity. Cardiovascular: Regular rate and rhythm with a normal S1 and S2. No gallops, murmurs, or rubs. Normal PMI, no JVD. No pulse deficits. Respiratory: Lungs have equal breath sounds bilaterally, clear to auscultation and percussion. No rales, rhonchi or wheezes noted. No increased work of breathing, no retractions or nasal flaring. Abdomen/GI: Soft, non-tender, with normal bowel sounds. No distension or tympany. No guarding or rebound. No evidence of tenderness throughout. Skin: Warm, dry with normal turgor. Normal color with no rashes, no lesions, and no evidence of cellulitis. Vital Signs: 03:12 BP 158 / 108; Pulse 84; Resp 18; Temp 97.8(TE); Pulse Ox 99% on R/A; Weight 102.06 kg ll3 (R); Height 5 ft. 7 in. (170.18 cm) (R); Pain 10/10; 04:35 BP 149 / 95; Pulse 65; Resp 16; Pulse Ox 100% on R/A; jb4 03:12 Body Mass Index 35.24 (102.06 kg, 170.18 cm) ll3 MDM: 03:11 Patient medically screened. ms3 03:48 Independent interpretation of the following test(s) in the Emergency Department CT ms3 Scan: My interpretation is CT scan images reviewed by me: No ICH seen.. 03:49 Differential diagnosis: Migraine vs TMJ vs HTN. ms3 05:05 Data reviewed: vital signs, nurses notes, radiologic studies, CT scan, and as a result, ms3 I will discharge patient. I considered the following discharge prescriptions or medication management in the emergency department Medications were administered in the Emergency Department. See MAR. Test considered but Not performed: Labs: Patient without fever, chills.. Care significantly affected by the following chronic conditions: TMJ, Rheumatoid arthritis . Counseling: I had a detailed discussion with the patient and/or guardian regarding: the historical points, exam findings, and any diagnostic results supporting the discharge/admit diagnosis, radiology results, the need for outpatient follow up, to return to the emergency department if symptoms worsen or persist or if there are any questions or concerns that arise at home. ED course: Discussed CT scan head without contrast with patient. Patient notes improvement in her pain, alert and orient x4, no apparent distress, nontoxic, speaking full sentences, neurological intact. Patient to follow-up with Dr. Jaeger in 2 to 3 days. Patient understands and agrees with plan. All questions were answered. Return precautions discussed include numbness, weakness, vomiting, or any other concerns.. 05/24 03:10 Order name: CT Head Brain wo Cont ms3 Administered Medications: 03:23 Not Given (Other Intervention Used): Compazine (prochlorperazine) 10 mg IVP once jb4 03:25 Drug: NS 0.9% 1000 ml Route: IV; Rate: 1000 ml; Site: right antecubital; jb4 05:08 Follow up: Response: No adverse reaction; IV Status: Completed infusion; IV Intake: jb4 1000ml 03:25 Drug: Decadron - Dexamethasone 10 mg Route: IVP; Site: right antecubital; jb4 05:08 Follow up: Response: No adverse reaction jb4 03:25 Drug: Reglan (metoCLOPramide) 10 mg Route: IVP; Site: right antecubital; jb4 05:07 Follow up: Response: No adverse reaction; Marked relief of symptoms jb4 03:46 Not Given (wrong ptt): Phenergan (promethazine) 25 mg IM once jb4 04:06 Not Given (Duplicate Order): Phenergan (promethazine) 25 mg IVP once jb4 04:15 Drug: Phenergan (promethazine) 25 mg Route: IM; Site: right gluteus; jb4 05:07 Follow up: Response: No adverse reaction; Marked relief of symptoms; Nausea is decreasedjb4 Disposition Summary: 05/24/22 05:05 Discharge Ordered Location: Home ms3 Condition: Stable ms3 Diagnosis - Headache ms3 - Elevated blood-pressure reading, without diagnosis of hypertension ms3 Followup: ms3 - With: Yobani Jaeger MD - When: 2 - 3 days - Reason: Recheck today's complaints Discharge Instructions: - Discharge Summary Sheet ms3 - General Headache Without Cause ms3 Forms: - Medication Reconciliation Form ms3 - Thank You Letter ms3 - Antibiotic Education ms3 - Prescription Opioid Use ms3 Signatures: Dispatcher [employer] Caleb Antonio RN RN jb4 Refugio Dang DO DO ms3 Melinda Vidal RN RN ll3
--- NOTE | 2022-05-24 05:05 | ER ---
Nurse's Notes [facility] Name: aMida Arreola Age: 56 yrs Sex: Female : 1965 Arrival Date: 05/24/2022 Time: 02:56 Bed 5 Private MD: Diagnosis: Headache;Elevated blood-pressure reading, without diagnosis of hypertension Presentation: 05/24 03:12 Chief complaint: Patient states: C/o stiff neck X 1 week, states pain started at left ll3 ear yesterday morning and has since moved to left scientologist area, c/o H/A 10/10 and nausea. Coronavirus screen: Vaccine status: Patient reports receiving the 2nd dose of the covid vaccine. headache, nausea. Ebola Screen: No symptoms or risks identified at this time. Initial Sepsis Screen: Does the patient meet any 2 criteria? No. Patient's initial sepsis screen is negative. Does the patient have a suspected source of infection? No. Patient's initial sepsis screen is negative. Risk Assessment: Do you want to hurt yourself or someone else? Patient reports no desire to harm self or others. Onset of symptoms was May 17, 2022. 03:12 Method Of Arrival: Ambulatory ll3 03:12 Acuity: ERICKSON 3 ll3 Historical: - Allergies: 03:16 Benadryl; Makes heart race; ll3 03:16 Morphine; ll3 - Home Meds: 03:16 potassium citrate oral [Active]; hydroxychloroquine oral [Active]; ll3 - PSHx: 03:16 left kidney removal october 2020; knee replacement; october 2019; lower back fusion; neck ll3 fusion; - Immunization history:: Client reports receiving the 2nd dose of the Covid vaccine. - Social history:: Smoking status: Patient denies any tobacco usage or history of. Screenin:17 [facility] ED Fall Risk Assessment (Adult) History of falling in the last 3 months, jb4 including since admission No falls in past 3 months (0 pts). Abuse screen: Denies threats or abuse. Nutritional screening: No deficits noted. Tuberculosis screening: No symptoms or risk factors identified. Assessment: 03:27 General: Appears in no apparent distress. uncomfortable, Behavior is calm, cooperative, jb4 appropriate for age. Pain: Complains of pain in left side of head Pain does not radiate. Pain currently is 10 out of 10 on a pain scale. Neuro: Level of Consciousness is awake, alert, obeys commands, Oriented to person, place, time, situation, Reports photophobia. Cardiovascular: Patient's skin is warm and dry. Respiratory: Airway is patent Respiratory effort is even, unlabored, Respiratory pattern is regular, symmetrical. GI: No signs and/or symptoms were reported involving the gastrointestinal system. : No signs and/or symptoms were reported regarding the genitourinary system. EENT: Ear canal clear on left ear and right ear. Derm: Skin is intact, Skin is pink, warm \T\ dry. Musculoskeletal: Circulation, motion, and sensation intact. Range of motion: intact in all extremities. 04:35 Reassessment: Patient appears in no apparent distress at this time. Patient and/or jb4 family updated on plan of care and expected duration. Pain level reassessed. Patient is alert, oriented x 3, equal unlabored respirations, skin warm/dry/pink. 05:17 Reassessment: Patient appears in no apparent distress at this time. Patient and/or jb4 family updated on plan of care and expected duration. Pain level reassessed. Patient is alert, oriented x 3, equal unlabored respirations, skin warm/dry/pink. Vital Signs: 03:12 BP 158 / 108; Pulse 84; Resp 18; Temp 97.8(TE); Pulse Ox 99% on R/A; Weight 102.06 kg ll3 (R); Height 5 ft. 7 in. (170.18 cm) (R); Pain 10/10; 04:35 BP 149 / 95; Pulse 65; Resp 16; Pulse Ox 100% on R/A; jb4 03:12 Body Mass Index 35.24 (102.06 kg, 170.18 cm) ll3 ED Course: 02:56 Patient arrived in ED. ja2 02:57 Refugio Dang DO is Attending Physician. ms3 03:16 Triage completed. ll3 03:16 Arm band placed on Patient placed in an exam room, on a stretcher, on pulse oximetry. ll3 03:22 Inserted saline lock: 22 gauge in right antecubital area, using aseptic technique. oe 03:27 Caleb Nur, WINTER is Primary Nurse. jb4 03:40 CT Head Brain wo Cont In Process Unspecified. EDMS 05:04 Clarke, [place], MD is Referral Physician. ms3 05:17 Patient has correct armband on for positive identification. Bed in low position. Call jb4 light in reach. Side rails up X 1. 05:17 No provider procedures requiring assistance completed. IV discontinued, intact, jb4 bleeding controlled, No redness/swelling at site. Pressure dressing applied. Administered Medications: 03:23 Not Given (Other Intervention Used): Compazine (prochlorperazine) 10 mg IVP once jb4 03:25 Drug: NS 0.9% 1000 ml Route: IV; Rate: 1000 ml; Site: right antecubital; jb4 05:08 Follow up: Response: No adverse reaction; IV Status: Completed infusion; IV Intake: jb4 1000ml 03:25 Drug: Decadron - Dexamethasone 10 mg Route: IVP; Site: right antecubital; jb4 05:08 Follow up: Response: No adverse reaction jb4 03:25 Drug: Reglan (metoCLOPramide) 10 mg Route: IVP; Site: right antecubital; jb4 05:07 Follow up: Response: No adverse reaction; Marked relief of symptoms jb4 03:46 Not Given (wrong ptt): Phenergan (promethazine) 25 mg IM once jb4 04:06 Not Given (Duplicate Order): Phenergan (promethazine) 25 mg IVP once jb4 04:15 Drug: Phenergan (promethazine) 25 mg Route: IM; Site: right gluteus; jb4 05:07 Follow up: Response: No adverse reaction; Marked relief of symptoms; Nausea is decreasedjb4 Medication: 05:17 VIS not applicable for this client. jb4 Intake: 05:08 IV: 1000ml; Total: 1000ml. jb4 Outcome: 05:05 Discharge ordered by . ms3 05:17 Discharged to home ambulatory. jb4 05:17 Condition: stable 05:17 Discharge instructions given to patient, Instructed on discharge instructions, follow up and referral plans. Demonstrated understanding of instructions, follow-up care. 05:18 Patient left the ED. jb4 Signatures: Dispatcher [employer] EDMS Caleb Nur, RN RN jb4 Rakan Richards Marcus, DO DO ms3 Sorin, Jailyn ja2 Loubet, Lynsea, RN RN ll3
[2022-05-24 05:23] VITALS: TEMP 97.8
[2022-05-24 05:24] VITALS: BP 149/95; O2SAT 100
--- NOTE | 2022-05-24 13:28 | RAD REPORT ---
EXAM DESCRIPTION: CT Head Without Intravenous Contrast CLINICAL HISTORY: The patient is 56 years old and is Female; Headache, new or worsening TECHNIQUE: Axial computed tomography images of the head/brain without intravenous contrast. Sagitt al and coronal reformatted images were created and reviewed. This CT exam was performed using one o r more of the following dose reduction techniques: automated exposure control, adjustment of the mA and/or kV according to patient size, and/or use of iterative reconstruction technique. COMPARISON: No relevant prior studies available. FINDINGS: BRAIN: Suggestion of focal area of encephalomalacia within the right occipital lobe is n oted. The villaseñor-white differentiation is maintained. No intracranial hemorrhage, mass effect, midline shift is seen. There are no extra-axial fluid collections. There is no cerebral edema. VENTRICLES: Unremarkable. No ventriculomegaly. BONES/JOINTS: No acute fracture. SOFT TISSUES: Unremarkable. VASCULATURE: A prominent vascular space in the region of the right basal ganglia is present. SINUSES: Unremarkable as visualized. No acute sinusitis. MASTOID AIR CELLS: Unremarkable as visualized. No mastoid effusion. ORBITS: Unremarkable as visualized. IMPRESSION: No acute intracranial findings. Electronically signed by: Cortney Herrera MD 05/24/2022 3:47 AM FRUIT RECEIVER Due to temporary technical issues with the PACS/Fluency reporting system, reports are being signed by the in house radiologists without review as a courtesy to insure prompt reporting. The interpreting radiologist is fully responsible for the content of the report.
== END 2022-05-24 05:18 | disposition home or self-care (01) ==
LOC: ER 02:53
DX: R51.9 Headache, unspecified (principal); R03.0 Elevated blood-pressure reading, without diagnosis of hypertension; Z88.5 Allergy status to narcotic agent; Z88.8 Allergy status to other drugs, medicaments and biological substances
CPT/HCPCS: 70450; J2765; J2550; J1100; J7030; 96361; 96372; 96374; 96375; 99284